=== PATIENT | male | born 1930 | race Caucasian/White ===

== ENCOUNTER 2020-01-06 10:21 | Inpatient (IN) | payer OTHER ==
--- NOTE | 2020-01-06 10:47 | RAPID ---
Rapid Response - Rapid Response Assessment: Rapid response was called overhead at 10:16 to Registration. Upon arrival, pt was found supine on the ground in the hallway with his feet crossed at the ankles with a small amount of blood on the floor near his head and trunk. The pt's brother was there and stated he was here for an echo because he was told he might have a heart murmur. The RN in attendance who arrived before me stated the pt had fallen forward and was unresponsive but had a pulse. Initially, pt was unresponsive to sternal rub and had a leftward gaze. Alen Currie was called, and pt was taken to the ED for further care. In the elevator to the ED, pt began to blink his eyes. When he arrived in the treatment room, he was moving his arms. Initial Exam unresponsive to sternal rub leftward gaze RRR #r/o syncope vs mechanical fall vs CVA vs seizure -CT head and c-spine ordered by ED
--- NOTE | 2020-01-06 10:48 | PDOC ---
Attending Attestation - Resident Resident Name: Sergio Sage - ED Attending Attestation I have performed the following: I have examined & evaluated the patient, The case was reviewed & discussed with the resident, I agree w/resident's findings & plan - HPI HPI: 01/06/20 10:42 89-year-old male, per medical record has history of heart disease and high cholesterol, prostate CA presents to ED following rapid response with head injury. Patient was in the hospital accompanied by his brother, was scheduled for echo today and while ambulating fell to the ground striking his right head. Rapid response was called, the patient was unresponsive, brought to the emergency department where code ferguson was activated. 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 - Physicial Exam PE: 01/06/20 10:44 Blood pressure stable, glucose normal, afebrile Right lateral eyebrow stellate laceration, no other obvious deformity Eyes open, follows some commands, nonconversant Abdomen benign No extremity deformities or injuries Moves all 4 extremities equally on command - Critical Care Time Total Critical Care Time: 80 Critical Care Statement: The care of this patient involved high complexity decision making to prevent further life threatening deterioration of the patient's condition and/or to evaluate & treat vital organ system(s) failure or risk of failure. - Medical Decision Making 01/06/20 10:45 89-year-old man on aspirin with history of heart disease presents with fall/head injury, nonfocal neurological exam with stable vital signs but certainly depressed mental status and somnolence/lethargy. No focality on exam, rule out traumatic injury, unclear etiology of fall, question CVA versus syncope. No focal deficit on exam to suggest ischemic event, not a candidate for tpa. Stroke protocol initiated Labs, EKG, chest x-ray CT C-spine Admit 01/06/20 12:57 labs notable for anemia and renal insufficiency, no baseline available. ct with intraparenchymal/subarachnoid/subdural bleed. no shift. mental status markedly improved after CT, now conversant, moving all extremities, oriented at baseline. discussed advanced directives, and he would want intubation if needed. keppra for sz, platelets for asa reversal d/w nsgy, non-operative and agrees. ICU consulted and admitting patient Heart Score/ECG Review #1 ECG reviewed & interpreted by me at: 10:58 General ECG Interpretation: Sinus Rhythm, Normal Rate (71), Normal Intervals (qtc 406), No acute ischemic changes Discharge - Discharge Information Problems reviewed: Yes Clinical Impression/Diagnosis: Closed head injury Qualifiers: Encounter type: initial encounter Qualified Code(s): S09.90XA - Unspecified injury of head, initial encounter Facial laceration Qualifiers: Encounter type: initial encounter Qualified Code(s): S01.81XA - Laceration without foreign body of other part of head, initial encounter Accidental fall Qualifiers: Encounter type: initial encounter Qualified Code(s): W19.XXXA - Unspecified fall, initial encounter Traumatic subarachnoid hemorrhage Qualifiers: Encounter type: initial encounter Loss of consciousness presence/duration: with LOC of 30 min or less Qualified Code(s): S06.6X1A - Traumatic subarachnoid hemorrhage with loss of consciousness of 30 minutes or less, initial encounter Traumatic subdural hematoma Qualifiers: Encounter type: initial encounter Loss of consciousness presence/duration: with LOC of 30 min or less Qualified Code(s): S06.5X1A - Traumatic subdural hemorrhage with loss of consciousness of 30 minutes or less, initial encounter Condition: Guarded - Follow up/Referral - Patient Discharge Instructions - Post Discharge Activity
--- NOTE | 2020-01-06 11:04 | PDOC ---
History of Present Illness - General Chief Complaint: Injury Stated Complaint: POSSIBLE CVA Time Seen by Provider: 01/06/20 10:32 History Source: Patient Exam Limitations: No Limitations - History of Present Illness Initial Comments: 01/06/20 10:57 PCP: Dr. Croft HPI: 89 yo M pmh HTN, cardiac murmur, on daily 81mg ASA, presenting following rapid response in lobby for ?syncope with head trauma while registering for an outpatient ECHO. Patient has healthy, ambulatory baseline. Unwitnessed collapse (immediately found down) with LOC and right eyebrow laceration from glasses, patient initially unresponsive with report of left gaze deviation. On arrival in the ED, opens eyes spontaneously, moving extremities x4 but altered mentation, stats his name. Activated as code ferguson given gaze deviation, taken to CT for CT/CTA/Cerical spine. On return to department, MSE greatly improved, states name, date of , cooperates with ROS and neuro exam. Does not recall the specific events leading up to his fall. Denies chest pain, palpitations, headache, nausea, vomiting, pain anywhere in his body, weakness. Brother states patient had no complaints this morning before they presented to the ED. All: NKDA Meds: Per chart PMH: As above PSH: Per chart NIH Stroke Scale - Last Known Well Date/Time & Onset Date Last Known Well: 01/06/20 Time Last Known Well: 10:00 - Initial Evaluation Level of consciousness: Alert Ask patient the month and their age: Answers both correctly Ask patient to open & close eyes; make fist and let go: Obeys both correctly Best gaze (horizontal eye movement): Normal Visual field testing: No visual field loss Facial paresis (Show teeth/raise eyebrows/close eyes tight): Normal symmetrical movement Motor Function: Left Arm: Normal Motor Function: Right Arm: Normal (extends arm 90 (or 45) degrees for 10 seconds without drift Motor Function: Left Leg: Normal (extends leg 30 degrees for 5 seconds without drift) Motor Function: Right Leg: Normal (extends leg 30 degrees for 5 seconds without drift) Limb Ataxia: No ataxia Sensory(Use pinprick test arms,legs,trunk,face/side to side): Normal Best language (Describe picture, name items, read sentences): No Aphasia Dysarthria (read several words): Normal articulation Extinction and Inattention: No abnormality - Total Score NIH Stroke Scale Score: 0 Past History - Travel History Traveled outside of the country in the last 30 days: No Close contact w/someone who was outside of country & ill: No - Medical History Allergies/Adverse Reactions: Allergies Allergy/AdvReac Type Severity Reaction Status Date / Time No Known Allergies Allergy Verified 01/06/20 11:07 Home Medications: Ambulatory Orders Aspirin Coated [Ecotrin -] 325 mg PO DAILY 11/09/13 Atorvastatin Ca [Lipitor -] 20 mg PO DAILY 11/09/13 Carvedilol Phosphate [Coreg Cr] 80 mg PO DAILY 11/09/13 Cancer: Yes (prostate) Cardiac Disorders: Yes HTN: Yes Hypercholesterolemia: Yes - Psycho-Social/Smoking History Smoking History: Never smoked Have you smoked in the past 12 months: No Review of Systems - Review of Systems Able to Perform ROS?: Yes Is the patient limited German proficient: Yes Constitutional: No: Chills, Fever, Weakness HEENTM: No: Recent change in vision, Nose Congestion, Throat Pain Respiratory: No: Cough, Shortness of Breath, Wheezing Cardiac (ROS): Yes: See HPI, Syncope. No: Chest Pain, Edema, Irregular Heart Rate, Lightheadedness, Palpitations, Chest Tightness ABD/GI: No: Constipated, Diarrhea, Nausea, Vomiting : No: Burning, Dysuria, Frequency Musculoskeletal: No: Muscle Pain, Muscle Weakness, Neck Pain Integumentary: No: Bruising, Pruritus, Rash Neurological: No: Headache, Numbness, Tingling, Weakness, Unsteady Gait, Ataxia Psychiatric: No: Stressors, Change in Appetite Endocrine: No: Increased Thirst, Increased Urine, Change in Weight, Other Hematologic/Lymphatic: No: Anemia, Blood Clots, Easy Bleeding All Other Systems: Reviewed and Negative *Physical Exam - Physical Exam 01/06/20 11:06 Vitals reviewed, notable for 100s/60s, AFHDS GEN: Appears stated age, initially lethargic. AAOx1 (self). HEENT: Normocephalic with laceration overlying right lateral eyebrow, EOMI, PERRL. Sclera anicteric, non-injected. No facial asymmetry. Moist mucous membranes. Normal voice. Trachea midline. CV: RRR, S1/S2, no murmurs / rubs / gallops appreciated. LUNG: CTABL, normal work of breathing. No wheezes, rales, rhonchi. No cough. Speaking full sentences. GI: Soft, NTND, +BS, no guarding, no rebound. No masses. EXTREMITIES: 2+ distal pulses. No clubbing / cyanosis / edema. No gross deformity in any extremity. SKIN: Warm, dry, no rashes appreciated, non-jaundiced. PSYCH: Normal mood and affect. Cooperative and appropriate. NEURO: Strength 5+ biceps, triceps, intrinsic hand muscles, hip flexors / extensors / foot dorsiflexion / plantarflexion Sensation normal throughout to light touch Reflexes not assessed Eiggpw-meck-dtmlxk and heel-martinez normal (+No dysmetria) Rapid alternating movements normal (No dysdiadokinesis) Pronator drift not assessed Cranial nerves: CN 1: Not assessed CN 2: Normal visual mcelroy and acuity CN 3/4/6: EOMI CN 5: Normal facial sensation CN 7: Normal facial movement CN 8: Symmetric hearing soft sounds CN 9: Uvula midline and normal articulation CN 10: Uvula midline and normal articulation CN 11: Normal shrug / head turn strength CN 12: Normal tongue movement A&Ox3, normal remote recall but cannot remember coming to the hospital. ED Treatment Course - LABORATORY CBC & Chemistry Diagram: 01/06/20 10:51 01/06/20 10:51 Medical Decision Making - Medical Decision Making 01/06/20 11:15 89 yo M pmh HTN, cardiac murmur, on daily 81mg ASA, presenting following rapid response in lobby for ?syncope with head trauma while registering for an outpatient ECHO. Concerning for likely syncope vs stroke (NIHSS once MSE improved reassuring) vs traumatic bleed vs concussion. - NCHCT, Chest CTA, Cervical Spine - Stroke Order Set - On ASA daily, plts ordered CTs demonstrating traumatic bleeds isolated to the right side, subarachnoid and subdural MSE exam improving following return to the department 01/06/20 11:39 Patient consented for platelets Conversign with brother at bedside Updated on results Spoke with Dr. Elaine Kurtz, neurosurgery who agrees with ICU admission, laith smith, plts, neuro checks Spoke with ICU, endorsed patient for admission Pending CMP Discharge - Discharge Information Problems reviewed: Yes Clinical Impression/Diagnosis: Closed head injury Qualifiers: Encounter type: initial encounter Qualified Code(s): S09.90XA - Unspecified injury of head, initial encounter Facial laceration Qualifiers: Encounter type: initial encounter Qualified Code(s): S01.81XA - Laceration without foreign body of other part of head, initial encounter Accidental fall Qualifiers: Encounter type: initial encounter Qualified Code(s): W19.XXXA - Unspecified fall, initial encounter Traumatic subarachnoid hemorrhage Qualifiers: Encounter type: initial encounter Loss of consciousness presence/duration: with LOC of 30 min or less Qualified Code(s): S06.6X1A - Traumatic subarachnoid hemorrhage with loss of consciousness of 30 minutes or less, initial encounter Traumatic subdural hematoma Qualifiers: Encounter type: initial encounter Loss of consciousness presence/duration: with LOC of 30 min or less Qualified Code(s): S06.5X1A - Traumatic subdural hemorrhage with loss of consciousness of 30 minutes or less, initial encounter Condition: Guarded - Admission Yes - Follow up/Referral Referrals: Joseph Croft MD [Primary Care Provider] - - Patient Discharge Instructions - Post Discharge Activity
[2020-01-06 11:16] LABS: BASO % 0.2 % (0-2.0); EOS % 0.4 % (0-4.5); HEMATOCRIT 26.7 % (35.4-49); HEMOGLOBIN 9.1 GM/dL (11.7-16.9); MCH 34.1 pg (25.7-33.7); MEAN CELL VOLUME 100.3 fl (80-96); MEAN PLT VOLUME 7.9 fl (7.5-11.1); MONO % 11.1 % (3.8-10.2); NEUT % 73.3 % (42.8-82.8); PLATELET COUNT 120 K/MM3 (134-434); RBC 2.67 M/mm3 (4.00-5.60); RDW 13.9 % (11.9-15.9); WHITE BLOOD COUNT 9.3 K/mm3 (4.0-10.0)
[2020-01-06 11:23] LABS: INR 1.21 (0.83-1.09); PROTHROMBIN TIME (PATIENT) 14.3 SEC (9.7-13.0)
[2020-01-06] MEDS ORDERED: levETIRAcetam 500 MG/5 ML INJECTION VIAL IVPB ONE ×3 (11:34→22:00)
[2020-01-06 11:41] LABS: ALBUMIN 2.5 g/dl (3.4-5.0); ALK PHOS 49 U/L (45-117); ANION GAP 6 MMOL/L (8-16); BILIRUBIN,TOTAL 0.6 mg/dL (0.2-1); BLOOD UREA NITROGEN 50.8 mg/dL (7-18); CALCIUM 8.6 mg/dL (8.5-10.1); CHLORIDE 108 mmol/L (98-107); CHOLESTEROL 123 mg/dL (50-200); CO2 26 mmol/L (21-32); CREATININE 2.1 mg/dL (0.55-1.3); GLUCOSE,RANDOM 114 mg/dL (74-106); HDL CHOLESTEROL 49 mg/dL (40-60); LDL CHOLESTEROL (ONLY SJRH) 70 mg/dL (5-100); POTASSIUM 4.4 mmol/L (3.5-5.1); SGOT/AST 14 U/L (15-37); SGPT/ALT 12 U/L (13-61); SODIUM 140 mmol/L (136-145); TOT PROT 5.6 g/dl (6.4-8.2); TRIGLYCERIDES 56 mg/dL (0-150)
[2020-01-06] MEDS ORDERED: DIPHTH,PERTUSS(ACELL),TET 0.5 ML DISP.SYRIN IM ONE ×2 (12:26→12:27)
[2020-01-06] MEDS ORDERED: PANTOPRAZOLE SODIUM 40 MG/100 ML BAG IVPB ONE (12:27)
[2020-01-06] MEDS: PANTOPRAZOLE SODIUM 40 MG VIAL IVPUSH SCH (13:30)
--- NOTE | 2020-01-06 14:54 | CONSULT ---
Consult Consult Specialty:: Nephrology Reason for Consultation:: CKD - History of Present Illness Chief Complaint: syncope and head trauma History of Present Illness: Pt is an 89 year old male with pmhx of htn and ckd who had a syncopal episode while registering for an echo. He also had head trauma. He was found to have a small subarachnoid hemorrhage. he is awake and able to give some history. His brother is at bedside and he assisted with history. He has incontinence at baseline. He denies headache. He is not sure what meds he is on but does know he takes aspirin. I discussed the case with the ICU team. - History Source History Provided By: Patient, Family Member - Past Medical History Cardio/Vascular: Yes: Murmur - Alcohol/Substance Use Hx Alcohol Use: No - Smoking History Smoking history: Never smoked Have you smoked in the past 12 months: No Home Medications - Allergies Allergies/Adverse Reactions: Allergies Allergy/AdvReac Type Severity Reaction Status Date / Time No Known Allergies Allergy Verified 01/06/20 11:07 - Home Medications Home Medications: Ambulatory Orders Aspirin [ASA -] 81 mg PO DAILY 01/06/20 Family Medical History Family History: Denies Review of Systems - Review of Systems Constitutional: reports: Malaise, Weakness Eyes: reports: No Symptoms HENT: reports: No Symptoms Gastrointestinal: reports: No Symptoms Genitourinary: reports: No Symptoms Musculoskeletal: reports: Muscle Weakness Neurological: reports: No Symptoms Endocrine: reports: No Symptoms Hematology/Lymphatic: reports: No Symptoms Physical Exam Vital Signs: Vital Signs Temperature 97.6 F 01/06/20 14:08 Pulse Rate 64 01/06/20 14:31 Respiratory Rate 14 01/06/20 14:31 Blood Pressure 97/52 L 01/06/20 14:31 O2 Sat by Pulse Oximetry (%) 100 01/06/20 14:31 Constitutional: Yes: Mild Distress Eyes: Yes: Conjunctiva Clear HENT: Yes: Other (head lasceration) Cardiovascular: Yes: S1, S2 Respiratory: Yes: CTA Bilaterally Gastrointestinal: Yes: Soft Renal/: Yes: Incontinence Musculoskeletal: Yes: WNL Edema: No Integumentary: Yes: Skin Tear Neurological: Yes: Other (awake) Labs: CBC, BMP 01/06/20 10:51 01/06/20 10:51 Imaging - Results Cat Scan: Report Reviewed Problem List - Problems (1) CKD (chronic kidney disease) Code(s): N18.9 - CHRONIC KIDNEY DISEASE, UNSPECIFIED (2) Accidental fall Code(s): W19.XXXA - UNSPECIFIED FALL, INITIAL ENCOUNTER Qualifiers: Encounter type: initial encounter Qualified Code(s): W19.XXXA - Unspecified fall, initial encounter (3) Closed head injury Code(s): S09.90XA - UNSPECIFIED INJURY OF HEAD, INITIAL ENCOUNTER Qualifiers: Encounter type: initial encounter Qualified Code(s): S09.90XA - Unspecified injury of head, initial encounter Assessment/Plan Current Medications Generic Name Dose Route Start Last Admin Trade Name Freq PRN Reason Stop Dose Admin Chlorhexidine Gluconate 1 applic 01/06/20 22:00 Hibiclens For Decolonization - TP HS TONY Levetiracetam 1,000 mg 01/06/20 22:00 Keppra Injection - IVPB 01/06/20 22:01 ONCE ONE Mupirocin 1 applic 01/06/20 22:00 Bactroban Ointment (For Decolonization) - NS 01/11/20 21:59 BID TONY Pantoprazole Sodium 40 mg 01/06/20 12:15 01/06/20 13:30 Protonix Iv IVPUSH 40 mg DAILY TONY Administration Impression 1. syncope 2. subarachnoid hemorrhage 3. murmur 4. ckd Plan - monitor renal function - check ua - follow renal ultrasound - check outpt labs - cont ICU monitoring
--- NOTE | 2020-01-06 15:39 | HP ---
Admitting History and Physical - Primary Care Physician PCP: Joseph Croft - Admission History of Present Illness: pt seen / examined in icu chart is reviewed case d/w icu team In summary/ Er records 89 yo M pmh HTN, cardiac murmur, on daily 81mg ASA, presenting following rapid response in lobby for ?syncope with head trauma while registering for an outpatient ECHO. Patient has healthy, ambulatory baseline. Unwitnessed collapse (immediately found down) with LOC and right eyebrow laceration from glasses, patient initially unresponsive with report of left gaze deviation. On arrival in the ED, opens eyes spontaneously, moving extremities x4 but altered mentation, stats his name. Activated as code ferguson given gaze deviation, taken to CT for CT/CTA/Cerical spine. On return to department, MSE greatly improved, states name, date of , cooperates with ROS and neuro exam. Does not recall the specific events leading up to his fall. Denies chest pain, palpitations, headache, nausea, vomiting, pain anywhere in his body, weakness. Brother states patient had no complaints this morning before they presented to the ED. ct scan -- showed -- s/d and sub arachnoid hgge pt admitted to icu for close monitoring Neuro surgery consulted Cardiology and Renal also consulted for renal insufficiency/ cad. Pt seen by me in icu awake no distress Anxiety + denies headache/ dizziness/ cp denies abd pain History Source: Medical Record Limitations to Obtaining History: Clinical Condition - Past Medical History Cardiovascular: Yes: Murmur - Smoking History Smoking history: Never smoked Have you smoked in the past 12 months: No - Alcohol/Substance Use Hx Alcohol Use: No Home Medications - Allergies Allergies/Adverse Reactions: Allergies Allergy/AdvReac Type Severity Reaction Status Date / Time No Known Allergies Allergy Verified 01/06/20 11:07 - Home Medications Home Medications: Ambulatory Orders Aspirin [ASA -] 81 mg PO DAILY 01/06/20 Family Medical History Family History: Denies Review of Systems Findings/Remarks: see [facility] [place] Physical Examination Vital Signs: Vital Signs Temperature 97.6 F 01/06/20 14:08 Pulse Rate 64 01/06/20 14:31 Respiratory Rate 14 01/06/20 14:31 Blood Pressure 97/52 L 01/06/20 14:31 O2 Sat by Pulse Oximetry (%) 100 01/06/20 14:31 Constitutional: Yes: No Distress, Anxious Eyes: Yes: Conjunctiva Clear, Other (echymosis +) Neck: Yes: Supple Cardiovascular: Yes: Regular Rate and Rhythm, Murmur Respiratory: Yes: Diminished Gastrointestinal: Yes: Soft Edema: No Labs: CBC, BMP 01/06/20 10:51 01/06/20 10:51 Imaging - Results Chest X-ray: Report Reviewed Cat Scan: Report Reviewed Problem List - Problems (1) Accidental fall Code(s): W19.XXXA - UNSPECIFIED FALL, INITIAL ENCOUNTER Qualifiers: Encounter type: initial encounter Qualified Code(s): W19.XXXA - Unspecified fall, initial encounter (2) CKD (chronic kidney disease) Code(s): N18.9 - CHRONIC KIDNEY DISEASE, UNSPECIFIED (3) Traumatic subarachnoid hemorrhage Code(s): S06.6X9A - TRAUM SUBRAC HEM W LOC OF UNSP DURATION, INIT Qualifiers: Encounter type: initial encounter Loss of consciousness presence/duration: with LOC of 30 min or less Qualified Code(s): S06.6X1A - Traumatic subarachnoid hemorrhage with loss of consciousness of 30 minutes or less, initial encounter (4) Traumatic subdural hematoma Code(s): S06.5X9A - TRAUM SUBDR HEM W LOC OF UNSP DURATION, INIT Qualifiers: Encounter type: initial encounter Loss of consciousness presence/duration: with LOC of 30 min or less Qualified Code(s): S06.5X1A - Traumatic subdural hemorrhage with loss of consciousness of 30 minutes or less, initial encounter (5) Abrasion of face Code(s): S00.81XA - ABRASION OF OTHER PART OF HEAD, INITIAL ENCOUNTER (6) Heart murmur, systolic Code(s): R01.1 - CARDIAC MURMUR, UNSPECIFIED Assessment/Plan Admit icu Close monitoring mechanical fall vs syncope Will consult neuro also off asa scd stocking Will follow condition gaurded cc time 45 min
--- NOTE | 2020-01-06 15:44 | CON.CARD ---
Consult Consult Specialty:: cardiology Reason for Consultation:: syncope - History of Present Illness Chief Complaint: Pt thinks he is in the middle of "the block"; wants "the cupboards" (?guardrails of the bed) pulled under his hands. Says his name is "Wilfred Watkins". History of Present Illness: Mr. Farmer is an 89-year-old white male, per medical record has history of heart disease and high cholesterol, prostate CA, now presents to ED following rapid response with head injury. Patient was in the hospital accompanied by his brother; he was scheduled for echo today and while ambulating fell to the ground, striking his right head. Rapid response was called, the patient was unresponsive, brought to the emergency department where code ferguson was activated. Patient offering limited history, is quite functional at baseline with some early dementia per brother, is following commands but nonconversant at the time of admission. Physical exam noted 4/6 systolic murmur, RSB-->Lt axilla - History Source History Provided By: Patient, Medical Record Limitations to Obtaining History: Dementia - Past Medical History DICTATING MACHINE TYPIST: Yes: Dementia Cardio/Vascular: Yes: HTN, Hyperlipdemia, Murmur Renal/: Yes: Renal Inusuff Heme/Onc: Yes: Anemia - Alcohol/Substance Use Hx Alcohol Use: No - Smoking History Smoking history: Never smoked Have you smoked in the past 12 months: No Home Medications - Allergies Allergies/Adverse Reactions: Allergies Allergy/AdvReac Type Severity Reaction Status Date / Time No Known Allergies Allergy Verified 01/06/20 11:07 - Home Medications Home Medications: Ambulatory Orders Aspirin [ASA -] 81 mg PO DAILY 01/06/20 Atorvastatin Calcium [Lipitor] 20 mg PO DAILY 01/07/20 Chlorthalidone 25 mg PO DAILY 01/07/20 Lisinopril [Zestril] 40 mg PO DAILY 01/07/20 Family Medical History Family History: Unable to Obtain Review of Systems Unable to obtain ROS, reason: dementia/syncope - Review of Systems Constitutional: reports: Weakness Eyes: reports: No Symptoms HENT: reports: No Symptoms - Risk Factors Known Risk Factors: Yes: Age, Gender, Hypercholesterolemia (by history), Other (dementia) Vital Signs: Vital Signs Temperature 97.6 F 01/06/20 14:08 Pulse Rate 64 01/06/20 14:31 Respiratory Rate 14 01/06/20 14:31 Blood Pressure 97/52 L 01/06/20 14:31 O2 Sat by Pulse Oximetry (%) 100 01/06/20 15:37 Constitutional: Yes: Anxious, Thin Eyes: Yes: WNL HENT: Yes: Other (right periorbital contusion) Neck: Yes: Decreased ROM Respiratory: Yes: WNL, Regular Gastrointestinal: Yes: Soft Renal/: No: Anuria Cardiovascular: Yes: Regular Rate and Rhythm JVD: No Carotid Bruit: No PMI: Non-Displaced Heart Sounds: Yes: S1 (decreased in intensity), S2 Murmur: Yes: Systolic Murmur, Grade 4 Musculoskeletal: Yes: Other Extremities: Yes: WNL Edema: No Peripheral Pulses WNL: Yes Integumentary: Yes: Bruising Neurological: Yes: Confusion, Weakness Psychiatric: Yes: Other (dementia) - Other Data Labs, Other Data: CBC, BMP 01/06/20 10:51 01/06/20 10:51 INR, PTT INR 1.21 (0.83-1.09) H 01/06/20 10:51 Troponin, BNP 01/06/20 10:51 Troponin I < 0.02 Troponin, BNP 01/06/20 10:51 Troponin I < 0.02 Abnormal Lab Results 01/06/20 01/06/20 01/06/20 10:51 10:51 10:51 RBC 2.67 L Hgb 9.1 L Hct 26.7 L MCV 100.3 H MCH 34.1 H Plt Count 120 L Monocytes % 11.1 H PT with INR 14.30 H INR 1.21 H Chloride 108 H Anion Gap 6 L BUN 50.8 H Creatinine 2.1 H Random Glucose 114 H AST 14 L ALT 12 L Total Protein 5.6 L Albumin 2.5 L Echo: Pending Imaging - Results Chest X-ray: Image Reviewed (no acute pathology) EKG: Report Reviewed Assessment/Plan Syncope, right periorbital injury anemia renal dysfunction dementia by hx; ?mental status changes exacerbated post-syncope cardiac valvulopathy; severe cervical vertebral degeneration; ? impingement C4 hx hyperlipidemia (total cholesterol this admission 123 mg/dL: on no medication) elevated glucose Pl: ECHO for LVEF, valve status. EKG; telemetry; Holter monitor. 1st TNI < 0.02; f/u serially CT head: no acute pathology of brain; further cerebral studies per neurology. IV fluids; F/u Is and Os, BUN/Cr, daily weight, electrolytes, BP and HR. orthostatic vital signs once he is well-hydrated. F/u renal status, Hb after hydration. Carotid artery doppler. F/u TSH, HGBA1c. Neurological evaluation (syncope; dementia).
--- NOTE | 2020-01-06 16:48 | CONSULT ---
Consultation: REQUESTING PROVIDER: CONSULT REQUEST: We have been asked to medically evaluate this patient for (specify). HISTORY OF PRESENT ILLNESS: 89 YO M PMH HTN, HLD, CKD (Cr ~2), and prostate cancer (s/p radical prostatectomy) presented to the hospital for a scheduled echo appointment for a suspected murmur by his PCP, but fell in the hospital while walking with his brother. He had fallen forward and was unresponsive initially to sternal rub. Because the patient had a leftward gaze, a code ferguson was called. Patient later move his limbs spontaneously and regained consciousness. Patient fell on his glasses and suffered a laceration to the right supraorbital ridge. CTH showed a small Subarachnoid hemorrhage. Patient endorsed "missing a step" and denied dizziness, lightheadedness, weakness. Patient endorsed falling again this morning at home that was unwitnessed, that he attributing to tripping. He had also tripped a few days ago prior to today, but patient was unable to explain the details. However, patient denies history of tripping/syncope. PMH: HTN, HLD, CKD (Cr ~2), and prostate cancer (s/p radical prostatectomy) medical history and home medications were obtained from Dr. Joseph Croft as patient is poor historian, and his brother stated that he did not know his brother's PMH or medications. The brother stated that the patient gets his medication in the mail, but did not know the name of the service. PSH: patient denies, but team discussion with Dr. Croft endorsed radical prostatectomy Social History: denies alcohol,cigarette, drug use Family History (per brother): father had unspecified cardiac condition REVIEW OF SYSTEMS: CONSTITUTIONAL: Absent: fever, chills, diaphoresis, generalized weakness, malaise, loss of appetite, weight change HEENT: Absent: rhinorrhea, nasal congestion, throat pain, throat swelling, difficulty swallowing, mouth swelling, ear pain, eye pain, visual changes CARDIOVASCULAR: Absent: chest pain, syncope, palpitations, irregular heart rate, lightheadedness, peripheral edema RESPIRATORY: Absent: cough, shortness of breath, dyspnea with exertion, orthopnea, wheezing, stridor, hemoptysis GASTROINTESTINAL: Absent: abdominal pain, abdominal distension, nausea, vomiting, diarrhea, constipation, melena, hematochezia GENITOURINARY: Absent: dysuria, frequency, urgency, hesitancy, hematuria, flank pain, genital pain MUSCULOSKELETAL: Absent: myalgia, arthralgia, joint swelling, back pain, neck pain SKIN: Absent: rash, itching, pallor HEMATOLOGIC/IMMUNOLOGIC: Absent: easy bleeding, easy bruising, lymphadenopathy, frequent infections ENDOCRINE: Absent: unexplained weight gain, unexplained weight loss, heat intolerance, cold intolerance NEUROLOGIC: head pain at laceration Absent: focal weakness or paresthesias, dizziness, unsteady gait, seizure, mental status changes, bladder or bowel incontinence PSYCHIATRIC: Absent: anxiety, depression, suicidal or homicidal ideation, hallucinations. PHYSICAL EXAMINATION Vital Signs - 24 hr 01/06/20 01/06/20 01/06/20 10:21 11:01 11:14 Temperature 98.5 F Pulse Rate 60 Pulse Rate [ Apical] Respiratory 12 Rate Blood Pressure 101/56 L Blood Pressure [Right Arm] O2 Sat by Pulse 100 99 Oximetry (%) 01/06/20 01/06/20 01/06/20 11:15 12:23 13:36 Temperature Pulse Rate Pulse Rate [ 72 67 64 Apical] Respiratory 18 18 18 Rate Blood Pressure Blood Pressure 100/52 L 101/55 L 95/53 L [Right Arm] O2 Sat by Pulse 98 98 100 Oximetry (%) 01/06/20 01/06/20 01/06/20 14:08 14:31 15:37 Temperature 97.6 F Pulse Rate 63 64 Pulse Rate [ Apical] Respiratory 16 14 Rate Blood Pressure 97/52 L 97/52 L Blood Pressure [Right Arm] O2 Sat by Pulse 98 100 100 Oximetry (%) GENERAL: AAOX1 HEAD: NC, laceration on Right supraorbital ridge with ecchymosis EYES: Pupils equal, round and reactive to light, extraocular movements intact, No lid lag. EARS, NOSE, THROAT: Ears normal, nares patent, oropharynx clear without exudates. Moist mucous membranes. LUNGS: Breath sounds equal, clear to auscultation bilaterally. No wheezes, and no crackles. No accessory muscle use. HEART: Regular rate and rhythm, normal S1 and S2. systolic murmur best heard along Left sternal border ABDOMEN: Soft, nontender, not distended, normoactive bowel sounds, no guarding, no rebound UPPER EXTREMITIES: 2+ pulses, warm, well-perfused. No cyanosis. No clubbing. No peripheral edema. LOWER EXTREMITIES: 2+ pulses, warm, well-perfused. No calf tenderness. No peripheral edema. NEUROLOGICAL: Cranial nerves II-XII intact. Normal speech. Strength 4/5 UE b/l; 5/5 LE b/l. Sensation intact. SKIN: stage II ulcer on Left and right buttock & sacrum Laboratory Results - last 24 hr 01/06/20 01/06/20 01/06/20 10:51 10:51 10:51 WBC 9.3 RBC 2.67 L Hgb 9.1 L Hct 26.7 L MCV 100.3 H MCH 34.1 H MCHC 34.0 RDW 13.9 Plt Count 120 L MPV 7.9 Absolute Neuts (auto) 6.8 Neutrophils % 73.3 Lymphocytes % 15.0 Monocytes % 11.1 H Eosinophils % 0.4 Basophils % 0.2 Nucleated RBC % 0 PT with INR 14.30 H INR 1.21 H PTT (Actin FS) 28.0 Sodium Potassium Chloride Carbon Dioxide Anion Gap BUN Creatinine Est GFR (CKD-EPI)AfAm Est GFR (CKD-EPI)NonAf Random Glucose Calcium Total Bilirubin AST ALT Alkaline Phosphatase Creatine Kinase Troponin I Total Protein Albumin Triglycerides Cholesterol Total LDL Cholesterol HDL Cholesterol Blood Type O POSITIVE Antibody Screen Negative 01/06/20 01/06/20 10:51 10:51 WBC RBC Hgb Hct MCV MCH MCHC RDW Plt Count MPV Absolute Neuts (auto) Neutrophils % Lymphocytes % Monocytes % Eosinophils % Basophils % Nucleated RBC % PT with INR INR PTT (Actin FS) Sodium 140 Potassium 4.4 Chloride 108 H Carbon Dioxide 26 Anion Gap 6 L BUN 50.8 H Creatinine 2.1 H Est GFR (CKD-EPI)AfAm 31.84 Est GFR (CKD-EPI)NonAf 27.47 Random Glucose 114 H Calcium 8.6 Total Bilirubin 0.6 AST 14 L ALT 12 L Alkaline Phosphatase 49 Creatine Kinase 74 Troponin I < 0.02 Total Protein 5.6 L Albumin 2.5 L Triglycerides 56 Cholesterol 123 Total LDL Cholesterol 70 HDL Cholesterol 49 Blood Type Cancelled Antibody Screen Cancelled Active Medications Generic Name Dose Route Start Last Admin Trade Name Freq PRN Reason Stop Dose Admin Chlorhexidine Gluconate 1 applic 01/06/20 22:00 Hibiclens For Decolonization - TP HS TONY Levetiracetam 1,000 mg 01/06/20 22:00 Keppra Injection - IVPB 01/06/20 22:01 ONCE ONE Mupirocin 1 applic 01/06/20 22:00 Bactroban Ointment (For Decolonization) - NS 01/11/20 21:59 BID TONY Pantoprazole Sodium 40 mg 01/06/20 12:15 01/06/20 13:30 Protonix Iv IVPUSH 40 mg DAILY TONY Administration ASSESSMENT/PLAN: 89 YO M PMH HTN, HLD, CKD (Cr ~2), and prostate cancer (s/p radical prostatectomy) presented to the hospital for a scheduled echo for a suspected murmur and had a fall in the hospital. CTH showed a small Subarachnoid hemorrhage. Neuro #Subarachnoid hemorrhage -Team Discussed with Neurosurgery. Not a surgical candidate. keppra 1 gm BID for seizure prophylaxis. -patient is agitated and confused. -Neurochecks Q1H, Fall Risk/Aspiration/Seizure precaustions -Neuro consult appreciated. eeg & - repeat ct head tomorrow am -hold Aspirin given hemorrhage. 1 unit platelet transfused -CTH: Small SUBARCHNOID HEMORRHAGE in RIGHT frontal lobe, anteriorly,medially with suggestion of cortical contusions. Similar findings in Right frontal lobe, posteriorly,laterally. Small subarachnoid hemorrhage in the sylvian fissure. There is also suggestion of a small subdural hemorrhage along posterior margin of the Right parietal lobe measuring 5 mm. Comminuted slightly depressed skull fracuuture is identifiede -CTA Head: NO evidence of aneurysm, focal hemodynamically significant stenosis, major artery cutoff or vascular malformation within the central intracranial arterial circulation. Small calcified plaques in the cavernous carotid artery bilaterally. Mild Right periorbital and preseptal soft tissue swelling -CT c-spine: straightening of the cervical spine. Minimal retrolisthesis of C3 over C4 and C4 over C5. Multilevel significant degenerative disc disease and bilateral facet hypertrophy. C3-C4 mild Left paracentral disc osteophyte complex moderately narrowing the LEFT foramen and likely impinging left C4 nerve root Cardio -EKG: NSR, Left axis deviation, Junctional ST depression, 71 bpm, QTC 406 -Cardio consult appreciated. -trop <0.02; f/u trop -orthostatic negative (supine and sitting). Will repeat Orthostatic vitals signs after patient is hydrated -ECHO: Mild concentric LV hypertrophy, LV systolic function normal. EF 55-60%. LA mildly dilated. moderate mitral alve thickening. MOderate-severe mitral annular calcification. 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 mild mitral/tricuspid regurg. Right ventricular systolic pressure elevated at 30-40 mm Hg. Moderate-sever aortic stenosis. Moderate aortic regrug -f/u Carotid artery doppler #HTN: Will hold chlorthalidone 25 as it can be cause of the patient's possible syncope. Will hold home ZESTRIL (lisinopril) 40 given patient's renal status #HLD: -lipid panel WNL -will restart home lipitor 20 -hold Aspirin given hemorrhage. Pulm CXR: No acute chest pathology. Renal CKD -BUN/Cr 50.8/ 2.1 (Cr typically about [address] Croft) -monitor Is and Os, BUN/Cr daily. -f/u UA -f/u renal ultrasound Heme #Thrombocytopenia -Plt 120: s/p 1 unit platelet transfused given Subarachnoid hemorrhage #Macrocytic anemia -Hgb 9.1/26.7, MCV 100.3 -f/u folate, B12 MSK CXR: degenerative spine and shoulder changes. Both humeri appear elevated in relation to the glenoids. THis indicates old rotator cuff injuries. ENDO HgbA1C ordered GI no acute issues pantoprazole 40 IV Push Daily FEN NS@75 ml/hr monitor lytes NPO given patient's confused state DVT ppx scds Dispo: We will continue to follow the patient. Thank you for this consultative opportunity. Visit type - Medication Review Med list reviewed for High Risk Meds patients 65 and older: Yes - Emergency Visit Emergency Visit: Yes ED Registration Date: 01/06/20 Care time: The patient presented to the Emergency Department on the above date and was hospitalized for further evaluation of their emergent condition. - New Patient This patient is new to me today: No - Critical Care Critical Care patient: No ATTENDING PHYSICIAN STATEMENT I saw and evaluated the patient. I reviewed the resident's note and discussed the case with the resident. I agree with the resident's findings and plan as documented. SUBJECTIVE: OBJECTIVE: ASSESSMENT AND PLAN:
--- NOTE | 2020-01-06 17:21 | PN ---
Progress Note (short form) - Note Progress Note: cc syncope and sah HPI 89 year old male history of htn, came for echo and had a fall had ct head , showed brain contusion and small sah. Neurosurgery were consulted and not a surgical candiddate. Patinet is restrained , agitated and confused, no seizure activity. denies headache. He is moving all extremity. He has bruise on his head. Allergies/Adverse Reactions: Allergies Allergy/AdvReac Type Severity Reaction Status Date / Time No Known Allergies Allergy Verified 01/06/20 11:07 Home Medications: Aspirin [ASA -] 81 mg PO DAILY 01/06/20 Vital Signs: Vital Signs Temperature 97.6 F 01/06/20 14:08 Pulse Rate 64 01/06/20 14:31 Respiratory Rate 14 01/06/20 14:31 Blood Pressure 97/52 L 01/06/20 14:31 O2 Sat by Pulse Oximetry (%) 100 01/06/20 14:31 ROS,FH,SH reviewed in chart NEUROLOGICAL EXAMINATION Alert oriented x 1, neck is supple vss, slight agitated and restrained, eomi, pupils reactive no face asymmetry moving all ext ct head showed mild frontal lobe contusion and small sah Assessment/Plan -- sah and contusion, history of mci and now confued due to brain contusion and sah, on keppra as per neurosurgery. no a surical candidate Plan_ continue keppra - eeg - repeat ct head tomorrow am - neurosurgery consult - supportive care - cardiology consult appreciated - aspirin is on hold and platelet transfusion was given Thanking you so much Daniel Gallegos MD
--- NOTE | 2020-01-06 18:15 | PN ---
Progress Note (short form) - Note Progress Note: NEUROSURGERY CONSULT DICTATED Chart reviewed Pt examined CT reviewed Pt with syncope and fall in lobby area by report. Pt denies LOC however and insists that he "tripped". Had H/A earlier but not now. PE: A/A/Ox2 R frontal laceration/edema CN- intact; Motor- at least 4/5 b UE/LE; Sensation- intact LT; DTR- 1+ INR 1.21, Cr 2.1, H/H 9.1/26.[address]- R frontal contusion/TSAH and R parietal small SDH, no skull fx, atrophy CTA- negative for aneurysm Traumatic R frontal contusion and parietal SDH- non-operative Anemia, cause unknown CRF? Keppra for sz prophylaxis x [address] in am to ascertain stability Medical evaluation for suspected syncope recommended D/w ED
--- NOTE | 2020-01-06 20:05 | ECHO ---
Name: TD LOMELI Exam:Adult Echocardiogram Study Date: 01/06/2020 03:46 PM Age: 89 yrs Reason For Study: Evaluate LV function. Height: 66 in Weight: 150 lb BSA: 1.8 m2 BP: 97/52 mmHg MMode/2D Measurements & Calculations RVDd: 3.2 cm Ao root diam: 3.8 cm IVSd: 1.2 cm LA dimension: 2.1 cm LVIDd: 3.7 cm ACS: 1.1 cm LVIDs: 2.3 cm LVPWd: 1.0 cm EDV(Ramon): 58.1 ml LVOT diam: 2.0 cm ESV(Ramon): 18.5 ml TAPSE: 2.2 cm RV S Ruben: 16.3 cm/sec Doppler Measurements & Calculations MV E max ruben: 130.3 cm/sec MVA(VTI): 1.8 cm2 MV A max ruben: 148.8 cm/sec MV V2 max: 162.9 cm/sec MV E/A: 0.88 MV max P.6 mmHg MV dec time: 0.23 sec MV V2 mean: 95.9 cm/sec MV mean P.2 mmHg MV V2 VTI: 48.5 cm MV P1/2t max ruben: 139.0 cm/sec Ao V2 max: 367.4 cm/sec MV P1/2t: 83.4 msec Ao max P.3 mmHg Ao V2 mean: 259.1 cm/sec MVA(P1/2t): 2.6 cm2 Ao mean P.6 mmHg MV dec slope: 488.5 cm/sec2 Ao V2 VTI: 84.4 cm LATRICIA(I,D): 1.0 cm2 AI P1/2t: 334.9 msec LATRICIA(V,D): 0.81 cm2 AI max ruben: 349.3 cm/sec LV V1 max P.3 mmHg AI max P.0 mmHg LV V1 mean P.0 mmHg LV V1 max: 90.5 cm/sec AI dec slope: 305.5 cm/sec2 LV V1 mean: 67.1 cm/sec LV V1 VTI: 26.5 cm MR max ruben: 550.3 cm/sec SV(LVOT): 87.0 ml MR max P.4 mmHg TR max ruben: 269.8 cm/sec PA V2 max: 90.9 cm/sec TR max P.4 mmHg PA max P.3 mmHg PA acc slope: 427.1 cm/sec2 PA acc time: 0.15 sec PI end-d ruben: 76.0 cm/sec Med Peak E' Ruben: 3.6 cm/sec Med E/e': 36.1 Lat Peak E' Ruben: 6.7 cm/sec Lat E/e': 19.4 PA pr(Accel): 10.9 mmHg Tech Comments TDS. Patient very thin, scanned supine, and unable to lay still. Left Ventricle There is mild concentric left ventricular hypertrophy. Left ventricular systolic function is normal. Ejection Fraction = 55-60%. Right Ventricle The right ventricle is normal in size and function. Atria The left atrium is mildly dilated. Mitral Valve There is moderate mitral valve thickening. There is moderate to severe mitral annular calcification. 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 There is mild mitral regurgitation. Tricuspid Valve The tricuspid valve is not well visualized, but is grossly normal. There is mild tricuspid regurgitat ion. Right ventricular systolic pressure is elevated at 30-40mmHg. Aortic Valve Moderate to severe valvular aortic stenosis. Moderate aortic regurgitation. Pulmonic Valve The pulmonic valve is not well seen, but is grossly normal. There is no pulmonic valvular stenosis. M ild pulmonic valvular regurgitation. Great Vessels The aortic root is normal size. Pericardium/Pleura There is no pericardial effusion. Interpretation Summary There is mild concentric left ventricular hypertrophy. Left ventricular systolic function is normal. Ejection Fraction = 55-60%. The left atrium is mildly dilated. There is moderate mitral valve thickening. There is moderate to severe mitral annular calcification. 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 There is mild tricuspid regurgitation. Right ventricular systolic pressure is elevated at 30-40mmHg. Moderate to severe valvular aortic stenosis. Moderate aortic regurgitation. There is no pericardial effusion. MD Diallo *Reynaldo 01/06/2020 08:05 PM
[2020-01-06] MEDS ORDERED: SODIUM CHLORIDE 1,000 ML IV SCH (21:30)
[2020-01-07] MEDS ORDERED: SODIUM CHLORIDE 1,000 ML IV SCH (04:34)
[2020-01-07] MEDS: MUPIROCIN 2% TOPICAL OINTMENT FOR DECOLONIZATION NS SCH ×3 (06:32→21:15)
[2020-01-07] MEDS: CHLORHEXIDINE GLUCONATE 4% CLEANSER FOR DECOLONIZATION TP SCH ×2 (06:32→21:16)
[2020-01-07 06:44] LABS: HEMATOCRIT 26.6 % (35.4-49); HEMOGLOBIN 8.9 GM/dL (11.7-16.9); MCH 33.5 pg (25.7-33.7); MCHC 33.5 g/dl (32.0-35.9); MEAN CELL VOLUME 99.8 fl (80-96); MEAN PLT VOLUME 8.1 fl (7.5-11.1); PLATELET COUNT 141 K/MM3 (134-434); RBC 2.66 M/mm3 (4.00-5.60); RDW 13.2 % (11.9-15.9); WHITE BLOOD COUNT 9.9 K/mm3 (4.0-10.0)
[2020-01-07] MEDS: SODIUM CHLORIDE 1,000 ML IV SCH (07:00)
[2020-01-07 07:15] LABS: BLOOD UREA NITROGEN 42.4 mg/dL (7-18); CALCIUM 8.2 mg/dL (8.5-10.1); CREATININE 1.8 mg/dL (0.55-1.3); MAGNESIUM 2.4 mg/dL (1.8-2.4); PHOSPHOROUS 3.8 mg/dL (2.5-4.9); POTASSIUM 4.4 mmol/L (3.5-5.1)
--- NOTE | 2020-01-07 07:27 | PN ---
Progress Note (short form) - Note Progress Note: Coverage for Dr. Rush/Jennifer Chief Complaint: Events noted, notes reviewed, in bed restless, confused and disoriented History of Present Illness: Seen and examined in the ICU. Events noted, notes reviewed, in bed restless, confused and disoriented Echocardiography report noted normal LV systolic function, moderate to severe Medications: Current Medications Generic Name Dose Route Start Last Admin Trade Name Freq PRN Reason Stop Dose Admin Chlorhexidine Gluconate 1 applic 01/06/20 22:00 01/07/20 06:32 Hibiclens For Decolonization - TP 1 applic HS TONY Administration Sodium Chloride 1,000 mls @ 75 mls/hr 01/07/20 06:35 Normal Saline - IV ASDIR TONY Levetiracetam 1,000 mg 01/07/20 10:00 Keppra Injection - IVPB BID TONY Mupirocin 1 applic 01/06/20 22:00 01/07/20 06:32 Bactroban Ointment (For Decolonization) - NS 01/11/20 21:59 Not Given BID TONY Pantoprazole Sodium 40 mg 01/06/20 12:15 01/06/20 13:30 Protonix Iv IVPUSH 40 mg DAILY TONY Administration Review of Systems Unable to obtain/confusion- disorientation Vital Signs: Last Vital Signs Temp Pulse Resp BP Pulse Ox 98.1 F 65 15 75/53 L 100 01/06/20 18:00 01/07/20 04:08 01/07/20 04:08 01/07/20 04:08 01/07/20 04:08 Intake & Output 01/04/20 01/05/20 01/06/20 01/07/20 23:59 23:59 23:59 23:59 Intake Total 1176 Balance 1176 Weight 128 lb 12.8 oz Neck: Supple Negative JVD Respiratory: Diminished Breath Sounds at the Bases Cardiovascular: S1 S2 Regular Rate Rhythm Grade 3/6 CATHRYN Gastrointestinal: Soft Benign Normal Bowel Sounds Ext: Negative Edema Bilaterally Labs: CBC, BMP 01/07/20 05:15 01/07/20 05:15 Hepatic Panel Total Bilirubin 0.6 mg/dL (0.2-1) 01/06/20 10:51 AST 14 U/L (15-37) L 01/06/20 10:51 ALT 12 U/L (13-61) L 01/06/20 10:51 Alkaline Phosphatase 49 U/L (45-117) 01/06/20 10:51 Albumin 2.5 g/dl (3.4-5.0) L 01/06/20 10:51 INR, PTT INR 1.21 (0.83-1.09) H 01/06/20 10:51 Assessment/Plan ASSESSMENT: 1. Syncopal episode in a patient with moderate to severe aortic valve stenosis 2. CAD angina pectoris 3. Diastolic LV dysfunction with clinical class 0 NYHA classification LV failure 4. Head trauma with the above noted syncopal episode and evidence of intracranial bleed 5. HTN 6. Hypercholesterolemia 7. Carotid stenosis/moderate in severity 8. Organoc basin syndrome/dementia 9. Acute on chronic kidney disease 10. Anemia PLAN: 1. Further evaluation of the above noted valvular pathology/aortic valve stenosis is to be deferred pending clinical improvement of the above-note presentation/head trauma with evidence of intracranial bleed- outpatient evaluation 2. Ideally patient should be on beta-cee therapy, hemodynamics permitting 3. Ideally patient should be on ANGY inhibitor or angiotensin receptor cee therapy, hemodynamics permitting- in addition to be deferred pending renal function stabilization at least to baseline 4. Monitor hemoglobin level and transfuse to maintain hemoglobin equal or greater than 8.0 Gerardo Garcia MD
--- NOTE | 2020-01-07 09:01 | EKG ---
Test Reason : Blood Pressure : / mmHG Vent. Rate : 071 BPM Atrial Rate : 071 BPM P-R Int : 174 ms QRS Dur : 078 ms QT Int : 374 ms P-R-T Axes : 000 -42 014 degrees QTc Int : 406 ms POOR DATA QUALITY, INTERPRETATION MAY BE ADVERSELY AFFECTED NORMAL SINUS RHYTHM LEFT AXIS DEVIATION JUNCTIONAL ST DEPRESSION, PROBABLY ABNORMAL ABNORMAL ECG WHEN COMPARED WITH ECG OF 08-JUL-1998 08:37, ST NOW DEPRESSED IN INFERIOR LEADS Confirmed by Riana Shaffer ([id number]) on 01/07/2020 9:01:28 AM Referred By: Confirmed By:Riana Shaffer
--- NOTE | 2020-01-07 09:27 | PN ---
Progress Note (short form) - Note Progress Note: PULM/CCM Pt seen and examined in ICU 24HR: F/u Repeat CT head appears to show interval enlargement R frontal contusion/TSAH and R parietal SDH, to be discussed with Dr Kurtz Pt awake but confused, non focal Keppra to 500BID 2/2 creat clear Vital Signs Temp 98.9 F 01/07/20 02:00 Pulse 60 01/07/20 05:30 Resp 14 01/07/20 05:30 BP 146/117 H 01/07/20 05:30 Pulse Ox 100 01/07/20 05:30 Intake & Output 01/06/20 01/06/20 01/07/20 11:59 23:59 11:59 Intake Total 1176 Balance 1176 Weight 68.039 kg 58.423 kg Intake: IV 975 Normal Saline - 1,000 ml 150 @ 150 mls/hr IV ASDIR TONY Rx#:[id number] Normal Saline - 1,000 ml 825 @ 75 mls/hr IV ASDIR TONY Rx#:[id number] Oral 0 Platelets 201 Other: Voiding Method Diaper # Unmeasured Voids Void 3 Bowel Movement Yes: 1BM during shift Height 5 ft 6 in 5 ft 6 in Body Mass Index (BMI) 24.2 20.7 Weight Measurement Method Built in [facility] CBC, BMP 01/07/20 05:15 01/07/20 05:15 Active Medications Chlorhexidine Gluconate (Hibiclens For Decolonization -) 1 applic TP HS TONY Last Admin: 01/07/20 06:32 Dose: 1 applic Documented by: Sodium Chloride (Normal Saline -) 1,000 mls @ 75 mls/hr IV ASDIR TONY Levetiracetam (Keppra Injection -) 500 mg IVPB BID TONY Mupirocin (Bactroban Ointment (For Decolonization) -) 1 applic NS BID TONY Stop: 01/11/20 21:59 Last Admin: 01/07/20 06:32 Dose: Not Given Documented by: Pantoprazole Sodium (Protonix Iv) 40 mg IVPUSH DAILY TONY Last Admin: 01/06/20 13:30 Dose: 40 mg Documented by: PE: Gen; eld confused man, eleno HEENT: orbital hematoma stable PULM: clear CV: CATHRYN at LSB ABD: + BS Ext: no edema Neuro: confused, follows simple intermittently ASSESSMENT/PLAN: 89 YO M PMH HTN, HLD, CKD (Cr ~2), and prostate cancer (s/p radical prostatectomy) presented to the hospital for a scheduled echo for a suspected murmur and had a fall in the hospital. CTH showed a small Subarachnoid he morrhage. Neuro #Subarachnoid hemorrhage -repeat CT head done, awaiting final read -chaparro Cardio #LVH, -Cards following recs appreciated -cont to hold asa given ICH - non-operative at this point given ICH -Spoke with Dr Manzanares, can be referred for TAVR once stable Renal CKD -BUN/Cr 50.8/ 2.1 (Cr typically about [address] Croft) -monitor Is and Os, BUN/Cr daily. -renal dose medsChaparro adjusted Heme #Thrombocytopenia -normal transfusion thresholds GI no acute issues pantoprazole 40 IV Push Daily FEN NS@75 ml/hr monitor lytes NPO given patient's confused state -needs swallow eval DVT ppx scds ICU monitoring given interval enlargement.
[2020-01-07] MEDS: levETIRAcetam 500 MG/5 ML INJECTION VIAL IVPB SCH ×2 (09:29→21:16)
[2020-01-07] MEDS: PANTOPRAZOLE SODIUM 40 MG VIAL IVPUSH SCH (09:29)
[2020-01-07] MEDS ORDERED: levETIRAcetam 500 MG/5 ML INJECTION VIAL IVPB SCH (10:00)
--- NOTE | 2020-01-07 10:01 | PN ---
Progress Note (short form) - Note Progress Note: NEUROSURGERY Pt with syncope and fall in lobby area by report. Pt denies LOC however and insists that he "tripped". Had H/A earlier but not now. cardiology input noted. PE: T 98.9, BP variable, A/A/Ox2 R frontal laceration/edema stable CN- intact; Motor- at least 4/5 b UE/LE; Sensation- intact LT; DTR- 1+ INR 1.21, Cr 1.8, Hgb 8.[address]- R frontal contusion/TSAH and R parietal small SDH, no skull fx, atrophy CTA- negative for aneurysm Carotid doppler- , but no hemodynamically significant stenosis Traumatic R frontal contusion and parietal SDH- non-operative Anemia CRI, on iv hydration Keppra for sz prophylaxis x [address] today to ascertain stability Cont medical/cardiology evaluation for syncope D/w BERTIN
--- NOTE | 2020-01-07 12:26 | PN ---
Progress Note (short form) - Note Progress Note: events noted random movements of arms and legs-- he is restrained currently say "yes" Vital Signs - 24 hr 01/06/20 01/06/20 01/06/20 13:36 14:00 14:08 Temperature 97.6 F 97.6 F Pulse Rate 64 63 Pulse Rate [ 64 Apical] Respiratory 18 14 16 Rate Blood Pressure 97/52 L 97/52 L Blood Pressure 95/53 L [Right Arm] O2 Sat by Pulse 100 100 98 Oximetry (%) 01/06/20 01/06/20 01/06/20 15:37 16:00 18:00 Temperature 98.1 F Pulse Rate 67 70 Pulse Rate [ Apical] Respiratory 15 20 Rate Blood Pressure 122/100 99/54 L Blood Pressure [Right Arm] O2 Sat by Pulse 100 100 100 Oximetry (%) 01/06/20 01/06/20 01/06/20 20:00 21:00 22:00 Temperature Pulse Rate 64 69 71 Pulse Rate [ Apical] Respiratory 15 15 18 Rate Blood Pressure 106/59 L 87/68 L 87/68 L Blood Pressure [Right Arm] O2 Sat by Pulse 100 100 98 Oximetry (%) 01/06/20 01/07/20 01/07/20 23:00 00:00 01:00 Temperature Pulse Rate 72 76 70 Pulse Rate [ Apical] Respiratory 18 18 15 Rate Blood Pressure 96/58 L 91/40 L 117/92 Blood Pressure [Right Arm] O2 Sat by Pulse 98 100 97 Oximetry (%) 01/07/20 01/07/20 01/07/20 02:00 03:00 04:08 Temperature 98.9 F Pulse Rate 73 63 65 Pulse Rate [ Apical] Respiratory 23 H 13 15 Rate Blood Pressure 84/37 L 100/59 L 75/53 L Blood Pressure [Right Arm] O2 Sat by Pulse 97 95 100 Oximetry (%) 01/07/20 01/07/20 01/07/20 05:00 05:30 09:00 Temperature 98 F Pulse Rate 55 L 60 Pulse Rate [ Apical] Respiratory 15 14 14 Rate Blood Pressure 85/58 L 146/117 H 93/64 Blood Pressure [Right Arm] O2 Sat by Pulse 100 100 100 Oximetry (%) Current Medications Generic Name Dose Route Start Last Admin Trade Name Freq PRN Reason Stop Dose Admin Chlorhexidine Gluconate 1 applic 01/06/20 22:00 01/07/20 06:32 Hibiclens For Decolonization - TP 1 applic HS TONY Administration Sodium Chloride 1,000 mls @ 75 mls/hr 01/07/20 06:35 01/07/20 07:00 Normal Saline - IV 75 mls/hr ASDIR TONY Administration Levetiracetam 500 mg 01/07/20 10:00 01/07/20 09:29 Keppra Injection - IVPB 500 mg BID TONY Administration Mupirocin 1 applic 01/06/20 22:00 01/07/20 09:29 Bactroban Ointment (For Decolonization) - NS 01/11/20 21:59 1 applic BID TONY Administration Pantoprazole Sodium 40 mg 01/06/20 12:15 01/07/20 09:29 Protonix Iv IVPUSH 40 mg DAILY TONY Administration Laboratory Results - last 24 hr 01/06/20 01/06/20 01/07/20 10:51 10:51 05:15 WBC 9.9 RBC 2.66 L Hgb 8.9 L Hct 26.6 L MCV 99.8 H MCH 33.5 MCHC 33.5 RDW 13.2 Plt Count 141 MPV 8.1 Sodium 140 Potassium 4.4 Chloride 108 H Carbon Dioxide 26 Anion Gap 6 L BUN 50.8 H Creatinine 2.1 H Est GFR (CKD-EPI)AfAm 31.84 Est GFR (CKD-EPI)NonAf 27.47 Random Glucose 114 H Hemoglobin A1c % Calcium 8.6 Phosphorus Magnesium Total Bilirubin 0.6 AST 14 L ALT 12 L Alkaline Phosphatase 49 Creatine Kinase 74 Troponin I < 0.02 Total Protein 5.6 L Albumin 2.5 L Triglycerides 56 Cholesterol 123 Total LDL Cholesterol 70 HDL Cholesterol 49 Vitamin B12 Serum Folate TSH 1.05 Blood Type O POSITIVE Antibody Screen Negative 01/07/20 01/07/20 01/07/20 05:15 05:15 05:15 WBC RBC Hgb Hct MCV MCH MCHC RDW Plt Count MPV Sodium 143 Potassium 4.4 Chloride 111 H Carbon Dioxide 25 Anion Gap 7 L BUN 42.4 H Creatinine 1.8 H Est GFR (CKD-EPI)AfAm 38.37 Est GFR (CKD-EPI)NonAf 33.10 Random Glucose 78 Hemoglobin A1c % 4.7 Calcium 8.2 L Phosphorus 3.8 Magnesium 2.4 Total Bilirubin AST ALT Alkaline Phosphatase Creatine Kinase Troponin I Total Protein Albumin Triglycerides Cholesterol Total LDL Cholesterol HDL Cholesterol Vitamin B12 1832 H Serum Folate 62 H TSH Blood Type Antibody Screen 01/07/20 05:15 WBC RBC Hgb Hct MCV MCH MCHC RDW Plt Count MPV Sodium Potassium Chloride Carbon Dioxide Anion Gap BUN Creatinine Est GFR (CKD-EPI)AfAm Est GFR (CKD-EPI)NonAf Random Glucose Hemoglobin A1c % Calcium Phosphorus Magnesium Total Bilirubin AST ALT Alkaline Phosphatase Creatine Kinase Troponin I < 0.02 Total Protein Albumin Triglycerides Cholesterol Total LDL Cholesterol HDL Cholesterol Vitamin B12 Serum Folate TSH 0.70 D Blood Type Antibody Screen laceration right eyebrow S1 S2 RRR Lungs decreased Abd- soft, NT No edema PLAN noted repeat CT head with ICU ICT EDUCATOR - Mike worsening bleed continue with supportive measures spoke with Neurosurgery-- not a candidate for surgery poor prognosis spoke with brother--pt is not nor does he have children pt lived on his own in an apt-- was having mild cognitive decline- his brother would take him to the bank and help pay bills He used to walk with a cane I explained poor prognosis to the brother and that surgery can not be considered The pt's niece will be coming by to see him today and his brother will make decisions about advanced directives total cc time-- 35 min Problem List - Problems (1) Accidental fall Code(s): W19.XXXA - UNSPECIFIED FALL, INITIAL ENCOUNTER Qualifiers: Encounter type: initial encounter Qualified Code(s): W19.XXXA - Unspecified fall, initial encounter (2) CKD (chronic kidney disease) Code(s): N18.9 - CHRONIC KIDNEY DISEASE, UNSPECIFIED (3) Closed head injury Code(s): S09.90XA - UNSPECIFIED INJURY OF HEAD, INITIAL ENCOUNTER Qualifiers: Encounter type: initial encounter Qualified Code(s): S09.90XA - Unspecified injury of head, initial encounter (4) Traumatic subarachnoid hemorrhage Code(s): S06.6X9A - TRAUM SUBRAC HEM W LOC OF UNSP DURATION, INIT Qualifiers: Encounter type: initial encounter Loss of consciousness presence/duration: with LOC of 30 min or less Qualified Code(s): S06.6X1A - Traumatic subarachnoid hemorrhage with loss of consciousness of 30 minutes or less, initial encounter (5) Traumatic subdural hematoma Code(s): S06.5X9A - TRAUM SUBDR HEM W LOC OF UNSP DURATION, INIT Qualifiers: Encounter type: initial encounter Loss of consciousness presence/duration: with LOC of 30 min or less Qualified Code(s): S06.5X1A - Traumatic subdural hemorrhage with loss of consciousness of 30 minutes or less, initial encounter (6) Abrasion of face Code(s): S00.81XA - ABRASION OF OTHER PART OF HEAD, INITIAL ENCOUNTER (7) Facial contusion Code(s): S00.83XA - CONTUSION OF OTHER PART OF HEAD, INITIAL ENCOUNTER (8) Laceration of eyebrow, right Code(s): S01.111A - LACERATION W/O FB OF RIGHT EYELID AND PERIOCULAR AREA, INIT
[2020-01-08] MEDS: SODIUM CHLORIDE 1,000 ML IV SCH (06:41)
[2020-01-08 06:57] LABS: HEMATOCRIT 28.8 % (35.4-49); HEMOGLOBIN 9.6 GM/dL (11.7-16.9); MCH 33.1 pg (25.7-33.7); MCHC 33.5 g/dl (32.0-35.9); MEAN CELL VOLUME 98.9 fl (80-96); PLATELET COUNT 155 K/MM3 (134-434); RBC 2.91 M/mm3 (4.00-5.60); RDW 13.2 % (11.9-15.9)
--- NOTE | 2020-01-08 07:05 | PN ---
Progress Note (short form) - Note Progress Note: Coverage for Dr. Rush/Jennifer Chief Complaint: Events noted, notes reviewed, in bed restless, remains confused and disoriented, overall no change in status History of Present Illness: Seen and examined in the ICU. Events noted, notes reviewed, in bed restless, remains confused and disoriented, overall no change in status Echocardiography report noted normal LV systolic function, moderate to severe Medications: Current Medications Generic Name Dose Route Start Last Admin Trade Name Jason PRN Reason Stop Dose Admin Chlorhexidine Gluconate 1 applic 01/06/20 22:00 01/07/20 21:16 Hibiclens For Decolonization - TP 1 applic HS TONY Administration Sodium Chloride 1,000 mls @ 75 mls/hr 01/07/20 06:35 01/08/20 06:41 Normal Saline - IV 75 mls/hr ASDIR TONY Administration Levetiracetam 500 mg 01/07/20 10:00 01/07/20 21:16 Keppra Injection - IVPB 500 mg BID TONY Administration Mupirocin 1 applic 01/06/20 22:00 01/07/20 21:15 Bactroban Ointment (For Decolonization) - NS 01/11/20 21:59 1 applic BID TONY Administration Pantoprazole Sodium 40 mg 01/06/20 12:15 01/07/20 09:29 Protonix Iv IVPUSH 40 mg DAILY TONY Administration Review of Systems Unable to obtain/confusion- disorientation Vital Signs: Last Vital Signs Temp Pulse Resp BP Pulse Ox 98.9 F 74 19 99/48 L 94 L 01/08/20 06:00 01/08/20 06:00 01/08/20 06:00 01/08/20 06:00 01/08/20 06:00 Intake & Output 01/05/20 01/06/20 01/07/20 01/08/20 23:59 23:59 23:59 23:59 Intake Total 1176 1375 525 Balance 1176 1375 525 Weight 128 lb 12.8 oz 128 lb 12.8 oz Neck: Supple Negative JVD Respiratory: Diminished Breath Sounds at the Bases Cardiovascular: S1 S2 Regular Rate Rhythm Grade 3/6 CATHRYN Gastrointestinal: Soft Benign Normal Bowel Sounds Ext: Negative Edema Bilaterally Labs: CBC, BMP 01/08/20 05:50 01/08/20 05:50 Hepatic Panel Total Bilirubin 0.6 mg/dL (0.2-1) 01/06/20 10:51 AST 14 U/L (15-37) L 01/06/20 10:51 ALT 12 U/L (13-61) L 01/06/20 10:51 Alkaline Phosphatase 49 U/L (45-117) 01/06/20 10:51 Albumin 2.5 g/dl (3.4-5.0) L 01/06/20 10:51 INR, PTT INR 1.21 (0.83-1.09) H 01/06/20 10:51 Assessment/Plan ASSESSMENT: 1. Syncopal episode in a patient with moderate to severe aortic valve stenosis 2. CAD angina pectoris 3. Diastolic LV dysfunction with clinical class 0 NYHA classification LV failure 4. Head trauma with the above noted syncopal episode and evidence of intracranial bleed 5. HTN 6. Hypercholesterolemia 7. Carotid stenosis/moderate in severity 8. Organic brain syndrome/dementia 9. Acute on chronic kidney disease 10. Anemia PLAN: 1. As outlined in yesterday's note further evaluation of the above noted valvular pathology/aortic valve stenosis is to be deferred pending clinical improvement of the above-note presentation/head trauma with evidence of intracranial bleed- outpatient evaluation 2. Ideally patient should be on beta-cee therapy, hemodynamics permitting 3. Ideally patient should be on ANGY inhibitor or angiotensin receptor cee therapy, hemodynamics permitting- in addition to be deferred pending renal function stabilization at least to baseline 4. Monitor hemoglobin level and transfuse to maintain hemoglobin equal or greater than 8.0 Gerardo Garcia MD
[2020-01-08 07:21] LABS: BLOOD UREA NITROGEN 44.6 mg/dL (7-18); CALCIUM 7.9 mg/dL (8.5-10.1); CREATININE 1.7 mg/dL (0.55-1.3); MAGNESIUM 2.3 mg/dL (1.8-2.4); PHOSPHOROUS 3.7 mg/dL (2.5-4.9); POTASSIUM 4.2 mmol/L (3.5-5.1)
[2020-01-08] MEDS: levETIRAcetam 500 MG/5 ML INJECTION VIAL IVPB SCH ×2 (10:00→21:59)
[2020-01-08] MEDS: MUPIROCIN 2% TOPICAL OINTMENT FOR DECOLONIZATION NS SCH ×2 (10:00→21:59)
[2020-01-08] MEDS: PANTOPRAZOLE SODIUM 40 MG VIAL IVPUSH SCH (10:00)
--- NOTE | 2020-01-08 10:36 | PN ---
Progress Note (short form) - Note Progress Note: NEUROSURGERY Pt with syncope and fall in lobby area by report. Pt denies LOC however and insists that he "tripped". Cardiology input noted. Pt denies H/A. PE: T 98.9, BP variable but mostly lowish A/A/Ox1-2 R frontal laceration/edema stable CN- intact; Motor- at least 4/5 b UE/LE; Sensation- intact LT; DTR- 1+ INR 1.21, Cr 1.8, Hgb 8.[address]- R frontal contusion/TSAH and R parietal small SDH, no skull fx, atrophy CTA- negative for aneurysm F/u head CT 01-06- B hygroma and R convexity extensive SAH, R IVH, mild cortical mass effect and minimal midline mass effect Carotid doppler- , but no hemodynamically significant stenosis Traumatic R frontal contusion and convexity SAH/R IVH- non-operative Anemia CRI, on iv hydration Keppra for sz prophylaxis x [address] today to ascertain stability Cont medical/cardiology evaluation/tx for syncope Albumin x 1 recommended to improve oncotic pressure D/w RN
--- NOTE | 2020-01-08 11:01 | PN ---
Progress Note (short form) - Note Progress Note: PULM/CCM Pt seen and examined in ICU 24HR: F/u Repeat CT head today. Pt awake but confused, non focal Vital Signs Period Temp Pulse Resp BP Sys/Rivera Pulse Ox Last 24 Hr 98.2 F-98.9 F 60-74 14-20 86-118/31-60 94-100 Intake & Output 01/05/20 01/06/20 01/07/20 01/08/20 23:59 23:59 23:59 23:59 Intake Total 1176 1375 525 Balance 1176 1375 525 Weight 58.423 kg 58.423 kg 58.06 kg CBC, BMP 01/08/20 05:50 01/08/20 05:50 Active Medications Chlorhexidine Gluconate (Hibiclens For Decolonization -) 1 applic TP HS [facility] Last Admin: 01/07/20 21:16 Dose: 1 applic Documented by: Sodium Chloride (Normal Saline -) 1,000 mls @ 75 mls/hr IV ASDIR [facility] Last Admin: 01/08/20 06:41 Dose: 75 mls/hr Documented by: Levetiracetam (Keppra Injection -) 500 mg IVPB BID [facility] Last Admin: 01/08/20 10:00 Dose: 500 mg Documented by: Mupirocin (Bactroban Ointment (For Decolonization) -) 1 applic NS BID [facility] Stop: 01/11/20 21:59 Last Admin: 01/08/20 10:00 Dose: 1 applic Documented by: Pantoprazole Sodium (Protonix Iv) 40 mg IVPUSH DAILY [facility] Last Admin: 01/08/20 10:00 Dose: 40 mg Documented by: PE: Gen; eld confused man, eleno HEENT: orbital hematoma stable PULM: clear CV: CATHRYN at LSB ABD: + BS Ext: no edema Neuro: confused, not following commands A/ Subarachnoid hemorrhage LVH, CKD Thrombocytopenia Hypernatremia Anemia - P/ -continue renal dose Keppra -Neuro checks -Appreciate neuro recs -repeat CT head done, awaiting final read -keppra -Cards following recs appreciated -cont to hold asa given ICH - non-operative at this point given ICH -As per Dr Manzanares, can be referred for TAVR once stable -monitor Is and Os, BUN/Cr -normal transfusion thresholds -pantoprazole 40 IV Push Daily for PUD ppx -IVF -NPO -SCD Ingris Almonte ACNP 0144
[2020-01-08] MEDS ORDERED: ALBUMIN HUMAN 5% 250 ML IV SOLUTION IVPB ONE (11:31)
--- NOTE | 2020-01-08 14:02 | CONS ---
DATE OF CONSULTATION: 01/06/2020 REQUESTING PHYSICIAN: Nato Mccray MD through the emergency department. GEOTHERMAL POWERPLANT MECHANIC HELPER: Tien Chan MD, Neurosurgery HISTORY OF PRESENT ILLNESS: Patient is an 89-year-old right-handed male with history of hypertension, cardiac murmur on baby aspirin who was found in the hospital lobby with a syncopal episode by report. The brother had reportedly stated that the patient was behind him, and he heard a thump behind him and the patient had fallen. There was a loss of consciousness for a short period of time. There was evidence of right frontal head trauma and he was then sent to the emergency room for evaluation and treatment. The patient did complain of headache earlier, but has no headache now. He denies any nausea or vomiting. He has no witnessed generalized tonic-clonic seizure activity. He has no history of systemic malignancy. PAST MEDICAL HISTORY: Significant for hypertension, cardiac murmur. MEDICATION: Includes only baby aspirin. ALLERGIES: There is no known drug allergy. FAMILY HISTORY: Noncontributory. SOCIAL HISTORY: He does not smoke and only drinks alcohol socially. He is retired. REVIEW OF SYSTEMS: Otherwise negative for major, constitutional, head and neck, cardiovascular, pulmonary, gastrointestinal, genitourinary, endocrinological, neurological or psychological problems except for the above. PHYSICAL EXAMINATION: Vital Signs: Temperature is 97.6. Blood pressure is 97/52 with pulse oximetry 100%, pulse rate of 64. HEENT: Shows a right frontal laceration with mild associated edema. Neck: Supple with no tenderness. Coronary: Demonstrated regular rhythm. There is a 3/6 flow murmur along the left sternal border. Lungs: Clear. Abdomen: Benign. Extremities: Show no signs of DVT. Neurologic: He is awake and alert, but he is only oriented x3. He thought it was November, but does know his name and the fact that he is at a hospital. Speech is generally fluent. The cranial nerve examination is intact II through XII. Motor examination shows he has at least 4/5 strength in the upper and lower extremities. Sensory examination intact to light touch. Deep tendon reflexes are 1+. Cerebellar examination demonstrated no resting tremor. LABORATORY: Examination shows white blood cell count of 9.3 and hemoglobin is 9.1. Platelet count is 120,000. INR is 1.21. Serum sodium is 140 and his potassium is 4.4. BUN is 50.1 and creatinine 2.1. LFTs are generally normal. Troponin is less than 0.02. Albumin is 2.5. CT scan of the head without contrast demonstrated the right frontal polar hypodensity consistent with hemorrhagic contusion and traumatic subarachnoid hemorrhage. There was also some slight amount of blood in his Sylvian fissure on the right which is subarachnoid in nature. A small right parietal subdural hematoma was noted with no mass effect or shift. There was moderate cerebral atrophy. There was moderate periventricular small vessel disease. CTA of the head did not demonstrate calcifications of the cavernous carotid artery, but there was no intracranial aneurysm or AVM. CT scan of the cervical spine demonstrated reversal of normal cervical lordosis. There was degenerative spondylolisthesis at C3-4 and C4-5. There was left C3-4 paracentral disk/osteophyte complex with impingement of the proximal neural foramen. There was no severe central stenosis at any level and there was no fracture. IMPRESSION: 1. Status post mechanical fall with right frontal hemorrhagic contusion/traumatic subarachnoid hemorrhage, right Sylvian fissure traumatic subarachnoid hemorrhage and right parietal subdural hematoma. 2. Rule out syncope of unknown origin. 3. Hypertension. 4. Anemia. 5. Probable chronic renal insufficiency. RECOMMENDATIONS: Patient presents with a fall in the lobby of the hospital. The brother thought that patient had a syncopal episode, but the patient adamantly denied that. He stated that he did not lose consciousness and only tripped and fell. A medical evaluation for syncope is recommended given the above inconsistent history. A CT scan of the head did demonstrate right sub hemorrhagic contusion, traumatic subarachnoid hemorrhage, and subdural hematoma. CTA of the head was negative. The patient should remain on Keppra for seizure prophylaxis for 7 days' duration. A followup CT scan should be done in the morning to assess stability of the CT scan findings. No neurosurgical evaluation is indicated nor recommended at this time. The above was discussed with the patient at bedside in the intensive care unit. TIEN CHAN M.D. [place]/[id number]
--- NOTE | 2020-01-08 15:15 | PN ---
Progress Note (short form) - Note Progress Note: Problems 1. syncope 2. subarachnoid hemorrhage 3. murmur 4. ckd Active Medications Chlorhexidine Gluconate (Hibiclens For Decolonization -) 1 applic TP HS [facility] Last Admin: 01/07/20 21:16 Dose: 1 applic Documented by: Sodium Chloride (Normal Saline -) 1,000 mls @ 75 mls/hr IV ASDIR [facility] Last Admin: 01/08/20 06:41 Dose: 75 mls/hr Documented by: Levetiracetam (Keppra Injection -) 500 mg IVPB BID [facility] Last Admin: 01/08/20 10:00 Dose: 500 mg Documented by: Mupirocin (Bactroban Ointment (For Decolonization) -) 1 applic NS BID [facility] Stop: 01/11/20 21:59 Last Admin: 01/08/20 10:00 Dose: 1 applic Documented by: Pantoprazole Sodium (Protonix Iv) 40 mg IVPUSH DAILY [facility] Last Admin: 01/08/20 10:00 Dose: 40 mg Documented by: Last Vital Signs Temp Pulse Resp BP Pulse Ox 97.9 F 65 16 108/50 L 99 01/08/20 12:00 01/08/20 12:00 01/08/20 12:00 01/08/20 12:00 01/08/20 12:00 CBC, BMP 01/08/20 05:50 01/08/20 05:50 IMP- S/P SYNCOPE AND FALL SAH LVH/ CKD HYPERNATREMIA ANEMIA Plan - monitor renal function - check ua - follow renal ultrasound - check outpt labs - cont ICU monitoring
[2020-01-08] MEDS ORDERED: PT OWN MED DRAWER 7, Y5N ONE (15:37)
--- NOTE | 2020-01-08 16:54 | PN ---
Progress Note (short form) - Note Progress Note: events noted spoke with RN Pt is now obtunded he is not moving his hands and feet not speaking Vital Signs - 24 hr 01/07/20 01/07/20 01/07/20 17:00 20:00 22:00 Temperature 98.6 F 98.3 F Pulse Rate 64 74 71 Respiratory 20 20 Rate Blood Pressure 92/31 L 98/48 L 102/50 L O2 Sat by Pulse 100 100 98 Oximetry (%) 01/08/20 01/08/20 01/08/20 00:00 02:00 04:00 Temperature 98.5 F Pulse Rate 64 68 63 Respiratory 18 14 16 Rate Blood Pressure 93/51 L 118/58 L 106/59 L O2 Sat by Pulse 97 98 95 Oximetry (%) 01/08/20 01/08/20 01/08/20 06:00 08:00 09:00 Temperature 98.9 F Pulse Rate 74 60 Respiratory 19 18 Rate Blood Pressure 99/48 L 103/44 L O2 Sat by Pulse 94 L 99 94 L Oximetry (%) 01/08/20 12:00 Temperature 97.9 F Pulse Rate 65 Respiratory 16 Rate Blood Pressure 108/50 L O2 Sat by Pulse 99 Oximetry (%) Current Medications Generic Name Dose Route Start Last Admin Trade Name Freq PRN Reason Stop Dose Admin Chlorhexidine Gluconate 1 applic 01/06/20 22:00 01/07/20 21:16 Hibiclens For Decolonization - TP 1 applic HS TONY Administration Sodium Chloride 1,000 mls @ 75 mls/hr 01/07/20 06:35 01/08/20 06:41 Normal Saline - IV 75 mls/hr ASDIR TONY Administration Levetiracetam 500 mg 01/07/20 10:00 01/08/20 10:00 Keppra Injection - IVPB 500 mg BID TONY Administration Mupirocin 1 applic 01/06/20 22:00 01/08/20 10:00 Bactroban Ointment (For Decolonization) - NS 01/11/20 21:59 1 applic BID TONY Administration Pantoprazole Sodium 40 mg 01/06/20 12:15 01/08/20 10:00 Protonix Iv IVPUSH 40 mg DAILY TONY Administration Laboratory Results - last 24 hr 01/06/20 01/08/20 01/08/20 12:05 05:50 05:50 WBC 11.0 H RBC 2.91 L Hgb 9.6 L Hct 28.8 L MCV 98.9 H MCH 33.1 MCHC 33.5 RDW 13.2 Plt Count 155 MPV 8.0 Sodium 146 H Potassium 4.2 Chloride 114 H Carbon Dioxide 23 Anion Gap 9 BUN 44.6 H Creatinine 1.7 H Est GFR (CKD-EPI)AfAm 41.11 Est GFR (CKD-EPI)NonAf 35.47 Random Glucose 64 L Calcium 7.9 L Phosphorus 3.7 Magnesium 2.3 COVID-19 (DAVON) Not detected S1 S2 RRR Lungs decreased Abd- soft, NT No edema PLAN noted repeat CT head bleed unchanged albumin today continue with supportive measures spoke with Neurosurgery-- not a candidate for surgery poor prognosis brother decided DNR/DNI palliative care Problem List - Problems (1) Accidental fall Code(s): W19.XXXA - UNSPECIFIED FALL, INITIAL ENCOUNTER Qualifiers: Encounter type: initial encounter Qualified Code(s): W19.XXXA - Unspecified fall, initial encounter (2) CKD (chronic kidney disease) Code(s): N18.9 - CHRONIC KIDNEY DISEASE, UNSPECIFIED (3) Closed head injury Code(s): S09.90XA - UNSPECIFIED INJURY OF HEAD, INITIAL ENCOUNTER Qualifiers: Encounter type: initial encounter Qualified Code(s): S09.90XA - Unspecified injury of head, initial encounter (4) Traumatic subarachnoid hemorrhage Code(s): S06.6X9A - TRAUM SUBRAC HEM W LOC OF UNSP DURATION, INIT Qualifiers: Encounter type: initial encounter Loss of consciousness presence/duration: with LOC of 30 min or less Qualified Code(s): S06.6X1A - Traumatic subarachnoid hemorrhage with loss of consciousness of 30 minutes or less, initial encounter (5) Traumatic subdural hematoma Code(s): S06.5X9A - TRAUM SUBDR HEM W LOC OF UNSP DURATION, INIT Qualifiers: Encounter type: initial encounter Loss of consciousness presence/duration: with LOC of 30 min or less Qualified Code(s): S06.5X1A - Traumatic subdural hemorrhage with loss of consciousness of 30 minutes or less, initial encounter (6) Abrasion of face Code(s): S00.81XA - ABRASION OF OTHER PART OF HEAD, INITIAL ENCOUNTER (7) Facial contusion Code(s): S00.83XA - CONTUSION OF OTHER PART OF HEAD, INITIAL ENCOUNTER (8) Laceration of eyebrow, right Code(s): S01.111A - LACERATION W/O FB OF RIGHT EYELID AND PERIOCULAR AREA, INIT
[2020-01-08] MEDS: CHLORHEXIDINE GLUCONATE 4% CLEANSER FOR DECOLONIZATION TP SCH (21:59)
[2020-01-09 08:49] LABS: BLOOD UREA NITROGEN 39.4 mg/dL (7-18); POTASSIUM 4.1 mmol/L (3.5-5.1)
[2020-01-09 08:58] LABS: BASO % 0.1 % (0-2.0); HEMATOCRIT 27.8 % (35.4-49); HEMOGLOBIN 9.4 GM/dL (11.7-16.9); MCH 33.3 pg (25.7-33.7); MCHC 33.7 g/dl (32.0-35.9); MEAN CELL VOLUME 98.7 fl (80-96); MONO % 9.9 % (3.8-10.2); PLATELET COUNT 152 K/MM3 (134-434); RBC 2.81 M/mm3 (4.00-5.60); RDW 13.3 % (11.9-15.9); WHITE BLOOD COUNT 9.4 K/mm3 (4.0-10.0)
[2020-01-09 08:58] LABS: CALCIUM 8.1 mg/dL (8.5-10.1); CREATININE 1.7 mg/dL (0.55-1.3); MAGNESIUM 2.1 mg/dL (1.8-2.4); PHOSPHOROUS 3.9 mg/dL (2.5-4.9)
--- NOTE | 2020-01-09 09:28 | PN ---
Progress Note, Physician History of Present Illness: Mr. Farmer is an 89-year-old white male, per medical record has history of heart disease and high cholesterol, prostate CA, now presents to ED following rapid response with head injury. Patient was in the hospital accompanied by his brother; he was scheduled for echo today and while ambulating fell to the ground, striking his right head. Rapid response was called, the patient was unr esponsive, brought to the emergency department where code ferguson was activated. Patient offering limited history, is quite functional at baseline with some early dementia per brother, is following commands but nonconversant at the time of admission. Physical exam noted 4/6 systolic murmur, RSB-->Lt axilla - Current Medication List Current Medications: Active Medications Chlorhexidine Gluconate (Hibiclens For Decolonization -) 1 applic TP HS [facility] Last Admin: 01/08/20 21:59 Dose: 1 applic Documented by: Sodium Chloride (Normal Saline -) 1,000 mls @ 75 mls/hr IV ASDIR [facility] Last Admin: 01/08/20 06:41 Dose: 75 mls/hr Documented by: Levetiracetam (Keppra Injection -) 500 mg IVPB BID [facility] Last Admin: 01/08/20 21:59 Dose: 500 mg Documented by: Mupirocin (Bactroban Ointment (For Decolonization) -) 1 applic NS BID [facility] Stop: 01/11/20 21:59 Last Admin: 01/08/20 21:59 Dose: 1 applic Documented by: Pantoprazole Sodium (Protonix Iv) 40 mg IVPUSH DAILY [facility] Last Admin: 01/08/20 10:00 Dose: 40 mg Documented by: - Objective Vital Signs: Vital Signs Temperature 97.9 F 01/09/20 02:00 Pulse Rate 55 L 01/09/20 08:00 Respiratory Rate 14 01/09/20 08:00 Blood Pressure 100/46 L 01/09/20 08:00 O2 Sat by Pulse Oximetry (%) 98 01/09/20 09:00 Eyes: Yes: WNL, Conjunctiva Clear, EOM Intact HENT: Yes: WNL, Atraumatic, Normocephalic Neck: Yes: WNL, Supple, Trachea Midline Cardiovascular: Yes: WNL, Regular Rate and Rhythm, Murmur, S1, S2 Respiratory: Yes: WNL, Regular, CTA Bilaterally Gastrointestinal: Yes: WNL, Normal Bowel Sounds Genitourinary: Yes: WNL Musculoskeletal: Yes: WNL Extremities: Yes: WNL Edema: No Integumentary: Yes: WNL Neurological: Yes: WNL Labs: CBC, BMP 01/09/20 05:45 01/09/20 05:55 INR, PTT INR 1.21 (0.83-1.09) H 01/06/20 10:51 Assessment/Plan 1. Syncopal episode in a patient with moderate to severe aortic valve stenosis 2. CAD angina pectoris 3. Diastolic LV dysfunction with clinical class 0 NYHA classification LV failure 4. Head trauma with the above noted syncopal episode and evidence of intrac ranial bleed 5. HTN 6. Hypercholesterolemia 7. Carotid stenosis/moderate in severity 8. Organic brain syndrome/dementia 9. Acute on chronic kidney disease 10. Anemia PLAN: 1. Further evaluation of the above noted valvular pathology/aortic valve stenosis is to be deferred pending clinical improvement of the above-note presentation/head trauma with evidence of intracranial bleed- outpatient evaluation 2. Ideally patient should be on beta-cee therapy, hemodynamics permitting 3. Ideally patient should be on ANGY inhibitor or angiotensin receptor cee therapy, hemodynamics permitting- in addition to be deferred pending renal function stabilization at least to baseline 4. Monitor hemoglobin level and transfuse to maintain hemoglobin equal or greater than 8.0 cc time spent 36 min
--- NOTE | 2020-01-09 09:33 | PN ---
Progress Note, Physician History of Present Illness: patient seen and examined in ICU Chart is reviewed Awake Follow simple commands answers simple questions - Current Medication List Current Medications: Active Medications Chlorhexidine Gluconate (Hibiclens For Decolonization -) 1 applic TP HS [facility] Last Admin: 01/08/20 21:59 Dose: 1 applic Documented by: Sodium Chloride (Normal Saline -) 1,000 mls @ 75 mls/hr IV ASDIR [facility] Last Admin: 01/08/20 06:41 Dose: 75 mls/hr Documented by: Levetiracetam (Keppra Injection -) 500 mg IVPB BID [facility] Last Admin: 01/08/20 21:59 Dose: 500 mg Documented by: Mupirocin (Bactroban Ointment (For Decolonization) -) 1 applic NS BID [facility] Stop: 01/11/20 21:59 Last Admin: 01/08/20 21:59 Dose: 1 applic Documented by: Pantoprazole Sodium (Protonix Iv) 40 mg IVPUSH DAILY [facility] Last Admin: 01/08/20 10:00 Dose: 40 mg Documented by: - Objective Vital Signs: Vital Signs Temperature 97.9 F 01/09/20 02:00 Pulse Rate 55 L 01/09/20 08:00 Respiratory Rate 14 01/09/20 08:00 Blood Pressure 100/46 L 01/09/20 08:00 O2 Sat by Pulse Oximetry (%) 98 01/09/20 09:00 Constitutional: Yes: No Distress Neck: Yes: Supple Cardiovascular: Yes: Regular Rate and Rhythm Respiratory: Yes: Diminished Gastrointestinal: Yes: Soft Edema: No Labs: CBC, BMP 01/09/20 05:45 01/09/20 05:55 INR, PTT INR 1.21 (0.83-1.09) H 01/06/20 10:51 Problem List - Problems (1) Accidental fall Code(s): W19.XXXA - UNSPECIFIED FALL, INITIAL ENCOUNTER Qualifiers: Encounter type: initial encounter Qualified Code(s): W19.XXXA - Unspecified fall, initial encounter (2) CKD (chronic kidney disease) Code(s): N18.9 - CHRONIC KIDNEY DISEASE, UNSPECIFIED (3) Traumatic subarachnoid hemorrhage Code(s): S06.6X9A - TRAUM SUBRAC HEM W LOC OF UNSP DURATION, INIT Qualifiers: Encounter type: initial encounter Loss of consciousness presence/duration: with LOC of 30 min or less Qualified Code(s): S06.6X1A - Traumatic subarachnoid hemorrhage with loss of consciousness of 30 minutes or less, initial encounter (4) Traumatic subdural hematoma Code(s): S06.5X9A - TRAUM SUBDR HEM W LOC OF UNSP DURATION, INIT Qualifiers: Encounter type: initial encounter Loss of consciousness presence/duration: with LOC of 30 min or less Qualified Code(s): S06.5X1A - Traumatic subdural hemorrhage with loss of consciousness of 30 minutes or less, initial encounter (5) Abrasion of face Code(s): S00.81XA - ABRASION OF OTHER PART OF HEAD, INITIAL ENCOUNTER (6) Heart murmur, systolic Code(s): R01.1 - CARDIAC MURMUR, UNSPECIFIED Assessment/Plan discussed with nursing staff monitor trial of feeding CT scan reviewed with Dr. Michel Kurtz I also discussed with him as well as with Will follow CC time approx 35 min.
--- NOTE | 2020-01-09 10:01 | PN ---
Progress Note (short form) - Note Progress Note: 89 year old male history of htn, came for echo and had a fall had ct head , showed brain contusion and small sah. Neurosurgery were consulted and not a surgical candiddate. Patinet is restrained , agitated and confused, no seizure activity. denies headache. He is moving all extremity. He has bruise on his head. -- patient was seen by neurosurgery over the weekend, repeat ct head done, chart reviewed and spoke to nursing staff. NEUROLOGICAL EXAMINATION Alert oriented x 1, neck is supple vss, slight agitated and restrained, eomi, pupils reactive no face asymmetry moving all ext ct head showed mild frontal lobe contusion and small sah repeat ct head on sep 20 was stable neurosurgery consult appreciated Assessment/Plan -- sah and contusion, history of mci and now confued due to brain contusion and sah, on keppra as per neurosurgery. no a surical candidate Plan_ continue keppra 1 gm iv bid - neurosurgery consult apreciated - supportive care - neurologically stable. Thanking you so much Daniel Gallegos MD
--- NOTE | 2020-01-09 10:09 | PN ---
Progress Note (short form) - Note Progress Note: NEUROSURGERY Pt with syncope and fall in lobby area by report. Pt denies LOC however and insists that he "tripped". Cardiology f/u noted. Pt denies H/A or N/V. PE: Tmax 97.9, AF, VSS A/A/Ox1-2 Following commands R frontal laceration/edema stable CN- intact; Motor- at least 4/5 b UE/LE; Sensation- intact LT; DTR- 1+ INR 1.21, Cr 1.[address]- R frontal contusion/TSAH and R parietal small SDH, no skull fx, atrophy CTA- negative for aneurysm F/u head CT 01-06- B hygroma and R convexity extensive SAH, R IVH, mild cortical mass effect and minimal midline mass effect Carotid doppler- , but no hemodynamically significant stenosis 01-07 CT- B subdural hygroma with R >> L convexity IRIS, B IVH, mild cortical mass effect R > L Traumatic R frontal contusion and convexity SAH/R IVH- non-operative given age and extensive concurrent medical conditions Anemia CRI, on iv hydration Ketamirra for sz prophylaxis x 1 week Cont medical/cardiology evaluation/tx for syncope Nutritional support PT/rehab D/w Dr. Fuchs
[2020-01-09] MEDS: MUPIROCIN 2% TOPICAL OINTMENT FOR DECOLONIZATION NS SCH (10:46)
[2020-01-09] MEDS: PANTOPRAZOLE SODIUM 40 MG VIAL IVPUSH SCH (10:46)
[2020-01-09] MEDS: levETIRAcetam 500 MG/5 ML INJECTION VIAL IVPB SCH ×2 (10:46→22:09)
[2020-01-09] MEDS: SODIUM CHLORIDE 1,000 ML IV SCH (10:46)
[2020-01-09] MEDS ORDERED: DEXTROSE 5%-NORMAL SALINE 1,000 ML IV SCH (12:45)
--- NOTE | 2020-01-09 14:04 | PN ---
Teaching Attending Note Name of Resident: Davian Pearson ATTENDING PHYSICIAN STATEMENT I saw and evaluated the patient. I reviewed the resident's note and discussed the case with the resident. I agree with the resident's findings and plan as documented. SUBJECTIVE: Patient seen and examined in the ICU. Lethargic but can intermittently be aroused and tell us his name. Does not follow commands. Made DNR/DNI. Intake & Output 01/06/20 01/07/20 01/08/20 01/09/20 23:59 23:59 23:59 23:59 Intake Total 1176 1375 1675 1000 Balance 1176 1375 1675 1000 Weight 128 lb 12.8 oz 128 lb 12.8 oz 128 lb Last Vital Signs Temp Pulse Resp BP Pulse Ox 98.4 F 49 L 20 95/49 L 99 01/09/20 10:00 01/09/20 10:00 01/09/20 10:00 01/09/20 10:00 01/09/20 10:00 Active Medications Chlorhexidine Gluconate (Hibiclens For Decolonization -) 1 applic TP HS [facility] Last Admin: 01/08/20 21:59 Dose: 1 applic Documented by: Dextrose/Sodium Chloride (D5-Ns -) 1,000 mls @ 75 mls/hr IV ASDIR [facility] Last Admin: 01/09/20 13:53 Dose: 75 mls/hr Documented by: Levetiracetam (Keppra Injection -) 500 mg IVPB BID [facility] Last Admin: 01/09/20 10:46 Dose: 500 mg Documented by: Mupirocin (Bactroban Ointment (For Decolonization) -) 1 applic NS BID [facility] Stop: 01/11/20 21:59 Last Admin: 01/09/20 10:46 Dose: 1 applic Documented by: Pantoprazole Sodium (Protonix Iv) 40 mg IVPUSH DAILY [facility] Last Admin: 01/09/20 10:46 Dose: 40 mg Documented by: PE: Gen; elderly, lethargic, NAD HEENT: orbital hematoma PULM: clear CV: S1S2 ABD: + BS Ext: no edema Neuro: Lethargic, not following commands Laboratory Results - last 24 hr 01/09/20 01/09/20 05:45 05:55 WBC 9.4 RBC 2.81 L Hgb 9.4 L Hct 27.8 L MCV 98.7 H MCH 33.3 MCHC 33.7 RDW 13.3 Plt Count 152 MPV 8.0 Absolute Neuts (auto) 7.5 Neutrophils % 80.0 Lymphocytes % 10.0 D Monocytes % 9.9 Eosinophils % 0.0 D Basophils % 0.1 Nucleated RBC % 0 Sodium 147 H Potassium 4.1 Chloride 115 H Carbon Dioxide 20 L Anion Gap 13 BUN 39.4 H Creatinine 1.7 H Est GFR (CKD-EPI)AfAm 41.11 Est GFR (CKD-EPI)NonAf 35.47 Random Glucose 66 L Calcium 8.1 L Phosphorus 3.9 Magnesium 2.1 Creatine Kinase 504 H Creatine Kinase Index 0.7 CK-MB (CK-2) 3.6 Troponin I 0.03 IMP: Subarachnoid hemorrhage LVH, CKD Thrombocytopenia Hypernatremia Anemia PLAN: -Keppra -Neuro checks -Hold asa given ICH -normal transfusion thresholds -PPI for PUD ppx -IVF -Aspiration precautions -SCD -Neuro unit Dr Silva
--- NOTE | 2020-01-09 15:26 | PN ---
Progress Note, Physician History of Present Illness: Pt seen and examined at bedside. He appears comfortable. - Current Medication List Current Medications: Active Medications Chlorhexidine Gluconate (Hibiclens For Decolonization -) 1 applic TP HS [facility] Last Admin: 01/08/20 21:59 Dose: 1 applic Documented by: Dextrose/Sodium Chloride (D5-Ns -) 1,000 mls @ 75 mls/hr IV ASDIR [facility] Last Admin: 01/09/20 13:53 Dose: 75 mls/hr Documented by: Levetiracetam (Keppra Injection -) 500 mg IVPB BID [facility] Last Admin: 01/09/20 10:46 Dose: 500 mg Documented by: Mupirocin (Bactroban Ointment (For Decolonization) -) 1 applic NS BID [facility] Stop: 01/11/20 21:59 Last Admin: 01/09/20 10:46 Dose: 1 applic Documented by: Pantoprazole Sodium (Protonix Iv) 40 mg IVPUSH DAILY [facility] Last Admin: 01/09/20 10:46 Dose: 40 mg Documented by: - Objective Vital Signs: Vital Signs Temperature 98.3 F 01/09/20 14:00 Pulse Rate 55 L 01/09/20 14:00 Respiratory Rate 18 01/09/20 14:00 Blood Pressure 93/44 L 01/09/20 14:00 O2 Sat by Pulse Oximetry (%) 99 01/09/20 10:00 Constitutional: Yes: Calm Eyes: Yes: Conjunctiva Clear HENT: Yes: Atraumatic Cardiovascular: Yes: S1, S2 Respiratory: Yes: CTA Bilaterally Gastrointestinal: Yes: Soft Genitourinary: Yes: Incontinence Musculoskeletal: Yes: Muscle Weakness Edema: No Neurological: Yes: Lethargy Labs: CBC, BMP 01/09/20 05:45 01/09/20 05:55 INR, PTT INR 1.21 (0.83-1.09) H 01/06/20 10:51 Problem List - Problems (1) CKD (chronic kidney disease) Code(s): N18.9 - CHRONIC KIDNEY DISEASE, UNSPECIFIED (2) Accidental fall Code(s): W19.XXXA - UNSPECIFIED FALL, INITIAL ENCOUNTER Qualifiers: Encounter type: initial encounter Qualified Code(s): W19.XXXA - Unspecified fall, initial encounter (3) Closed head injury Code(s): S09.90XA - UNSPECIFIED INJURY OF HEAD, INITIAL ENCOUNTER Qualifiers: Encounter type: initial encounter Qualified Code(s): S09.90XA - Unspecified injury of head, initial encounter Assessment/Plan Current Medications Generic Name Dose Route Start Last Admin Trade Name Freq PRN Reason Stop Dose Admin Chlorhexidine Gluconate 1 applic 01/06/20 22:00 01/08/20 21:59 Hibiclens For Decolonization - TP 1 applic HS TONY Administration Dextrose/Sodium Chloride 1,000 mls @ 75 mls/hr 01/09/20 12:45 01/09/20 13:53 D5-Ns - IV 75 mls/hr ASDIR TONY Administration Levetiracetam 500 mg 01/07/20 10:00 01/09/20 10:46 Keppra Injection - IVPB 500 mg BID TONY Administration Mupirocin 1 applic 01/06/20 22:00 01/09/20 10:46 Bactroban Ointment (For Decolonization) - NS 01/11/20 21:59 1 applic BID TONY Administration Pantoprazole Sodium 40 mg 01/06/20 12:15 01/09/20 10:46 Protonix Iv IVPUSH 40 mg DAILY TONY Administration Impression 1. syncope 2. subarachnoid hemorrhage 3. murmur 4. ckd Plan - change fluids to clinimix as he is npo - can stop clinimix if feeds are started - renal function stable - monitor lytes - discussed with ICU team
[2020-01-09] MEDS: AMINO ACIDS 4.25%/D5W 1,000 ML IV SCH (16:35)
--- NOTE | 2020-01-09 17:51 | PN ---
Physical Exam: SUBJECTIVE: Patient seen and examined. Patient was made DNR/DNI by his brother. Patient has no children or spouse. OBJECTIVE: Vital Signs Period Temp Pulse Resp BP Sys/Rivera Pulse Ox Last 24 Hr 97.9 F-98.4 F 49-69 14-22 90-139/40-57 97-99 GENERAL: AAOX1 HEENT: NC, laceration on Right supraorbital ridge with ecchymosis. PERRL, dry mucous membranes LUNGS: Breath sounds equal, clear to auscultation bilaterally. No wheezes, and no crackles. No accessory muscle use. HEART: Regular rate and rhythm, normal S1 and S2. systolic murmur best heard along Left sternal border ABDOMEN: Soft, nontender, not distended, normoactive bowel sounds, no guarding, no rebound UPPER EXTREMITIES: 2+ pulses, warm, well-perfused. No cyanosis. No clubbing. No peripheral edema. LOWER EXTREMITIES: 2+ pulses, warm, well-perfused. No calf tenderness. No peripheral edema. SKIN: stage II ulcer on Left and right buttock & sacrum Laboratory Results - last 24 hr 01/06/20 01/09/20 01/09/20 10:51 05:45 05:55 WBC 9.4 RBC 2.81 L Hgb 9.4 L Hct 27.8 L MCV 98.7 H MCH 33.3 MCHC 33.7 RDW 13.3 Plt Count 152 MPV 8.0 Absolute Neuts (auto) 7.5 Neutrophils % 80.0 Lymphocytes % 10.0 D Monocytes % 9.9 Eosinophils % 0.0 D Basophils % 0.1 Nucleated RBC % 0 Sodium 147 H Potassium 4.1 Chloride 115 H Carbon Dioxide 20 L Anion Gap 13 BUN 39.4 H Creatinine 1.7 H Est GFR (CKD-EPI)AfAm 41.11 Est GFR (CKD-EPI)NonAf 35.47 Random Glucose 66 L Calcium 8.1 L Phosphorus 3.9 Magnesium 2.1 Creatine Kinase 504 H Creatine Kinase Index 0.7 CK-MB (CK-2) 3.6 Troponin I 0.03 Blood Type O POSITIVE Antibody Screen Negative Active Medications Generic Name Dose Route Start Last Admin Trade Name Freq PRN Reason Stop Dose Admin Amino Acids 1,000 mls @ 65 mls/hr 01/09/20 16:00 01/09/20 16:35 Clinimix - IV 65 mls/hr Q15H TONY Administration Levetiracetam 500 mg 01/09/20 22:00 Keppra Injection - IVPB BID TONY Pantoprazole Sodium 40 mg 01/10/20 10:00 Protonix Iv IVPUSH DAILY TONY ASSESSMENT/PLAN: 89 YO M PMH HTN, HLD, CKD (Cr ~2), and prostate cancer (s/p radical prostatectomy) presented to the hospital for a scheduled echo for a suspected murmur and had a fall in the hospital. CTH showed a small Subarachnoid hemorrhage. Neuro #Subarachnoid hemorrhage -Team Discussed with Neurosurgery. Not a surgical candidate. keppra 1 gm BID for seizure prophylaxis. -patient is agitated and confused. -Neurochecks Q1H, Fall Risk/Aspiration/Seizure precaustions -Neuro consult appreciated. eeg & - repeat ct head tomorrow am -hold Aspirin given hemorrhage. 1 unit platelet transfused -CTH: Small SUBARCHNOID HEMORRHAGE in RIGHT frontal lobe, anteriorly,medially with suggestion of cortical contusions. Similar findings in Right frontal lobe, posteriorly,laterally. Small subarachnoid hemorrhage in the sylvian fissure. There is also suggestion of a small subdural hemorrhage along posterior margin of the Right parietal lobe measuring 5 mm. Comminuted slightly depressed skull fracuuture is identifiede -CTA Head: NO evidence of aneurysm, focal hemodynamically significant stenosis, major artery cutoff or vascular malformation within the central intracranial arterial circulation. Small calcified plaques in the cavernous carotid artery bilaterally. Mild Right periorbital and preseptal soft tissue swelling -CT c-spine: straightening of the cervical spine. Minimal retrolisthesis of C3 over C4 and C4 over C5. Multilevel significant degenerative disc disease and bilateral facet hypertrophy. C3-C4 mild Left paracentral disc osteophyte complex moderately narrowing the LEFT foramen and likely impinging left C4 nerve root Cardio -EKG: NSR, Left axis deviation, Junctional ST depression, 71 bpm, QTC 406 -Cardio consult appreciated. -trop <0.02; f/u trop -orthostatic negative (supine and sitting). Will repeat Orthostatic vitals signs after patient is hydrated -ECHO: Mild concentric LV hypertrophy, LV systolic function normal. EF 55-60%. LA mildly dilated. moderate mitral alve thickening. MOderate-severe mitral annular calcification. 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 mild mitral/tricuspid regurg. Right ventricular systolic pressure elevated at 30-40 mm Hg. Moderate-sever aortic stenosis. Moderate aortic regrug -f/u Carotid artery doppler #HTN: Will hold chlorthalidone 25 as it can be cause of the patient's possible syncope. Will hold home ZESTRIL (lisinopril) 40 given patient's renal status #HLD: -lipid panel WNL -lipitor 20 -hold Aspirin given hemorrhage. Pulm CXR: No acute chest pathology. Renal CKD -BUN/Cr 39.4/1.7 (Cr typically about [address] Croft) -monitor Is and Os, BUN/Cr daily. Heme #Thrombocytopenia: resolved #anemia: -Hgb/hct 9.4/27.8 MCV 98.7 MSK CXR: degenerative spine and shoulder changes. Both humeri appear elevated in relation to the glenoids. THis indicates old rotator cuff injuries. ENDO HgbA1C 4.7 GI no acute issues pantoprazole 40 IV Push Daily FEN D5 NS@100 ml/hr monitor lytes NPO given patient's confused state DVT ppx scds Visit type - Emergency Visit Emergency Visit: Yes ED Registration Date: 01/06/20 Care time: The patient presented to the Emergency Department on the above date and was hospitalized for further evaluation of their emergent condition. - New Patient This patient is new to me today: No - Critical Care Critical Care patient: No - Medication Review Med list reviewed for High Risk Meds patients 65 and older: Yes ATTENDING PHYSICIAN STATEMENT I saw and evaluated the patient. I reviewed the resident's note and discussed the case with the resident. I agree with the resident's findings and plan as documented. SUBJECTIVE: OBJECTIVE: ASSESSMENT AND PLAN:
--- NOTE | 2020-01-09 18:03 | HOSP ---
Physical Examination Vital Signs: Vital Signs Temperature 98.1 F 01/09/20 16:00 Pulse Rate 68 01/09/20 16:00 Respiratory Rate 20 01/09/20 16:00 Blood Pressure 101/50 L 01/09/20 16:00 O2 Sat by Pulse Oximetry (%) 99 01/09/20 10:00 Constitutional: Yes: No Distress HENT: Yes: Other (laceration over superior orbital ridge) Cardiovascular: Yes: Murmur (systolic murmur over Left sternal border), S1, S2 Respiratory: Yes: WNL, Regular, CTA Bilaterally Gastrointestinal: Yes: WNL, Normal Bowel Sounds Neurological: Yes: Confusion, Other (somnolent) Labs: CBC, BMP 01/09/20 05:45 01/09/20 05:55 Hospitalist Encounter Outcome: 89 YO M PMH HTN, HLD, CKD (Cr ~2), and prostate cancer (s/p radical prostatectomy) presented to the hospital for a scheduled echo appointment for a suspected murmur by his PCP, but fell in the hospital while walking with his br other. He had fallen forward and was unresponsive initially to sternal rub. Because the patient had a leftward gaze, a code ferguson was called. Patient later move his limbs spontaneously and regained consciousness. Patient fell on his glasses and suffered a laceration to the right supraorbital ridge. Patient endorsed "missing a step" and denied dizziness, lightheadedness, weakness. Patient endorsed falling again this morning at home that was unwitnessed, that he attributing to tripping. He had also tripped a few days ago prior to today, but patient was unable to explain the details. However, patient denies history of tripping/syncope. CTH showed a small Subarachnoid hemorrhage. Team Discussed with Neurosurgery and patient is Not a surgical candidate. Keppra 1 gm BID was given for seizure prophylaxis. Neurochecks were Q1, and aspirin was held given his hemorrhage. CTA head showed no evidence of aneurysm. ECHO: showed concentric LV hypertrophy, R ight ventricular systolic pressure elevated at 30-40 mm Hg, Moderate-severe aortic stenosis. Moderate aortic regurg. Brother made patient DNR/DNI as patient has no children or spouse. Visit type - Medication Review Med list reviewed for High Risk Meds patients 65 and older: Yes - Emergency Visit Emergency Visit: Yes ED Registration Date: 01/06/20 Care time: The patient presented to the Emergency Department on the above date and was hospitalized for further evaluation of their emergent condition. - New Patient This patient is new to me today: No - Critical Care Critical Care patient: No
[2020-01-09] MEDS ORDERED: ACETAMINOPHEN 1000 MG/100 ML VIAL (NON FORMULARY) IVPB ONE (23:25)
[2020-01-10 00:47] LABS: BASO % 0.2 % (0-2.0); EOS % 0.1 % (0-4.5); LYMPH % 9.9 % (8-40); MCH 33.8 pg (25.7-33.7); MCHC 34.5 g/dl (32.0-35.9); MEAN PLT VOLUME 7.4 fl (7.5-11.1); MONO % 8.7 % (3.8-10.2); NEUT % 81.1 % (42.8-82.8); PLATELET COUNT 154 K/MM3 (134-434); RBC 2.96 M/mm3 (4.00-5.60); RDW 13.3 % (11.9-15.9); WHITE BLOOD COUNT 7.4 K/mm3 (4.0-10.0)
--- NOTE | 2020-01-10 02:42 | PN ---
Progress Note (short form) - Note Progress Note: Episodic Note: Called by nurse patient is febrile with fever of 101.4(rectal). IV Ofirmev was ordered. Workup including blood cultures, CBC, lactic acid, procalcitonin, CXR and UA/culture was ordered. CBC showed a WBC of 0.4 and lactic acid was normal. Blood cultures and further workup is pending. Visit type - Emergency Visit Emergency Visit: No - New Patient This patient is new to me today: Yes Date on this admission: 01/10/20 - Critical Care Critical Care patient: No - Medication Review Med list reviewed for High Risk Meds patients 65 and older: No
[2020-01-10] MEDS: AMINO ACIDS 4.25%/D5W 1,000 ML IV SCH (06:35)
--- NOTE | 2020-01-10 07:36 | PN ---
Progress Note (short form) - Note Progress Note: NEUROSURGERY Pt with syncope and fall in lobby area by report. Pt denies LOC however and insists that he "tripped". Cardiology f/u noted. Pt denies H/A or N/V. PE: Tmax 101.4, now 97.5, VSS A/A/Ox1 Following commands, garbled speech R frontal laceration/edema stable, SCD's on CN- intact; Motor- at least 4/5 b UE/LE; Sensation- intact LT; DTR- 1+ Covid serology negative; WBC 9.[address]- R frontal contusion/TSAH and R parietal small SDH, no skull fx, atrophy CTA- negative for aneurysm F/u head CT 01-06- B hygroma and R convexity extensive SAH, R IVH, mild cortical mass effect and minimal midline mass effect 01-07 F/U CT- B subdural hygroma with R >> L convexity IRIS, B IVH, mild cortical mass effect R > L Traumatic R frontal contusion and extesnive R l> L convexity SAH/R IVH- non- operative given age and extensive concurrent medical conditions Anemia CRI Keppra for sz prophylaxis x 1 week total Nutritional support PT/rehab Fever w/u per medical team
[2020-01-10 08:28] LABS: ALBUMIN 2.2 g/dl (3.4-5.0); BILIRUBIN,TOTAL 0.4 mg/dL (0.2-1); BLOOD UREA NITROGEN 48.9 mg/dL (7-18); CALCIUM 7.9 mg/dL (8.5-10.1); CREATININE 1.7 mg/dL (0.55-1.3); MAGNESIUM 2.2 mg/dL (1.8-2.4); PHOSPHOROUS 3.1 mg/dL (2.5-4.9); POTASSIUM 3.7 mmol/L (3.5-5.1); TOT PROT 5.3 g/dl (6.4-8.2)
[2020-01-10] MEDS: PANTOPRAZOLE SODIUM 40 MG VIAL IVPUSH SCH (09:25)
[2020-01-10] MEDS: levETIRAcetam 500 MG/5 ML INJECTION VIAL IVPB SCH ×2 (09:25→22:01)
--- NOTE | 2020-01-10 12:11 | CONSULT ---
Admitting History and Physical - Admission History of Present Illness: 89 yo M pmh HTN, cardiac murmur, on daily 81mg ASA, presenting following rapid response in lobby for ?syncope with head trauma while registering for an outpatient ECHO. Patient has healthy, ambulatory baseline. Unwitnessed collapse (immediately found down) with LOC and right eyebrow laceration from glasses, patient initially unresponsive with report of left gaze deviation. On arrival in the ED, opens eyes spontaneously, moving extremities x4 but altered mentation, stats his name. head CT- R frontal contusion/TSAH and R parietal small SDH, no skull fx, atrophy CTA- negative for aneurysm F/u head CT 01-06- B hygroma and R convexity extensive SAH, R IVH, mild cortical mass effect and minimal midline mass effect 01-07 F/U CT- B subdural hygroma with R >> L convexity IRIS, B IVH, mild cortical mass effect R > L Traumatic R frontal contusion and extesnive R l> L convexity SAH/R IVH- non- operative given age and extensive concurrent medical conditions Selected Entries 01/06/20 01/10/20 01/10/20 15:00 02:00 06:00 Breakfast Lunch NPO Temperature 98 F 97.5 F L Pulse Rate 46 L 78 Blood Pressure 90/46 L 104/51 L O2 Sat by Pulse 96 Oximetry (%) Oxygen Delivery Method 01/10/20 01/10/20 01/10/20 08:16 08:19 10:00 Breakfast Lunch Temperature 98 F Pulse Rate 54 L Blood Pressure 106/50 L O2 Sat by Pulse 97 97 96 Oximetry (%) Oxygen Delivery Room Air Method 01/10/20 10:03 Breakfast NPO Lunch Temperature Pulse Rate Blood Pressure O2 Sat by Pulse Oximetry (%) Oxygen Delivery Method Laboratory Tests 01/06/20 01/06/20 01/07/20 10:51 10:51 05:15 WBC 9.3 9.9 PT with INR 14.30 H 01/08/20 01/09/20 05:50 00:00 WBC 11.0 H 7.4 PT with INR NPO since admission, due to lethargy, on clinimix. History Source: Medical Record Limitations to Obtaining History: Clinical Condition - Past Medical History PIER MASTER: Yes: Dementia Cardiovascular: Yes: Murmur - Smoking History Smoking history: Never smoked Have you smoked in the past 12 months: No - Alcohol/Substance Use Hx Alcohol Use: No History - Admission Reason For Visit: SUB HEMORRHAGE, FACIAL LACERATION,ACCID FALL - Diagnostics X-ray: Report Reviewed CT Scan: Report Reviewed - General Mental Status: Awake and Alert, Able to Follow Commands, Vague, Confused Attention: Distractible, Mild Impairment Ability to Follow Directions: Fair Head/Neck Control: Good - Hearing Hearing: Normal Hearing Aide: No Speech Evaluation - Communication Primary Language: NIGERIEN Communication: Yes: Simple Responses (Speaking in phrases, imprecise) - Speech Production Able to Make Needs Known: Yes: Mildly Impaired, Moderately Impaired Intelligibility: Yes: Mildly Impaired, Moderately Impaired - Speech Characteristics Voice Loudness: Mildly Soft/Quiet Voice Pitch: Yes: Normal Voice Phonatory-based Quality: Yes: Dysphonia Speech Clarity: < 75% Nasal Resonance: Normal Articulation: Yes: Imprecise - Language/Auditory Comprehension Follows: Yes: 1 Stage Simple Commands Observation: Able to respond to yes/no queries: Yes, Yes/No Confusion: No, Comprehends Conversational Speech: Yes - Language/Verbal Expression Aphasia: Yes: Anomia, Paraphrasic Errors, Neologisms Able to Respond to Simple Queries: Yes: Moderately Impaired Functional Communication Status: Yes: Moderately Impaired - Swallow Evaluation/Bedside Assessment Current Nutritional Intake: NPO Oral Secretions: Yes: WFL Dentition: Yes: Adequate Facial Symmetry at Rest: Symmetrical Facial Symmetry on Retraction: Symmetrical Against Resistance Opening: Weak Against Resistance Closing: Weak Pucker Lips: Weak Smile: Weak Lingual Movement: Symmetric, Reduced Protrusion Lingual Speed of Movement: Reduced Lingual Movement Strgth Against Opposition: Reduced Velopharyngeal Movement: Normal Laryngeal Elevation: Impaired Laryngeal Movement: Able to Palpate, Reduced Excursion, Labored,delay initiation, Reduced Velocity Rate of Intake: Impulsive (with trial of water) Bolus Size: WFL Labial Seal: WFL Oral Prep Time: Increased A-P Transit: Impaired Timing of Swallow: Delayed Coughing/Throat Clear: Yes (delayed, thin liquid) Recommendations - Speech Evaluation, Impression/Plan Impression: verbalizing, confused, imprecise. Multiple swallows generated- suspect stasis, aspiration on thin. Good prognosis for improvement - Dysphagia Impressions/Plan Swallowing Skills: Impaired Dysphagia Impressions: Minimal Impairment, Too Lethargic to Assess (in and out, nursing feels pt not stable neurologically for mbs), Suspect Aspiration *Silent aspiration: cannot be R/O at bedside Recommendations: Modified Barium Swallow (when stable. tmw?) - Recommendations Diet Consistency: NPO Medication Administration: Crushed with applesauce Liquids: NPO
--- NOTE | 2020-01-10 12:40 | PN ---
Progress Note (short form) - Note Progress Note: events noted spoke with RN noted a temp last night cultures done he is afebrile he is more awake today he answers yes and no questions-- simple questions He is moving his arms and legs on command Vital Signs - 24 hr 01/09/20 01/09/20 01/09/20 14:00 16:00 18:00 Temperature 98.3 F 98.1 F 99.6 F Pulse Rate 55 L 68 72 Respiratory 18 20 20 Rate Blood Pressure 93/44 L 101/50 L 108/46 L O2 Sat by Pulse 98 Oximetry (%) 01/09/20 01/09/20 01/10/20 21:00 22:00 02:00 Temperature 101.4 F H 98 F Pulse Rate 51 L 46 L Respiratory 20 20 Rate Blood Pressure 133/51 L 90/46 L O2 Sat by Pulse 95 95 96 Oximetry (%) 01/10/20 01/10/20 01/10/20 06:00 08:16 08:19 Temperature 97.5 F L Pulse Rate 78 Respiratory 20 Rate Blood Pressure 104/51 L O2 Sat by Pulse 97 97 Oximetry (%) 01/10/20 10:00 Temperature 98 F Pulse Rate 54 L Respiratory 18 Rate Blood Pressure 106/50 L O2 Sat by Pulse 96 Oximetry (%) Current Medications Generic Name Dose Route Start Last Admin Trade Name Rejiq PRN Reason Stop Dose Admin Amino Acids 1,000 mls @ 65 mls/hr 01/09/20 16:00 01/10/20 06:35 Clinimix - IV 65 mls/hr Q15H TONY Administration Levetiracetam 500 mg 01/09/20 22:00 01/10/20 09:25 Keppra Injection - IVPB 500 mg BID TONY Administration Pantoprazole Sodium 40 mg 01/10/20 10:00 01/10/20 09:25 Protonix Iv IVPUSH 40 mg DAILY TONY Administration Laboratory Results - last 24 hr 01/06/20 01/09/20 01/09/20 10:51 00:00 00:00 WBC 7.4 RBC 2.96 L Hgb 10.0 L Hct 29.0 L MCV 98.0 H MCH 33.8 H MCHC 34.5 RDW 13.3 Plt Count 154 MPV 7.4 L Absolute Neuts (auto) 6.0 Neutrophils % 81.1 Lymphocytes % 9.9 D Monocytes % 8.7 Eosinophils % 0.1 Basophils % 0.2 Nucleated RBC % 0 Sodium Potassium Chloride Carbon Dioxide Anion Gap BUN Creatinine Est GFR (CKD-EPI)AfAm Est GFR (CKD-EPI)NonAf Random Glucose Lactic Acid 1.2 Calcium Phosphorus Magnesium Total Bilirubin AST ALT Alkaline Phosphatase Total Protein Albumin Blood Type O POSITIVE Antibody Screen Negative 01/09/20 01/10/20 05:45 05:53 WBC 9.4 RBC 2.81 L Hgb 9.4 L Hct 27.8 L MCV 98.7 H MCH 33.3 MCHC 33.7 RDW 13.3 Plt Count 152 MPV 8.0 Absolute Neuts (auto) 7.5 Neutrophils % 80.0 Lymphocytes % 10.0 Monocytes % 9.9 Eosinophils % 0.0 D Basophils % 0.1 Nucleated RBC % 0 Sodium 146 H Potassium 3.7 Chloride 116 H Carbon Dioxide 26 Anion Gap 5 L BUN 48.9 H Creatinine 1.7 H Est GFR (CKD-EPI)AfAm 41.11 Est GFR (CKD-EPI)NonAf 35.47 Random Glucose 134 H Lactic Acid Calcium 7.9 L Phosphorus 3.1 Magnesium 2.2 Total Bilirubin 0.4 AST 43 H ALT 21 Alkaline Phosphatase 49 Total Protein 5.3 L Albumin 2.2 L Blood Type Antibody Screen S1 S2 RRR Lungs decreased Abd- soft, NT No edema PLAN pt is more awake will consult swallow therapist om clinimix ID eval for fever CXR-->no infiltrate continue with supportive measures spoke with Neurosurgery-- not a candidate for surgery PT eval brother decided DNR/DNI palliative care Problem List - Problems (1) Accidental fall Code(s): W19.XXXA - UNSPECIFIED FALL, INITIAL ENCOUNTER Qualifiers: Encounter type: initial encounter Qualified Code(s): W19.XXXA - Unspecified fall, initial encounter (2) CKD (chronic kidney disease) Code(s): N18.9 - CHRONIC KIDNEY DISEASE, UNSPECIFIED (3) Closed head injury Code(s): S09.90XA - UNSPECIFIED INJURY OF HEAD, INITIAL ENCOUNTER Qualifiers: Encounter type: initial encounter Qualified Code(s): S09.90XA - Unspecified injury of head, initial encounter (4) Traumatic subarachnoid hemorrhage Code(s): S06.6X9A - TRAUM SUBRAC HEM W LOC OF UNSP DURATION, INIT Qualifiers: Encounter type: initial encounter Loss of consciousness presence/duration: with LOC of 30 min or less Qualified Code(s): S06.6X1A - Traumatic subarachnoid hemorrhage with loss of consciousness of 30 minutes or less, initial encounter (5) Traumatic subdural hematoma Code(s): S06.5X9A - TRAUM SUBDR HEM W LOC OF UNSP DURATION, INIT Qualifiers: Encounter type: initial encounter Loss of consciousness presence/duration: with LOC of 30 min or less Qualified Code(s): S06.5X1A - Traumatic subdural hemorrhage with loss of consciousness of 30 minutes or less, initial encounter (6) Abrasion of face Code(s): S00.81XA - ABRASION OF OTHER PART OF HEAD, INITIAL ENCOUNTER (7) Facial contusion Code(s): S00.83XA - CONTUSION OF OTHER PART OF HEAD, INITIAL ENCOUNTER (8) Laceration of eyebrow, right Code(s): S01.111A - LACERATION W/O FB OF RIGHT EYELID AND PERIOCULAR AREA, INIT
--- NOTE | 2020-01-10 12:57 | PN ---
Progress Note, Physician History of Present Illness: Pt seen and examined at bedside. He is more awake today. He denies shortness of breath. - Current Medication List Current Medications: Active Medications Amino Acids (Clinimix -) 1,000 mls @ 65 mls/hr IV Q15H [facility] Last Admin: 01/10/20 06:35 Dose: 65 mls/hr Documented by: Levetiracetam (Keppra Injection -) [address] [facility] Last Admin: 01/10/20 09:25 Dose: 500 mg Documented by: Pantoprazole Sodium (Protonix Iv) [address] [facility] Last Admin: 01/10/20 09:25 Dose: 40 mg Documented by: - Objective Vital Signs: Vital Signs Temperature 98 F 01/10/20 10:00 Pulse Rate 54 L 01/10/20 10:00 Respiratory Rate 18 01/10/20 10:00 Blood Pressure 106/50 L 01/10/20 10:00 O2 Sat by Pulse Oximetry (%) 96 01/10/20 10:00 Constitutional: Yes: Calm Eyes: Yes: Conjunctiva Clear HENT: Yes: Atraumatic Cardiovascular: Yes: S1, S2 Respiratory: Yes: CTA Bilaterally Gastrointestinal: Yes: Soft Genitourinary: Yes: Incontinence Musculoskeletal: Yes: WNL Edema: No Integumentary: Yes: WNL Neurological: Yes: Confusion Labs: CBC, BMP 01/09/20 05:45 01/10/20 05:53 INR, PTT INR 1.21 (0.83-1.09) H 01/06/20 10:51 Problem List - Problems (1) CKD (chronic kidney disease) Code(s): N18.9 - CHRONIC KIDNEY DISEASE, UNSPECIFIED (2) Accidental fall Code(s): W19.XXXA - UNSPECIFIED FALL, INITIAL ENCOUNTER Qualifiers: Qualified Code(s): W19.XXXA - Unspecified fall, initial encounter (3) Closed head injury Code(s): S09.90XA - UNSPECIFIED INJURY OF HEAD, INITIAL ENCOUNTER Qualifiers: Qualified Code(s): S09.90XA - Unspecified injury of head, initial encounter Assessment/Plan Current Medications Generic Name Dose Route Start Last Admin Trade Name Freq PRN Reason Stop Dose Admin Amino Acids 1,000 mls @ 65 mls/hr 01/09/20 16:00 01/10/20 06:35 Clinimix - IV 65 mls/hr Q15H TONY Administration Levetiracetam 500 mg 01/09/20 22:00 01/10/20 09:25 Keppra Injection - IVPB 500 mg BID TONY Administration Pantoprazole Sodium 40 mg 01/10/20 10:00 01/10/20 09:25 Protonix Iv IVPUSH 40 mg DAILY TONY Administration Impression 1. syncope 2. subarachnoid hemorrhage 3. murmur 4. ckd 5. hypernatremia 6. cva Plan - increase clinimix and add potassium - cont hypotonic fluids - cont fluids until feeds started - swallow eval - renal functions stable - pt does have ckd
--- NOTE | 2020-01-10 13:35 | CON.ID ---
Consult Consult Specialty:: infectious diseases Referred by:: [email or web address] Reason for Consultation:: weakness,fever - History of Present Illness Chief Complaint: fever History of Present Illness: 89 yo M pmh HTN, cardiac murmur, on daily 81mg ASA, was admitted because of syncop in the hospital lobby while registering for an outpatient ECHO. patient was admitted and then treated for the same patient then was admitted to icu and was managed in the icu patient then was doing well and he spiked a fever yesterday and i was called to evalaute the patient cx have been send on the patient currently patient is awake but confused and looks calm,has been afebrile since the morning - History Source History Provided By: Medical Record Limitations to Obtaining History: Clinical Condition - Past Medical History PSYCHIATRIC NURSING AIDE: Yes: Dementia Cardio/Vascular: Yes: Murmur - Alcohol/Substance Use Hx Alcohol Use: No - Smoking History Smoking history: Never smoked Have you smoked in the past 12 months: No Home Medications - Allergies Allergies/Adverse Reactions: Allergies Allergy/AdvReac Type Severity Reaction Status Date / Time No Known Allergies Allergy Verified 01/06/20 11:07 - Home Medications Home Medications: Ambulatory Orders Aspirin [ASA -] 81 mg PO DAILY 01/06/20 Atorvastatin Calcium [Lipitor] 20 mg PO DAILY 01/07/20 Chlorthalidone 25 mg PO DAILY 01/07/20 Lisinopril [Zestril] 40 mg PO DAILY 01/07/20 Family Medical History Family History: Denies Review of Systems Unable to obtain ROS, reason: unable to obtain Physical Exam Vital Signs: Vital Signs Temperature 98 F 01/10/20 10:00 Pulse Rate 54 L 01/10/20 10:00 Respiratory Rate 18 01/10/20 10:00 Blood Pressure 106/50 L 01/10/20 10:00 O2 Sat by Pulse Oximetry (%) 96 01/10/20 10:00 Constitutional: Yes: No Distress, Calm, Thin Cardiovascular: Yes: Regular Rate and Rhythm Respiratory: Yes: Regular, CTA Bilaterally Gastrointestinal: Yes: Normal Bowel Sounds, Soft Musculoskeletal: Yes: WNL Extremities: Yes: WNL Neurological: Yes: Alert, Confusion Psychiatric: Yes: Other Labs: CBC, BMP 01/09/20 05:45 01/10/20 05:53 Imaging - Results Chest X-ray: Report Reviewed, Image Reviewed Cat Scan: Report Reviewed, Image Reviewed Assessment/Plan Problem List - Problems (1) Accidental fall Code(s): W19.XXXA - UNSPECIFIED FALL, INITIAL ENCOUNTER Qualifiers: Encounter type: initial encounter Qualified Code(s): W19.XXXA - Unspecified fall, initial encounter (2) CKD (chronic kidney disease) Code(s): N18.9 - CHRONIC KIDNEY DISEASE, UNSPECIFIED (3) Closed head injury Code(s): S09.90XA - UNSPECIFIED INJURY OF HEAD, INITIAL ENCOUNTER Qualifiers: Encounter type: initial encounter Qualified Code(s): S09.90XA - Unspecified injury of head, initial encounter (4) Traumatic subarachnoid hemorrhage Code(s): S06.6X9A - TRAUM SUBRAC HEM W LOC OF UNSP DURATION, INIT Qualifiers: Encounter type: initial encounter Loss of consciousness presence/duration: with LOC of 30 min or less Qualified Code(s): S06.6X1A - Traumatic subarachnoid hemorrhage with loss of consciousness of 30 minutes or less, initial encounter (5) Traumatic subdural hematoma Code(s): S06.5X9A - TRAUM SUBDR HEM W LOC OF UNSP DURATION, INIT Qualifiers: Encounter type: initial encounter Loss of consciousness presence/duration: with LOC of 30 min or less Qualified Code(s): S06.5X1A - Traumatic subdural hemorrhage with loss of consciousness of 30 minutes or less, initial encounter (6) Abrasion of face Code(s): S00.81XA - ABRASION OF OTHER PART OF HEAD, INITIAL ENCOUNTER (7) Facial contusion Code(s): S00.83XA - CONTUSION OF OTHER PART OF HEAD, INITIAL ENCOUNTER (8) Laceration of eyebrow, right Code(s): S01.111A - LACERATION W/O FB OF RIGHT EYELID AND PERIOCULAR AREA, INIT plan will await to see the blood cx monitor currently nutrition rest as per the team
[2020-01-10] MEDS: POTASSIUM CHLORIDE 10 MEQ in AMINO ACIDS 4.25%/D5W 1,000 ML IVPB SCH (15:04)
--- NOTE | 2020-01-10 15:29 | PN ---
Progress Note (short form) - Note Progress Note: 89 year old male history of htn, came for echo and had a fall had ct head , showed brain contusion and small sah. Neurosurgery were consulted and not a surgical candiddate. Patinet is restrained , agitated and confused, no seizure activity. denies headache. He is moving all extremity. He has bruise on his head. -- patient was seen by neurosurgery over the weekend, repeat ct head done no interval change pateint is stable, trasnferred to regular floor, more awake, waiting for barrium swallow NEUROLOGICAL EXAMINATION Alert oriented x 1, neck is supple vss, slight agitated and restrained, eomi, pupils reactive no face asymmetry moving all ext ct head showed mild frontal lobe contusion and small sah repeat ct head on sep 20 was stable neurosurgery consult appreciated waiting for barium swallow Assessment/Plan -- sah and contusion, history of mci and now confued due to brain contusion and sah, on keppra as per neurosurgery. no a surical candidate Plan_ continue keppra 1 gm iv bid - supportive care - neurologically stable and improving, swallow consult appreciated id consult appreciated. Thanking you so much Daniel Gallegos MD
[2020-01-10 16:41] LABS: EPI CELLS 8 /uL (0-25.1); HYALINE CASTS 1 /uL (0-3.1); URINE APPEARANCE CLEAR; URINE BACTERIA 6 /uL (0-1359); URINE BILIRUBIN NEGATIVE (NEGATIVE); URINE COLOR YELLOW; URINE GLUCOSE (UA) NEGATIVE (NEGATIVE); URINE KETONE NEGATIVE (NEGATIVE); URINE LEUK ESTERASE TRACE (NEGATIVE); URINE NITRITE NEGATIVE (NEGATIVE); URINE PROTEIN TRACE (NEGATIVE); URINE RBC 5 /uL (0-23.9); URINE UROBILINOGEN 0.2 mg/dL (0.2-1.0); URINE WBC 48 /uL (0-25.8)
--- NOTE | 2020-01-10 23:36 | PN ---
Progress Note, Physician Chief Complaint: Pt agitated; does not follow verbal requests. History of Present Illness: Mr. Farmer is an 89-year-old white male, per medical record has history of heart disease and high cholesterol, prostate CA, now presents to ED following rapid response with head injury. Patient was in the hospital accompanied by his brother; he was scheduled for echo today and while ambulating fell to the ground, striking his right head. Rapid response was called, the patient was unresponsive, brought to the emergency department where code ferguson was activated. Patient offering limited history, is quite functional at baseline with some early dementia per brother, is following commands but nonconversant at the time of admission. Physical exam noted 4/6 systolic murmur, RSB-->Lt axilla - Current Medication List Current Medications: Active Medications Potassium Chloride 10 meq/ (Amino Acids) 1,005 mls @ 75 mls/hr IVPB Q13H ON LICENSE OF [facility] Last Admin: 01/10/20 15:04 Dose: 75 mls/hr Documented by: Levetiracetam (Keppra Injection -) 500 mg IVPB BID ON LICENSE OF [facility] Last Admin: 01/10/20 22:01 Dose: 500 mg Documented by: Pantoprazole Sodium (Protonix Iv) 40 mg IVPUSH DAILY ON LICENSE OF [facility] Last Admin: 01/10/20 09:25 Dose: 40 mg Documented by: - Objective Vital Signs: Vital Signs Temperature 97.9 F 01/10/20 22:00 Pulse Rate 70 01/10/20 22:00 Respiratory Rate 18 01/10/20 22:00 Blood Pressure 113/66 01/10/20 22:00 O2 Sat by Pulse Oximetry (%) 98 01/10/20 22:00 Cardiovascular: Yes: Murmur (3/6 CATHRYN, RSB-->left axilla; 2/4 diastolic murmum, RSB-->apex), S1, S2, S4 Respiratory: Yes: Regular Gastrointestinal: Yes: Soft Genitourinary: No: Anuria Extremities: Yes: Cool Edema: No Peripheral Pulses WNL: Yes Integumentary: Yes: WNL Neurological: Yes: Weakness Psychiatric: Yes: Other (dementia) Labs: CBC, BMP 01/09/20 05:45 01/10/20 05:53 INR, PTT INR 1.21 (0.83-1.09) H 01/06/20 10:51 Abnormal Lab Results 01/09/20 01/09/20 01/10/20 00:00 05:45 05:53 RBC 2.96 L 2.81 L Hgb 10.0 L 9.4 L Hct 29.0 L 27.8 L MCV 98.0 H 98.7 H MCH 33.8 H MPV 7.4 L Sodium 146 H Chloride 116 H Anion Gap 5 L BUN 48.9 H Creatinine 1.7 H Random Glucose 134 H Calcium 7.9 L AST 43 H Total Protein 5.3 L Albumin 2.2 L - ....Imaging Chest X-ray: Image Reviewed EKG: Image Reviewed Assessment/Plan Syncope, right periorbital injury anemia renal dysfunction dementia by hx; ?mental status changes exacerbated post-syncope cardiac valvulopathy; severe cervical vertebral degeneration; ? impingement C4 hx hyperlipidemia (total cholesterol this admission 123 mg/dL: on no medication) elevated glucose Pl: ECHO: normal LVEF and RVEF; mild LVH; moderately severe ; moderate AR; mild TR, MR, [place]. EKG; telemetry; Holter monitor. 1st TNI 0.02-->0.03 CT head: no acute pathology of brain IV fluids; F/u Is and Os, BUN/Cr, daily weight, electrolytes, BP and HR. orthostatic vital signs once he is well-hydrated. F/u renal status, Hb after hydration. Carotid artery doppler: moderate bilateral plaque without significant stenoses. TSH WNL; total cholesterol 123 mg/dL; HGBA1c 4.7. Neurological evaluation (syncope; dementia). On Ketamirra.
[2020-01-11] MEDS: POTASSIUM CHLORIDE 10 MEQ in AMINO ACIDS 4.25%/D5W 1,000 ML IVPB SCH ×2 (01:12→15:00)
[2020-01-11] MEDS: levETIRAcetam 500 MG/5 ML INJECTION VIAL IVPB SCH ×2 (09:10→21:37)
[2020-01-11] MEDS: PANTOPRAZOLE SODIUM 40 MG VIAL IVPUSH SCH (09:10)
--- NOTE | 2020-01-11 09:32 | PN ---
Progress Note, Physician History of Present Illness: Mr. Farmer is an 89-year-old white male, per medical record has history of heart disease and high cholesterol, prostate CA, now presents to ED following rapid response with head injury. Patient was in the hospital accompanied by his brother; he was scheduled for echo today and while ambulating fell to the ground, striking his right head. Rapid response was called, the patient was unr esponsive, brought to the emergency department where code ferguson was activated. Patient offering limited history, is quite functional at baseline with some early dementia per brother, is following commands but nonconversant at the time of admission. Physical exam noted 4/6 systolic murmur, RSB-->Lt axilla - Current Medication List Current Medications: Active Medications Potassium Chloride 10 meq/ (Amino Acids) 1,005 mls @ 75 mls/hr IVPB Q13H [facility] Last Admin: 01/11/20 01:12 Dose: 75 mls/hr Documented by: Levetiracetam (Keppra Injection -) 500 mg IVPB BID [facility] Last Admin: 01/11/20 09:10 Dose: 500 mg Documented by: Pantoprazole Sodium (Protonix Iv) 40 mg IVPUSH DAILY [facility] Last Admin: 01/11/20 09:10 Dose: 40 mg Documented by: - Objective Vital Signs: Vital Signs Temperature 97.8 F 01/11/20 06:00 Pulse Rate 78 01/11/20 06:00 Respiratory Rate 18 01/11/20 06:00 Blood Pressure 109/61 01/11/20 06:00 O2 Sat by Pulse Oximetry (%) 97 01/11/20 06:00 Eyes: Yes: WNL, Conjunctiva Clear, EOM Intact HENT: Yes: WNL, Atraumatic, Normocephalic Neck: Yes: WNL, Supple, Trachea Midline Cardiovascular: Yes: WNL, Regular Rate and Rhythm Respiratory: Yes: WNL, Regular, CTA Bilaterally Gastrointestinal: Yes: WNL, Normal Bowel Sounds Genitourinary: Yes: WNL Musculoskeletal: Yes: WNL Extremities: Yes: WNL Edema: No Integumentary: Yes: WNL Labs: CBC, BMP 01/09/20 05:45 01/10/20 05:53 INR, PTT INR 1.21 (0.83-1.09) H 01/06/20 10:51 Assessment/Plan Syncope, right periorbital injury anemia renal dysfunction dementia by hx; ?mental status changes exacerbated post-syncope cardiac valvulopathy; severe cervical vertebral degeneration; ? impingement C4 hx hyperlipidemia (total cholesterol this admission 123 mg/dL: on no medication) elevated glucose Pl: ECHO: normal LVEF and RVEF; mild LVH; moderately severe ; moderate AR; mild TR, MR, RI. EKG; telemetry; Holter monitor. 1st TNI 0.02-->0.03 CT head: no acute pathology of brain IV fluids; F/u Is and Os, BUN/Cr, daily weight, electrolytes, BP and HR. orthostatic vital signs once he is well-hydrated. F/u renal status, Hb after hydration. Carotid artery doppler: moderate bilateral plaque without significant stenoses. TSH WNL; total cholesterol 123 mg/dL; HGBA1c 4.7. Neurological evaluation (syncope; dementia). On [facility].
--- NOTE | 2020-01-11 09:51 | PN ---
Progress Note (short form) - Note Progress Note: NEUROSURGERY Pt with syncope and fall in lobby area by report. Pt denies H/A or N/V. PE: Tmax 97.9, VSS A/A/Ox1 Following commands, garbled speech, though more coherent and awake R frontal laceration/edema stable, SCD's on CN- intact; Motor- at least 4/5 b UE/LE; Sensation- intact LT; DTR- 1+ Covid serology negative; WBC 9.4; cultures pending head CT- R frontal contusion/TSAH and R parietal small SDH, no skull fx, atrophy CTA- negative for aneurysm F/u head CT 01-06- B hygroma and R convexity extensive SAH, R IVH, mild cortical mass effect and minimal midline mass effect 01-07 F/U CT- B subdural hygroma with R >> L convexity IRIS, B IVH, mild cortical mass effect R > L, stable from 01-06 Traumatic R frontal contusion and extensive R > L convexity SAH/IVH- non- operative given age and extensive concurrent medical conditions Anemia [facility] [place] for sz prophylaxis x 1 week total Nutritional support PT/rehab
--- NOTE | 2020-01-11 10:21 | PN ---
Progress Note, Physician History of Present Illness: Pt seen and examined at bedside. He is awake and appears comfortable. - Current Medication List Current Medications: Active Medications Potassium Chloride 10 meq/ (Amino Acids) 1,005 mls @ 75 mls/hr IVPB Q13H [facility] Last Admin: 01/11/20 01:12 Dose: 75 mls/hr Documented by: Levetiracetam (Keppra Injection -) 500 mg IVPB BID [facility] Last Admin: 01/11/20 09:10 Dose: 500 mg Documented by: Pantoprazole Sodium (Protonix Iv) 40 mg IVPUSH DAILY [facility] Last Admin: 01/11/20 09:10 Dose: 40 mg Documented by: - Objective Vital Signs: Vital Signs Temperature 98.3 F 01/11/20 10:00 Pulse Rate 55 L 01/11/20 10:00 Respiratory Rate 18 01/11/20 10:00 Blood Pressure 98/51 L 01/11/20 10:00 O2 Sat by Pulse Oximetry (%) 98 01/11/20 10:00 Constitutional: Yes: Calm Eyes: Yes: Conjunctiva Clear Neck: Yes: Supple Cardiovascular: Yes: S1, S2 Respiratory: Yes: CTA Bilaterally Gastrointestinal: Yes: Normal Bowel Sounds, Soft Genitourinary: Yes: Incontinence Musculoskeletal: Yes: WNL Edema: No Neurological: Yes: Oriented Psychiatric: Yes: Oriented Labs: CBC, BMP 01/09/20 05:45 01/10/20 05:53 INR, PTT INR 1.21 (0.83-1.09) H 01/06/20 10:51 Problem List - Problems (1) CKD (chronic kidney disease) Code(s): N18.9 - CHRONIC KIDNEY DISEASE, UNSPECIFIED (2) Accidental fall Code(s): W19.XXXA - UNSPECIFIED FALL, INITIAL ENCOUNTER Qualifiers: Encounter type: initial encounter Qualified Code(s): W19.XXXA - Unspecified fall, initial encounter (3) Closed head injury Code(s): S09.90XA - UNSPECIFIED INJURY OF HEAD, INITIAL ENCOUNTER Qualifiers: Encounter type: initial encounter Qualified Code(s): S09.90XA - Unspecified injury of head, initial encounter Assessment/Plan Current Medications Generic Name Dose Route Start Last Admin Trade Name Freq PRN Reason Stop Dose Admin Potassium Chloride 10 meq/ 1,005 mls @ 75 mls/hr 01/10/20 13:00 01/11/20 01:12 Amino Acids IVPB 75 mls/hr Q13H [facility] Administration Levetiracetam 500 mg 01/09/20 22:00 01/11/20 09:10 Keppra Injection - IVPB 500 mg BID [facility] Administration Pantoprazole Sodium 40 mg 01/10/20 10:00 01/11/20 09:10 Protonix Iv IVPUSH 40 mg DAILY [facility] Administration Impression 1. syncope 2. subarachnoid hemorrhage 3. murmur 4. ckd 5. hypernatremia 6. cva Plan - cont fluids - swallow eval appreciated, pt npo - monitor sodium - swallow followup - renal functions stable - pt does have ckd
--- NOTE | 2020-01-11 10:29 | PN ---
Progress Note, PROJECTION PRINTER - Note Progress Note: Selected Entries 01/11/20 01/11/20 01/11/20 02:00 06:00 09:00 Lunch NPO Temperature 97.3 F L 97.8 F Pulse Rate 69 78 Respiratory 18 18 18 Rate Respiratory Non-Labored Effort O2 Sat by Pulse 99 97 98 Oximetry (%) Oxygen Delivery Room Air Method 01/11/20 10:00 Lunch Temperature 98.3 F Pulse Rate 55 L Respiratory 18 Rate Respiratory Effort O2 Sat by Pulse 98 Oximetry (%) Oxygen Delivery Method Laboratory Tests 01/09/20 00:00 WBC 7.4 Sleeping, arousable, simple verbalizations, confused. For MBS pending availability in Radiology-likely tomorrow. [facility]
--- NOTE | 2020-01-11 12:10 | PN ---
Progress Note, Physician History of Present Illness: stable no new issues mental status contiues to improve - Current Medication List Current Medications: Active Medications Potassium Chloride 10 meq/ (Amino Acids) 1,005 mls @ 75 mls/hr IVPB Q13H [facility] Last Admin: 01/11/20 01:12 Dose: 75 mls/hr Documented by: Levetiracetam (Keppra Injection -) 500 mg IVPB BID [facility] Last Admin: 01/11/20 09:10 Dose: 500 mg Documented by: Pantoprazole Sodium (Protonix Iv) 40 mg IVPUSH DAILY [facility] Last Admin: 01/11/20 09:10 Dose: 40 mg Documented by: - Objective Vital Signs: Vital Signs Temperature 98.3 F 01/11/20 10:00 Pulse Rate 55 L 01/11/20 10:00 Respiratory Rate 18 01/11/20 10:00 Blood Pressure 98/51 L 01/11/20 10:00 O2 Sat by Pulse Oximetry (%) 98 01/11/20 10:00 Constitutional: Yes: No Distress Cardiovascular: Yes: S1, S2 Respiratory: Yes: Regular, CTA Bilaterally Gastrointestinal: Yes: Normal Bowel Sounds, Soft Neurological: Yes: Alert, Other Labs: CBC, BMP 01/09/20 05:45 01/10/20 05:53 INR, PTT INR 1.21 (0.83-1.09) H 01/06/20 10:51 Assessment/Plan Problem List - Problems (1) Accidental fall Code(s): W19.XXXA - UNSPECIFIED FALL, INITIAL ENCOUNTER Qualifiers: Encounter type: initial encounter Qualified Code(s): W19.XXXA - Unspecified fall, initial encounter (2) CKD (chronic kidney disease) Code(s): N18.9 - CHRONIC KIDNEY DISEASE, UNSPECIFIED (3) Closed head injury Code(s): S09.90XA - UNSPECIFIED INJURY OF HEAD, INITIAL ENCOUNTER Qualifiers: Encounter type: initial encounter Qualified Code(s): S09.90XA - Unspecified injury of head, initial encounter (4) Traumatic subarachnoid hemorrhage Code(s): S06.6X9A - TRAUM SUBRAC HEM W LOC OF UNSP DURATION, INIT Qualifiers: Encounter type: initial encounter Loss of consciousness presence/duration: with LOC of 30 min or less Qualified Code(s): S06.6X1A - Traumatic subarachnoid hemorrhage with loss of consciousness of 30 minutes or less, initial encounter (5) Traumatic subdural hematoma Code(s): S06.5X9A - TRAUM SUBDR HEM W LOC OF UNSP DURATION, INIT Qualifiers: Encounter type: initial encounter Loss of consciousness presence/duration: with LOC of 30 min or less Qualified Code(s): S06.5X1A - Traumatic subdural hemorrhage with loss of consciousness of 30 minutes or less, initial encounter (6) Abrasion of face Code(s): S00.81XA - ABRASION OF OTHER PART OF HEAD, INITIAL ENCOUNTER (7) Facial contusion Code(s): S00.83XA - CONTUSION OF OTHER PART OF HEAD, INITIAL ENCOUNTER (8) Laceration of eyebrow, right Code(s): S01.111A - LACERATION W/O FB OF RIGHT EYELID AND PERIOCULAR AREA, INIT plan continue to monitor rest as per the team cx results noted
--- NOTE | 2020-01-11 17:14 | PN ---
Progress Note (short form) - Note Progress Note: events noted spoke with RN noted a temp last night cultures done he is afebrile he is more awake today he answers yes and no questions-- simple questions He is moving his arms and legs on command Vital Signs - 24 hr 01/11/20 01/11/20 01/11/20 02:00 06:00 09:00 Temperature 97.3 F L 97.8 F Pulse Rate 69 78 Respiratory 18 18 18 Rate Blood Pressure 104/57 L 109/61 O2 Sat by Pulse 99 97 98 Oximetry (%) 01/11/20 01/11/20 01/11/20 10:00 14:10 18:00 Temperature 98.3 F 98 F 98.1 F Pulse Rate 55 L 63 59 L Respiratory 18 20 20 Rate Blood Pressure 98/51 L 112/54 L 91/56 L O2 Sat by Pulse 98 Oximetry (%) 01/11/20 01/11/20 01/11/20 18:01 21:00 22:00 Temperature 98.2 F 97.8 F Pulse Rate 62 54 L Respiratory 20 20 20 Rate Blood Pressure 109/59 L 100/54 L O2 Sat by Pulse 96 96 Oximetry (%) Current Medications Generic Name Dose Route Start Last Admin Trade Name Freq PRN Reason Stop Dose Admin Potassium Chloride 10 meq/ 1,005 mls @ 75 mls/hr 01/10/20 13:00 01/11/20 15:00 Amino Acids IVPB 75 mls/hr Q13H [facility] Administration Levetiracetam 500 mg 01/09/20 22:00 01/11/20 21:37 Keppra Injection - IVPB 500 mg BID [facility] Administration Pantoprazole Sodium 40 mg 01/10/20 10:00 01/11/20 09:10 Protonix Iv IVPUSH 40 mg DAILY [facility] Administration Microbiology 01/09/20 00:00 Blood Culture - Preliminary Blood - Peripheral Venous NO GROWTH OBTAINED AFTER 24 HOURS, INCUBATION TO CONTINUE FOR 4 DAYS. 01/09/20 00:00 Blood Culture - Preliminary Blood - Peripheral Venous NO GROWTH OBTAINED AFTER 24 HOURS, INCUBATION TO CONTINUE FOR 4 DAYS. S1 S2 RRR Lungs decreased Abd- soft, NT No edema PLAN pt is more awake spoke with swallow therapist om [facility] ID eval for fever noted CXR-->no infiltrate continue with supportive measures spoke with Neurosurgery-- not a candidate for surgery PT eval brother decided DNR/DNI palliative care Problem List - Problems (1) Accidental fall Code(s): W19.XXXA - UNSPECIFIED FALL, INITIAL ENCOUNTER Qualifiers: Encounter type: initial encounter Qualified Code(s): W19.XXXA - Unspecified fall, initial encounter (2) CKD (chronic kidney disease) Code(s): N18.9 - CHRONIC KIDNEY DISEASE, UNSPECIFIED (3) Closed head injury Code(s): S09.90XA - UNSPECIFIED INJURY OF HEAD, INITIAL ENCOUNTER Qualifiers: Encounter type: initial encounter Qualified Code(s): S09.90XA - Unspecified injury of head, initial encounter (4) Traumatic subarachnoid hemorrhage Code(s): S06.6X9A - TRAUM SUBRAC HEM W LOC OF UNSP DURATION, INIT Qualifiers: Encounter type: initial encounter Loss of consciousness presence/duration: with LOC of 30 min or less Qualified Code(s): S06.6X1A - Traumatic subarachnoid hemorrhage with loss of consciousness of 30 minutes or less, initial encounter (5) Traumatic subdural hematoma Code(s): S06.5X9A - TRAUM SUBDR HEM W LOC OF UNSP DURATION, INIT Qualifiers: Encounter type: initial encounter Loss of consciousness presence/duration: with LOC of 30 min or less Qualified Code(s): S06.5X1A - Traumatic subdural hemorrhage with loss of consciousness of 30 minutes or less, initial encounter (6) Abrasion of face Code(s): S00.81XA - ABRASION OF OTHER PART OF HEAD, INITIAL ENCOUNTER (7) Facial contusion Code(s): S00.83XA - CONTUSION OF OTHER PART OF HEAD, INITIAL ENCOUNTER (8) Laceration of eyebrow, right Code(s): S01.111A - LACERATION W/O FB OF RIGHT EYELID AND PERIOCULAR AREA, INIT
[2020-01-12] MEDS: POTASSIUM CHLORIDE 10 MEQ in AMINO ACIDS 4.25%/D5W 1,000 ML IVPB SCH (05:43)
[2020-01-12 07:11] LABS: BLOOD UREA NITROGEN 51.6 mg/dL (7-18); CALCIUM 8.1 mg/dL (8.5-10.1); CREATININE 1.2 mg/dL (0.55-1.3); POTASSIUM 3.6 mmol/L (3.5-5.1)
[2020-01-12] MEDS: levETIRAcetam 500 MG/5 ML INJECTION VIAL IVPB SCH ×2 (09:35→21:03)
[2020-01-12] MEDS: PANTOPRAZOLE SODIUM 40 MG VIAL IVPUSH SCH (09:35)
--- NOTE | 2020-01-12 10:22 | PN ---
Progress Note, Physician History of Present Illness: looks stable no issues noted - Current Medication List Current Medications: Active Medications Potassium Chloride 10 meq/ (Amino Acids) 1,005 mls @ 75 mls/hr IVPB Q13H [facility] Last Admin: 01/12/20 05:43 Dose: 75 mls/hr Documented by: Levetiracetam (Keppra Injection -) 500 mg IVPB BID [facility] Last Admin: 01/12/20 09:35 Dose: 500 mg Documented by: Pantoprazole Sodium (Protonix Iv) 40 mg IVPUSH DAILY [facility] Last Admin: 01/12/20 09:35 Dose: 40 mg Documented by: - Objective Vital Signs: Vital Signs Temperature 98.4 F 01/12/20 06:00 Pulse Rate 54 L 01/12/20 06:00 Respiratory Rate 20 01/12/20 06:00 Blood Pressure 98/50 L 01/12/20 06:00 O2 Sat by Pulse Oximetry (%) 98 01/12/20 06:00 Constitutional: Yes: No Distress, Calm Cardiovascular: Yes: S1, S2 Respiratory: Yes: Regular, CTA Bilaterally Gastrointestinal: Yes: Normal Bowel Sounds, Soft Musculoskeletal: Yes: WNL Extremities: Yes: Other Neurological: Yes: Alert Psychiatric: Yes: Alert Labs: CBC, BMP 01/09/20 05:45 01/12/20 05:26 INR, PTT INR 1.21 (0.83-1.09) H 01/06/20 10:51 Assessment/Plan Problem List - Problems (1) Accidental fall Code(s): W19.XXXA - UNSPECIFIED FALL, INITIAL ENCOUNTER Qualifiers: Encounter type: initial encounter Qualified Code(s): W19.XXXA - Unspecified fall, initial encounter (2) CKD (chronic kidney disease) Code(s): N18.9 - CHRONIC KIDNEY DISEASE, UNSPECIFIED (3) Closed head injury Code(s): S09.90XA - UNSPECIFIED INJURY OF HEAD, INITIAL ENCOUNTER Qualifiers: Encounter type: initial encounter Qualified Code(s): S09.90XA - Unspecified injury of head, initial encounter (4) Traumatic subarachnoid hemorrhage Code(s): S06.6X9A - TRAUM SUBRAC HEM W LOC OF UNSP DURATION, INIT Qualifiers: Encounter type: initial encounter Loss of consciousness presence/duration: with LOC of 30 min or less Qualified Code(s): S06.6X1A - Traumatic suba rachnoid hemorrhage with loss of consciousness of 30 minutes or less, initial encounter (5) Traumatic subdural hematoma Code(s): S06.5X9A - TRAUM SUBDR HEM W LOC OF UNSP DURATION, INIT Qualifiers: Encounter type: initial encounter Loss of consciousness presence/duration: with LOC of 30 min or less Qualified Code(s): S06.5X1A - Traumatic subdural hemorrhage with loss of consciousness of 30 minutes or less, initial encounter (6) Abrasion of face Code(s): S00.81XA - ABRASION OF OTHER PART OF HEAD, INITIAL ENCOUNTER (7) Facial contusion Code(s): S00.83XA - CONTUSION OF OTHER PART OF HEAD, INITIAL ENCOUNTER (8) Laceration of eyebrow, right Code(s): S01.111A - LACERATION W/O FB OF RIGHT EYELID AND PERIOCULAR AREA, INIT plan continue to monitor rest as per the team cx results noted
--- NOTE | 2020-01-12 11:10 | PN ---
Progress Note (short form) - Note Progress Note: NEUROSURGERY Pt denies H/A or N/V. PE: AF, VSS A/A/Ox1 Following commands, more coherent and awake R frontal laceration/edema stable CN- intact; Motor- at least 4/5 b UE/LE; Sensation- intact LT; DTR- 1+ Covid serology negative; WBC 9.4; cultures (urine negative, blood negative to date) head CT- R frontal contusion/TSAH and R parietal small SDH, no skull fx, atrophy CTA- negative for aneurysm F/u head CT 01-06- B hygroma and R convexity extensive SAH, R IVH, mild cortical mass effect and minimal midline mass effect 01-07 F/U CT- B subdural hygroma with R >> L convexity IRIS, B IVH, mild cortical mass effect R > L, stable from 01-06 Traumatic R frontal contusion and extensive R > L convexity SAH/IVH- non- operative given age and extensive concurrent medical conditions Anemia CRI Keppra for sz prophylaxis x 2-3 more days Nutritional support PT/rehab
--- NOTE | 2020-01-12 11:59 | PN ---
Progress Note (short form) - Note Progress Note: events noted no temps he is afebrile he is drowsy today, but answering questions Vital Signs - 24 hr 01/11/20 01/11/20 01/11/20 18:00 18:01 21:00 Temperature 98.1 F 98.2 F Pulse Rate 59 L 62 Respiratory 20 20 20 Rate Blood Pressure 91/56 L 109/59 L O2 Sat by Pulse 96 Oximetry (%) 01/11/20 01/12/20 01/12/20 22:00 02:00 06:00 Temperature 97.8 F 99.5 F 98.4 F Pulse Rate 54 L 52 L 54 L Respiratory 20 20 20 Rate Blood Pressure 100/54 L 96/49 L 98/50 L O2 Sat by Pulse 96 94 L 98 Oximetry (%) 01/12/20 01/12/20 01/12/20 09:00 10:00 13:51 Temperature 97.2 F L 98.6 F Pulse Rate 52 L 55 L Respiratory 20 20 Rate Blood Pressure 99/51 L 99/51 L O2 Sat by Pulse 97 97 97 Oximetry (%) Current Medications Generic Name Dose Route Start Last Admin Trade Name Freq PRN Reason Stop Dose Admin Potassium Chloride 20 meq/ 1,005 mls @ 83 mls/hr 01/12/20 14:32 Amino Acids IVPB Q13H [facility] Levetiracetam 500 mg 01/09/20 22:00 01/12/20 09:35 Keppra Injection - IVPB 500 mg BID [facility] Administration Pantoprazole Sodium 40 mg 01/10/20 10:00 01/12/20 09:35 Protonix Iv IVPUSH 40 mg DAILY [facility] Administration Laboratory Results - last 24 hr 01/12/20 05:26 Sodium 139 Potassium 3.6 Chloride 111 H Carbon Dioxide 23 Anion Gap 6 L BUN 51.6 H Creatinine 1.2 Est GFR (CKD-EPI)AfAm 62.64 Est GFR (CKD-EPI)NonAf 54.04 Random Glucose 113 H Calcium 8.1 L Microbiology 01/10/20 15:30 Urine Culture - Final Urine - Urine Clean Catch NO GROWTH OBTAINED 01/09/20 00:00 Blood Culture - Preliminary Blood - Peripheral Venous NO GROWTH OBTAINED AFTER 48 HOURS, INCUBATION TO CONTINUE FOR 3 DAYS. 01/09/20 00:00 Blood Culture - Preliminary Blood - Peripheral Venous NO GROWTH OBTAINED AFTER 48 HOURS, INCUBATION TO CONTINUE FOR 3 DAYS. S1 S2 RRR Lungs decreased Abd- soft, NT No edema PLAN pt is more awake spoke with swallow therapist -- will hold off barium swallow today on [facility] ID eval for fever noted cultures negative CXR-->no infiltrate continue with supportive measures spoke with Neurosurgery-- not a candidate for surgery PT eval brother decided DNR/DNI palliative care Problem List - Problems (1) Accidental fall Code(s): W19.XXXA - UNSPECIFIED FALL, INITIAL ENCOUNTER Qualifiers: Encounter type: initial encounter Qualified Code(s): W19.XXXA - Unspecified fall, initial encounter (2) CKD (chronic kidney disease) Code(s): N18.9 - CHRONIC KIDNEY DISEASE, UNSPECIFIED (3) Closed head injury Code(s): S09.90XA - UNSPECIFIED INJURY OF HEAD, INITIAL ENCOUNTER Qualifiers: Encounter type: initial encounter Qualified Code(s): S09.90XA - Unspecified injury of head, initial encounter (4) Traumatic subarachnoid hemorrhage Code(s): S06.6X9A - TRAUM SUBRAC HEM W LOC OF UNSP DURATION, INIT Qualifiers: Encounter type: initial encounter Loss of consciousness presence/duration: with LOC of 30 min or less Qualified Code(s): S06.6X1A - Traumatic subarachnoid hemorrhage with loss of consciousness of 30 minutes or less, initial encounter (5) Traumatic subdural hematoma Code(s): S06.5X9A - TRAUM SUBDR HEM W LOC OF UNSP DURATION, INIT Qualifiers: Encounter type: initial encounter Loss of consciousness presence/duration: with LOC of 30 min or less Qualified Code(s): S06.5X1A - Traumatic subdural hemorrhage with loss of consciousness of 30 minutes or less, initial encounter (6) Abrasion of face Code(s): S00.81XA - ABRASION OF OTHER PART OF HEAD, INITIAL ENCOUNTER (7) Facial contusion Code(s): S00.83XA - CONTUSION OF OTHER PART OF HEAD, INITIAL ENCOUNTER (8) Laceration of eyebrow, right Code(s): S01.111A - LACERATION W/O FB OF RIGHT EYELID AND PERIOCULAR AREA, INIT
--- NOTE | 2020-01-12 14:31 | PN ---
Progress Note, Physician History of Present Illness: Pt seen and examined at bedside. He is awake and appears comfortable. - Current Medication List Current Medications: Active Medications Potassium Chloride 10 meq/ (Amino Acids) 1,005 mls @ 75 mls/hr IVPB Q13H [facility] Last Admin: 01/12/20 05:43 Dose: 75 mls/hr Documented by: Levetiracetam (Keppra Injection -) 500 mg IVPB BID [facility] Last Admin: 01/12/20 09:35 Dose: 500 mg Documented by: Pantoprazole Sodium (Protonix Iv) 40 mg IVPUSH DAILY [facility] Last Admin: 01/12/20 09:35 Dose: 40 mg Documented by: - Objective Vital Signs: Vital Signs Temperature 98.6 F 01/12/20 13:51 Pulse Rate 55 L 01/12/20 13:51 Respiratory Rate 01/12/20 13:51 Blood Pressure 99/51 L 01/12/20 13:51 O2 Sat by Pulse Oximetry (%) 97 01/12/20 13:51 Constitutional: Yes: Calm Eyes: Yes: Conjunctiva Clear Neck: Yes: Supple Cardiovascular: Yes: S1, S2 Respiratory: Yes: CTA Bilaterally Gastrointestinal: Yes: Normal Bowel Sounds, Soft Genitourinary: Yes: Incontinence Musculoskeletal: Yes: Muscle Weakness Edema: No Neurological: Yes: Oriented Labs: CBC, BMP 01/09/20 05:45 01/12/20 05:26 INR, PTT INR 1.21 (0.83-1.09) H 01/06/20 10:51 Problem List - Problems (1) CKD (chronic kidney disease) Code(s): N18.9 - CHRONIC KIDNEY DISEASE, UNSPECIFIED (2) Accidental fall Code(s): W19.XXXA - UNSPECIFIED FALL, INITIAL ENCOUNTER Qualifiers: Encounter type: initial encounter Qualified Code(s): W19.XXXA - Unspecified fall, initial encounter (3) Closed head injury Code(s): S09.90XA - UNSPECIFIED INJURY OF HEAD, INITIAL ENCOUNTER Qualifiers: Encounter type: initial encounter Qualified Code(s): S09.90XA - Unspecified injury of head, initial encounter Assessment/Plan Current Medications Generic Name Dose Route Start Last Admin Trade Name Freq PRN Reason Stop Dose Admin Potassium Chloride 10 meq/ 1,005 mls @ 75 mls/hr 01/10/20 13:00 09/24/20 05:43 Amino Acids IVPB 75 mls/hr Q13H [facility] Administration Levetiracetam 500 mg 01/09/20 22:00 01/12/20 09:35 Keppra Injection - IVPB 500 mg BID [facility] Administration Pantoprazole Sodium 40 mg 01/10/20 10:00 01/12/20 09:35 Protonix Iv IVPUSH 40 mg DAILY [facility] Administration Impression 1. syncope 2. subarachnoid hemorrhage 3. murmur 4. ckd 5. hypernatremia 6. cva Plan - cont with [facility] - swallow eval under way - repeat labs in am - pt remains NPO - renal functions stable - pt does have ckd
[2020-01-12] MEDS ORDERED: POTASSIUM CHLORIDE 20 MEQ in AMINO ACIDS 4.25%/D5W 1,000 ML IVPB SCH (14:32)
[2020-01-12] MEDS: POTASSIUM CHLORIDE 20 MEQ in AMINO ACIDS 4.25%/D5W 1,000 ML IVPB SCH (16:08)
[2020-01-13] MEDS: POTASSIUM CHLORIDE 20 MEQ in AMINO ACIDS 4.25%/D5W 1,000 ML IVPB SCH ×3 (04:53→14:49)
[2020-01-13 07:22] LABS: ALBUMIN 2.2 g/dl (3.4-5.0); BILIRUBIN,TOTAL 0.9 mg/dL (0.2-1); BLOOD UREA NITROGEN 49.5 mg/dL (7-18); CALCIUM 8.4 mg/dL (8.5-10.1); CREATININE 1.2 mg/dL (0.55-1.3); MAGNESIUM 1.8 mg/dL (1.8-2.4); PHOSPHOROUS 1.6 mg/dL (2.5-4.9); POTASSIUM 3.8 mmol/L (3.5-5.1); TOT PROT 5.4 g/dl (6.4-8.2)
--- NOTE | 2020-01-13 07:28 | PN ---
Progress Note, Physician Chief Complaint: Pt somnolent, but arousable; does not follow verbal requests. History of Present Illness: Mr. Farmer is an 89-year-old white male, per medical record has history of heart disease and high cholesterol, prostate CA, now presents to ED following rapid response with head injury. Patient was in the hospital accompanied by his brother; he was scheduled for echo today and while ambulating fell to the ground, striking his right head. Rapid response was called, the patient was unresponsive, brought to the emergency department where code ferguson was activated. Patient offering limited history, is quite functional at baseline with some early dementia per brother, is following commands but nonconversant at the time of admission. Physical exam noted 4/6 systolic murmur, RSB-->Lt axilla - Current Medication List Current Medications: Active Medications Potassium Chloride 20 meq/ (Amino Acids) 1,010 mls @ 83 mls/hr IVPB Q12H [facility] Last Admin: 01/13/20 04:53 Dose: Not Given Documented by: Levetiracetam (Keppra Injection -) 500 mg IVPB BID [facility] Last Admin: 01/12/20 21:03 Dose: 500 mg Documented by: Pantoprazole Sodium (Protonix Iv) 40 mg IVPUSH DAILY [facility] Last Admin: 01/12/20 09:35 Dose: 40 mg Documented by: - Objective Vital Signs: Vital Signs Temperature 97.8 F 01/13/20 06:00 Pulse Rate 61 01/13/20 06:00 Respiratory Rate 20 01/13/20 06:00 Blood Pressure 95/50 L 01/13/20 06:00 O2 Sat by Pulse Oximetry (%) 97 01/12/20 21:00 Constitutional: Yes: Thin Eyes: Yes: WNL HENT: Yes: WNL Cardiovascular: Yes: S1, S2 Respiratory: Yes: Regular Gastrointestinal: Yes: Soft Labs: CBC, BMP 01/09/20 05:45 01/13/20 05:40 INR, PTT INR 1.21 (0.83-1.09) H 01/06/20 10:51 Assessment/Plan Syncope, right periorbital injury anemia renal dysfunction dementia by hx; ?mental status changes exacerbated post-syncope cardiac valvulopathy; severe cervical vertebral degeneration; ? impingement C4 hx hyperlipidemia (total cholesterol this admission 123 mg/dL: on no medication) elevated glucose Pl: ECHO: normal LVEF and RVEF; mild LVH; moderately severe ; moderate AR; mild TR, MR, [place]. EKG; telemetry; Holter monitor. TNI 0.02-->0.03 CT head: no acute pathology of brain IV fluids; F/u Is and Os, BUN/Cr, daily weight, electrolytes, BP and HR. orthostatic vital signs once he is well-hydrated. Hb remains stable. Avoid excessive dehydration (rising BUN). Carotid artery doppler: moderate bilateral plaque without significant stenoses. TSH WNL; total cholesterol 123 mg/dL; HGBA1c 4.7. Neurological evaluation (syncope; dementia). On [facility].
--- NOTE | 2020-01-13 08:28 | PN ---
Progress Note, Physician History of Present Illness: Mr. Farmer is an 89-year-old white male, per medical record has history of heart disease and high cholesterol, prostate CA, now presents to ED following rapid response with head injury. Patient was in the hospital accompanied by his brother; he was scheduled for echo today and while ambulating fell to the ground, striking his right head. Rapid response was called, the patient was unr esponsive, brought to the emergency department where code ferguson was activated. Patient offering limited history, is quite functional at baseline with some early dementia per brother, is following commands but nonconversant at the time of admission. Physical exam noted 4/6 systolic murmur, RSB-->Lt axilla - Current Medication List Current Medications: Active Medications Potassium Chloride 20 meq/ (Amino Acids) 1,010 mls @ 83 mls/hr IVPB Q12H [facility] Last Admin: 01/13/20 04:53 Dose: Not Given Documented by: Levetiracetam (Keppra Injection -) 500 mg IVPB BID [facility] Last Admin: 01/12/20 21:03 Dose: 500 mg Documented by: Pantoprazole Sodium (Protonix Iv) 40 mg IVPUSH DAILY [facility] Last Admin: 01/12/20 09:35 Dose: 40 mg Documented by: - Objective Vital Signs: Vital Signs Temperature 97.8 F 01/13/20 06:00 Pulse Rate 61 01/13/20 06:00 Respiratory Rate 20 01/13/20 06:00 Blood Pressure 95/50 L 01/13/20 06:00 O2 Sat by Pulse Oximetry (%) 97 01/12/20 21:00 Eyes: Yes: WNL, Conjunctiva Clear, EOM Intact HENT: Yes: WNL, Atraumatic, Normocephalic Neck: Yes: WNL, Supple, Trachea Midline Cardiovascular: Yes: WNL, Regular Rate and Rhythm Respiratory: Yes: WNL, Regular, CTA Bilaterally Gastrointestinal: Yes: WNL, Normal Bowel Sounds Genitourinary: Yes: WNL Musculoskeletal: Yes: WNL Extremities: Yes: WNL Edema: No Integumentary: Yes: WNL Labs: CBC, BMP 01/09/20 05:45 01/13/20 05:40 INR, PTT INR 1.21 (0.83-1.09) H 01/06/20 10:51 Assessment/Plan Syncope, right periorbital injury anemia renal dysfunction dementia by hx; ?mental status changes exacerbated post-syncope cardiac valvulopathy; severe cervical vertebral degeneration; ? impingement C4 hx hyperlipidemia (total cholesterol this admission 123 mg/dL: on no medication) elevated glucose Pl: ECHO: normal LVEF and RVEF; mild LVH; moderately severe ; moderate AR; mild TR, MR, [place]. EKG; telemetry; Holter monitor. TNI 0.02-->0.03 CT head: no acute pathology of brain IV fluids; F/u Is and Os, BUN/Cr, daily weight, electrolytes, BP and HR. orthostatic vital signs once he is well-hydrated. Hb remains stable. Avoid excessive dehydration (rising BUN). Carotid artery doppler: moderate bilateral plaque without significant stenoses. TSH WNL; total cholesterol 123 mg/dL; HGBA1c 4.7. Neurological evaluation (syncope; dementia). On [facility].
--- NOTE | 2020-01-13 08:59 | PN ---
Progress Note (short form) - Note Progress Note: NEUROSURGERY Pt denies H/A or N/V. PE: Tmax 98.7, VSS A/A/Ox1-2 Following commands, speech more fluent R frontal laceration/edema stabl SCD's on CN- intact; Motor- at least 4/5 b UE/LE; Sensation- intact LT; DTR- 1+ Covid serology negative; WBC 9.4; blood cultures negative to date head CT- R frontal contusion/TSAH and R parietal small SDH, no skull fx, atrophy CTA- negative for aneurysm F/u head CT 01-06- B hygroma and R convexity extensive SAH, R IVH, mild cortical mass effect and minimal midline mass effect 01-07 F/U CT- B subdural hygroma with R >> L convexity IRIS, B IVH, mild cortical mass effect R > L, stable from 01-06 Traumatic R frontal contusion and extensive R > L convexity SAH/IVH Anemia CRI Keppra for sz prophylaxis x 1 week total Nutritional support PT/rehab/safety Consider forehead suture removal soon
[2020-01-13] MEDS: levETIRAcetam 500 MG/5 ML INJECTION VIAL IVPB SCH ×2 (09:39→21:52)
[2020-01-13] MEDS: PANTOPRAZOLE SODIUM 40 MG VIAL IVPUSH SCH (09:39)
--- NOTE | 2020-01-13 10:51 | PN ---
Progress Note (short form) - Note Progress Note: 89 year old male history of htn, came for echo and had a fall had ct head , showed brain contusion and small sah. Neurosurgery were consulted and not a surgical candiddate. Patinet is restrained , agitated and confused, no seizure activity. denies headache. He is moving all extremity. He has bruise on his head. --patient condition same, was seen by neurosurgery. Patient waiting for ng tube placement NEUROLOGICAL EXAMINATION Alert oriented x 1, neck is supple vss, slight agitated and restrained, eomi, pupils reactive no face asymmetry moving all ext ct head showed mild frontal lobe contusion and small sah repeat ct head on sep 20 was stable neurosurgery consult appreciated waiting for barium swallow eeg unremarkable , no seizure like activity, gneralized encephalopathic Assessment/Plan -- sah and contusion, history of mci and now confued due to br ain contusion and sah, on keppra as per neurosurgery. 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
--- NOTE | 2020-01-13 11:27 | PN ---
Progress Note, Physician History of Present Illness: patient seen and examined in tele Chart is reviewed Awake comfortable denies pain answers simple questions awake - Current Medication List Current Medications: Active Medications Potassium Chloride 20 meq/ (Amino Acids) 1,010 mls @ 83 mls/hr IVPB Q12H [facility] Last Admin: 01/13/20 09:39 Dose: 83 mls/hr Documented by: Levetiracetam (Keppra Injection -) 500 mg IVPB BID [facility] Last Admin: 01/13/20 09:39 Dose: 500 mg Documented by: Pantoprazole Sodium (Protonix Iv) 40 mg IVPUSH DAILY [facility] Last Admin: 01/13/20 09:39 Dose: 40 mg Documented by: - Objective Vital Signs: Vital Signs Temperature 98 F 01/13/20 09:00 Pulse Rate 58 L 01/13/20 09:00 Respiratory Rate 20 01/13/20 09:00 Blood Pressure 93/48 L 01/13/20 09:00 O2 Sat by Pulse Oximetry (%) 96 01/13/20 09:00 Constitutional: Yes: No Distress Neck: Yes: Supple Cardiovascular: Yes: Regular Rate and Rhythm Respiratory: Yes: CTA Bilaterally Gastrointestinal: Yes: Soft Edema: No Labs: CBC, BMP 01/09/20 05:45 01/13/20 05:40 INR, PTT INR 1.21 (0.83-1.09) H 01/06/20 10:51 Problem List - Problems (1) Accidental fall Code(s): W19.XXXA - UNSPECIFIED FALL, INITIAL ENCOUNTER Qualifiers: Encounter type: subsequent encounter Qualified Code(s): W19.XXXD - Unspecified fall, subsequent encounter (2) CKD (chronic kidney disease) Code(s): N18.9 - CHRONIC KIDNEY DISEASE, UNSPECIFIED (3) Traumatic subarachnoid hemorrhage Code(s): S06.6X9A - TRAUM SUBRAC HEM W LOC OF UNSP DURATION, INIT Qualifiers: Encounter type: initial encounter Loss of consciousness presence/duration: with LOC of 30 min or less Qualified Code(s): S06.6X1A - Traumatic subarachno id hemorrhage with loss of consciousness of 30 minutes or less, initial encounter (4) Traumatic subdural hematoma Code(s): S06.5X9A - TRAUM SUBDR HEM W LOC OF UNSP DURATION, INIT Qualifiers: Encounter type: initial encounter Loss of consciousness presence/duration: with LOC of 30 min or less Qualified Code(s): S06.5X1A - Traumatic subdural hemorrhage with loss of consciousness of 30 minutes or less, initial encounter (5) Abrasion of face Code(s): S00.81XA - ABRASION OF OTHER PART OF HEAD, INITIAL ENCOUNTER (6) Heart murmur, systolic Code(s): R01.1 - CARDIAC MURMUR, UNSPECIFIED Assessment/Plan Stable discussed with nursing staff again today monitor continue keppra x 7 days total Swallow Eval On clinimix will follow
--- NOTE | 2020-01-13 11:28 | PN ---
Progress Note, Physician History of Present Illness: stable no new issues comfortable - Current Medication List Current Medications: Active Medications Potassium Chloride 20 meq/ (Amino Acids) 1,010 mls @ 83 mls/hr IVPB Q12H [facility] Last Admin: 01/13/20 09:39 Dose: 83 mls/hr Documented by: Levetiracetam (Keppra Injection -) 500 mg IVPB BID [facility] Last Admin: 01/13/20 09:39 Dose: 500 mg Documented by: Pantoprazole Sodium (Protonix Iv) 40 mg IVPUSH DAILY [facility] Last Admin: 01/13/20 09:39 Dose: 40 mg Documented by: - Objective Vital Signs: Vital Signs Temperature 98 F 01/13/20 09:00 Pulse Rate 58 L 01/13/20 09:00 Respiratory Rate 20 01/13/20 09:00 Blood Pressure 93/48 L 01/13/20 09:00 O2 Sat by Pulse Oximetry (%) 96 01/13/20 09:00 Constitutional: Yes: No Distress, Calm Cardiovascular: Yes: S1, S2 Respiratory: Yes: Regular, CTA Bilaterally Gastrointestinal: Yes: Normal Bowel Sounds, Soft Musculoskeletal: Yes: WNL Neurological: Yes: Alert Labs: CBC, BMP 01/09/20 05:45 01/13/20 05:40 INR, PTT INR 1.21 (0.83-1.09) H 01/06/20 10:51 Assessment/Plan Problem List - Problems (1) Accidental fall Code(s): W19.XXXA - UNSPECIFIED FALL, INITIAL ENCOUNTER Qualifiers: Encounter type: initial encounter Qualified Code(s): W19.XXXA - Unspecified fall, initial encounter (2) CKD (chronic kidney disease) Code(s): N18.9 - CHRONIC KIDNEY DISEASE, UNSPECIFIED (3) Closed head injury Code(s): S09.90XA - UNSPECIFIED INJURY OF HEAD, INITIAL ENCOUNTER Qualifiers: Encounter type: initial encounter Qualified Code(s): S09.90XA - Unspecified injury of head, initial encounter (4) Traumatic subarachnoid hemorrhage Code(s): S06.6X9A - TRAUM SUBRAC HEM W LOC OF UNSP DURATION, INIT Qualifiers: Encounter type: initial encounter Loss of consciousness presence/duration: with LOC of 30 min or less Qualified Code(s): S06.6X1A - Traumatic s ubarachnoid hemorrhage with loss of consciousness of 30 minutes or less, initial encounter (5) Traumatic subdural hematoma Code(s): S06.5X9A - TRAUM SUBDR HEM W LOC OF UNSP DURATION, INIT Qualifiers: Encounter type: initial encounter Loss of consciousness presence/duration: with LOC of 30 min or less Qualified Code(s): S06.5X1A - Traumatic subdural hemorrhage with loss of consciousness of 30 minutes or less, initial encounter (6) Abrasion of face Code(s): S00.81XA - ABRASION OF OTHER PART OF HEAD, INITIAL ENCOUNTER (7) Facial contusion Code(s): S00.83XA - CONTUSION OF OTHER PART OF HEAD, INITIAL ENCOUNTER (8) Laceration of eyebrow, right Code(s): S01.111A - LACERATION W/O FB OF RIGHT EYELID AND PERIOCULAR AREA, INIT plan continue to monitor rest as per the team aspiration precautions
[2020-01-13] MEDS ORDERED: SODIUM PHOSPHATE - 20 MM in SODIUM CHLORIDE 250 ML IVPB ONE (12:36)
--- NOTE | 2020-01-13 12:36 | PN ---
Progress Note, Physician History of Present Illness: Pt seen and examined at bedside. He appears comfortable. - Current Medication List Current Medications: Active Medications Potassium Chloride 20 meq/ (Amino Acids) 1,010 mls @ 83 mls/hr IVPB Q12H [facility] Last Admin: 01/13/20 09:39 Dose: 83 mls/hr Documented by: Levetiracetam (Keppra Injection -) 500 mg IVPB BID [facility] Last Admin: 01/13/20 09:39 Dose: 500 mg Documented by: Pantoprazole Sodium (Protonix Iv) 40 mg IVPUSH DAILY [facility] Last Admin: 01/13/20 09:39 Dose: 40 mg Documented by: - Objective Vital Signs: Vital Signs Temperature 98 F 01/13/20 09:00 Pulse Rate 58 L 01/13/20 09:00 Respiratory Rate 20 01/13/20 09:00 Blood Pressure 93/48 L 01/13/20 09:00 O2 Sat by Pulse Oximetry (%) 96 01/13/20 09:00 Constitutional: Yes: Calm Eyes: Yes: Conjunctiva Clear HENT: Yes: Atraumatic Neck: Yes: Supple Cardiovascular: Yes: S1, S2 Respiratory: Yes: CTA Bilaterally Gastrointestinal: Yes: Soft Genitourinary: Yes: Incontinence Musculoskeletal: Yes: Muscle Weakness Edema: No Neurological: Yes: Confusion Labs: CBC, BMP 01/09/20 05:45 01/13/20 05:40 INR, PTT INR 1.21 (0.83-1.09) H 01/06/20 10:51 Problem List - Problems (1) CKD (chronic kidney disease) Code(s): N18.9 - CHRONIC KIDNEY DISEASE, UNSPECIFIED (2) Accidental fall Code(s): W19.XXXA - UNSPECIFIED FALL, INITIAL ENCOUNTER Qualifiers: Encounter type: initial encounter Qualified Code(s): W19.XXXA - Unspecified fall, initial encounter (3) Closed head injury Code(s): S09.90XA - UNSPECIFIED INJURY OF HEAD, INITIAL ENCOUNTER Qualifiers: Encounter type: initial encounter Qualified Code(s): S09.90XA - Unspecified injury of head, initial encounter Assessment/Plan Current Medications Generic Name Dose Route Start Last Admin Trade Name Freq PRN Reason Stop Dose Admin Potassium Chloride 20 meq/ 1,010 mls @ 83 mls/hr 01/12/20 14:44 01/13/20 09:39 Amino Acids IVPB 83 mls/hr Q12H [facility] Administration Levetiracetam 500 mg 01/09/20 22:00 01/13/20 09:39 Keppra Injection - IVPB 500 mg BID [facility] Administration Pantoprazole Sodium 40 mg 01/10/20 10:00 01/13/20 09:39 Protonix Iv IVPUSH 40 mg DAILY [facility] Administration Laboratory Tests 01/06/20 01/13/20 10:51 05:40 Potassium 3.8 Creatinine 2.1 H Phosphorus 1.6 L Magnesium 1.8 Impression 1. syncope 2. subarachnoid hemorrhage 3. murmur 4. ckd 5. hypernatremia 6. cva Plan - cont clinimix - follow swallow eval - replace phos - repeat labs in am - renal function improved - pt remains NPO - pt does have ckd
--- NOTE | 2020-01-13 12:45 | CONSULT ---
Consult - text type - Consultation Consultation Note: PODIATRY CONSULT : 89 yo M pmh HTN, cardiac murmur, on daily 81mg ASA, was admitted because of syncop in the hospital lobby while registering for an outpatient ECHO. Consulted for nail care. patient confused. O: elongated, non thickened, no tender, non fungal nails, no discoloration noted, pedal pulses palpable, temp gradient wnl, capillary fill time wnl on both feet, no erythem, no edema, no signs of any infection noted at this time A: elongated nails P: Evaluated and reviewed no signs of any fungal infection in the nails; routine care Can f/u as outpatient for continue nail care or if admitted early next week will debride at bedside thank you for this consult.
--- NOTE | 2020-01-13 16:12 | PN ---
Progress Note (short form) - Note Progress Note: Surgery: Called to see the sacral wound. Pt was admitted s/p fall and rapid response while in the lobby. Vital Signs Period Temp Pulse Resp BP Sys/Rivera Pulse Ox Last 24 Hr 97.7 F-98.2 F 54-74 18-20 92-99/48-52 96-97 GEN: Alert Sacrum: alleyvn in place. 3 seperate wounds on sacral area each approximately 1 cm x 1 cm x 1/2 cm deep. No tunneling. no erythema or drainage noted. the superior most wound has a small amount of exudate. CBC, BMP 01/09/20 05:45 01/13/20 05:40 A/p: 89 yo male with stage 2 sacral wounds. Recommend to continue alleyn with santyl to superior wound. Off loading pressure areas Mobilize patient with PT, frequent turns Q 2 hours D/w Dr. Olvera, no surgical intervention needed.
[2020-01-14] MEDS: POTASSIUM CHLORIDE 20 MEQ in AMINO ACIDS 4.25%/D5W 1,000 ML IVPB SCH ×3 (00:52→15:24)
[2020-01-14 07:37] LABS: ALBUMIN 2.3 g/dl (3.4-5.0); BILIRUBIN,TOTAL 0.6 mg/dL (0.2-1); BLOOD UREA NITROGEN 51.8 mg/dL (7-18); CALCIUM 8.2 mg/dL (8.5-10.1); CREATININE 1.3 mg/dL (0.55-1.3); MAGNESIUM 1.8 mg/dL (1.8-2.4); PHOSPHOROUS 2.9 mg/dL (2.5-4.9); POTASSIUM 3.8 mmol/L (3.5-5.1)
[2020-01-14] MEDS: COLLAGENASE CLOSTRIDIUM HIST. 30 GRAMS TUBE TP SCH (09:34)
[2020-01-14] MEDS: levETIRAcetam 500 MG/5 ML INJECTION VIAL IVPB SCH ×2 (09:34→23:05)
[2020-01-14] MEDS: PANTOPRAZOLE SODIUM 40 MG VIAL IVPUSH SCH (09:34)
[2020-01-14] MEDS: AMINO ACIDS/PROTEIN HYDROLYS 30 ML LIQUID.PKT PO SCH (09:34)
--- NOTE | 2020-01-14 11:20 | PN ---
Progress Note, Physician History of Present Illness: Mr. Farmer is an 89-year-old white male, per medical record has history of heart disease and high cholesterol, prostate CA, now presents to ED following rapid response with head injury. Patient was in the hospital accompanied by his brother; he was scheduled for echo today and while ambulating fell to the ground, striking his right head. Rapid response was called, the patient was unr esponsive, brought to the emergency department where code ferguson was activated. Patient offering limited history, is quite functional at baseline with some early dementia per brother, is following commands but nonconversant at the time of admission. Physical exam noted 4/6 systolic murmur, RSB-->Lt axilla - Current Medication List Current Medications: Active Medications Amino Acids (Prosource No Carb Liquid Pkt) 30 ml PO DAILY@0800 [facility] Last Admin: 01/14/20 09:34 Dose: 30 ml Documented by: Collagenase (Santyl -) 1 applic TP DAILY [facility]; Protocol Last Admin: 01/14/20 09:34 Dose: 1 applic Documented by: Potassium Chloride 20 meq/ (Amino Acids) 1,010 mls @ 75 mls/hr IVPB Q12H [facility] Last Admin: 01/14/20 05:19 Dose: 75 mls/hr Documented by: Levetiracetam (Keppra Injection -) 500 mg IVPB BID [facility] Last Admin: 01/14/20 09:34 Dose: 500 mg Documented by: Pantoprazole Sodium (Protonix Iv) 40 mg IVPUSH DAILY [facility] Last Admin: 01/14/20 09:34 Dose: 40 mg Documented by: - Objective Vital Signs: Vital Signs Temperature 98.2 F 01/14/20 10:00 Pulse Rate 78 01/14/20 10:00 Respiratory Rate 20 01/14/20 10:00 Blood Pressure 106/56 L 01/14/20 10:00 O2 Sat by Pulse Oximetry (%) 95 01/13/20 21:51 Eyes: Yes: WNL, Conjunctiva Clear, EOM Intact HENT: Yes: WNL, Atraumatic, Normocephalic Neck: Yes: WNL, Supple, Trachea Midline Cardiovascular: Yes: WNL, Regular Rate and Rhythm Respiratory: Yes: WNL, Regular, CTA Bilaterally Gastrointestinal: Yes: WNL, Normal Bowel Sounds Genitourinary: Yes: WNL Musculoskeletal: Yes: WNL Extremities: Yes: WNL Edema: No Integumentary: Yes: WNL Psychiatric: Yes: WNL Labs: CBC, BMP 01/09/20 05:45 01/14/20 06:05 INR, PTT INR 1.21 (0.83-1.09) H 01/06/20 10:51 Problem List - Problems (1) Accidental fall Code(s): W19.XXXA - UNSPECIFIED FALL, INITIAL ENCOUNTER Qualifiers: Encounter type: subsequent encounter Qualified Code(s): W19.XXXD - Unspecified fall, subsequent encounter (2) CKD (chronic kidney disease) Code(s): N18.9 - CHRONIC KIDNEY DISEASE, UNSPECIFIED (3) Closed head injury Code(s): S09.90XA - UNSPECIFIED INJURY OF HEAD, INITIAL ENCOUNTER Qualifiers: Encounter type: initial encounter Qualified Code(s): S09.90XA - Unspecified injury of head, initial encounter (4) Facial laceration Code(s): S01.81XA - LACERATION W/O FOREIGN BODY OF OTH PART OF HEAD, INIT ENCNTR Qualifiers: Encounter type: initial encounter Qualified Code(s): S01.81XA - Laceration without foreign body of other part of head, initial encounter (5) Heart murmur, systolic Code(s): R01.1 - CARDIAC MURMUR, UNSPECIFIED (6) Traumatic subarachnoid hemorrhage Code(s): S06.6X9A - TRAUM SUBRAC HEM W LOC OF UNSP DURATION, INIT Qualifiers: Encounter type: initial encounter Loss of consciousness presence/duration: with LOC of 30 min or less Qualified Code(s): S06.6X1A - Traumatic subarachnoid hemorrhage with loss of consciousness of 30 minutes or less, initial encounter (7) Traumatic subdural hematoma Code(s): S06.5X9A - TRAUM SUBDR HEM W LOC OF UNSP DURATION, INIT Qualifiers: Encounter type: initial encounter Loss of consciousness presence/duration: with LOC of 30 min or less Qualified Code(s): S06.5X1A - Traumatic subdural hemorrhage with loss of consciousness of 30 minutes or less, initial encounter (8) Abrasion of face Code(s): S00.81XA - ABRASION OF OTHER PART OF HEAD, INITIAL ENCOUNTER (9) Facial contusion Code(s): S00.83XA - CONTUSION OF OTHER PART OF HEAD, INITIAL ENCOUNTER (10) Laceration of eyebrow, right Code(s): S01.111A - LACERATION W/O FB OF RIGHT EYELID AND PERIOCULAR AREA, INIT Assessment/Plan Syncope, right periorbital injury anemia renal dysfunction dementia by hx; ?mental status changes exacerbated post-syncope cardiac valvulopathy; severe cervical vertebral degeneration; ? impingement C4 hx hyperlipidemia (total cholesterol this admission 123 mg/dL: on no medication) elevated glucose Pl: ECHO: normal LVEF and RVEF; mild LVH; moderately severe ; moderate AR; mild T R, MR, [place]. EKG; telemetry; Holter monitor. TNI 0.02-->0.03 CT head: no acute pathology of brain IV fluids; F/u Is and Os, BUN/Cr, daily weight, electrolytes, BP and HR. orthostatic vital signs once he is well-hydrated. Hb remains stable. Avoid excessive dehydration (rising BUN). Carotid artery doppler: moderate bilateral plaque without significant stenoses. TSH WNL; total cholesterol 123 mg/dL; HGBA1c 4.7. Neurological evaluation (syncope; dementia). On [facility]. d/c telemetry
--- NOTE | 2020-01-14 11:34 | PN ---
Progress Note (short form) - Note Progress Note: events noted no temps he is afebrile he is drowsy trying to pull out NG tube Vital Signs - 24 hr 01/13/20 01/13/20 01/13/20 13:00 18:00 21:00 Temperature 98 F 98.8 F Pulse Rate 58 L 59 L Respiratory 20 20 Rate Blood Pressure 90/50 L 102/55 L O2 Sat by Pulse 96 95 Oximetry (%) 01/13/20 01/14/20 01/14/20 21:51 02:00 05:21 Temperature 98.5 F 98.6 F 98.2 F Pulse Rate 70 75 74 Respiratory 18 18 18 Rate Blood Pressure 96/44 L 105/65 90/47 L O2 Sat by Pulse 95 Oximetry (%) 01/14/20 01/14/20 09:00 10:00 Temperature 98.2 F Pulse Rate 78 Respiratory 20 Rate Blood Pressure 106/56 L O2 Sat by Pulse 97 Oximetry (%) Current Medications Generic Name Dose Route Start Last Admin Trade Name Freq PRN Reason Stop Dose Admin Amino Acids 30 ml 01/14/20 08:00 01/14/20 09:34 Prosource No Carb Liquid Pkt PO 30 ml DAILY@0800 TONY Administration Collagenase 1 applic 01/14/20 10:00 01/14/20 09:34 Santyl - TP 1 applic DAILY TONY Administration Protocol Potassium Chloride 20 meq/ 1,010 mls @ 75 mls/hr 01/13/20 12:37 01/14/20 05:19 Amino Acids IVPB 75 mls/hr Q12H TONY Administration Levetiracetam 500 mg 01/09/20 22:00 01/14/20 09:34 Keppra Injection - IVPB 500 mg BID TONY Administration Pantoprazole Sodium 40 mg 01/10/20 10:00 01/14/20 09:34 Protonix Iv IVPUSH 40 mg DAILY TONY Administration Laboratory Results - last 24 hr 01/14/20 06:05 Sodium 135 L Potassium 3.8 Chloride 107 Carbon Dioxide 20 L Anion Gap 8 BUN 51.8 H Creatinine 1.3 Est GFR (CKD-EPI)AfAm 56.86 Est GFR (CKD-EPI)NonAf 49.06 Random Glucose 94 Calcium 8.2 L Phosphorus 2.9 Magnesium 1.8 Total Bilirubin 0.6 AST 21 ALT 19 Alkaline Phosphatase 53 Total Protein 6.0 L Albumin 2.3 L S1 S2 RRR Lungs decreased Abd- soft, NT No edema PLAN drowsy noted barium swallow results NPO On NG feed once feeds are increased to goal rate, will dc Clinimix cultures negative CXR-->no infiltrate continue with supportive measures spoke with Neurosurgery-- not a candidate for surgery PT eval brother decided DNR/DNI palliative care Problem List - Problems (1) Accidental fall Code(s): W19.XXXA - UNSPECIFIED FALL, INITIAL ENCOUNTER Qualifiers: Encounter type: subsequent encounter Qualified Code(s): W19.XXXD - Unspecified fall, subsequent encounter (2) CKD (chronic kidney disease) Code(s): N18.9 - CHRONIC KIDNEY DISEASE, UNSPECIFIED (3) Closed head injury Code(s): S09.90XA - UNSPECIFIED INJURY OF HEAD, INITIAL ENCOUNTER Qualifiers: Encounter type: initial encounter Qualified Code(s): S09.90XA - Unspecified injury of head, initial encounter (4) Traumatic subarachnoid hemorrhage Code(s): S06.6X9A - TRAUM SUBRAC HEM W LOC OF UNSP DURATION, INIT Qualifiers: Encounter type: initial encounter Loss of consciousness presence/duration: with LOC of 30 min or less Qualified Code(s): S06.6X1A - Traumatic subarachnoid hemorrhage with loss of consciousness of 30 minutes or less, initial encounter (5) Traumatic subdural hematoma Code(s): S06.5X9A - TRAUM SUBDR HEM W LOC OF UNSP DURATION, INIT Qualifiers: Encounter type: initial encounter Loss of consciousness presence/duration: with LOC of 30 min or less Qualified Code(s): S06.5X1A - Traumatic subdural hemorrhage with loss of consciousness of 30 minutes or less, initial encounter (6) Abrasion of face Code(s): S00.81XA - ABRASION OF OTHER PART OF HEAD, INITIAL ENCOUNTER (7) Facial contusion Code(s): S00.83XA - CONTUSION OF OTHER PART OF HEAD, INITIAL ENCOUNTER (8) Laceration of eyebrow, right Code(s): S01.111A - LACERATION W/O FB OF RIGHT EYELID AND PERIOCULAR AREA, INIT
[2020-01-14 13:26] LABS: HEMATOCRIT 28.5 % (35.4-49); HEMOGLOBIN 9.7 GM/dL (11.7-16.9); MCH 32.9 pg (25.7-33.7); MCHC 34.2 g/dl (32.0-35.9); MEAN CELL VOLUME 96.1 fl (80-96); PLATELET COUNT 173 K/MM3 (134-434); RBC 2.97 M/mm3 (4.00-5.60); RDW 13.2 % (11.9-15.9); WHITE BLOOD COUNT 14.7 K/mm3 (4.0-10.0)
--- NOTE | 2020-01-14 18:50 | PN ---
Progress Note, Physician History of Present Illness: Pt is weak but verbally responsive. Afebrile, wbc elevated today. NGT in place. No obvious distress. - Current Medication List Current Medications: Active Medications Amino Acids (Prosource No Carb Liquid Pkt) 30 ml PO DAILY@0800 [facility] Last Admin: 01/14/20 09:34 Dose: 30 ml Documented by: Collagenase (Santyl -) 1 applic TP DAILY [facility]; Protocol Last Admin: 01/14/20 09:34 Dose: 1 applic Documented by: Potassium Chloride 20 meq/ (Amino Acids) 1,010 mls @ 60 mls/hr IVPB Q16H [facility] Last Admin: 01/14/20 15:24 Dose: Not Given Documented by: Levetiracetam (Keppra Injection -) 500 mg IVPB BID [facility] Last Admin: 01/14/20 09:34 Dose: 500 mg Documented by: Pantoprazole Sodium (Protonix Iv) 40 mg IVPUSH DAILY [facility] Last Admin: 01/14/20 09:34 Dose: 40 mg Documented by: - Objective Vital Signs: Vital Signs Temperature 98.0 F 01/14/20 17:46 Pulse Rate 76 01/14/20 17:46 Respiratory Rate 18 01/14/20 17:46 Blood Pressure 122/72 01/14/20 17:46 O2 Sat by Pulse Oximetry (%) 95 01/14/20 17:46 Constitutional: Yes: No Distress, Calm HENT: Yes: Other (NGT) Cardiovascular: Yes: Regular Rate and Rhythm, Murmur Respiratory: Yes: Regular Gastrointestinal: Yes: Normal Bowel Sounds, Soft Genitourinary: Yes: [place] Present Extremities: Yes: WNL Neurological: Yes: Weakness (generalized) Labs: CBC, BMP 01/14/20 06:05 01/14/20 06:05 INR, PTT INR 1.21 (0.83-1.09) H 01/06/20 10:51 Laboratory Last Values WBC 14.7 K/mm3 (4.0-10.0) H 01/14/20 06:05 RBC 2.97 M/mm3 (4.00-5.60) L 01/14/20 06:05 Hgb 9.7 GM/dL (11.7-16.9) L 01/14/20 06:05 Hct 28.5 % (35.4-49) L 01/14/20 06:05 MCV 96.1 fl (80-96) H 01/14/20 06:05 MCH 32.9 pg (25.7-33.7) 01/14/20 06:05 MCHC 34.2 g/dl (32.0-35.9) 01/14/20 06:05 RDW 13.2 % (11.9-15.9) 01/14/20 06:05 Plt Count 173 K/MM3 (134-434) 01/14/20 06:05 MPV 8.0 fl (7.5-11.1) 01/14/20 06:05 Absolute Neuts (auto) 7.5 K/mm3 (1.5-8.0) 01/09/20 05:45 Neutrophils % 80.0 % (42.8-82.8) 01/09/20 05:45 Lymphocytes % 10.0 % (8-40) 01/09/20 05:45 Monocytes % 9.9 % (3.8-10.2) 01/09/20 05:45 Eosinophils % 0.0 % (0-4.5) D 01/09/20 05:45 Basophils % 0.1 % (0-2.0) 01/09/20 05:45 Nucleated RBC % 0 % (0-0) 01/09/20 05:45 PT with INR 14.30 SEC (9.7-13.0) H 01/06/20 10:51 INR 1.21 (0.83-1.09) H 01/06/20 10:51 PTT (Actin FS) 28.0 SECONDS (25.2-36.5) 01/06/20 10:51 Sodium 135 mmol/L (136-145) L 01/14/20 06:05 Potassium 3.8 mmol/L (3.5-5.1) 01/14/20 06:05 Chloride 107 mmol/L (98-107) 01/14/20 06:05 Carbon Dioxide 20 mmol/L (21-32) L 01/14/20 06:05 Anion Gap 8 MMOL/L (8-16) 01/14/20 06:05 BUN 51.8 mg/dL (7-18) H 01/14/20 06:05 Creatinine 1.3 mg/dL (0.55-1.3) 01/14/20 06:05 Est GFR (CKD-EPI)AfAm 56.86 01/14/20 06:05 Est GFR (CKD-EPI)NonAf 49.06 01/14/20 06:05 Random Glucose 94 mg/dL (74-106) 01/14/20 06:05 Hemoglobin A1c % 4.7 % (4.2-6.3) 01/07/20 05:15 Lactic Acid 1.2 mmol/L (0.4-2.0) 01/09/20 00:00 Calcium 8.2 mg/dL (8.5-10.1) L 01/14/20 06:05 Phosphorus 2.9 mg/dL (2.5-4.9) 01/14/20 06:05 Magnesium 1.8 mg/dL (1.8-2.4) 01/14/20 06:05 Total Bilirubin 0.6 mg/dL (0.2-1) 01/14/20 06:05 AST 21 U/L (15-37) 01/14/20 06:05 ALT 19 U/L (13-61) 01/14/20 06:05 Alkaline Phosphatase 53 U/L (45-117) 01/14/20 06:05 Creatine Kinase 504 U/L (26-308) H 01/09/20 05:55 Creatine Kinase Index 0.7 % (0.0-5.0) 01/09/20 05:55 CK-MB (CK-2) 3.6 ng/mL (0.5-3.6) 01/09/20 05:55 Troponin I 0.03 ng/ml (0.00-0.05) 01/09/20 05:55 Total Protein 6.0 g/dl (6.4-8.2) L 01/14/20 06:05 Albumin 2.3 g/dl (3.4-5.0) L 01/14/20 06:05 Triglycerides 56 mg/dL (0-150) 01/06/20 10:51 Cholesterol 123 mg/dL (50-200) 01/06/20 10:51 Total LDL Cholesterol 70 mg/dL (5-100) 01/06/20 10:51 HDL Cholesterol 49 mg/dL (40-60) 01/06/20 10:51 Vitamin B12 1832 pg/ml (193-986) H 01/07/20 05:15 Serum Folate 62 ng/mL (3.1-17.5) H 01/07/20 05:15 Procalcitonin 0.19 ng/mL (0.00-0.08) H 01/10/20 05:53 TSH 0.70 uIU/ml (0.358-3.74) D 01/07/20 05:15 Urine Color Yellow 01/10/20 15:30 Urine Appearance Clear 01/10/20 15:30 Urine pH 5.0 (5.0-8.0) 01/10/20 15:30 Ur Specific [place] 1.016 (1.010-1.035) 01/10/20 15:30 Urine Protein Trace (NEGATIVE) 01/10/20 15:30 Urine Glucose (UA) Negative (NEGATIVE) 01/10/20 15:30 Urine Ketones Negative (NEGATIVE) 01/10/20 15:30 Urine Blood Trace (NEGATIVE) 01/10/20 15:30 Urine Nitrite Negative (NEGATIVE) 01/10/20 15:30 Urine Bilirubin Negative (NEGATIVE) 01/10/20 15:30 Urine Urobilinogen 0.2 mg/dL (0.2-1.0) 01/10/20 15:30 Ur Leukocyte Esterase Trace (NEGATIVE) 01/10/20 15:30 Urine WBC (Auto) 48 /uL (0-25.8) 01/10/20 15:30 Urine RBC (Auto) 5 /uL (0-23.9) 01/10/20 15:30 Urine Casts (Auto) 1 /uL (0-3.1) 01/10/20 15:30 U Epithel Cells (Auto) 8 /uL (0-25.1) 01/10/20 15:30 Urine Bacteria (Auto) 6 /uL (0-1359) 01/10/20 15:30 Syphilis Serology Non-reactive (NONREACTIVE) 01/07/20 05:15 COVID-19 (DAVON) Not detected (Not Detected) 01/06/20 12:05 Blood Type Cancelled 01/06/20 10:51 Blood Type O POSITIVE 01/06/20 10:51 Antibody Screen Cancelled 01/06/20 10:51 Antibody Screen Negative 01/06/20 10:51 Microbiology 01/09/20 00:00 Blood - Peripheral Venous Blood Culture - Preliminary NO GROWTH OBTAINED AFTER 96 HOURS, INCUBATION TO CONTINUE FOR 1 DAYS. 01/09/20 00:00 Blood - Peripheral Venous Blood Culture - Preliminary NO GROWTH OBTAINED AFTER 96 HOURS, INCUBATION TO CONTINUE FOR 1 DAYS. 01/10/20 15:30 Urine - Urine Clean Catch Urine Culture - Final NO GROWTH OBTAINED - ....Imaging Chest X-ray: Report Reviewed Problem List - Problems (1) Accidental fall Code(s): W19.XXXA - UNSPECIFIED FALL, INITIAL ENCOUNTER Qualifiers: Encounter type: subsequent encounter Qualified Code(s): W19.XXXD - Unspecified fall, subsequent encounter (2) CKD (chronic kidney disease) Code(s): N18.9 - CHRONIC KIDNEY DISEASE, UNSPECIFIED (3) Closed head injury Code(s): S09.90XA - UNSPECIFIED INJURY OF HEAD, INITIAL ENCOUNTER Qualifiers: Encounter type: initial encounter Qualified Code(s): S09.90XA - Unspecified injury of head, initial encounter (4) Facial laceration Code(s): S01.81XA - LACERATION W/O FOREIGN BODY OF OTH PART OF HEAD, INIT ENCNTR Qualifiers: Encounter type: initial encounter Qualified Code(s): S01.81XA - Laceration without foreign body of other part of head, initial encounter (5) Heart murmur, systolic Code(s): R01.1 - CARDIAC MURMUR, UNSPECIFIED (6) Traumatic subdural hematoma Code(s): S06.5X9A - TRAUM SUBDR HEM W LOC OF UNSP DURATION, INIT Qualifiers: Encounter type: initial encounter Loss of consciousness presence/duration: with LOC of 30 min or less Qualified Code(s): S06.5X1A - Traumatic subdural hemorrhage with loss of consciousness of 30 minutes or less, initial encounter (7) Abrasion of face Code(s): S00.81XA - ABRASION OF OTHER PART OF HEAD, INITIAL ENCOUNTER (8) Laceration of eyebrow, right Code(s): S01.111A - LACERATION W/O FB OF RIGHT EYELID AND PERIOCULAR AREA, INIT Assessment/Plan wbc elevated today, otherwise no distress noted/afebrile, responsive Aspiration noted on swallow studies, aspiration precautions/NGT repeat cbc in a.m., if trends up will repeat cultures, monitor off of antibiotics for now monitor mental status Neurology evaluated
--- NOTE | 2020-01-15 09:58 | PN ---
Progress Note, Physician History of Present Illness: Mr. Farmer is an 89-year-old white male, per medical record has history of heart disease and high cholesterol, prostate CA, now presents to ED following rapid response with head injury. Patient was in the hospital accompanied by his brother; he was scheduled for echo today and while ambulating fell to the ground, striking his right head. Rapid response was called, the patient was unr esponsive, brought to the emergency department where code [place] was activated. Patient offering limited history, is quite functional at baseline with some early dementia per brother, is following commands but nonconversant at the time of admission. Physical exam noted 4/6 systolic murmur, RSB-->Lt axilla - Current Medication List Current Medications: Active Medications Amino Acids (Prosource No Carb Liquid Pkt) 30 ml PO DAILY@0800 [facility] Last Admin: 01/14/20 09:34 Dose: 30 ml Documented by: Collagenase (Santyl -) 1 applic TP DAILY TONY; Protocol Last Admin: 01/14/20 09:34 Dose: 1 applic Documented by: Potassium Chloride 20 meq/ (Amino Acids) 1,010 mls @ 60 mls/hr IVPB Q16H TONY Last Admin: 01/14/20 15:24 Dose: Not Given Documented by: Levetiracetam (Keppra Injection -) 500 mg IVPB BID [facility]ONY Last Admin: 01/14/20 23:05 Dose: 500 mg Documented by: Pantoprazole Sodium (Protonix Iv) 40 mg IVPUSH DAILY [facility] Last Admin: 01/14/20 09:34 Dose: 40 mg Documented by: - Objective Vital Signs: Vital Signs Temperature 99.2 F 01/15/20 06:00 Pulse Rate 67 01/15/20 06:00 Respiratory Rate 20 01/15/20 06:00 Blood Pressure 90/52 L 01/15/20 06:00 O2 Sat by Pulse Oximetry (%) 98 01/15/20 09:00 Eyes: Yes: WNL, Conjunctiva Clear, EOM Intact HENT: Yes: WNL, Atraumatic, Normocephalic Neck: Yes: WNL, Supple, Trachea Midline Cardiovascular: Yes: WNL, Regular Rate and Rhythm Respiratory: Yes: WNL, Regular, CTA Bilaterally Gastrointestinal: Yes: WNL, Normal Bowel Sounds Genitourinary: Yes: WNL Musculoskeletal: Yes: WNL Extremities: Yes: WNL Edema: No Integumentary: Yes: WNL Neurological: Yes: Lethargy Labs: CBC, BMP 01/14/20 06:05 01/14/20 06:05 INR, PTT INR 1.21 (0.83-1.09) H 01/06/20 10:51 Problem List - Problems (1) Accidental fall Code(s): W19.XXXA - UNSPECIFIED FALL, INITIAL ENCOUNTER Qualifiers: Encounter type: subsequent encounter Qualified Code(s): W19.XXXD - Unspecified fall, subsequent encounter (2) CKD (chronic kidney disease) Code(s): N18.9 - CHRONIC KIDNEY DISEASE, UNSPECIFIED (3) Closed head injury Code(s): S09.90XA - UNSPECIFIED INJURY OF HEAD, INITIAL ENCOUNTER Qualifiers: Encounter type: initial encounter Qualified Code(s): S09.90XA - Unspecified injury of head, initial encounter (4) Facial laceration Code(s): S01.81XA - LACERATION W/O FOREIGN BODY OF OTH PART OF HEAD, INIT ENCNTR Qualifiers: Encounter type: initial encounter Qualified Code(s): S01.81XA - Laceration without foreign body of other part of head, initial encounter (5) Heart murmur, systolic Code(s): R01.1 - CARDIAC MURMUR, UNSPECIFIED (6) Traumatic subarachnoid hemorrhage Code(s): S06.6X9A - TRAUM SUBRAC HEM W LOC OF UNSP DURATION, INIT Qualifiers: Encounter type: initial encounter Loss of consciousness presence/duration: with LOC of 30 min or less Qualified Code(s): S06.6X1A - Traumatic subarachnoid hemorrhage with loss of consciousness of 30 minutes or less, initial encounter (7) Traumatic subdural hematoma Code(s): S06.5X9A - TRAUM SUBDR HEM W LOC OF UNSP DURATION, INIT Qualifiers: Encounter type: initial encounter Loss of consciousness presence/duration: with LOC of 30 min or less Qualified Code(s): S06.5X1A - Traumatic subdural hemorrhage with loss of consciousness of 30 minutes or less, initial encounter (8) Abrasion of face Code(s): S00.81XA - ABRASION OF OTHER PART OF HEAD, INITIAL ENCOUNTER (9) Facial contusion Code(s): S00.83XA - CONTUSION OF OTHER PART OF HEAD, INITIAL ENCOUNTER (10) Laceration of eyebrow, right Code(s): S01.111A - LACERATION W/O FB OF RIGHT EYELID AND PERIOCULAR AREA, INIT Assessment/Plan Syncope, right periorbital injury anemia renal dysfunction dementia by hx; ?mental status changes exacerbated post-syncope cardiac valvulopathy; severe cervical vertebral degeneration; ? impingement C4 hx hyperlipidemia (total cholesterol this admission 123 mg/dL: on no medication) elevated glucose Pl: ECHO: normal LVEF and RVEF; mild LVH; moderately severe ; moderate AR; mild TR, MR, WI. EKG; telemetry; Holter monitor. TNI 0.02-->0.03 CT head: no acute pathology of brain IV fluids; F/u Is and Os, BUN/Cr, daily weight, electrolytes, BP and HR. orthostatic vital signs once he is well-hydrated. Hb remains stable. Avoid excessive dehydration (rising BUN). Carotid artery doppler: moderate bilateral plaque without significant stenoses. TSH WNL; total cholesterol 123 mg/dL; HGBA1c 4.7. Neurological evaluation (syncope; dementia). On Keppra. d/c telemetry
[2020-01-15] MEDS ORDERED: PT OWN MED DRAWER 7, Y5N ONE (09:59)
[2020-01-15] MEDS: POTASSIUM CHLORIDE 20 MEQ in AMINO ACIDS 4.25%/D5W 1,000 ML IVPB SCH ×2 (10:12→21:27)
[2020-01-15] MEDS: PANTOPRAZOLE SODIUM 40 MG VIAL IVPUSH SCH (10:13)
[2020-01-15] MEDS: AMINO ACIDS/PROTEIN HYDROLYS 30 ML LIQUID.PKT PO SCH (10:13)
[2020-01-15] MEDS: levETIRAcetam 500 MG/5 ML INJECTION VIAL IVPB SCH ×2 (10:13→22:37)
[2020-01-15] MEDS: COLLAGENASE CLOSTRIDIUM HIST. 30 GRAMS TUBE TP SCH (10:13)
--- NOTE | 2020-01-15 15:17 | PN ---
Progress Note (short form) - Note Progress Note: events noted no temps he is afebrile he is more awake than yesterday trying to pull out NG tube Vital Signs - 24 hr 01/14/20 01/14/20 01/14/20 17:46 21:00 22:00 Temperature 98.0 F 98.3 F Pulse Rate 76 80 Respiratory 18 20 Rate Blood Pressure 122/72 122/51 L O2 Sat by Pulse 95 99 99 Oximetry (%) 01/15/20 01/15/20 01/15/20 06:00 09:00 10:00 Temperature 99.2 F Pulse Rate 67 60 Respiratory 20 18 Rate Blood Pressure 90/52 L 96/58 L O2 Sat by Pulse 98 Oximetry (%) Current Medications Generic Name Dose Route Start Last Admin Trade Name Freq PRN Reason Stop Dose Admin Amino Acids 30 ml 01/14/20 08:00 01/15/20 10:13 Prosource No Carb Liquid Pkt PO 30 ml DAILY@0800 TONY Administration Collagenase 1 applic 01/14/20 10:00 01/15/20 10:13 Santyl - TP 1 applic DAILY TONY Administration Protocol Potassium Chloride 20 meq/ 1,010 mls @ 60 mls/hr 01/14/20 11:52 01/15/20 10:12 Amino Acids IVPB Not Given Q16H TONY Levetiracetam 500 mg 01/09/20 22:00 01/15/20 10:13 Keppra Injection - IVPB 500 mg BID TONY Administration Pantoprazole Sodium 40 mg 01/10/20 10:00 01/15/20 10:13 Protonix Iv IVPUSH 40 mg DAILY TONY Administration S1 S2 RRR Lungs decreased Abd- soft, NT No edema PLAN drowsy noted barium swallow results NPO On NG feed cultures negative CXR-->no infiltrate continue with supportive measures spoke with Neurosurgery-- not a candidate for surgery PT eval brother decided DNR/DNI palliative care if more awake, may attempt repeating barium swallow Problem List - Problems (1) Accidental fall Code(s): W19.XXXA - UNSPECIFIED FALL, INITIAL ENCOUNTER Qualifiers: Encounter type: subsequent encounter Qualified Code(s): W19.XXXD - Unspecified fall, subsequent encounter (2) CKD (chronic kidney disease) Code(s): N18.9 - CHRONIC KIDNEY DISEASE, UNSPECIFIED (3) Closed head injury Code(s): S09.90XA - UNSPECIFIED INJURY OF HEAD, INITIAL ENCOUNTER Qualifiers: Encounter type: initial encounter Qualified Code(s): S09.90XA - Unspecified injury of head, initial encounter (4) Traumatic subarachnoid hemorrhage Code(s): S06.6X9A - TRAUM SUBRAC HEM W LOC OF UNSP DURATION, INIT Qualifiers: Encounter type: initial encounter Loss of consciousness presence/duration: with LOC of 30 min or less Qualified Code(s): S06.6X1A - Traumatic subarachnoid hemorrhage with loss of consciousness of 30 minutes or less, initial encounter (5) Traumatic subdural hematoma Code(s): S06.5X9A - TRAUM SUBDR HEM W LOC OF UNSP DURATION, INIT Qualifiers: Encounter type: initial encounter Loss of consciousness presence/duration: with LOC of 30 min or less Qualified Code(s): S06.5X1A - Traumatic subdural hemorrhage with loss of consciousness of 30 minutes or less, initial encounter (6) Abrasion of face Code(s): S00.81XA - ABRASION OF OTHER PART OF HEAD, INITIAL ENCOUNTER (7) Facial contusion Code(s): S00.83XA - CONTUSION OF OTHER PART OF HEAD, INITIAL ENCOUNTER (8) Laceration of eyebrow, right Code(s): S01.111A - LACERATION W/O FB OF RIGHT EYELID AND PERIOCULAR AREA, INIT
--- NOTE | 2020-01-15 15:49 | PN ---
Progress Note, Physician History of Present Illness: Pt is alert, without distress. Remains afebrile. NGT in place. - Current Medication List Current Medications: Active Medications Amino Acids (Prosource No Carb Liquid Pkt) 30 ml PO DAILY@0800 [facility] Last Admin: 01/15/20 10:13 Dose: 30 ml Documented by: Collagenase (Santyl -) 1 applic TP DAILY [facility]; Protocol Last Admin: 01/15/20 10:13 Dose: 1 applic Documented by: Potassium Chloride 20 meq/ (Amino Acids) 1,010 mls @ 60 mls/hr IVPB Q16H [facility] Last Admin: 01/15/20 10:12 Dose: Not Given Documented by: Levetiracetam (Keppra Injection -) 500 mg IVPB BID [facility] Last Admin: 01/15/20 10:13 Dose: 500 mg Documented by: Pantoprazole Sodium (Protonix Iv) 40 mg IVPUSH DAILY [facility] Last Admin: 01/15/20 10:13 Dose: 40 mg Documented by: - Objective Vital Signs: Vital Signs Temperature 98.3 F 01/15/20 14:00 Pulse Rate 69 01/15/20 14:00 Respiratory Rate 18 01/15/20 10:00 Blood Pressure 93/51 L 01/15/20 14:00 O2 Sat by Pulse Oximetry (%) 98 01/15/20 09:00 Constitutional: Yes: No Distress, Calm Cardiovascular: Yes: Regular Rate and Rhythm Respiratory: Yes: Regular Gastrointestinal: Yes: Normal Bowel Sounds, Soft, Other (NGT) Genitourinary: Yes: WNL Edema: No Neurological: Yes: Alert Labs: CBC, BMP 01/14/20 06:05 01/14/20 06:05 INR, PTT INR 1.21 (0.83-1.09) H 01/06/20 10:51 Microbiology 01/09/20 00:00 Blood - Peripheral Venous Blood Culture - Final NO GROWTH AFTER 5 DAYS INCUBATION 01/09/20 00:00 Blood - Peripheral Venous Blood Culture - Final NO GROWTH AFTER 5 DAYS INCUBATION 01/10/20 15:30 Urine - Urine Clean Catch Urine Culture - Final NO GROWTH OBTAINED Problem List - Problems (1) Accidental fall Code(s): W19.XXXA - UNSPECIFIED FALL, INITIAL ENCOUNTER Qualifiers: Encounter type: subsequent encounter Qualified Code(s): W19.XXXD - Unspecified fall, subsequent encounter (2) CKD (chronic kidney disease) Code(s): N18.9 - CHRONIC KIDNEY DISEASE, UNSPECIFIED (3) Closed head injury Code(s): S09.90XA - UNSPECIFIED INJURY OF HEAD, INITIAL ENCOUNTER Qualifiers: Encounter type: initial encounter Qualified Code(s): S09.90XA - Unspecified injury of head, initial encounter (4) Facial laceration Code(s): S01.81XA - LACERATION W/O FOREIGN BODY OF OTH PART OF HEAD, INIT ENCNTR Qualifiers: Encounter type: initial encounter Qualified Code(s): S01.81XA - Laceration without foreign body of other part of head, initial encounter (5) Heart murmur, systolic Code(s): R01.1 - CARDIAC MURMUR, UNSPECIFIED (6) Traumatic subdural hematoma Code(s): S06.5X9A - TRAUM SUBDR HEM W LOC OF UNSP DURATION, INIT Qualifiers: Encounter type: initial encounter Loss of consciousness presence/duration: with LOC of 30 min or less Qualified Code(s): S06.5X1A - Traumatic subdural hemorrhage with loss of consciousness of 30 minutes or less, initial encounter (7) Abrasion of face Code(s): S00.81XA - ABRASION OF OTHER PART OF HEAD, INITIAL ENCOUNTER (8) Laceration of eyebrow, right Code(s): S01.111A - LACERATION W/O FB OF RIGHT EYELID AND PERIOCULAR AREA, INIT Assessment/Plan wbc elevated yesterday, repeat cbc to monitor trend Pt is alert, afebrile, without distress aspiration precautions/NGT in place monitor mental status- more alert today Neurology evaluated Pt is DNR/DNI monitor vitals
[2020-01-16 06:47] LABS: BASO % 0.3 % (0-2.0); EOS % 1.6 % (0-4.5); HEMATOCRIT 25.3 % (35.4-49); HEMOGLOBIN 8.8 GM/dL (11.7-16.9); LYMPH % 11.7 % (8-40); MCH 32.3 pg (25.7-33.7); MCHC 34.6 g/dl (32.0-35.9); MEAN CELL VOLUME 93.1 fl (80-96); MEAN PLT VOLUME 7.4 fl (7.5-11.1); MONO % 11.2 % (3.8-10.2); NEUT % 75.2 % (42.8-82.8); PLATELET COUNT 192 K/MM3 (134-434); RBC 2.72 M/mm3 (4.00-5.60); RDW 13.1 % (11.9-15.9); WHITE BLOOD COUNT 14.1 K/mm3 (4.0-10.0)
[2020-01-16 07:19] LABS: ALBUMIN 2.2 g/dl (3.4-5.0); BILIRUBIN,TOTAL 0.5 mg/dL (0.2-1); BLOOD UREA NITROGEN 44.5 mg/dL (7-18); CALCIUM 8.4 mg/dL (8.5-10.1); CREATININE 1.3 mg/dL (0.55-1.3); TOT PROT 5.8 g/dl (6.4-8.2)
--- NOTE | 2020-01-16 09:13 | PN ---
Progress Note, Physician History of Present Illness: Mr. Farmer is an 89-year-old white male, per medical record has history of heart disease and high cholesterol, prostate CA, now presents to ED following rapid response with head injury. Patient was in the hospital accompanied by his brother; he was scheduled for echo today and while ambulating fell to the ground, striking his right head. Rapid response was called, the patient was unr esponsive, brought to the emergency department where code ferguson was activated. Patient offering limited history, is quite functional at baseline with some early dementia per brother, is following commands but nonconversant at the time of admission. Physical exam noted 4/6 systolic murmur, RSB-->Lt axilla - Current Medication List Current Medications: Active Medications Amino Acids (Prosource No Carb Liquid Pkt) 30 ml PO DAILY@0800 [facility] Last Admin: 01/15/20 10:13 Dose: 30 ml Documented by: Collagenase (Santyl -) 1 applic TP DAILY [facility]; Protocol Last Admin: 01/15/20 10:13 Dose: 1 applic Documented by: Potassium Chloride 20 meq/ (Amino Acids) 1,010 mls @ 60 mls/hr IVPB Q16H [facility] Last Admin: 01/15/20 21:27 Dose: Not Given Documented by: Levetiracetam (Keppra Injection -) 500 mg IVPB BID [facility] Last Admin: 01/15/20 22:37 Dose: 500 mg Documented by: Pantoprazole Sodium (Protonix Iv) 40 mg IVPUSH DAILY [facility] Last Admin: 01/15/20 10:13 Dose: 40 mg Documented by: - Objective Vital Signs: Vital Signs Temperature 98.1 F 01/15/20 20:57 Pulse Rate 74 01/16/20 06:00 Respiratory Rate 20 01/16/20 06:00 Blood Pressure 102/54 L 01/16/20 06:00 O2 Sat by Pulse Oximetry (%) 98 01/15/20 20:57 Eyes: Yes: WNL, Conjunctiva Clear, EOM Intact HENT: Yes: WNL, Atraumatic, Normocephalic Neck: Yes: WNL, Supple, Trachea Midline Cardiovascular: Yes: WNL, Regular Rate and Rhythm Respiratory: Yes: WNL, Regular, CTA Bilaterally Gastrointestinal: Yes: WNL, Normal Bowel Sounds Genitourinary: Yes: WNL Musculoskeletal: Yes: WNL Extremities: Yes: WNL Edema: No Integumentary: Yes: WNL Labs: CBC, BMP 01/16/20 05:50 01/16/20 05:50 INR, PTT INR 1.21 (0.83-1.09) H 01/06/20 10:51 Problem List - Problems (1) Accidental fall Code(s): W19.XXXA - UNSPECIFIED FALL, INITIAL ENCOUNTER Qualifiers: Encounter type: subsequent encounter Qualified Code(s): W19.XXXD - Unspecified fall, subsequent encounter (2) CKD (chronic kidney disease) Code(s): N18.9 - CHRONIC KIDNEY DISEASE, UNSPECIFIED (3) Closed head injury Code(s): S09.90XA - UNSPECIFIED INJURY OF HEAD, INITIAL ENCOUNTER Qualifiers: Encounter type: initial encounter Qualified Code(s): S09.90XA - Unspecified injury of head, initial encounter (4) Facial laceration Code(s): S01.81XA - LACERATION W/O FOREIGN BODY OF OTH PART OF HEAD, INIT ENCNTR Qualifiers: Encounter type: initial encounter Qualified Code(s): S01.81XA - Laceration without foreign body of other part of head, initial encounter (5) Heart murmur, systolic Code(s): R01.1 - CARDIAC MURMUR, UNSPECIFIED (6) Traumatic subarachnoid hemorrhage Code(s): S06.6X9A - TRAUM SUBRAC HEM W LOC OF UNSP DURATION, INIT Qualifiers: Encounter type: initial encounter Loss of consciousness presence/duration: with LOC of 30 min or less Qualified Code(s): S06.6X1A - Traumatic subarachnoid hemorrhage with loss of consciousness of 30 minutes or less, initial encounter (7) Traumatic subdural hematoma Code(s): S06.5X9A - TRAUM SUBDR HEM W LOC OF UNSP DURATION, INIT Qualifiers: Encounter type: initial encounter Loss of consciousness presence/duration: with LOC of 30 min or less Qualified Code(s): S06.5X1A - Traumatic subdural hemorrhage with loss of consciousness of 30 minutes or less, initial encounter (8) Abrasion of face Code(s): S00.81XA - ABRASION OF OTHER PART OF HEAD, INITIAL ENCOUNTER (9) Facial contusion Code(s): S00.83XA - CONTUSION OF OTHER PART OF HEAD, INITIAL ENCOUNTER (10) Laceration of eyebrow, right Code(s): S01.111A - LACERATION W/O FB OF RIGHT EYELID AND PERIOCULAR AREA, INIT Assessment/Plan Syncope, right periorbital injury anemia renal dysfunction dementia by hx; ?mental status changes exacerbated post-syncope cardiac valvulopathy; severe cervical vertebral degeneration; ? impingement C4 hx hyperlipidemia (total cholesterol this admission 123 mg/dL: on no medication) elevated glucose Pl: ECHO: normal LVEF and RVEF; mild LVH; moderately severe ; moderate AR; mild TR, MR, HI. EKG; telemetry; Holter monitor. TNI 0.02-->0.03 CT head: no acute pathology of brain IV fluids; F/u Is and Os, BUN/Cr, daily weight, electrolytes, BP and HR. orthostatic vital signs once he is well-hydrated. Hb remains stable. Avoid excessive dehydration (rising BUN). Carotid artery doppler: moderate bilateral plaque without significant stenoses. TSH WNL; total cholesterol 123 mg/dL; HGBA1c 4.7. Neurological evaluation (syncope; dementia). On Keppra. d/c telemetry
--- NOTE | 2020-01-16 10:01 | PN ---
Progress Note (short form) - Note Progress Note: 89 year old male history of htn, came for echo and had a fall had ct head , showed brain contusion and small sah. Neurosurgery were consulted and not a surgical candiddate. Patinet is restrained , agitated and confused, no seizure activity. denies headache. He is moving all extremity. He has bruise on his head. --no new symptoms, remains confused, and waiting for repeat swallow and consideration of peg tube NEUROLOGICAL EXAMINATION Alert oriented x 1, neck is supple vss, slight agitated and restrained, eomi, pupils reactive no face asymmetry moving all ext ct head showed mild frontal lobe contusion and small sah repeat ct head on sep 20 was stable neurosurgery consult appreciated waiting for barium swallow eeg unremarkable , no seizure like activity, gneralized encephalopathic Assessment/Plan -- sah and contusion, history of mci and now confued due to brain contusion and sah, on keppra as per neurosurgery. no a surical candidate Plan_ continue keppra 1 gm iv bid , over the prison keeppra can be stopped - supportive care, repeat swallow and consider peg tube placement - neurologically stable, waiting for placement Thanking you so much Daniel Gallegos MD
[2020-01-16] MEDS: levETIRAcetam 500 MG/5 ML INJECTION VIAL IVPB SCH ×2 (10:27→21:11)
[2020-01-16] MEDS: AMINO ACIDS/PROTEIN HYDROLYS 30 ML LIQUID.PKT PO SCH (10:27)
[2020-01-16] MEDS: PANTOPRAZOLE SODIUM 40 MG VIAL IVPUSH SCH (10:27)
--- NOTE | 2020-01-16 10:28 | PN ---
Progress Note, PERCUSSION INSTRUCTOR - Note Progress Note: 89 yo male seen at bedside for follow up to MBS with recommendations for NPO. NGT is place. Pt is verbal with somewhat reliable y/n response. Pt given PO trials of pureed with total assistance revealed, good acceptance adequate bolus formation and A -P transport with mild delayed pharyngeal swallow (2-3 second average). No cough or change in voicing and respiration after the swallow. Pt given PO trials of ice chips via spoon revealed good acceptance, adequate labial containment / bolus control and, A P transport with a mild delayed pharyngeal swallow (2-3 second average). No cough or change in voicing and respiration after the swallow. Recommendations: Continue NPO status at time. PERCUSSION INSTRUCTOR will ask to repeat MBS. Provide oral care Continue NGT for providing medications, hydration and nutrition until repeated MBS. PERCUSSION INSTRUCTOR to follow up for PO intake.
[2020-01-16] MEDS: COLLAGENASE CLOSTRIDIUM HIST. 30 GRAMS TUBE TP SCH (11:20)
--- NOTE | 2020-01-16 13:49 | PN ---
Progress Note, Physician History of Present Illness: patient seen and examined in tele Chart is reviewed Awake comfortable denies pain answers simple questions all follow-ups noted - Current Medication List Current Medications: Active Medications Amino Acids (Prosource No Carb Liquid Pkt) 30 ml PO DAILY@0800 [facility] Last Admin: 01/16/20 10:27 Dose: 30 ml Documented by: Collagenase (Santyl -) 1 applic TP DAILY [facility]; Protocol Last Admin: 01/15/20 10:13 Dose: 1 applic Documented by: Levetiracetam (Keppra Injection -) 500 mg IVPB BID [facility] Last Admin: 01/16/20 10:27 Dose: 500 mg Documented by: Pantoprazole Sodium (Protonix Iv) 40 mg IVPUSH DAILY [facility] Last Admin: 01/16/20 10:27 Dose: 40 mg Documented by: - Objective Vital Signs: Vital Signs Temperature 99.1 F 01/16/20 09:30 Pulse Rate 69 01/16/20 09:30 Respiratory Rate 20 01/16/20 09:30 Blood Pressure 100/52 L 01/16/20 09:30 O2 Sat by Pulse Oximetry (%) 96 01/16/20 09:30 Constitutional: Yes: No Distress, Calm Eyes: Yes: Conjunctiva Clear HENT: Yes: Other (sutures above the right eye--- in place) Neck: Yes: Supple, Other (NG tube) Cardiovascular: Yes: Regular Rate and Rhythm. No: Other Respiratory: Yes: Diminished Gastrointestinal: Yes: Soft Edema: No Labs: CBC, BMP 01/16/20 05:50 01/16/20 05:50 INR, PTT INR 1.21 (0.83-1.09) H 01/06/20 10:51 Problem List - Problems (1) Accidental fall Code(s): W19.XXXA - UNSPECIFIED FALL, INITIAL ENCOUNTER Qualifiers: Encounter type: subsequent encounter Qualified Code(s): W19.XXXD - Unspecified fall, subsequent encounter (2) CKD (chronic kidney disease) Code(s): N18.9 - CHRONIC KIDNEY DISEASE, UNSPECIFIED (3) Traumatic subarachnoid hemorrhage Code(s): S06.6X9A - TRAUM SUBRAC HEM W LOC OF UNSP DURATION, INIT Qualifiers: Encounter type: initial encounter Loss of consciousness presence/duration: with LOC of 30 min or less Qualified Code(s): S06.6X1A - Traumatic subarachnoid hemorrhage with loss of consciousness of 30 minutes or less, initial encounter (4) Traumatic subdural hematoma Code(s): S06.5X9A - TRAUM SUBDR HEM W LOC OF UNSP DURATION, INIT Qualifiers: Encounter type: initial encounter Loss of consciousness presence/duration: with LOC of 30 min or less Qualified Code(s): S06.5X1A - Traumatic subdural hemorrhage with loss of consciousness of 30 minutes or less, initial encounter (5) Abrasion of face Code(s): S00.81XA - ABRASION OF OTHER PART OF HEAD, INITIAL ENCOUNTER (6) Heart murmur, systolic Code(s): R01.1 - CARDIAC MURMUR, UNSPECIFIED Assessment/Plan Stable discussed with nursing staff again today monitor continue keppra ---as per neurology Swallow Eval----repeat tomorrow ng feeding wrist restrain--- as patient tries to pull out the NG tube will continue to follow
--- NOTE | 2020-01-16 15:38 | PN ---
Progress Note, Physician History of Present Illness: Pt seen and examined at bedside. He is tolerating feeds. - Current Medication List Current Medications: Active Medications Amino Acids (Prosource No Carb Liquid Pkt) 30 ml PO DAILY@0800 [facility] Last Admin: 01/16/20 10:27 Dose: 30 ml Documented by: Collagenase (Santyl -) 1 applic TP DAILY [facility]; Protocol Last Admin: 01/16/20 11:20 Dose: 1 applic Documented by: Levetiracetam (Keppra Injection -) 500 mg IVPB BID [facility] Last Admin: 01/16/20 10:27 Dose: 500 mg Documented by: Pantoprazole Sodium (Protonix Iv) 40 mg IVPUSH DAILY [facility] Last Admin: 01/16/20 10:27 Dose: 40 mg Documented by: - Objective Vital Signs: Vital Signs Temperature 99.1 F 01/16/20 09:30 Pulse Rate 69 01/16/20 09:30 Respiratory Rate 20 01/16/20 15:12 Blood Pressure 100/52 L 01/16/20 09:30 O2 Sat by Pulse Oximetry (%) 96 01/16/20 15:12 Constitutional: Yes: Calm Eyes: Yes: Conjunctiva Clear HENT: Yes: Atraumatic Neck: Yes: Supple Cardiovascular: Yes: S1, S2 Respiratory: Yes: CTA Bilaterally Gastrointestinal: Yes: Soft Genitourinary: Yes: Incontinence Musculoskeletal: Yes: Muscle Weakness Edema: No Neurological: Yes: Confusion Labs: CBC, BMP 01/16/20 05:50 01/16/20 05:50 INR, PTT INR 1.21 (0.83-1.09) H 01/06/20 10:51 Problem List - Problems (1) CKD (chronic kidney disease) Code(s): N18.9 - CHRONIC KIDNEY DISEASE, UNSPECIFIED (2) Accidental fall Code(s): W19.XXXA - UNSPECIFIED FALL, INITIAL ENCOUNTER Qualifiers: Encounter type: subsequent encounter Qualified Code(s): W19.XXXD - Unspecified fall, subsequent encounter (3) Closed head injury Code(s): S09.90XA - UNSPECIFIED INJURY OF HEAD, INITIAL ENCOUNTER Qualifiers: Encounter type: initial encounter Qualified Code(s): S09.90XA - Unspecified injury of head, initial encounter Assessment/Plan Current Medications Generic Name Dose Route Start Last Admin Trade Name Freq PRN Reason Stop Dose Admin Amino Acids 30 ml 01/14/20 08:00 01/16/20 10:27 Prosource No Carb Liquid Pkt PO 30 ml DAILY@0800 [facility] Administration Collagenase 1 applic 01/14/20 10:00 01/16/20 11:20 Santyl - TP 1 applic DAILY [facility] Administration Protocol Levetiracetam 500 mg 01/09/20 22:00 01/16/20 10:27 Keppra Injection - IVPB 500 mg BID [facility] Administration Pantoprazole Sodium 40 mg 01/10/20 10:00 01/16/20 10:27 Protonix Iv IVPUSH 40 mg DAILY [facility] Administration Impression 1. syncope 2. subarachnoid hemorrhage 3. murmur 4. ckd 5. hypernatremia 6. cva Plan - cont tube feeds - monitor lytes - clinimix stopped - renal function improved - pt does have ckd
--- NOTE | 2020-01-16 22:15 | HOSP ---
Subjective - Review of Symptoms Events since last encounter: Hospitalist Encounter Notified by the RN that the patient removed his NGT. Arrived to bedside, patient is awake, alert, oriented x 1- baseline. Patient has no complaints Plan: NGT insertion Chest Xray portable for NGT confirmation Physical Examination Vital Signs: Vital Signs Temperature 98.1 F 01/16/20 17:12 Pulse Rate 77 01/16/20 17:12 Respiratory Rate 20 01/16/20 17:12 Blood Pressure 121/54 L 01/16/20 17:12 O2 Sat by Pulse Oximetry (%) 96 01/16/20 15:12 Constitutional: Yes: Thin, Other (confused) Eyes: Yes: Conjunctiva Clear, PERRL HENT: Yes: Atraumatic, Normocephalic Neck: Yes: Supple, Trachea Midline Cardiovascular: Yes: Regular Rate and Rhythm, Murmur, S1, S2 Respiratory: Yes: Regular, CTA Bilaterally Gastrointestinal: Yes: Normal Bowel Sounds, Soft ...Rectal Exam: Yes: Deferred Renal/: Yes: Incontinence Musculoskeletal: Yes: WNL Extremities: Yes: WNL Edema: No Peripheral Pulses WNL: Yes Neurological: Yes: Oriented (x1- baseline), Confusion Psychiatric: Yes: Alert, Oriented (x1) Labs: CBC, BMP 01/16/20 05:50 01/16/20 05:50 Laboratory Results - last 24 hr 01/16/20 01/16/20 05:50 05:50 WBC 14.1 H RBC 2.72 L Hgb 8.8 L Hct 25.3 L MCV 93.1 MCH 32.3 MCHC 34.6 RDW 13.1 Plt Count 192 MPV 7.4 L Absolute Neuts (auto) 10.6 H Neutrophils % 75.2 Lymphocytes % 11.7 Monocytes % 11.2 H Eosinophils % 1.6 D Basophils % 0.3 Nucleated RBC % 0 Sodium 134 L Potassium 4.0 Chloride 104 Carbon Dioxide 24 Anion Gap 6 L BUN 44.5 H Creatinine 1.3 Est GFR (CKD-EPI)AfAm 56.86 Est GFR (CKD-EPI)NonAf 49.06 Random Glucose 119 H Calcium 8.4 L Total Bilirubin 0.5 AST 21 ALT 17 Alkaline Phosphatase 55 Total Protein 5.8 L Albumin 2.2 L Intake & Output 01/13/20 01/14/20 01/15/20 01/16/20 23:59 23:59 23:59 23:59 Intake Total 2512 996 2549 100 Output Total 450 1300 1200 Balance 1096 410 970 -1100 Current Medications Generic Name Dose Route Start Last Admin Trade Name Jason PRN Reason Stop Dose Admin Amino Acids 30 ml 01/14/20 08:00 01/16/20 10:27 Prosource No Carb Liquid Pkt PO 30 ml DAILY@0800 [facility] Administration Collagenase 1 applic 01/14/20 10:00 01/16/20 11:20 Santyl - TP 1 applic DAILY [facility] Administration Protocol Levetiracetam 500 mg 01/09/20 22:00 01/16/20 21:11 Keppra Injection - IVPB 500 mg BID [facility] Administration Pantoprazole Sodium 40 mg 01/10/20 10:00 01/16/20 10:27 Protonix Iv IVPUSH 40 mg DAILY [facility] Administration Hospitalist Encounter Assessment: 89 yo M pmh HTN, cardiac murmur, on daily 81mg ASA, presenting following rapid response in lobby for ?syncope with head trauma while registering for an outpatient ECHO. Patient admitted for Subdural Hemorrhage Outcome: RN unable to place NGT NGT placed in R- Nare without incident. Air Bubble heard in all 4 Quads of abdomen. Chest Xray for NGT confirmation- image, report reviewed- Nasogastric tube in proper position with distal tip overlying the gastric fundus.
[2020-01-17] MEDS: PANTOPRAZOLE SODIUM 40 MG VIAL IVPUSH SCH (09:08)
[2020-01-17] MEDS: levETIRAcetam 500 MG/5 ML INJECTION VIAL IVPB SCH ×2 (09:08→21:08)
[2020-01-17] MEDS: COLLAGENASE CLOSTRIDIUM HIST. 30 GRAMS TUBE TP SCH (09:09)
[2020-01-17] MEDS: AMINO ACIDS/PROTEIN HYDROLYS 30 ML LIQUID.PKT PO SCH (09:16)
--- NOTE | 2020-01-17 11:20 | PN ---
Progress Note, MOTOR HOTEL MANAGER - Note Progress Note: Selected Entries 01/16/20 01/17/20 01/17/20 22:42 06:00 09:30 Supper NPO Temperature 98.8 F 98.8 F Pulse Rate 73 69 Blood Pressure 94/51 L 90/53 L O2 Sat by Pulse 98 Oximetry (%) Laboratory Tests 01/14/20 01/16/20 06:05 05:50 WBC 14.7 H 14.1 H For repeat MBS today
--- NOTE | 2020-01-17 11:38 | PN ---
Progress Note (short form) - Note Progress Note: events noted no temps he is afebrile he is more awake went for MBS- repeat Vital Signs - 24 hr 01/16/20 01/16/20 01/16/20 15:12 17:12 19:45 Temperature 98.1 F 99.2 F Pulse Rate 77 91 H Respiratory 20 20 20 Rate Blood Pressure 121/54 L 105/65 O2 Sat by Pulse 96 100 Oximetry (%) 01/16/20 01/17/20 01/17/20 21:00 06:00 09:00 Temperature 98.8 F Pulse Rate 73 Respiratory 20 20 Rate Blood Pressure 94/51 L O2 Sat by Pulse 96 98 Oximetry (%) 01/17/20 09:30 Temperature 98.8 F Pulse Rate 69 Respiratory 20 Rate Blood Pressure 90/53 L O2 Sat by Pulse 98 Oximetry (%) Current Medications Generic Name Dose Route Start Last Admin Trade Name Freq PRN Reason Stop Dose Admin Amino Acids 30 ml 01/14/20 08:00 01/17/20 09:16 Prosource No Carb Liquid Pkt PO 30 ml DAILY@0800 [facility] Administration Collagenase 1 applic 01/14/20 10:00 01/17/20 09:09 Santyl - TP 1 applic DAILY [facility] Administration Protocol Levetiracetam 500 mg 01/09/20 22:00 01/17/20 09:08 Keppra Injection - IVPB 500 mg BID [facility] Administration Pantoprazole Sodium 40 mg 01/10/20 10:00 01/17/20 09:08 Protonix Iv IVPUSH 40 mg DAILY [facility] Administration S1 S2 RRR Lungs decreased Abd- soft, NT No edema PLAN drowsy noted barium swallow results NPO On NG feed will need to know family decision with regards to feeding cultures negative CXR-->no infiltrate continue with supportive measures PT eval DNR/DNI palliative care Problem List - Problems (1) Accidental fall Code(s): W19.XXXA - UNSPECIFIED FALL, INITIAL ENCOUNTER Qualifiers: Encounter type: subsequent encounter Qualified Code(s): W19.XXXD - Unspecified fall, subsequent encounter (2) CKD (chronic kidney disease) Code(s): N18.9 - CHRONIC KIDNEY DISEASE, UNSPECIFIED (3) Closed head injury Code(s): S09.90XA - UNSPECIFIED INJURY OF HEAD, INITIAL ENCOUNTER Qualifiers: Encounter type: initial encounter Qualified Code(s): S09.90XA - Unspecified injury of head, initial encounter (4) Traumatic subarachnoid hemorrhage Code(s): S06.6X9A - TRAUM SUBRAC HEM W LOC OF UNSP DURATION, INIT Qualifiers: Encounter type: initial encounter Loss of consciousness presence/duration: with LOC of 30 min or less Qualified Code(s): S06.6X1A - Traumatic subarachnoid hemorrhage with loss of consciousness of 30 minutes or less, initial encounter (5) Traumatic subdural hematoma Code(s): S06.5X9A - TRAUM SUBDR HEM W LOC OF UNSP DURATION, INIT Qualifiers: Encounter type: initial encounter Loss of consciousness presence/duration: with LOC of 30 min or less Qualified Code(s): S06.5X1A - Traumatic subdural hemorrhage with loss of consciousness of 30 minutes or less, initial encounter (6) Abrasion of face Code(s): S00.81XA - ABRASION OF OTHER PART OF HEAD, INITIAL ENCOUNTER (7) Facial contusion Code(s): S00.83XA - CONTUSION OF OTHER PART OF HEAD, INITIAL ENCOUNTER (8) Laceration of eyebrow, right Code(s): S01.111A - LACERATION W/O FB OF RIGHT EYELID AND PERIOCULAR AREA, INIT
--- NOTE | 2020-01-17 13:15 | PN ---
Progress Note, Physician History of Present Illness: stable no new issues - Current Medication List Current Medications: Active Medications Amino Acids (Prosource No Carb Liquid Pkt) 30 ml PO DAILY@0800 [facility] Last Admin: 01/17/20 09:16 Dose: 30 ml Documented by: Collagenase (Santyl -) 1 applic TP DAILY [facility]; Protocol Last Admin: 01/17/20 09:09 Dose: 1 applic Documented by: Levetiracetam (Keppra Injection -) 500 mg IVPB BID [facility] Last Admin: 01/17/20 09:08 Dose: 500 mg Documented by: Pantoprazole Sodium (Protonix Iv) 40 mg IVPUSH DAILY [facility] Last Admin: 01/17/20 09:08 Dose: 40 mg Documented by: - Objective Vital Signs: Vital Signs Temperature 98.8 F 01/17/20 09:30 Pulse Rate 69 01/17/20 09:30 Respiratory Rate 20 01/17/20 09:30 Blood Pressure 90/53 L 01/17/20 09:30 O2 Sat by Pulse Oximetry (%) 98 01/17/20 09:30 Constitutional: Yes: No Distress, Calm Cardiovascular: Yes: S1, S2 Respiratory: Yes: Regular, CTA Bilaterally Gastrointestinal: Yes: Normal Bowel Sounds, Soft Musculoskeletal: Yes: WNL Extremities: Yes: WNL Neurological: Yes: Other Labs: CBC, BMP 01/16/20 05:50 01/16/20 05:50 INR, PTT INR 1.21 (0.83-1.09) H 01/06/20 10:51 Assessment/Plan Problem List - Problems (1) Accidental fall Code(s): W19.XXXA - UNSPECIFIED FALL, INITIAL ENCOUNTER Qualifiers: Encounter type: initial encounter Qualified Code(s): W19.XXXA - Unspecified fall, initial encounter (2) CKD (chronic kidney disease) Code(s): N18.9 - CHRONIC KIDNEY DISEASE, UNSPECIFIED (3) Closed head injury Code(s): S09.90XA - UNSPECIFIED INJURY OF HEAD, INITIAL ENCOUNTER Qualifiers: Encounter type: initial encounter Qualified Code(s): S09.90XA - Unspecified injury of head, initial encounter (4) Traumatic subarachnoid hemorrhage Code(s): S06.6X9A - TRAUM SUBRAC HEM W LOC OF UNSP DURATION, INIT Qualifiers: Encounter type: initial encounter Loss of consciousness presence/duration: with LOC of 30 min or less Qualified Code(s): S06.6X1A - Traumatic subarachnoid hemorrhage with loss of consciousness of 30 minutes or less, initial encounter (5) Traumatic subdural hematoma Code(s): S06.5X9A - TRAUM SUBDR HEM W LOC OF UNSP DURATION, INIT Qualifiers: Encounter type: initial encounter Loss of consciousness presence/duration: with LOC of 30 min or less Qualified Code(s): S06.5X1A - Traumatic subdural hemorrhage with loss of consciousness of 30 minutes or less, initial encounter (6) Abrasion of face Code(s): S00.81XA - ABRASION OF OTHER PART OF HEAD, INITIAL ENCOUNTER (7) Facial contusion Code(s): S00.83XA - CONTUSION OF OTHER PART OF HEAD, INITIAL ENCOUNTER (8) Laceration of eyebrow, right Code(s): S01.111A - LACERATION W/O FB OF RIGHT EYELID AND PERIOCULAR AREA, INIT plan continue to monitor rest as per the team cx results noted
--- NOTE | 2020-01-17 13:16 | PN ---
Progress Note, Physician History of Present Illness: stable events noted ng tube back in place - Current Medication List Current Medications: Active Medications Amino Acids (Prosource No Carb Liquid Pkt) 30 ml PO DAILY@0800 [facility] Last Admin: 01/17/20 09:16 Dose: 30 ml Documented by: Collagenase (Santyl -) 1 applic TP DAILY [facility]; Protocol Last Admin: 01/17/20 09:09 Dose: 1 applic Documented by: Levetiracetam (Keppra Injection -) 500 mg IVPB BID [facility] Last Admin: 01/17/20 09:08 Dose: 500 mg Documented by: Pantoprazole Sodium (Protonix Iv) 40 mg IVPUSH DAILY [facility] Last Admin: 01/17/20 09:08 Dose: 40 mg Documented by: - Objective Vital Signs: Vital Signs Temperature 98.8 F 01/17/20 09:30 Pulse Rate 69 01/17/20 09:30 Respiratory Rate 01/17/20 09:30 Blood Pressure 90/53 L 01/17/20 09:30 O2 Sat by Pulse Oximetry (%) 98 01/17/20 09:30 Constitutional: Yes: No Distress, Calm Cardiovascular: Yes: S1, S2 Respiratory: Yes: Regular, CTA Bilaterally Gastrointestinal: Yes: Normal Bowel Sounds, Soft, Other (ng in place) Musculoskeletal: Yes: WNL Extremities: Yes: WNL Neurological: Yes: Alert Labs: CBC, BMP 01/16/20 05:50 01/16/20 05:50 INR, PTT INR 1.21 (0.83-1.09) H 01/06/20 10:51 Assessment/Plan Problem List - Problems (1) Accidental fall Code(s): W19.XXXA - UNSPECIFIED FALL, INITIAL ENCOUNTER Qualifiers: Encounter type: initial encounter Qualified Code(s): W19.XXXA - Unspecified fall, initial encounter (2) CKD (chronic kidney disease) Code(s): N18.9 - CHRONIC KIDNEY DISEASE, UNSPECIFIED (3) Closed head injury Code(s): S09.90XA - UNSPECIFIED INJURY OF HEAD, INITIAL ENCOUNTER Qualifiers: Encounter type: initial encounter Qualified Code(s): S09.90XA - Unspecified injury of head, initial encounter (4) Traumatic subarachnoid hemorrhage Code(s): S06.6X9A - TRAUM SUBRAC HEM W LOC OF UNSP DURATION, INIT Qualifiers: Encounter type: initial encounter Loss of consciousness presence/duration: with LOC of 30 min or less Qualified Code(s): S06.6X1A - Traumatic subarachnoid hemorrhage with loss of consciousness of 30 minutes or less, initial encounter (5) Traumatic subdural hematoma Code(s): S06.5X9A - TRAUM SUBDR HEM W LOC OF UNSP DURATION, INIT Qualifiers: Encounter type: initial encounter Loss of consciousness presence/duration: with LOC of 30 min or less Qualified Code(s): S06.5X1A - Traumatic subdural hemorrhage with loss of consciousness of 30 minutes or less, initial encounter (6) Abrasion of face Code(s): S00.81XA - ABRASION OF OTHER PART OF HEAD, INITIAL ENCOUNTER (7) Facial contusion Code(s): S00.83XA - CONTUSION OF OTHER PART OF HEAD, INITIAL ENCOUNTER (8) Laceration of eyebrow, right Code(s): S01.111A - LACERATION W/O FB OF RIGHT EYELID AND PERIOCULAR AREA, INIT plan continue to monitor rest as per the team cx results noted
--- NOTE | 2020-01-17 13:51 | PN ---
Progress Note, Physician History of Present Illness: Pt seen and examined at bedside. He is tolerating feeds. - Current Medication List Current Medications: Active Medications Amino Acids (Prosource No Carb Liquid Pkt) 30 ml PO DAILY@0800 [facility] Last Admin: 01/17/20 09:16 Dose: 30 ml Documented by: Collagenase (Santyl -) 1 applic TP DAILY [facility]; Protocol Last Admin: 01/17/20 09:09 Dose: 1 applic Documented by: Levetiracetam (Keppra Injection -) 500 mg IVPB BID [facility] Last Admin: 01/17/20 09:08 Dose: 500 mg Documented by: Pantoprazole Sodium (Protonix Iv) 40 mg IVPUSH DAILY [facility] Last Admin: 01/17/20 09:08 Dose: 40 mg Documented by: - Objective Vital Signs: Vital Signs Temperature 98.8 F 01/17/20 09:30 Pulse Rate 69 01/17/20 09:30 Respiratory Rate 20 01/17/20 09:30 Blood Pressure 90/53 L 01/17/20 09:30 O2 Sat by Pulse Oximetry (%) 98 01/17/20 09:30 Constitutional: Yes: Calm Eyes: Yes: Conjunctiva Clear HENT: Yes: Atraumatic Neck: Yes: Supple Cardiovascular: Yes: S1, S2 Respiratory: Yes: CTA Bilaterally Gastrointestinal: Yes: Soft Genitourinary: Yes: WNL Musculoskeletal: Yes: Muscle Weakness Edema: No Neurological: Yes: Confusion Labs: CBC, BMP 01/16/20 05:50 01/16/20 05:50 INR, PTT INR 1.21 (0.83-1.09) H 01/06/20 10:51 Problem List - Problems (1) CKD (chronic kidney disease) Code(s): N18.9 - CHRONIC KIDNEY DISEASE, UNSPECIFIED (2) Accidental fall Code(s): W19.XXXA - UNSPECIFIED FALL, INITIAL ENCOUNTER Qualifiers: Encounter type: subsequent encounter Qualified Code(s): W19.XXXD - Unspecified fall, subsequent encounter (3) Closed head injury Code(s): S09.90XA - UNSPECIFIED INJURY OF HEAD, INITIAL ENCOUNTER Qualifiers: Encounter type: initial encounter Qualified Code(s): S09.90XA - Unspecified injury of head, initial encounter Assessment/Plan Current Medications Generic Name Dose Route Start Last Admin Trade Name Freq PRN Reason Stop Dose Admin Amino Acids 30 ml 01/14/20 08:00 01/17/20 09:16 Prosource No Carb Liquid Pkt PO 30 ml DAILY@0800 [facility] Administration Collagenase 1 applic 01/14/20 10:00 01/17/20 09:09 Santyl - TP 1 applic DAILY [facility] Administration Protocol Levetiracetam 500 mg 01/09/20 22:00 01/17/20 09:08 Keppra Injection - IVPB 500 mg BID [facility] Administration Pantoprazole Sodium 40 mg 01/10/20 10:00 01/17/20 09:08 Protonix Iv IVPUSH 40 mg DAILY [facility] Administration Impression 1. syncope 2. subarachnoid hemorrhage 3. murmur 4. ckd 5. hypernatremia 6. cva Plan - pt tolerating feeds - monitor lytes - monitor mental status - repeat labs in am - check mag and phos - pt does have ckd
--- NOTE | 2020-01-17 15:28 | PN ---
Progress Note (short form) - Note Progress Note: 89 year old male history of htn, came for echo and had a fall had ct head , showed brain contusion and small sah. Neurosurgery were consulted and not a surgical candiddate. Patinet is restrained , agitated and confused, no seizure activity. denies headache. He is moving all extremity. He has bruise on his head. --no new symptoms, remains confused, and waiting for repeat swallow and still waiting for peg tube placement NEUROLOGICAL EXAMINATION Alert oriented x 1, neck is supple vss, slight agitated and restrained, eomi, pupils reactive no face asymmetry moving all ext ct head showed mild frontal lobe contusion and small sah repeat ct head on sep 20 was stable neurosurgery consult appreciated waiting for barium swallow eeg unremarkable , no seizure like activity, gneralized encephalopathic Assessment/Plan -- sah and contusion, history of mci and now confued due to brain contusion and sah, on keppra as per neurosurgery. no a surical candidate Plan_ continue keppra 1 gm iv bid , over the [facility] keeppra can be stopped - stable, continue current level of care thanking you so much Daniel Gallegos MD
[2020-01-18] MEDS: POTASSIUM CHLORIDE 20 MEQ in AMINO ACIDS 4.25%/D5W 1,000 ML IVPB SCH (08:24)
[2020-01-18] MEDS: AMINO ACIDS/PROTEIN HYDROLYS 30 ML LIQUID.PKT PO SCH (08:28)
--- NOTE | 2020-01-18 08:41 | PN ---
Progress Note (short form) - Note Progress Note: year old male history of htn, came for echo and had a fall had ct head , showed brain contusion and small sah. Neurosurgery were consulted and not a surgical candiddate. Patinet is restrained , agitated and confused, no seizure activity. denies headache. He is moving all extremity. He has bruise on his head. -- NO New complain, remains confused, pateint is waiting for ng tube placement . no seizure NEUROLOGICAL EXAMINATION Alert oriented x 1, neck is supple vss, slight agitated and restrained, eomi, pupils reactive no face asymmetry moving all ext ct head showed mild frontal lobe contusion and small sah repeat ct head on sep 20 was stable neurosurgery consult appreciated waiting for barium swallow eeg unremarkable , no seizure like activity, gneralized encephalopathic Assessment/Plan -- sah and contusion, history of mci and now confued due to brai n contusion and sah, on keppra as per neurosurgery. no a surical candidate Plan_ continue keppra 1 gm iv bid , over the terminologist keeppra can be stopped - stable, continue current level of care, waiting for ng tube placement thanking you so much Daniel Gallegos MD
--- NOTE | 2020-01-18 08:51 | PN ---
Progress Note, Physician History of Present Illness: no new issues coughing - Current Medication List Current Medications: Active Medications Amino Acids (Prosource No Carb Liquid Pkt) 30 ml PO DAILY@0800 [facility] Last Admin: 01/18/20 08:28 Dose: Not Given Documented by: Collagenase (Santyl -) 1 applic TP DAILY [facility]; Protocol Last Admin: 01/17/20 09:09 Dose: 1 applic Documented by: Levetiracetam (Keppra Injection -) 500 mg IVPB BID [facility] Last Admin: 01/17/20 21:08 Dose: 500 mg Documented by: Pantoprazole Sodium (Protonix Iv) 40 mg IVPUSH DAILY [facility] Last Admin: 01/17/20 09:08 Dose: 40 mg Documented by: - Objective Vital Signs: Vital Signs Temperature 99.7 F H 01/18/20 05:32 Pulse Rate 91 H 01/18/20 05:32 Respiratory Rate 20 01/18/20 05:32 Blood Pressure 146/72 01/18/20 05:32 O2 Sat by Pulse Oximetry (%) 95 01/18/20 05:32 Constitutional: Yes: Calm HENT: Yes: Atraumatic Cardiovascular: Yes: S1, S2 Respiratory: Yes: Regular, Rhonchi Gastrointestinal: Yes: Normal Bowel Sounds, Soft Musculoskeletal: Yes: WNL Extremities: Yes: WNL Neurological: Yes: Alert Psychiatric: Yes: Other Labs: CBC, BMP 01/16/20 05:50 INR, PTT INR 1.21 (0.83-1.09) H 01/06/20 10:51 Assessment/Plan Problem List - Problems (1) Accidental fall Code(s): W19.XXXA - UNSPECIFIED FALL, INITIAL ENCOUNTER Qualifiers: Encounter type: initial encounter Qualified Code(s): W19.XXXA - Unspecified fall, initial encounter (2) CKD (chronic kidney disease) Code(s): N18.9 - CHRONIC KIDNEY DISEASE, UNSPECIFIED (3) Closed head injury Code(s): S09.90XA - UNSPECIFIED INJURY OF HEAD, INITIAL ENCOUNTER Qualifiers: Encounter type: initial encounter Qualified Code(s): S09.90XA - Unspecified injury of head, initial encounter (4) Traumatic subarachnoid hemorrhage Code(s): S06.6X9A - TRAUM SUBRAC HEM W LOC OF UNSP DURATION, INIT Qualifiers: Encounter type: initial encounter Loss of consciousness presence/duration: with LOC of 30 min or less Qualified Code(s): S06.6X1A - Traumatic subarachnoid hemorrhage with loss of consciousness of 30 minutes or less, initial encounter (5) Traumatic subdural hematoma Code(s): S06.5X9A - TRAUM SUBDR HEM W LOC OF UNSP DURATION, INIT Qualifiers: Encounter type: initial encounter Loss of consciousness presence/duration: with LOC of 30 min or less Qualified Code(s): S06.5X1A - Traumatic subdural hemorrhage with loss of consciousness of 30 minutes or less, initial encounter (6) Abrasion of face Code(s): S00.81XA - ABRASION OF OTHER PART OF HEAD, INITIAL ENCOUNTER (7) Facial contusion Code(s): S00.83XA - CONTUSION OF OTHER PART OF HEAD, INITIAL ENCOUNTER (8) Laceration of eyebrow, right Code(s): S01.111A - LACERATION W/O FB OF RIGHT EYELID AND PERIOCULAR AREA, INIT plan continue to monitor rest as per the team cx results noted aspiration precautions
[2020-01-18 08:58] LABS: ALBUMIN 2.3 g/dl (3.4-5.0); BILIRUBIN,TOTAL 0.7 mg/dL (0.2-1); BLOOD UREA NITROGEN 41.8 mg/dL (7-18); CALCIUM 8.8 mg/dL (8.5-10.1); CREATININE 1.3 mg/dL (0.55-1.3); MAGNESIUM 2.1 mg/dL (1.8-2.4); PHOSPHOROUS 3.7 mg/dL (2.5-4.9); POTASSIUM 4.3 mmol/L (3.5-5.1); TOT PROT 6.2 g/dl (6.4-8.2)
[2020-01-18] MEDS: PANTOPRAZOLE SODIUM 40 MG VIAL IVPUSH SCH (10:19)
[2020-01-18] MEDS: levETIRAcetam 500 MG/5 ML INJECTION VIAL IVPB SCH ×2 (10:19→22:16)
[2020-01-18] MEDS: COLLAGENASE CLOSTRIDIUM HIST. 30 GRAMS TUBE TP SCH (10:19)
--- NOTE | 2020-01-18 10:27 | PN ---
Progress Note, Physician History of Present Illness: Mr. Farmer is an 89-year-old white male, per medical record has history of heart disease and high cholesterol, prostate CA, now presents to ED following rapid response with head injury. Patient was in the hospital accompanied by his brother; he was scheduled for echo today and while ambulating fell to the ground, striking his right head. Rapid response was called, the patient was unr esponsive, brought to the emergency department where code ferguson was activated. Patient offering limited history, is quite functional at baseline with some early dementia per brother, is following commands but nonconversant at the time of admission. Physical exam noted 4/6 systolic murmur, RSB-->Lt axilla - Current Medication List Current Medications: Active Medications Amino Acids (Prosource No Carb Liquid Pkt) 30 ml PO DAILY@0800 [facility] Last Admin: 01/18/20 08:28 Dose: Not Given Documented by: Collagenase (Santyl -) 1 applic TP DAILY [facility]; Protocol Last Admin: 01/18/20 10:19 Dose: 1 applic Documented by: Levetiracetam (Keppra Injection -) 500 mg IVPB BID [facility] Last Admin: 01/18/20 10:19 Dose: 500 mg Documented by: Pantoprazole Sodium (Protonix Iv) 40 mg IVPUSH DAILY [facility] Last Admin: 01/18/20 10:19 Dose: 40 mg Documented by: - Objective Vital Signs: Vital Signs Temperature 99.7 F H 01/18/20 05:32 Pulse Rate 91 H 01/18/20 05:32 Respiratory Rate 20 01/18/20 05:32 Blood Pressure 146/72 01/18/20 05:32 O2 Sat by Pulse Oximetry (%) 95 01/18/20 05:32 Eyes: Yes: WNL, Conjunctiva Clear, EOM Intact HENT: Yes: WNL, Atraumatic, Normocephalic Neck: Yes: WNL, Supple, Trachea Midline Cardiovascular: Yes: WNL, Regular Rate and Rhythm Respiratory: Yes: WNL, Regular, CTA Bilaterally Gastrointestinal: Yes: WNL, Normal Bowel Sounds Genitourinary: Yes: WNL Musculoskeletal: Yes: WNL Extremities: Yes: WNL Edema: No Integumentary: Yes: WNL Labs: CBC, BMP 01/16/20 05:50 01/18/20 08:10 INR, PTT INR 1.21 (0.83-1.09) H 01/06/20 10:51 Problem List - Problems (1) Accidental fall Code(s): W19.XXXA - UNSPECIFIED FALL, INITIAL ENCOUNTER Qualifiers: Encounter type: subsequent encounter Qualified Code(s): W19.XXXD - Unspecified fall, subsequent encounter (2) CKD (chronic kidney disease) Code(s): N18.9 - CHRONIC KIDNEY DISEASE, UNSPECIFIED (3) Closed head injury Code(s): S09.90XA - UNSPECIFIED INJURY OF HEAD, INITIAL ENCOUNTER Qualifiers: Encounter type: initial encounter Qualified Code(s): S09.90XA - Unspecified injury of head, initial encounter (4) Facial laceration Code(s): S01.81XA - LACERATION W/O FOREIGN BODY OF OTH PART OF HEAD, INIT ENCNTR Qualifiers: Encounter type: initial encounter Qualified Code(s): S01.81XA - Laceration without foreign body of other part of head, initial encounter (5) Heart murmur, systolic Code(s): R01.1 - CARDIAC MURMUR, UNSPECIFIED (6) Traumatic subarachnoid hemorrhage Code(s): S06.6X9A - TRAUM SUBRAC HEM W LOC OF UNSP DURATION, INIT Qualifiers: Encounter type: initial encounter Loss of consciousness presence/duration: with LOC of 30 min or less Qualified Code(s): S06.6X1A - Traumatic subarachnoid hemorrhage with loss of consciousness of 30 minutes or less, initial encounter (7) Traumatic subdural hematoma Code(s): S06.5X9A - TRAUM SUBDR HEM W LOC OF UNSP DURATION, INIT Qualifiers: Encounter type: initial encounter Loss of consciousness presence/duration: with LOC of 30 min or less Qualified Code(s): S06.5X1A - Traumatic subdural hemorrhage with loss of consciousness of 30 minutes or less, initial encounter (8) Abrasion of face Code(s): S00.81XA - ABRASION OF OTHER PART OF HEAD, INITIAL ENCOUNTER (9) Facial contusion Code(s): S00.83XA - CONTUSION OF OTHER PART OF HEAD, INITIAL ENCOUNTER (10) Laceration of eyebrow, right Code(s): S01.111A - LACERATION W/O FB OF RIGHT EYELID AND PERIOCULAR AREA, INIT Assessment/Plan Syncope, right periorbital injury anemia renal dysfunction dementia by hx; ?mental status changes exacerbated post-syncope cardiac valvulopathy; severe cervical vertebral degeneration; ? impingement C4 hx hyperlipidemia (total cholesterol this admission 123 mg/dL: on no medication) elevated glucose Pl: ECHO: normal LVEF and RVEF; mild LVH; moderately severe ; moderate AR; mild TR, MR, CT. EKG; telemetry; Holter monitor. TNI 0.02-->0.03 CT head: no acute pathology of brain IV fluids; F/u Is and Os, BUN/Cr, daily weight, electrolytes, BP and HR. orthostatic vital signs once he is well-hydrated. Hb remains stable. Avoid excessive dehydration (rising BUN). Carotid artery doppler: moderate bilateral plaque without significant stenoses. TSH WNL; total cholesterol 123 mg/dL; HGBA1c 4.7. Neurological evaluation (syncope; dementia). On [facility]. d/c telemetry
--- NOTE | 2020-01-18 12:19 | PN ---
Progress Note (short form) - Note Progress Note: events noted no temps he is afebrile he is awake and alert went for MBS- repeat he is aware he needs peg tube he pulled out his NG tube again Vital Signs - 24 hr 01/17/20 01/17/20 01/18/20 20:46 20:51 02:11 Temperature 98.8 F 98.6 F Pulse Rate 83 62 Respiratory 20 20 Rate Blood Pressure 137/68 109/62 O2 Sat by Pulse 95 95 96 Oximetry (%) 01/18/20 01/18/20 01/18/20 05:25 05:32 13:00 Temperature 98.2 F 99.7 F H 100.3 F H Pulse Rate 85 91 H 85 Respiratory 20 20 18 Rate Blood Pressure 120/67 146/72 118/72 O2 Sat by Pulse 94 L 95 95 Oximetry (%) Current Medications Generic Name Dose Route Start Last Admin Trade Name Freq PRN Reason Stop Dose Admin Amino Acids 30 ml 01/14/20 08:00 01/18/20 08:28 Prosource No Carb Liquid Pkt PO Not Given DAILY@0800 [facility] Collagenase 1 applic 01/14/20 10:00 01/18/20 10:19 Santyl - TP 1 applic DAILY [facility] Administration Protocol Fat Emulsion-[place] Oil/Soybean Oil 250 ml 01/18/20 22:00 Clinolipid 20% Iv Fat Emulsion IV DAILY@2200 [facility] Amino Acids 1,000 mls @ 84 mls/hr 01/18/20 12:30 01/18/20 14:27 Clinimix - IV 84 mls/hr Q12H [facility] Administration Levetiracetam 500 mg 01/09/20 22:00 01/18/20 10:19 Keppra Injection - IVPB 500 mg BID [facility] Administration Pantoprazole Sodium 40 mg 01/10/20 10:00 01/18/20 10:19 Protonix Iv IVPUSH 40 mg DAILY [facility] Administration Laboratory Results - last 24 hr 01/18/20 08:10 Sodium 135 L Potassium 4.3 Chloride 105 Carbon Dioxide 25 Anion Gap 5 L BUN 41.8 H Creatinine 1.3 Est GFR (CKD-EPI)AfAm 56.86 Est GFR (CKD-EPI)NonAf 49.06 Random Glucose 92 Calcium 8.8 Phosphorus 3.7 Magnesium 2.1 Total Bilirubin 0.7 AST 21 ALT 19 Alkaline Phosphatase 62 Total Protein 6.2 L Albumin 2.3 L S1 S2 RRR Lungs decreased Abd- soft, NT No edema he responds to simple commands PLAN noted barium swallow results NPO spoke with GI for peg placement family wants peg tube and [facility] spoke with social welfare research worker started clinimix with lipids DNR/DNI Problem List - Problems (1) Accidental fall Code(s): W19.XXXA - UNSPECIFIED FALL, INITIAL ENCOUNTER Qualifiers: Encounter type: subsequent encounter Qualified Code(s): W19.XXXD - Unspecified fall, subsequent encounter (2) CKD (chronic kidney disease) Code(s): N18.9 - CHRONIC KIDNEY DISEASE, UNSPECIFIED (3) Closed head injury Code(s): S09.90XA - UNSPECIFIED INJURY OF HEAD, INITIAL ENCOUNTER Qualifiers: Encounter type: initial encounter Qualified Code(s): S09.90XA - Unspecified injury of head, initial encounter (4) Traumatic subarachnoid hemorrhage Code(s): S06.6X9A - TRAUM SUBRAC HEM W LOC OF UNSP DURATION, INIT Qualifiers: Encounter type: initial encounter Loss of consciousness presence/duration: with LOC of 30 min or less Qualified Code(s): S06.6X1A - Traumatic subarachnoid hemorrhage with loss of consciousness of 30 minutes or less, initial encounter (5) Traumatic subdural hematoma Code(s): S06.5X9A - TRAUM SUBDR HEM W LOC OF UNSP DURATION, INIT Qualifiers: Encounter type: initial encounter Loss of consciousness presence/duration: with LOC of 30 min or less Qualified Code(s): S06.5X1A - Traumatic subdural hemorrhage with loss of consciousness of 30 minutes or less, initial encounter (6) Abrasion of face Code(s): S00.81XA - ABRASION OF OTHER PART OF HEAD, INITIAL ENCOUNTER (7) Facial contusion Code(s): S00.83XA - CONTUSION OF OTHER PART OF HEAD, INITIAL ENCOUNTER (8) Laceration of eyebrow, right Code(s): S01.111A - LACERATION W/O FB OF RIGHT EYELID AND PERIOCULAR AREA, INIT
--- NOTE | 2020-01-18 13:14 | PN ---
Progress Note, Physician History of Present Illness: Pt seen and examined at bedside. He appears comfortable. - Current Medication List Current Medications: Active Medications Amino Acids (Prosource No Carb Liquid Pkt) 30 ml PO DAILY@0800 [facility] Last Admin: 01/18/20 08:28 Dose: Not Given Documented by: Collagenase (Santyl -) 1 applic TP DAILY [facility]; Protocol Last Admin: 01/18/20 10:19 Dose: 1 applic Documented by: Fat Emulsion-[place] Oil/Soybean Oil (Clinolipid 20% Iv Fat Emulsion) 250 ml IV D AILY@2200 [facility] Amino Acids (Clinimix -) 1,000 mls @ 84 mls/hr IV Q12H [facility] Levetiracetam (Keppra Injection -) 500 mg IVPB BID [facility] Last Admin: 01/18/20 10:19 Dose: 500 mg Documented by: Pantoprazole Sodium (Protonix Iv) 40 mg IVPUSH DAILY [facility] Last Admin: 01/18/20 10:19 Dose: 40 mg Documented by: - Objective Vital Signs: Vital Signs Temperature 99.7 F H 01/18/20 05:32 Pulse Rate 91 H 01/18/20 05:32 Respiratory Rate 20 01/18/20 05:32 Blood Pressure 146/72 01/18/20 05:32 O2 Sat by Pulse Oximetry (%) 95 01/18/20 05:32 Constitutional: Yes: Calm Eyes: Yes: Conjunctiva Clear Neck: Yes: Supple Cardiovascular: Yes: S1, S2 Respiratory: Yes: CTA Bilaterally Gastrointestinal: Yes: Soft Genitourinary: Yes: Incontinence Edema: No Neurological: Yes: Confusion Labs: CBC, BMP 01/16/20 05:50 01/18/20 08:10 INR, PTT INR 1.21 (0.83-1.09) H 01/06/20 10:51 Problem List - Problems (1) CKD (chronic kidney disease) Code(s): N18.9 - CHRONIC KIDNEY DISEASE, UNSPECIFIED (2) Accidental fall Code(s): W19.XXXA - UNSPECIFIED FALL, INITIAL ENCOUNTER Qualifiers: Encounter type: subsequent encounter Qualified Code(s): W19.XXXD - Unspecified fall, subsequent encounter (3) Closed head injury Code(s): S09.90XA - UNSPECIFIED INJURY OF HEAD, INITIAL ENCOUNTER Qualifiers: Encounter type: initial encounter Qualified Code(s): S09.90XA - Unspecified injury of head, initial encounter Assessment/Plan Current Medications Generic Name Dose Route Start Last Admin Trade Name Jason PRN Reason Stop Dose Admin Amino Acids 30 ml 01/14/20 08:00 01/18/20 08:28 Prosource No Carb Liquid Pkt PO Not Given DAILY@0800 [facility] Collagenase 1 applic 01/14/20 10:00 01/18/20 10:19 Santyl - TP 1 applic DAILY [facility] Administration Protocol Fat Emulsion-[place] Oil/Soybean Oil 250 ml 01/18/20 22:00 Clinolipid 20% Iv Fat Emulsion IV DAILY@2200 [facility] Amino Acids 1,000 mls @ 84 mls/hr 01/18/20 12:30 Clinimix - IV Q12H [facility] Levetiracetam 500 mg 01/09/20 22:00 01/18/20 10:19 Keppra Injection - IVPB 500 mg BID [facility] Administration Pantoprazole Sodium 40 mg 01/10/20 10:00 01/18/20 10:19 Protonix Iv IVPUSH 40 mg DAILY [facility] Administration Impression 1. syncope 2. subarachnoid hemorrhage 3. murmur 4. ckd 5. hypernatremia 6. cva Plan - clinimix restarted - pt pending peg tube placement - monitor lytes - repeat labs in am - check mag and phos
--- NOTE | 2020-01-18 13:20 | PN ---
Progress Note, MD UROLOGIST - Note Progress Note: Selected Entries 01/18/20 01/18/20 01/18/20 02:11 05:25 05:32 Lunch Temperature 98.6 F 98.2 F 99.7 F H Pulse Rate 62 85 91 H Blood Pressure 109/62 120/67 146/72 01/18/20 11:16 Lunch NPO Temperature Pulse Rate Blood Pressure Laboratory Tests 01/16/20 05:50 WBC 14.1 H Pt seen bedside, confused but interactive. Anomia and paraphasic errors.Impaired insight. Resting comfortably and looks happy, content. Repeat mbs revealed impaired functional swallow at this time For PEG insertion. Speech/swallow/cognitive rehabilitation to continue upon d/c.
[2020-01-18] MEDS: AMINO ACIDS 4.25%/D5W 1,000 ML IV SCH (14:27)
[2020-01-18] MEDS ORDERED: ACETAMINOPHEN 650 MG SUPP.RECT PR PRN (19:19)
--- NOTE | 2020-01-18 19:42 | PN ---
Progress Note, Physician Chief Complaint: Pt remains confused, lethargic. History of Present Illness: Mr. Farmer is an 89-year-old white male, per medical record has history of heart disease and high cholesterol, prostate CA, now presents to ED following rapid response with head injury. Patient was in the hospital accompanied by his brother; he was scheduled for echo today and while ambulating fell to the grou nd, striking his right head. Rapid response was called, the patient was unresponsive, brought to the emergency department where code ferguson was activated. Patient offering limited history, is quite functional at baseline with some early dementia per brother, is following commands but nonconversant at the time of admission. Physical exam noted 4/6 systolic murmur, RSB-->Lt axilla - Current Medication List Current Medications: Active Medications Acetaminophen (Tylenol Suppository -) 650 mg [place] Q6H PRN PRN Reason: FEVER Amino Acids (Prosource No Carb Liquid Pkt) 30 ml PO DAILY@0800 [facility] Last Admin: 01/18/20 08:28 Dose: Not Given Documented by: Collagenase (Santyl -) 1 applic TP DAILY [facility]; Protocol Last Admin: 01/18/20 10:19 Dose: 1 applic Documented by: Fat Emulsion-[place] Oil/Soybean Oil (Clinolipid 20% Iv Fat Emulsion) 250 ml IV DAILY@2200 [facility] Amino Acids (Clinimix -) 1,000 mls @ 84 mls/hr IV Q12H [facility] Last Admin: 01/18/20 14:27 Dose: 84 mls/hr Documented by: Levetiracetam (Keppra Injection -) 500 mg IVPB BID [facility] Last Admin: 01/18/20 10:19 Dose: 500 mg Documented by: Pantoprazole Sodium (Protonix Iv) 40 mg IVPUSH DAILY [facility] Last Admin: 01/18/20 10:19 Dose: 40 mg Documented by: - Objective Vital Signs: Vital Signs Temperature 100.3 F H 01/18/20 13:00 Pulse Rate 85 01/18/20 13:00 Respiratory Rate 18 01/18/20 13:00 Blood Pressure 118/72 01/18/20 13:00 O2 Sat by Pulse Oximetry (%) 95 01/18/20 13:00 Constitutional: Yes: Thin Eyes: Yes: WNL Neck: Yes: Decreased ROM Cardiovascular: Yes: S1, S2 Respiratory: Yes: Regular, Diminished. No: Rales Gastrointestinal: Yes: Soft Genitourinary: No: Anuria Musculoskeletal: Yes: Muscle Weakness Extremities: Yes: Cool Edema: No Peripheral Pulses WNL: Yes Integumentary: Yes: Other (healing facial abrasions) Wound/Incision: Yes: Open to air Neurological: Yes: Confusion, Weakness Psychiatric: Yes: Other (dementia) Labs: CBC, BMP 01/16/20 05:50 01/18/20 08:10 INR, PTT INR 1.21 (0.83-1.09) H 01/06/20 10:51 - ....Imaging Chest X-ray: Image Reviewed EKG: Image Reviewed Assessment/Plan Syncope, right periorbital injury anemia renal dysfunction dementia by hx; ?mental status changes exacerbated post-syncope cardiac valvulopathy: normal LVEF; moderately severe severe cervical vertebral degeneration; ? 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 TNI < 0.02 x 2. F/u Is and Os, BUN/Cr, daily weight, electrolytes, BP and HR. orthostatic vital signs when pt is well-hydrated (BUN remains elevated; improving Cr); encourage PO fluids, continue IVF.. F/u renal status, Hb after hydration. Carotid artery doppler: moderate bilateral atherosclerotic disease without stenoses. TSH, HGBA1c: WNL Pt with NG tube; decision on PEG pending.
[2020-01-18] MEDS: FAT EMULSION/OLIVE/SOY (CLINOLIPID) 250 ML EMULSION IV SCH (21:25)
[2020-01-19] MEDS: AMINO ACIDS 4.25%/D5W 1,000 ML IV SCH ×2 (01:33→16:54)
[2020-01-19 07:36] LABS: ALBUMIN 2.5 g/dl (3.4-5.0); BILIRUBIN,TOTAL 0.7 mg/dL (0.2-1); BLOOD UREA NITROGEN 54.5 mg/dL (7-18); CALCIUM 8.8 mg/dL (8.5-10.1); CREATININE 1.3 mg/dL (0.55-1.3); MAGNESIUM 2.2 mg/dL (1.8-2.4); PHOSPHOROUS 3.4 mg/dL (2.5-4.9); POTASSIUM 4.4 mmol/L (3.5-5.1)
--- NOTE | 2020-01-19 07:58 | PN ---
Progress Note, Physician History of Present Illness: no new issues stable on tpn - Current Medication List Current Medications: Active Medications Acetaminophen (Tylenol Suppository -) 650 mg [place] Q6H PRN PRN Reason: FEVER Amino Acids (Prosource No Carb Liquid Pkt) 30 ml PO DAILY@0800 [facility] Last Admin: 01/18/20 08:28 Dose: Not Given Documented by: Collagenase (Santyl -) 1 applic TP DAILY [facility]; Protocol Last Admin: 01/18/20 10:19 Dose: 1 applic Documented by: Fat Emulsion-[place] Oil/Soybean Oil (Clinolipid 20% Iv Fat Emulsion) 250 ml IV DAILY@2200 [facility] Last Admin: 01/18/20 21:25 Dose: 250 ml Documented by: Amino Acids (Clinimix -) 1,000 mls @ 84 mls/hr IV Q12H [facility] Last Admin: 01/19/20 01:33 Dose: 84 mls/hr Documented by: Levetiracetam (Keppra Injection -) 500 mg IVPB BID [facility] Last Admin: 01/18/20 22:16 Dose: 500 mg Documented by: Pantoprazole Sodium (Protonix Iv) 40 mg IVPUSH DAILY [facility] Last Admin: 01/18/20 10:19 Dose: 40 mg Documented by: - Objective Vital Signs: Vital Signs Temperature 97.7 F 01/19/20 07:09 Pulse Rate 87 01/19/20 07:09 Respiratory Rate 18 01/19/20 07:09 Blood Pressure 115/59 L 01/19/20 07:09 O2 Sat by Pulse Oximetry (%) 96 01/19/20 07:09 Constitutional: Yes: No Distress, Calm Cardiovascular: Yes: S1, S2 Respiratory: Yes: Poor Air Entry Gastrointestinal: Yes: Normal Bowel Sounds, Soft Musculoskeletal: Yes: WNL Extremities: Yes: WNL Neurological: Yes: Other Labs: CBC, BMP 01/16/20 05:50 01/19/20 06:28 INR, PTT INR 1.21 (0.83-1.09) H 01/06/20 10:51 Assessment/Plan Problem List - Problems (1) Accidental fall Code(s): W19.XXXA - UNSPECIFIED FALL, INITIAL ENCOUNTER Qualifiers: Encounter type: initial encounter Qualified Code(s): W19.XXXA - Unspecified fall, initial encounter (2) CKD (chronic kidney disease) Code(s): N18.9 - CHRONIC KIDNEY DISEASE, UNSPECIFIED (3) Closed head injury Code(s): S09.90XA - UNSPECIFIED INJURY OF HEAD, INITIAL ENCOUNTER Qualifiers: Encounter type: initial encounter Qualified Code(s): S09.90XA - Unspecified injury of head, initial encounter (4) Traumatic subarachnoid hemorrhage Code(s): S06.6X9A - TRAUM SUBRAC HEM W LOC OF UNSP DURATION, INIT Qualifiers: Encounter type: initial encounter Loss of consciousness presence/duration: with LOC of 30 min or less Qualified Code(s): S06.6X1A - Traumatic subarachn oid hemorrhage with loss of consciousness of 30 minutes or less, initial encounter (5) Traumatic subdural hematoma Code(s): S06.5X9A - TRAUM SUBDR HEM W LOC OF UNSP DURATION, INIT Qualifiers: Encounter type: initial encounter Loss of consciousness presence/duration: with LOC of 30 min or less Qualified Code(s): S06.5X1A - Traumatic subdural hemorrhage with loss of consciousness of 30 minutes or less, initial encounter (6) Abrasion of face Code(s): S00.81XA - ABRASION OF OTHER PART OF HEAD, INITIAL ENCOUNTER (7) Facial contusion Code(s): S00.83XA - CONTUSION OF OTHER PART OF HEAD, INITIAL ENCOUNTER (8) Laceration of eyebrow, right Code(s): S01.111A - LACERATION W/O FB OF RIGHT EYELID AND PERIOCULAR AREA, INIT plan continue to monitor rest as per the team cx results noted aspiration precautions continue tpn
[2020-01-19] MEDS: AMINO ACIDS/PROTEIN HYDROLYS 30 ML LIQUID.PKT PO SCH (09:24)
[2020-01-19] MEDS: COLLAGENASE CLOSTRIDIUM HIST. 30 GRAMS TUBE TP SCH (09:27)
[2020-01-19] MEDS: levETIRAcetam 500 MG/5 ML INJECTION VIAL IVPB SCH ×2 (09:56→22:33)
[2020-01-19] MEDS: PANTOPRAZOLE SODIUM 40 MG VIAL IVPUSH SCH (09:56)
--- NOTE | 2020-01-19 11:15 | PN ---
Progress Note (short form) - Note Progress Note: events noted no temps he is afebrile he is awake , responds to simple commands on restraints as he pulls out iv line Vital Signs - 24 hr 01/18/20 01/18/20 01/18/20 13:00 20:17 20:19 Temperature 100.3 F H 98.9 F Pulse Rate 85 87 Respiratory 18 18 Rate Blood Pressure 118/72 138/60 O2 Sat by Pulse 95 98 98 Oximetry (%) 01/19/20 01/19/20 07:09 09:00 Temperature 97.7 F 98.5 F Pulse Rate 87 71 Respiratory 18 18 Rate Blood Pressure 115/59 L 92/45 L O2 Sat by Pulse 96 96 Oximetry (%) Current Medications Generic Name Dose Route Start Last Admin Trade Name Freq PRN Reason Stop Dose Admin Acetaminophen 650 mg 01/18/20 19:19 Tylenol Suppository - [place] Q6H PRN FEVER Amino Acids 30 ml 01/14/20 08:00 01/19/20 09:24 Prosource No Carb Liquid Pkt PO Not Given DAILY@0800 [facility] Collagenase 1 applic 01/14/20 10:00 01/19/20 09:27 Santyl - TP 1 applic DAILY [facility] Administration Protocol Fat Emulsion-[place] Oil/Soybean Oil 250 ml 01/18/20 22:00 01/18/20 21:25 Clinolipid 20% Iv Fat Emulsion IV 250 ml DAILY@2200 [facility] Administration Amino Acids 1,000 mls @ 84 mls/hr 01/18/20 12:30 01/19/20 01:33 Clinimix - IV 84 mls/hr Q12H [facility] Administration Levetiracetam 500 mg 01/09/20 22:00 01/19/20 09:56 Keppra Injection - IVPB 500 mg BID [facility] Administration Pantoprazole Sodium 40 mg 01/10/20 10:00 01/19/20 09:56 Protonix Iv IVPUSH 40 mg DAILY [facility] Administration Laboratory Results - last 24 hr 01/19/20 06:28 Sodium 134 L Potassium 4.4 Chloride 103 Carbon Dioxide 25 Anion Gap 6 L BUN 54.5 H Creatinine 1.3 Est GFR (CKD-EPI)AfAm 56.86 Est GFR (CKD-EPI)NonAf 49.06 Random Glucose 120 H Calcium 8.8 Phosphorus 3.4 Magnesium 2.2 Total Bilirubin 0.7 AST 23 ALT 20 Alkaline Phosphatase 70 Total Protein 7.0 Albumin 2.5 L S1 S2 RRR Lungs decreased Abd- soft, NT No edema he responds to simple commands PLAN noted barium swallow results NPO spoke with GI for peg placement-- will be planning to place peg tube tomorrow family wants peg tube and Saad salomonab spoke with manager social started clinimix with lipids DNR/DNI Problem List - Problems (1) Accidental fall Code(s): W19.XXXA - UNSPECIFIED FALL, INITIAL ENCOUNTER Qualifiers: Encounter type: subsequent encounter Qualified Code(s): W19.XXXD - Unspecified fall, subsequent encounter (2) CKD (chronic kidney disease) Code(s): N18.9 - CHRONIC KIDNEY DISEASE, UNSPECIFIED (3) Closed head injury Code(s): S09.90XA - UNSPECIFIED INJURY OF HEAD, INITIAL ENCOUNTER Qualifiers: Encounter type: initial encounter Qualified Code(s): S09.90XA - Unspecified injury of head, initial encounter (4) Traumatic subarachnoid hemorrhage Code(s): S06.6X9A - TRAUM SUBRAC HEM W LOC OF UNSP DURATION, INIT Qualifiers: Encounter type: initial encounter Loss of consciousness presence/duration: with LOC of 30 min or less Qualified Code(s): S06.6X1A - Traumatic subarachnoid hemorrhage with loss of consciousness of 30 minutes or less, initial encounter (5) Traumatic subdural hematoma Code(s): S06.5X9A - TRAUM SUBDR HEM W LOC OF UNSP DURATION, INIT Qualifiers: Encounter type: initial encounter Loss of consciousness presence/duration: with LOC of 30 min or less Qualified Code(s): S06.5X1A - Traumatic subdural hemorrhage with loss of consciousness of 30 minutes or less, initial encounter (6) Abrasion of face Code(s): S00.81XA - ABRASION OF OTHER PART OF HEAD, INITIAL ENCOUNTER (7) Facial contusion Code(s): S00.83XA - CONTUSION OF OTHER PART OF HEAD, INITIAL ENCOUNTER (8) Laceration of eyebrow, right Code(s): S01.111A - LACERATION W/O FB OF RIGHT EYELID AND PERIOCULAR AREA, INIT
--- NOTE | 2020-01-19 14:28 | CON.GI ---
Consult Consult Specialty:: Gi - History of Present Illness History of Present Illness: 89 y/o male s/p accidental fall complicated by a subdural hematoma. Patient also noted to have dysphagia. - Past Medical History [employer]: Yes: Dementia Cardio/Vascular: Yes: HTN, Hyperlipdemia, Murmur Renal/: Yes: Renal Inusuff - Alcohol/Substance Use Hx Alcohol Use: No - Smoking History Smoking history: Never smoked Have you smoked in the past 12 months: No Home Medications - Allergies Allergies/Adverse Reactions: Allergies Allergy/AdvReac Type Severity Reaction Status Date / Time No Known Allergies Allergy Verified 01/06/20 11:07 - Home Medications Home Medications: Ambulatory Orders Aspirin [ASA -] 81 mg PO DAILY 01/06/20 Atorvastatin Calcium [Lipitor] 20 mg PO DAILY 01/07/20 Chlorthalidone 25 mg PO DAILY 01/07/20 Lisinopril [Zestril] 40 mg PO DAILY 01/07/20 Family Medical History Family History: Unable to Obtain Physical Exam-GI Vital Signs: Vital Signs Temperature 98.5 F 01/19/20 09:00 Pulse Rate 71 01/19/20 09:00 Respiratory Rate 18 01/19/20 09:00 Blood Pressure 92/45 L 01/19/20 09:00 O2 Sat by Pulse Oximetry (%) 96 01/19/20 09:00 Constitutional: Yes: Cachectic, Other (unresponsive) Eyes: Yes: Conjunctiva Clear Neck: Yes: Supple Cardiovascular: Yes: Regular Rate and Rhythm, Murmur Respiratory: Yes: CTA Bilaterally ...Palpate: Yes: Soft. 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 Raised the possibility that patient might pull out the tube. Code(s): I69.891 - DYSPHAGIA FOLLOWING OTHER CEREBROVASCULAR DISEASE
--- NOTE | 2020-01-19 14:40 | PN ---
Progress Note (short form) - Note Progress Note: 89 year old male history of htn, came for echo and had a fall had ct head , showed brain contusion and small sah. Neurosurgery were consulted and not a surgical candiddate. Patinet is restrained , agitated and confused, no seizure activity. denies headache. He is moving all extremity. He has bruise on his head. -- NO New complain, remains confused, peg tube placement planned for tomorrow NEUROLOGICAL EXAMINATION Alert oriented x 1, neck is supple vss, slight agitated and restrained, eomi, pupils reactive no face asymmetry moving all ext ct head showed mild frontal lobe contusion and small sah repeat ct head on sep 20 was stable neurosurgery consult appreciated waiting for barium swallow eeg unremarkable , no seizure like activity, gneralized encephalopathic Assessment/Plan -- sah and contusion, history of mci and now confued due to brain contusion and sah, on keppra as per neurosurgery. no a surical candidate Plan_ continue keppra 1 gm iv bid , over the chcf keeppra can be stopped - stable, continue current level of care, peg tube placement for tomorrow. thanking you so much Daniel Gallegos MD
--- NOTE | 2020-01-19 15:03 | PN ---
Progress Note, X [employer] - Note Progress Note: Selected Entries 01/18/20 01/18/20 01/18/20 02:11 05:25 05:32 Lunch Temperature 98.6 F 98.2 F 99.7 F H Pulse Rate 62 85 91 H Blood Pressure 109/62 120/67 146/72 01/18/20 11:16 Lunch NPO Temperature Pulse Rate Blood Pressure Laboratory Tests 01/16/20 05:50 WBC 14.1 H Selected Entries 01/19/20 01/19/20 01/19/20 07:09 09:00 10:00 Lunch Skin Risk Level High Risk Total Score - 12 Skin Risk Assessment Temperature 97.7 F 98.5 F Pulse Rate 87 71 Blood Pressure 115/59 L 92/45 L 01/19/20 13:57 Lunch NPO Skin Risk Level Total Score - Skin Risk Assessment Temperature 98.3 F Pulse Rate 69 Blood Pressure 98/50 L Pt continues to present with confusion although he is interactive, with groping for words and paraphasic errors. He demonstrates impaired insight and memory. For PEG insertion tomorrow. Speech/swallow/cognitive rehabilitation to continue upon d/c.
--- NOTE | 2020-01-19 15:14 | PN ---
Progress Note, Physician History of Present Illness: Pt seen and examined at bedside. He is awake and appears comfortable. - Current Medication List Current Medications: Active Medications Acetaminophen (Tylenol Suppository -) 650 mg [place] Q6H PRN PRN Reason: FEVER Amino Acids (Prosource No Carb Liquid Pkt) 30 ml PO DAILY@0800 [facility] Last Admin: 01/19/20 09:24 Dose: Not Given Documented by: Collagenase (Santyl -) 1 applic TP DAILY [facility]; Protocol Last Admin: 01/19/20 09:27 Dose: 1 applic Documented by: Fat Emulsion-[place] Oil/Soybean Oil (Clinolipid 20% Iv Fat Emulsion) 250 ml IV DAILY@2200 [facility] Last Admin: 01/18/20 21:25 Dose: 250 ml Documented by: Amino Acids (Clinimix -) 1,000 mls @ 84 mls/hr IV Q12H [facility] Last Admin: 01/19/20 01:33 Dose: 84 mls/hr Documented by: Levetiracetam (Keppra Injection -) 500 mg IVPB BID [facility] Last Admin: 01/19/20 09:56 Dose: 500 mg Documented by: Pantoprazole Sodium (Protonix Iv) 40 mg IVPUSH DAILY [facility] Last Admin: 01/19/20 09:56 Dose: 40 mg Documented by: - Objective Vital Signs: Vital Signs Temperature 98.3 F 01/19/20 13:57 Pulse Rate 69 01/19/20 13:57 Respiratory Rate 20 01/19/20 13:57 Blood Pressure 98/50 L 01/19/20 13:57 O2 Sat by Pulse Oximetry (%) 98 01/19/20 13:57 Constitutional: Yes: Calm Eyes: Yes: Conjunctiva Clear HENT: Yes: Atraumatic Neck: Yes: Supple Cardiovascular: Yes: S1, S2 Respiratory: Yes: CTA Bilaterally Gastrointestinal: Yes: Normal Bowel Sounds, Soft Genitourinary: Yes: Incontinence Musculoskeletal: Yes: Muscle Weakness Edema: No Neurological: Yes: Confusion Labs: CBC, BMP 01/16/20 05:50 01/19/20 06:28 INR, PTT INR 1.21 (0.83-1.09) H 01/06/20 10:51 Problem List - Problems (1) CKD (chronic kidney disease) Code(s): N18.9 - CHRONIC KIDNEY DISEASE, UNSPECIFIED (2) Accidental fall Code(s): W19.XXXA - UNSPECIFIED FALL, INITIAL ENCOUNTER Qualifiers: Encounter type: subsequent encounter Qualified Code(s): W19.XXXD - Unspecified fall, subsequent encounter (3) Closed head injury Code(s): S09.90XA - UNSPECIFIED INJURY OF HEAD, INITIAL ENCOUNTER Qualifiers: Encounter type: initial encounter Qualified Code(s): S09.90XA - Unspecified injury of head, initial encounter Assessment/Plan Current Medications Generic Name Dose Route Start Last Admin Trade Name Freq PRN Reason Stop Dose Admin Acetaminophen 650 mg 01/18/20 19:19 Tylenol Suppository - [place] Q6H PRN FEVER Amino Acids 30 ml 01/14/20 08:00 01/19/20 09:24 Prosource No Carb Liquid Pkt PO Not Given DAILY@0800 [facility] Collagenase 1 applic 01/14/20 10:00 01/19/20 09:27 Santyl - TP 1 applic DAILY [facility] Administration Protocol Fat Emulsion-[place] Oil/Soybean Oil 250 ml 01/18/20 22:00 01/18/20 21:25 Clinolipid 20% Iv Fat Emulsion IV 250 ml DAILY@2200 [facility] Administration Amino Acids 1,000 mls @ 84 mls/hr 01/18/20 12:30 01/19/20 01:33 Clinimix - IV 84 mls/hr Q12H [facility] Administration Levetiracetam 500 mg 01/09/20 22:00 01/19/20 09:56 Keppra Injection - IVPB 500 mg BID [facility] Administration Pantoprazole Sodium 40 mg 01/10/20 10:00 01/19/20 09:56 Protonix Iv IVPUSH 40 mg DAILY [facility] Administration Impression 1. syncope 2. subarachnoid hemorrhage 3. murmur 4. ckd 5. hypernatremia 6. cva Plan - cont clinimix - pt going for peg tomorrow - repeat labs in am - monitor sodium level - will decrease rate of clinimix as bun rising
[2020-01-19] MEDS ORDERED: PT OWN MED DRAWER 7, Y5N ONE (22:06)
[2020-01-19] MEDS: FAT EMULSION/OLIVE/SOY (CLINOLIPID) 250 ML EMULSION IV SCH (22:38)
[2020-01-20] MEDS: AMINO ACIDS 4.25%/D5W 1,000 ML IV SCH (01:55)
[2020-01-20] MEDS ORDERED: CEFAZOLIN 1 GM/D5W 1 GM/50 ML BAG ONE (07:47)
[2020-01-20] MEDS ORDERED: ceFAZolin SODIUM 1 GM VIAL IVPB ONE (07:49)
--- NOTE | 2020-01-20 08:45 | PN ---
Progress Note, Physician Chief Complaint: Pt remains confused, lethargic. Thinks he is in [place]. History of Present Illness: Mr. Farmer is an 89-year-old white male, per medical record has history of heart disease and high cholesterol, prostate CA, now presents to ED following rapid response with head injury. Patient was in the hospital accompanied by his brother; he was scheduled for echo today and while ambulating fell to the ground, striking his right head. Rapid response was called, the patient was unresponsive, brought to the emergency department where code ferguson was activated. Patient offering limited history, is quite functional at baseline with some early dementia per brother, is following commands but nonconversant at the time of admission. Physical exam noted 4/6 systolic murmur, RSB-->Lt axilla - Current Medication List Current Medications: Active Medications Acetaminophen (Tylenol Suppository -) 650 mg [place] Q6H PRN PRN Reason: FEVER Amino Acids (Prosource No Carb Liquid Pkt) 30 ml PO DAILY@0800 [facility] Last Admin: 01/19/20 09:24 Dose: Not Given Documented by: Collagenase (Santyl -) 1 applic TP DAILY [facility]; Protocol Last Admin: 01/19/20 09:27 Dose: 1 applic Documented by: Fat Emulsion-[place] Oil/Soybean Oil (Clinolipid 20% Iv Fat Emulsion) 250 ml IV DAILY@2200 [facility] Last Admin: 01/19/20 22:38 Dose: 250 ml Documented by: Amino Acids (Clinimix -) 1,000 mls @ 84 mls/hr IV Q12H [facility] Last Admin: 01/20/20 01:55 Dose: 84 mls/hr Documented by: Levetiracetam (Keppra Injection -) 500 mg IVPB BID [facility] Last Admin: 01/19/20 22:33 Dose: 500 mg Documented by: Pantoprazole Sodium (Protonix Iv) 40 mg IVPUSH DAILY [facility] Last Admin: 01/19/20 09:56 Dose: 40 mg Documented by: - Objective Vital Signs: Vital Signs Temperature 98.0 F 01/20/20 08:38 Pulse Rate 77 01/20/20 08:38 Respiratory Rate 20 01/20/20 08:38 Blood Pressure 91/50 L 01/20/20 08:38 O2 Sat by Pulse Oximetry (%) 100 01/20/20 08:38 Constitutional: Yes: Thin Eyes: Yes: WNL HENT: Yes: WNL Cardiovascular: Yes: S1, S2 Respiratory: Yes: Diminished Gastrointestinal: Yes: Soft Genitourinary: No: Anuria Musculoskeletal: Yes: Muscle Weakness Extremities: Yes: Cool Edema: No Peripheral Pulses WNL: Yes Integumentary: Yes: WNL Neurological: Yes: Confusion, Weakness Psychiatric: Yes: Other Labs: CBC, BMP 01/16/20 05:50 01/19/20 06:28 INR, PTT INR 1.21 (0.83-1.09) H 01/06/20 10:51 - ....Imaging Chest X-ray: Image Reviewed EKG: Image Reviewed Assessment/Plan Syncope, right periorbital injury anemia renal dysfunction dementia by hx; ?mental status changes exacerbated post-syncope cardiac valvulopathy: normal LVEF; moderately severe severe cervical vertebral degeneration; ? 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 TNI < 0.02 x 2. Maintain hydration. F/u Is and Os, BUN/Cr, daily weight, electrolytes, BP and HR. orthostatic vital signs when pt is well-hydrated (BUN remains elevated; improving Cr); encourage PO fluids, continue IVF.. F/u renal status, Hb after hydration. Carotid artery doppler: moderate bilateral atherosclerotic disease without stenoses. TSH, HGBA1c: WNL Pt with NG tube; plan for PEG.
--- NOTE | 2020-01-20 09:10 | PN ---
Progress Note, Physician History of Present Illness: stable peg placement awake and alert - Current Medication List Current Medications: Active Medications Acetaminophen (Tylenol Suppository -) 650 mg [place] Q6H PRN PRN Reason: FEVER Amino Acids (Prosource No Carb Liquid Pkt) 30 ml PO DAILY@0800 [facility] Last Admin: 01/19/20 09:24 Dose: Not Given Documented by: Collagenase (Santyl -) 1 applic TP DAILY [facility]; Protocol Last Admin: 01/19/20 09:27 Dose: 1 applic Documented by: Fat Emulsion-[place] Oil/Soybean Oil (Clinolipid 20% Iv Fat Emulsion) 250 ml IV DAILY@2200 [facility] Last Admin: 01/19/20 22:38 Dose: 250 ml Documented by: Amino Acids (Clinimix -) 1,000 mls @ 84 mls/hr IV Q12H [facility] Last Admin: 01/20/20 01:55 Dose: 84 mls/hr Documented by: Levetiracetam (Keppra Injection -) 500 mg IVPB BID [facility] Last Admin: 01/19/20 22:33 Dose: 500 mg Documented by: Pantoprazole Sodium (Protonix Iv) 40 mg IVPUSH DAILY [facility] Last Admin: 01/19/20 09:56 Dose: 40 mg Documented by: - Objective Vital Signs: Vital Signs Temperature 98.0 F 01/20/20 08:38 Pulse Rate 77 01/20/20 08:38 Respiratory Rate 20 01/20/20 08:38 Blood Pressure 91/50 L 01/20/20 08:38 O2 Sat by Pulse Oximetry (%) 100 01/20/20 08:38 Constitutional: Yes: No Distress, Calm Cardiovascular: Yes: S1, S2 Respiratory: Yes: Regular, CTA Bilaterally Gastrointestinal: Yes: Normal Bowel Sounds, Soft, Other Musculoskeletal: Yes: WNL Extremities: Yes: WNL Neurological: Yes: Alert, Other Labs: CBC, BMP 01/16/20 05:50 01/19/20 06:28 INR, PTT INR 1.21 (0.83-1.09) H 01/06/20 10:51 Assessment/Plan Problem List - Problems (1) Accidental fall Code(s): W19.XXXA - UNSPECIFIED FALL, INITIAL ENCOUNTER Qualifiers: Encounter type: initial encounter Qualified Code(s): W19.XXXA - Unspecified fall, initial encounter (2) CKD (chronic kidney disease) Code(s): N18.9 - CHRONIC KIDNEY DISEASE, UNSPECIFIED (3) Closed head injury Code(s): S09.90XA - UNSPECIFIED INJURY OF HEAD, INITIAL ENCOUNTER Qualifiers: Encounter type: initial encounter Qualified Code(s): S09.90XA - Unspecified injury of head, initial encounter (4) Traumatic subarachnoid hemorrhage Code(s): S06.6X9A - TRAUM SUBRAC HEM W LOC OF UNSP DURATION, INIT Qualifiers: Encounter type: initial encounter Loss of consciousness presence/duration: with LOC of 30 min or less Qualified Code(s): S06.6X1A - Traumatic subarachnoid hemorrhage with loss of consciousness of 30 minutes or less, in itial encounter (5) Traumatic subdural hematoma Code(s): S06.5X9A - TRAUM SUBDR HEM W LOC OF UNSP DURATION, INIT Qualifiers: Encounter type: initial encounter Loss of consciousness presence/duration: with LOC of 30 min or less Qualified Code(s): S06.5X1A - Traumatic subdural hemorrhage with loss of consciousness of 30 minutes or less, initial encounter (6) Abrasion of face Code(s): S00.81XA - ABRASION OF OTHER PART OF HEAD, INITIAL ENCOUNTER (7) Facial contusion Code(s): S00.83XA - CONTUSION OF OTHER PART OF HEAD, INITIAL ENCOUNTER (8) Laceration of eyebrow, right Code(s): S01.111A - LACERATION W/O FB OF RIGHT EYELID AND PERIOCULAR AREA, INIT plan continue to monitor rest as per the team aspiration precautions nutrition
--- NOTE | 2020-01-20 09:33 | PN ---
Progress Note, Physician History of Present Illness: Mr. Farmer is an 89-year-old white male, per medical record has history of heart disease and high cholesterol, prostate CA, now presents to ED following rapid response with head injury. Patient was in the hospital accompanied by his brother; he was scheduled for echo today and while ambulating fell to the ground, striking his right head. Rapid response was called, the patient was unr esponsive, brought to the emergency department where code [place] was activated. Patient offering limited history, is quite functional at baseline with some early dementia per brother, is following commands but nonconversant at the time of admission. Physical exam noted 4/6 systolic murmur, RSB-->Lt axilla - Current Medication List Current Medications: Active Medications Acetaminophen (Tylenol Suppository -) 650 mg [place] Q6H PRN PRN Reason: FEVER Amino Acids (Prosource No Carb Liquid Pkt) 30 ml PO DAILY@0800 [facility] Last Admin: 01/19/20 09:24 Dose: Not Given Documented by: Collagenase (Santyl -) 1 applic TP DAILY [facility]; Protocol Last Admin: 01/19/20 09:27 Dose: 1 applic Documented by: Fat Emulsion-[place] Oil/Soybean Oil (Clinolipid 20% Iv Fat Emulsion) 250 ml IV DAILY@2200 [facility] Last Admin: 01/19/20 22:38 Dose: 250 ml Documented by: Amino Acids (Clinimix -) 1,000 mls @ 84 mls/hr IV Q12H [facility] Last Admin: 01/20/20 01:55 Dose: 84 mls/hr Documented by: Levetiracetam (Keppra Injection -) 500 mg IVPB BID [facility] Last Admin: 01/19/20 22:33 Dose: 500 mg Documented by: Pantoprazole Sodium (Protonix Iv) 40 mg IVPUSH DAILY [facility] Last Admin: 01/19/20 09:56 Dose: 40 mg Documented by: - Objective Vital Signs: Vital Signs Temperature 98.0 F 01/20/20 08:38 Pulse Rate 77 01/20/20 08:38 Respiratory Rate 20 01/20/20 08:38 Blood Pressure 91/50 L 01/20/20 08:38 O2 Sat by Pulse Oximetry (%) 100 01/20/20 08:38 Eyes: Yes: WNL, Conjunctiva Clear, EOM Intact HENT: Yes: WNL, Atraumatic, Normocephalic Neck: Yes: WNL, Supple, Trachea Midline Cardiovascular: Yes: WNL, Regular Rate and Rhythm Respiratory: Yes: WNL, Regular, CTA Bilaterally Gastrointestinal: Yes: WNL, Normal Bowel Sounds Genitourinary: Yes: WNL Musculoskeletal: Yes: WNL Extremities: Yes: WNL Edema: No Integumentary: Yes: WNL Labs: CBC, BMP 01/16/20 05:50 01/19/20 06:28 INR, PTT INR 1.21 (0.83-1.09) H 01/06/20 10:51 Problem List - Problems (1) Accidental fall Code(s): W19.XXXA - UNSPECIFIED FALL, INITIAL ENCOUNTER Qualifiers: Encounter type: subsequent encounter Qualified Code(s): W19.XXXD - Unspecified fall, subsequent encounter (2) CKD (chronic kidney disease) Code(s): N18.9 - CHRONIC KIDNEY DISEASE, UNSPECIFIED (3) Closed head injury Code(s): S09.90XA - UNSPECIFIED INJURY OF HEAD, INITIAL ENCOUNTER Qualifiers: Encounter type: initial encounter Qualified Code(s): S09.90XA - Unspecified injury of head, initial encounter (4) Facial laceration Code(s): S01.81XA - LACERATION W/O FOREIGN BODY OF OTH PART OF HEAD, INIT ENCNTR Qualifiers: Encounter type: initial encounter Qualified Code(s): S01.81XA - Laceration without foreign body of other part of head, initial encounter (5) Heart murmur, systolic Code(s): R01.1 - CARDIAC MURMUR, UNSPECIFIED (6) Traumatic subarachnoid hemorrhage Code(s): S06.6X9A - TRAUM SUBRAC HEM W LOC OF UNSP DURATION, INIT Qualifiers: Encounter type: initial encounter Loss of consciousness presence/duration: with LOC of 30 min or less Qualified Code(s): S06.6X1A - Traumatic subarachnoid hemorrhage with loss of consciousness of 30 minutes or less, initial encounter (7) Traumatic subdural hematoma Code(s): S06.5X9A - TRAUM SUBDR HEM W LOC OF UNSP DURATION, INIT Qualifiers: Encounter type: initial encounter Loss of consciousness presence/duration: with LOC of 30 min or less Qualified Code(s): S06.5X1A - Traumatic subdural hemorrhage with loss of consciousness of 30 minutes or less, initial encounter (8) Abrasion of face Code(s): S00.81XA - ABRASION OF OTHER PART OF HEAD, INITIAL ENCOUNTER (9) Facial contusion Code(s): S00.83XA - CONTUSION OF OTHER PART OF HEAD, INITIAL ENCOUNTER (10) Laceration of eyebrow, right Code(s): S01.111A - LACERATION W/O FB OF RIGHT EYELID AND PERIOCULAR AREA, INIT Assessment/Plan Syncope, right periorbital injury anemia renal dysfunction dementia by hx; ?mental status changes exacerbated post-syncope cardiac valvulopathy: normal LVEF; moderately severe severe cervical vertebral degeneration; ? 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 TNI < 0.02 x 2. Maintain hydration. F/u Is and Os, BUN/Cr, daily weight, electrolytes, BP and HR. orthostatic vital signs when pt is well-hydrated (BUN remains elevated; improving Cr); encourage PO fluids, continue IVF.. F/u renal status, Hb after hydration. Carotid artery doppler: moderate bilateral atherosclerotic disease without stenoses. TSH, HGBA1c: WNL Pt with NG tube; decision on PEG pending.
--- NOTE | 2020-01-20 09:48 | PN ---
Progress Note (short form) - Note Progress Note: 89 year old male history of htn, came for echo and had a fall had ct head , showed brain contusion and small sah. Neurosurgery were consulted and not a surgical candiddate. Patinet is restrained , agitated and confused, no seizure activity. denies headache. He is moving all extremity. He has bruise on his head. -- pateint remains confused and had peg tube placement today NEUROLOGICAL EXAMINATION Alert oriented x 1, neck is supple vss, slight agitated and restrained, eomi, pupils reactive no face asymmetry moving all ext ct head showed mild frontal lobe contusion and small sah repeat ct head on sep 20 was stable neurosurgery consult appreciated waiting for barium swallow eeg unremarkable , no seizure like activity, gneralized encephalopathic Assessment/Plan -- sah and contusion, history of mci and now confued due to brain contusion and sah, on keppra as per neurosurgery. no a surical candidate Plan_ continue keppra 1 gm iv bid , over the pc tech keeppra can be stopped - - stable, continue current level of care, peg tube placement for tomorrow. thanking you so much Daniel Gallegos MD
[2020-01-20] MEDS ORDERED: ACETAMINOPHEN 650 MG SUPP.RECT RC PRN (10:38)
[2020-01-20] MEDS: AMINO ACIDS/PROTEIN HYDROLYS 30 ML LIQUID.PKT PO SCH (10:48)
--- NOTE | 2020-01-20 10:52 | PN ---
Progress Note, Physician History of Present Illness: patient seen and examined Chart is reviewed Awake comfortable denies pain answers simple questions all follow-ups noted s/p peg today - Current Medication List Current Medications: Active Medications Acetaminophen (Tylenol Suppository -) 650 mg RC Q6H PRN PRN Reason: FEVER Amino Acids (Prosource No Carb Liquid Pkt) 30 ml PO DAILY@0800 [facility] Collagenase (Santyl -) 1 applic TP DAILY [facility]; Protocol Fat Emulsion-[place] Oil/Soybean Oil (Clinolipid 20% Iv Fat Emulsion) 250 ml IV DAILY@2200 [facility] Amino Acids (Clinimix -) 1,000 mls @ 84 mls/hr IV Q12H [facility] Levetiracetam (Keppra Injection -) 500 mg IVPB BID [facility] Pantoprazole Sodium (Protonix Iv) 40 mg IVPUSH DAILY [facility] - Objective Vital Signs: Vital Signs Temperature 98.0 F 01/20/20 08:38 Pulse Rate 77 01/20/20 08:38 Respiratory Rate 20 01/20/20 08:38 Blood Pressure 91/50 L 01/20/20 08:38 O2 Sat by Pulse Oximetry (%) 100 01/20/20 08:38 Constitutional: Yes: No Distress, Calm HENT: Yes: Other (right eye brow-- sutures +) Neck: Yes: Supple Cardiovascular: Yes: Regular Rate and Rhythm Respiratory: Yes: Diminished Gastrointestinal: Yes: Soft, Other (binder) Edema: No Neurological: Yes: Alert Labs: CBC, BMP 01/16/20 05:50 01/19/20 06:28 INR, PTT INR 1.21 (0.83-1.09) H 01/06/20 10:51 Problem List - Problems (1) Accidental fall Code(s): W19.XXXA - UNSPECIFIED FALL, INITIAL ENCOUNTER Qualifiers: Encounter type: subsequent encounter Qualified Code(s): W19.XXXD - Un specified fall, subsequent encounter (2) CKD (chronic kidney disease) Code(s): N18.9 - CHRONIC KIDNEY DISEASE, UNSPECIFIED (3) Traumatic subarachnoid hemorrhage Code(s): S06.6X9A - TRAUM SUBRAC HEM W LOC OF UNSP DURATION, INIT Qualifiers: Encounter type: initial encounter Loss of consciousness presence/duration: with LOC of 30 min or less Qualified Code(s): S06.6X1A - Traumatic subarachnoid hemorrhage with loss of consciousness of 30 minutes or less, initial encounter (4) Traumatic subdural hematoma Code(s): S06.5X9A - TRAUM SUBDR HEM W LOC OF UNSP DURATION, INIT Qualifiers: Encounter type: initial encounter Loss of consciousness presence/duration: with LOC of 30 min or less Qualified Code(s): S06.5X1A - Traumatic subdural hemorrhage with loss of consciousness of 30 minutes or less, initial encounter (5) Abrasion of face Code(s): S00.81XA - ABRASION OF OTHER PART OF HEAD, INITIAL ENCOUNTER (6) Heart murmur, systolic Code(s): R01.1 - CARDIAC MURMUR, UNSPECIFIED Assessment/Plan Stable discussed with nursing staff monitor continue keshabana ---as per neurology PEg feeding to be started stop clinimix when Feeding started Sutures also removed my me under aseptic measures wrist restrain--- as patient tries to pull out the NG tube will continue to follow
[2020-01-20] MEDS: levETIRAcetam 500 MG/5 ML INJECTION VIAL IVPB SCH ×3 (11:32→21:33)
[2020-01-20] MEDS: PANTOPRAZOLE SODIUM 40 MG VIAL IVPUSH SCH ×2 (11:32→14:46)
[2020-01-20] MEDS ORDERED: AMINO ACIDS 4.25%/D5W 1,000 ML IV SCH (12:30)
--- NOTE | 2020-01-20 14:44 | PN ---
Progress Note, Physician History of Present Illness: Pt seen and examined at bedside. He is awake and appears comfortable. He is tolerating feeds. - Current Medication List Current Medications: Active Medications Acetaminophen (Tylenol Suppository -) 650 mg RC Q6H PRN PRN Reason: FEVER Amino Acids (Prosource No Carb Liquid Pkt) 30 ml PO DAILY@0800 [facility] Collagenase (Santyl -) 1 applic TP DAILY [facility]; Protocol Fat Emulsion-[place] Oil/Soybean Oil (Clinolipid 20% Iv Fat Emulsion) 250 ml IV DAILY@2200 [facility] Amino Acids (Clinimix -) 1,000 mls @ 84 mls/hr IV Q12H [facility] Levetiracetam (Keppra Injection -) 500 mg IVPB BID [facility] Last Admin: 01/20/20 11:32 Dose: 500 mg Documented by: Pantoprazole Sodium (Protonix Iv) 40 mg IVPUSH DAILY [facility] Last Admin: 01/20/20 11:32 Dose: 40 mg Documented by: - Objective Vital Signs: Vital Signs Temperature 98.0 F 01/20/20 08:38 Pulse Rate 77 01/20/20 08:38 Respiratory Rate 20 01/20/20 08:38 Blood Pressure 91/50 L 01/20/20 08:38 O2 Sat by Pulse Oximetry (%) 100 01/20/20 08:38 Constitutional: Yes: Calm Eyes: Yes: Conjunctiva Clear HENT: Yes: Atraumatic Cardiovascular: Yes: S1, S2 Respiratory: Yes: CTA Bilaterally Gastrointestinal: Yes: Soft Genitourinary: Yes: Incontinence Musculoskeletal: Yes: Muscle Weakness Edema: No Neurological: Yes: Confusion Labs: CBC, BMP 01/16/20 05:50 01/19/20 06:28 INR, PTT INR 1.21 (0.83-1.09) H 01/06/20 10:51 Problem List - Problems (1) CKD (chronic kidney disease) Code(s): N18.9 - CHRONIC KIDNEY DISEASE, UNSPECIFIED (2) Accidental fall Code(s): W19.XXXA - UNSPECIFIED FALL, INITIAL ENCOUNTER Qualifiers: Encounter type: subsequent encounter Qualified Code(s): W19.XXXD - Unspecified fall, subsequent encounter (3) Closed head injury Code(s): S09.90XA - UNSPECIFIED INJURY OF HEAD, INITIAL ENCOUNTER Qualifiers: Encounter type: initial encounter Qualified Code(s): S09.90XA - Unspecified injury of head, initial encounter Assessment/Plan Current Medications Generic Name Dose Route Start Last Admin Trade Name Freq PRN Reason Stop Dose Admin Acetaminophen 650 mg 01/20/20 10:38 Tylenol Suppository - RC Q6H PRN FEVER Amino Acids 30 ml 01/21/20 08:00 Prosource No Carb Liquid Pkt PO DAILY@0800 [facility] Collagenase 1 applic 01/21/20 10:00 Santyl - TP DAILY [facility] Protocol Fat Emulsion-[place] Oil/Soybean Oil 250 ml 01/20/20 22:00 Clinolipid 20% Iv Fat Emulsion IV DAILY@2200 [facility] Amino Acids 1,000 mls @ 84 mls/hr 01/20/20 12:30 Clinimix - IV Q12H [facility] Levetiracetam 500 mg 01/20/20 11:15 01/20/20 11:32 Keppra Injection - IVPB 500 mg BID [facility] Administration Pantoprazole Sodium 40 mg 01/20/20 11:15 01/20/20 11:32 Protonix Iv IVPUSH 40 mg DAILY [facility] Administration Impression 1. syncope 2. subarachnoid hemorrhage 3. murmur 4. ckd 5. hypernatremia 6. cva Plan - pt started on feeds - will stop clinimix - repeat labs in am - monitor residuals - spoke to nurse - repeat sodium in am
[2020-01-20] MEDS ORDERED: PT OWN MED DRAWER 7, Y5N ONE (21:28)
[2020-01-20] MEDS ORDERED: FAT EMULSION/OLIVE/SOY (CLINOLIPID) 250 ML EMULSION IV SCH (22:00)
[2020-01-20] MEDS ORDERED: levETIRAcetam 500 MG/5 ML INJECTION VIAL IVPB SCH (22:00)
[2020-01-21] MEDS ORDERED: AMINO ACIDS/PROTEIN HYDROLYS 30 ML LIQUID.PKT PO SCH (08:00)
[2020-01-21] MEDS ORDERED: PT OWN MED DRAWER 7, Y5N ONE (09:37)
[2020-01-21] MEDS: COLLAGENASE CLOSTRIDIUM HIST. 30 GRAMS TUBE TP SCH ×2 (09:46→10:09)
[2020-01-21] MEDS: PANTOPRAZOLE SODIUM 40 MG VIAL IVPUSH SCH (09:46)
[2020-01-21] MEDS: levETIRAcetam 500 MG/5 ML INJECTION VIAL IVPB SCH ×2 (09:46→22:38)
--- NOTE | 2020-01-21 09:57 | PN ---
Progress Note, Physician History of Present Illness: patient seen and examined Awake/comfortable no new issues tolerating feedings - Current Medication List Current Medications: Active Medications Acetaminophen (Tylenol Suppository -) 650 mg RC Q6H PRN PRN Reason: FEVER Amino Acids (Prosource No Carb Liquid Pkt) 30 ml PO DAILY@0800 [facility] Last Admin: 01/21/20 09:46 Dose: 30 ml Documented by: Collagenase (Santyl -) 1 applic TP DAILY [facility]; Protocol Last Admin: 01/21/20 09:46 Dose: 1 applic Documented by: Fat Emulsion-[place] Oil/Soybean Oil (Clinolipid 20% Iv Fat Emulsion) 250 ml IV DAILY@2200 [facility] Last Admin: 01/21/20 01:44 Dose: 250 ml Documented by: Levetiracetam (Keppra Injection -) 500 mg IVPB BID [facility] Last Admin: 01/21/20 09:46 Dose: 500 mg Documented by: Pantoprazole Sodium (Protonix Iv) 40 mg IVPUSH DAILY [facility] Last Admin: 01/21/20 09:46 Dose: 40 mg Documented by: - Objective Vital Signs: Vital Signs Temperature 97.9 F 01/21/20 05:54 Pulse Rate 82 01/21/20 05:54 Respiratory Rate 20 01/21/20 05:54 Blood Pressure 114/57 L 01/21/20 05:54 O2 Sat by Pulse Oximetry (%) 97 01/21/20 05:54 Constitutional: Yes: No Distress, Calm Neck: Yes: Supple Cardiovascular: Yes: Regular Rate and Rhythm Respiratory: Yes: CTA Bilaterally Gastrointestinal: Yes: Soft, Other (Binder +) Edema: No Labs: CBC, BMP 01/16/20 05:50 01/19/20 06:28 INR, PTT INR 1.21 (0.83-1.09) H 01/06/20 10:51 Problem List - Problems (1) Accidental fall Code(s): W19.XXXA - UNSPECIFIED FALL, INITIAL ENCOUNTER Qualifiers: Encounter type: subsequent encounter Qualified Code(s): W19.XXXD - Unspecified fall, subsequent encounter (2) CKD (chronic kidney disease) Code(s): N18.9 - CHRONIC KIDNEY DISEASE, UNSPECIFIED (3) Traumatic subarachnoid hemorrhage Code(s): S06.6X9A - TRAUM SUBRAC HEM W LOC OF UNSP DURATION, INIT Qualifiers: Encounter type: initial encounter Loss of consciousness presence/duration: with LOC of 30 min or less Qualified Code(s): S06.6X1A - Traumatic subarachnoid hemorrhage with loss of consciousness of 30 minutes or less, initial encounter (4) Traumatic subdural hematoma Code(s): S06.5X9A - TRAUM SUBDR HEM W LOC OF UNSP DURATION, INIT Qualifiers: Encounter type: initial encounter Loss of consciousness presence/duration: with LOC of 30 min or less Qualified Code(s): S06.5X1A - Traumatic subdural hemorrhage with loss of consciousness of 30 minutes or less, initial encounter (5) Abrasion of face Code(s): S00.81XA - ABRASION OF OTHER PART OF HEAD, INITIAL ENCOUNTER (6) Heart murmur, systolic Code(s): R01.1 - CARDIAC MURMUR, UNSPECIFIED Assessment/Plan Stable discussed with nursing staff monitor continue keppra ---as per neurology PEG feeding -- Advance as tolerated d/c lipids wrist restrain--- will release and observe as Abdominal Binder is in place d/w RN also f/u labs-- ordered for tomorrow will continue to follow
[2020-01-21] MEDS ORDERED: PANTOPRAZOLE SODIUM 40 MG VIAL IVPUSH SCH (10:00)
[2020-01-21] MEDS: PANTOPRAZOLE 40 MG TABLET PO SCH (10:39)
--- NOTE | 2020-01-21 11:23 | PN ---
Progress Note, Physician History of Present Illness: stable awake tolerating feedings - Current Medication List Current Medications: Active Medications Acetaminophen (Tylenol Suppository -) 650 mg RC Q6H PRN PRN Reason: FEVER Collagenase (Santyl -) 1 applic TP DAILY [facility]; Protocol Last Admin: 01/21/20 09:46 Dose: 1 applic Documented by: Levetiracetam (Keppra Injection -) 500 mg IVPB BID [facility] Last Admin: 01/21/20 09:46 Dose: 500 mg Documented by: Pantoprazole Sodium (Protonix -) 40 mg PO DAILY [facility] Last Admin: 01/21/20 10:39 Dose: Not Given Documented by: - Objective Vital Signs: Vital Signs Temperature 97.9 F 01/21/20 05:54 Pulse Rate 82 01/21/20 05:54 Respiratory Rate 20 01/21/20 05:54 Blood Pressure 114/57 L 01/21/20 05:54 O2 Sat by Pulse Oximetry (%) 97 01/21/20 09:00 Constitutional: Yes: No Distress, Calm Cardiovascular: Yes: S1, S2 Respiratory: Yes: Regular, CTA Bilaterally Gastrointestinal: Yes: Normal Bowel Sounds, Soft Musculoskeletal: Yes: WNL Extremities: Yes: WNL Labs: CBC, BMP 01/16/20 05:50 01/19/20 06:28 INR, PTT INR 1.21 (0.83-1.09) H 01/06/20 10:51 Assessment/Plan Problem List - Problems (1) Accidental fall Code(s): W19.XXXA - UNSPECIFIED FALL, INITIAL ENCOUNTER Qualifiers: Encounter type: initial encounter Qualified Code(s): W19.XXXA - Unspecified fall, initial encounter (2) CKD (chronic kidney disease) Code(s): N18.9 - CHRONIC KIDNEY DISEASE, UNSPECIFIED (3) Closed head injury Code(s): S09.90XA - UNSPECIFIED INJURY OF HEAD, INITIAL ENCOUNTER Qualifiers: Encounter type: initial encounter Qualified Code(s): S09.90XA - Unspecified injury of head, initial encounter (4) Traumatic subarachnoid hemorrhage Code(s): S06.6X9A - TRAUM SUBRAC HEM W LOC OF UNSP DURATION, INIT Qualifiers: Encounter type: initial encounter Loss of consciousness presence/duration: with LOC of 30 min or less Qualified Code(s): S06.6X1A - Traumatic subarachnoid hemorrhage with loss of consciousness of 30 minutes or less, initial encounter (5) Traumatic subdural hematoma Code(s): S06.5X9A - TRAUM SUBDR HEM W LOC OF UNSP DURATION, INIT Qualifiers: Encounter type: initial encounter Loss of consciousness presence/duration: with LOC of 30 min or less Qualified Code(s): S06.5X1A - Traumatic subdural hemorrhage with loss of consciousness of 30 minutes or less, initial encounter (6) Abrasion of face Code(s): S00.81XA - ABRASION OF OTHER PART OF HEAD, INITIAL ENCOUNTER (7) Facial contusion Code(s): S00.83XA - CONTUSION OF OTHER PART OF HEAD, INITIAL ENCOUNTER (8) Laceration of eyebrow, right Code(s): S01.111A - LACERATION W/O FB OF RIGHT EYELID AND PERIOCULAR AREA, INIT plan continue to monitor rest as per the team aspiration precautions nutrition
--- NOTE | 2020-01-21 12:16 | PN ---
Progress Note (short form) - Note Progress Note: 89 year old male history of htn, came for echo and had a fall had ct head , showed brain contusion and small sah. Neurosurgery were consulted and not a surgical candiddate. Patinet is restrained , agitated and confused, no seizure activity. denies headache. He is moving all extremity. He has bruise on his head. -- pateint remains confused getting peg tube feeding. spoke to nursing staff and chart reviewed NEUROLOGICAL EXAMINATION Alert oriented x 1, neck is supple vss, slight agitated and restrained, eomi, pupils reactive no face asymmetry moving all ext ct head showed mild frontal lobe contusion and small sah repeat ct head on sep 20 was stable neurosurgery consult appreciated waiting for barium swallow eeg unremarkable , no seizure like activity, gneralized encephalopathic Assessment/Plan -- sah and contusion, history of mci and now confued due to brain contusion and sah, on keppra as per neurosurgery. no a surical candidate Plan_ continue keppra 1 gm iv bid , over the half-way keeppra can be stopped - - supportive care thanking you so much Daniel Gallegos MD
--- NOTE | 2020-01-21 15:23 | PN ---
Progress Note, Physician History of Present Illness: Pt seen and examined at bedside. He is tolerating diet. - Current Medication List Current Medications: Active Medications Acetaminophen (Tylenol Suppository -) 650 mg RC Q6H PRN PRN Reason: FEVER Collagenase (Santyl -) 1 applic TP DAILY [facility]; Protocol Last Admin: 01/21/20 09:46 Dose: 1 applic Documented by: Levetiracetam (Keppra Injection -) 500 mg IVPB BID [facility] Last Admin: 01/21/20 09:46 Dose: 500 mg Documented by: Pantoprazole Sodium (Protonix -) 40 mg PO DAILY [facility] Last Admin: 01/21/20 10:39 Dose: Not Given Documented by: - Objective Vital Signs: Vital Signs Temperature 97.9 F 01/21/20 05:54 Pulse Rate 82 01/21/20 05:54 Respiratory Rate 20 01/21/20 05:54 Blood Pressure 114/57 L 01/21/20 05:54 O2 Sat by Pulse Oximetry (%) 97 01/21/20 09:00 Constitutional: Yes: Calm Eyes: Yes: Conjunctiva Clear HENT: Yes: Atraumatic Neck: Yes: Supple Cardiovascular: Yes: S1, S2 Respiratory: Yes: CTA Bilaterally Gastrointestinal: Yes: Normal Bowel Sounds, Soft Genitourinary: Yes: Incontinence Musculoskeletal: Yes: WNL Edema: No Neurological: Yes: Confusion Labs: CBC, BMP 01/16/20 05:50 01/19/20 06:28 INR, PTT INR 1.21 (0.83-1.09) H 01/06/20 10:51 Problem List - Problems (1) CKD (chronic kidney disease) Code(s): N18.9 - CHRONIC KIDNEY DISEASE, UNSPECIFIED (2) Accidental fall Code(s): W19.XXXA - UNSPECIFIED FALL, INITIAL ENCOUNTER Qualifiers: Encounter type: subsequent encounter Qualified Code(s): W19.XXXD - Unspecified fall, subsequent encounter (3) Closed head injury Code(s): S09.90XA - UNSPECIFIED INJURY OF HEAD, INITIAL ENCOUNTER Qualifiers: Encounter type: initial encounter Qualified Code(s): S09.90XA - Unspecified injury of head, initial encounter Assessment/Plan Current Medications Generic Name Dose Route Start Last Admin Trade Name Freq PRN Reason Stop Dose Admin Acetaminophen 650 mg 01/20/20 10:38 Tylenol Suppository - RC Q6H PRN FEVER Collagenase 1 applic 01/21/20 10:00 01/21/20 09:46 Santyl - TP 1 applic DAILY [facility] Administration Protocol Levetiracetam 500 mg 01/20/20 11:15 01/21/20 09:46 Keppra Injection - IVPB 500 mg BID [facility] Administration Pantoprazole Sodium 40 mg 01/21/20 10:00 01/21/20 10:39 Protonix - PO Not Given DAILY [facility] Impression 1. syncope 2. subarachnoid hemorrhage 3. murmur 4. ckd 5. hypernatremia 6. cva Plan - pt tolerating feeds - repeat labs in am - check mag and phos - monitor bp
[2020-01-22 07:42] LABS: BASO % 0.2 % (0-2.0); EOS % 0.4 % (0-4.5); HEMOGLOBIN 8.6 GM/dL (11.7-16.9); LYMPH % 8.3 % (8-40); MCH 32.5 pg (25.7-33.7); MCHC 34.3 g/dl (32.0-35.9); MEAN CELL VOLUME 94.7 fl (80-96); MEAN PLT VOLUME 6.8 fl (7.5-11.1); MONO % 3.6 % (3.8-10.2); NEUT % 87.5 % (42.8-82.8); PLATELET COUNT 269 K/MM3 (134-434); RBC 2.64 M/mm3 (4.00-5.60); RDW 13.2 % (11.9-15.9); WHITE BLOOD COUNT 14.4 K/mm3 (4.0-10.0)
[2020-01-22 08:01] LABS: ALBUMIN 2.1 g/dl (3.4-5.0); BILIRUBIN,TOTAL 0.4 mg/dL (0.2-1); BLOOD UREA NITROGEN 55.8 mg/dL (7-18); CALCIUM 8.7 mg/dL (8.5-10.1); CREATININE 1.3 mg/dL (0.55-1.3); MAGNESIUM 2.2 mg/dL (1.8-2.4); PHOSPHOROUS 3.2 mg/dL (2.5-4.9); POTASSIUM 4.1 mmol/L (3.5-5.1); TOT PROT 6.3 g/dl (6.4-8.2)
[2020-01-22] MEDS: PANTOPRAZOLE 40 MG TABLET PO SCH (09:31)
[2020-01-22] MEDS: levETIRAcetam 500 MG/5 ML INJECTION VIAL IVPB SCH ×2 (09:31→21:06)
[2020-01-22] MEDS: COLLAGENASE CLOSTRIDIUM HIST. 30 GRAMS TUBE TP SCH (09:31)
--- NOTE | 2020-01-22 10:32 | PN ---
Progress Note, Physician History of Present Illness: patient seen and examined Awake/comfortable no new issues tolerating feedings afebrile - Current Medication List Current Medications: Active Medications Acetaminophen (Tylenol Suppository -) 650 mg RC Q6H PRN PRN Reason: FEVER Collagenase (Santyl -) 1 applic TP DAILY [facility]; Protocol Last Admin: 01/22/20 09:31 Dose: 1 applic Documented by: Levetiracetam (Keppra Injection -) 500 mg IVPB BID [facility] Last Admin: 01/22/20 09:31 Dose: 500 mg Documented by: Pantoprazole Sodium (Protonix -) 40 mg PO DAILY [facility] Last Admin: 01/22/20 09:31 Dose: 40 mg Documented by: - Objective Vital Signs: Vital Signs Temperature 99.1 F 01/22/20 06:25 Pulse Rate 85 01/22/20 06:25 Respiratory Rate 20 01/22/20 06:25 Blood Pressure 105/52 L 01/22/20 06:25 O2 Sat by Pulse Oximetry (%) 97 01/22/20 06:25 Constitutional: Yes: No Distress, Calm Neck: Yes: Supple Cardiovascular: Yes: Regular Rate and Rhythm Gastrointestinal: Yes: Soft Edema: No Labs: CBC, BMP 01/22/20 07:00 01/22/20 07:00 INR, PTT INR 1.21 (0.83-1.09) H 01/06/20 10:51 Problem List - Problems (1) Accidental fall Code(s): W19.XXXA - UNSPECIFIED FALL, INITIAL ENCOUNTER Qualifiers: Encounter type: subsequent encounter Qualified Code(s): W19.XXXD - Unspecified fall, subsequent encounter (2) CKD (chronic kidney disease) Code(s): N18.9 - CHRONIC KIDNEY DISEASE, UNSPECIFIED (3) Traumatic subarachnoid hemorrhage Code(s): S06.6X9A - TRAUM SUBRAC HEM W LOC OF UNSP DURATION, INIT Qualifiers: Encounter type: initial encounter Loss of consciousness presence/duration: with LOC of 30 min or less Qualified Code(s): S06.6X1A - Traumatic subarachnoid hemorrhage with loss of consciousness of 30 minutes or less, initial encounter (4) Traumatic subdural hematoma Code(s): S06.5X9A - TRAUM SUBDR HEM W LOC OF UNSP DURATION, INIT Qualifiers: Encounter type: initial encounter Loss of consciousness presence/duration: with LOC of 30 min or less Qualified Code(s): S06.5X1A - Traumatic subdural hemorrhage with loss of consciousness of 30 minutes or less, initial encounter (5) Abrasion of face Code(s): S00.81XA - ABRASION OF OTHER PART OF HEAD, INITIAL ENCOUNTER (6) Heart murmur, systolic Code(s): R01.1 - CARDIAC MURMUR, UNSPECIFIED Assessment/Plan Stable discussed with nursing staff monitor continue keppra ---as per neurology PEG feeding -- Advance as tolerated slightly elevated wbc repeat cbc in am d/c planning-- Anticipate tomorrow for str Will follow
[2020-01-22 12:42] VITALS: BMI 19.2
--- NOTE | 2020-01-22 15:02 | PN ---
Progress Note, Physician History of Present Illness: Pt seen and examined at [facility]. He appears comfortable. - Current Medication List Current Medications: Active Medications Acetaminophen (Tylenol Suppository -) 650 mg RC Q6H PRN PRN Reason: FEVER Collagenase (Santyl -) 1 applic TP DAILY [facility]; Protocol Last Admin: 01/22/20 09:31 Dose: 1 applic Documented by: Levetiracetam (Keppra Injection -) 500 mg IVPB BID [facility] Last Admin: 01/22/20 09:31 Dose: 500 mg Documented by: Pantoprazole Sodium (Protonix -) 40 mg PO DAILY [facility] Last Admin: 01/22/20 09:31 Dose: 40 mg Documented by: - Objective Vital Signs: Vital Signs Temperature 98.3 F 01/22/20 14:00 Pulse Rate 71 01/22/20 14:00 Respiratory Rate 20 01/22/20 14:00 Blood Pressure 101/51 L 01/22/20 14:00 O2 Sat by Pulse Oximetry (%) 99 01/22/20 14:00 Constitutional: Yes: Calm Eyes: Yes: Conjunctiva Clear HENT: Yes: Atraumatic Neck: Yes: Supple Cardiovascular: Yes: S1, S2 Respiratory: Yes: CTA Bilaterally Gastrointestinal: Yes: Normal Bowel Sounds, Soft Genitourinary: Yes: Incontinence Edema: No Neurological: Yes: Confusion Labs: CBC, BMP 01/22/20 07:00 01/22/20 07:00 INR, PTT INR 1.21 (0.83-1.09) H 01/06/20 10:51 Problem List - Problems (1) CKD (chronic kidney disease) Code(s): N18.9 - CHRONIC KIDNEY DISEASE, UNSPECIFIED (2) Accidental fall Code(s): W19.XXXA - UNSPECIFIED FALL, INITIAL ENCOUNTER Qualifiers: Encounter type: subsequent encounter Qualified Code(s): W19.XXXD - Unspecified fall, subsequent encounter (3) Closed head injury Code(s): S09.90XA - UNSPECIFIED INJURY OF HEAD, INITIAL ENCOUNTER Qualifiers: Encounter type: initial encounter Qualified Code(s): S09.90XA - Unspecified injury of head, initial encounter Assessment/Plan Current Medications Generic Name Dose Route Start Last Admin Trade Name Freq PRN Reason Stop Dose Admin Acetaminophen 650 mg 01/20/20 10:38 Tylenol Suppository - RC Q6H PRN FEVER Collagenase 1 applic 01/21/20 10:00 01/22/20 09:31 Santyl - TP 1 applic DAILY [facility] Administration Protocol Levetiracetam 500 mg 01/20/20 11:15 01/22/20 09:31 Keppra Injection - IVPB 500 mg BID [facility] Administration Pantoprazole Sodium 40 mg 01/21/20 10:00 01/22/20 09:31 Protonix - PO 40 mg DAILY [facility] Administration Laboratory Tests 01/22/20 07:00 Sodium 138 Potassium 4.1 BUN 55.8 H Creatinine 1.3 Phosphorus 3.2 Magnesium 2.2 Impression 1. syncope 2. subarachnoid hemorrhage 3. murmur 4. ckd 5. hypernatremia 6. cva Plan - lytes reviewed and are stable - will increase free water with feeds as mucous membranes appears dry - monitor lytes - cont feeds - mag and phos stable
[2020-01-23 06:44] LABS: BASO % 0.3 % (0-2.0); EOS % 1.6 % (0-4.5); HEMATOCRIT 24.3 % (35.4-49); HEMOGLOBIN 8.4 GM/dL (11.7-16.9); LYMPH % 11.8 % (8-40); MCH 32.6 pg (25.7-33.7); MCHC 34.5 g/dl (32.0-35.9); MEAN CELL VOLUME 94.6 fl (80-96); MEAN PLT VOLUME 6.7 fl (7.5-11.1); MONO % 6.3 % (3.8-10.2); PLATELET COUNT 280 K/MM3 (134-434); RBC 2.57 M/mm3 (4.00-5.60); RDW 13.1 % (11.9-15.9); WHITE BLOOD COUNT 10.3 K/mm3 (4.0-10.0)
--- NOTE | 2020-01-23 09:43 | PN ---
Progress Note, Physician History of Present Illness: Mr. Farmer is an 89-year-old white male, per medical record has history of heart disease and high cholesterol, prostate CA, now presents to ED following rapid response with head injury. Patient was in the hospital accompanied by his brother; he was scheduled for echo today and while ambulating fell to the ground, striking his right head. Rapid response was called, the patient was unr esponsive, brought to the emergency department where code ferguson was activated. Patient offering limited history, is quite functional at baseline with some early dementia per brother, is following commands but nonconversant at the time of admission. Physical exam noted 4/6 systolic murmur, RSB-->Lt axilla - Current Medication List Current Medications: Active Medications Acetaminophen (Tylenol Suppository -) 650 mg RC Q6H PRN PRN Reason: FEVER Collagenase (Santyl -) 1 applic TP DAILY [facility]; Protocol Last Admin: 01/22/20 09:31 Dose: 1 applic Documented by: Levetiracetam (Keppra Injection -) 500 mg IVPB BID [facility] Last Admin: 01/22/20 21:06 Dose: 500 mg Documented by: Pantoprazole Sodium (Protonix -) 40 mg PO DAILY [facility] Last Admin: 01/22/20 09:31 Dose: 40 mg Documented by: - Objective Vital Signs: Vital Signs Temperature 98.1 F 01/23/20 06:00 Pulse Rate 70 01/23/20 06:00 Respiratory Rate 80 H 01/23/20 06:00 Blood Pressure 98/54 L 01/23/20 06:00 O2 Sat by Pulse Oximetry (%) 98 01/23/20 06:00 Eyes: Yes: WNL, Conjunctiva Clear, EOM Intact HENT: Yes: WNL, Atraumatic, Normocephalic Neck: Yes: WNL, Supple, Trachea Midline Cardiovascular: Yes: WNL, Regular Rate and Rhythm Respiratory: Yes: WNL, Regular, CTA Bilaterally Gastrointestinal: Yes: WNL, Normal Bowel Sounds Genitourinary: Yes: WNL Musculoskeletal: Yes: WNL Extremities: Yes: WNL Edema: No Integumentary: Yes: WNL Labs: CBC, BMP 01/23/20 06:03 01/22/20 07:00 INR, PTT INR 1.21 (0.83-1.09) H 01/06/20 10:51 Problem List - Problems (1) Accidental fall Code(s): W19.XXXA - UNSPECIFIED FALL, INITIAL ENCOUNTER Qualifiers: Encounter type: subsequent encounter Qualified Code(s): W19.XXXD - Unspecified fall, subsequent encounter (2) CKD (chronic kidney disease) Code(s): N18.9 - CHRONIC KIDNEY DISEASE, UNSPECIFIED (3) Closed head injury Code(s): S09.90XA - UNSPECIFIED INJURY OF HEAD, INITIAL ENCOUNTER Qualifiers: Encounter type: initial encounter Qualified Code(s): S09.90XA - Unspecified injury of head, initial encounter (4) Facial laceration Code(s): S01.81XA - LACERATION W/O FOREIGN BODY OF OTH PART OF HEAD, INIT ENCNTR Qualifiers: Encounter type: initial encounter Qualified Code(s): S01.81XA - Laceration without foreign body of other part of head, initial encounter (5) Heart murmur, systolic Code(s): R01.1 - CARDIAC MURMUR, UNSPECIFIED (6) Traumatic subarachnoid hemorrhage Code(s): S06.6X9A - TRAUM SUBRAC HEM W LOC OF UNSP DURATION, INIT Qualifiers: Encounter type: initial encounter Loss of consciousness presence/duration: with LOC of 30 min or less Qualified Code(s): S06.6X1A - Traumatic subarachnoid hemorrhage with loss of consciousness of 30 minutes or less, initial encounter (7) Traumatic subdural hematoma Code(s): S06.5X9A - TRAUM SUBDR HEM W LOC OF UNSP DURATION, INIT Qualifiers: Encounter type: initial encounter Loss of consciousness presence/duration: with LOC of 30 min or less Qualified Code(s): S06.5X1A - Traumatic subdural hemorrhage with loss of consciousness of 30 minutes or less, initial encounter (8) Abrasion of face Code(s): S00.81XA - ABRASION OF OTHER PART OF HEAD, INITIAL ENCOUNTER (9) Facial contusion Code(s): S00.83XA - CONTUSION OF OTHER PART OF HEAD, INITIAL ENCOUNTER (10) Laceration of eyebrow, right Code(s): S01.111A - LACERATION W/O FB OF RIGHT EYELID AND PERIOCULAR AREA, INIT Assessment/Plan Syncope, right periorbital injury anemia renal dysfunction dementia by hx; ?mental status changes exacerbated post-syncope cardiac valvulopathy: normal LVEF; moderately severe severe cervical vertebral degeneration; ? 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 TNI < 0.02 x 2. Maintain hydration. F/u Is and Os, BUN/Cr, daily weight, electrolytes, BP and HR. orthostatic vital signs when pt is well-hydrated (BUN remains elevated; improving Cr); encourage PO fluids, continue IVF.. F/u renal status, Hb after hydration. Carotid artery doppler: moderate bilateral atherosclerotic disease without s tenoses. TSH, HGBA1c: WNL Pt with NG tube; decision on PEG pending.
[2020-01-23] MEDS: levETIRAcetam 500 MG/5 ML INJECTION VIAL IVPB SCH (10:35)
[2020-01-23] MEDS: PANTOPRAZOLE 40 MG TABLET PO SCH (10:35)
[2020-01-23] MEDS: COLLAGENASE CLOSTRIDIUM HIST. 30 GRAMS TUBE TP SCH (10:36)
--- NOTE | 2020-01-23 11:47 | PN ---
Progress Note, Physician History of Present Illness: stable no new issues - Current Medication List Current Medications: Active Medications Acetaminophen (Tylenol Suppository -) 650 mg RC Q6H PRN PRN Reason: FEVER Collagenase (Santyl -) 1 applic TP DAILY [facility]; Protocol Last Admin: 01/23/20 10:36 Dose: 1 applic Documented by: Levetiracetam (Keppra Injection -) 500 mg IVPB BID [facility] Last Admin: 01/23/20 10:35 Dose: 500 mg Documented by: Pantoprazole Sodium (Protonix -) 40 mg PO DAILY [facility] Last Admin: 01/23/20 10:35 Dose: 40 mg Documented by: - Objective Vital Signs: Vital Signs Temperature 98.1 F 01/23/20 06:00 Pulse Rate 70 01/23/20 06:00 Respiratory Rate 80 H 01/23/20 06:00 Blood Pressure 98/54 L 01/23/20 06:00 O2 Sat by Pulse Oximetry (%) 98 01/23/20 06:00 Constitutional: Yes: No Distress, Calm Cardiovascular: Yes: S1, S2 Respiratory: Yes: Regular, CTA Bilaterally Gastrointestinal: Yes: Normal Bowel Sounds, Soft Musculoskeletal: Yes: WNL Extremities: Yes: Other Neurological: Yes: Alert Psychiatric: Yes: Alert Labs: CBC, BMP 01/23/20 06:03 01/22/20 07:00 INR, PTT INR 1.21 (0.83-1.09) H 01/06/20 10:51 Assessment/Plan Problem List - Problems (1) Accidental fall Code(s): W19.XXXA - UNSPECIFIED FALL, INITIAL ENCOUNTER Qualifiers: Encounter type: initial encounter Qualified Code(s): W19.XXXA - Unspecified fall, initial encounter (2) CKD (chronic kidney disease) Code(s): N18.9 - CHRONIC KIDNEY DISEASE, UNSPECIFIED (3) Closed head injury Code(s): S09.90XA - UNSPECIFIED INJURY OF HEAD, INITIAL ENCOUNTER Qualifiers: Encounter type: initial encounter Qualified Code(s): S09.90XA - Unspecified injury of head, initial encounter (4) Traumatic subarachnoid hemorrhage Code(s): S06.6X9A - TRAUM SUBRAC HEM W LOC OF UNSP DURATION, INIT Qualifiers: Encounter type: initial encounter Loss of consciousness presence/duration: with LOC of 30 min or less Qualified Code(s): S06.6X1A - Traumatic subarachnoid hemorrhage with loss of consciousness of 30 minutes or less, initial encounter (5) Traumatic subdural hematoma Code(s): S06.5X9A - TRAUM SUBDR HEM W LOC OF UNSP DURATION, INIT Qualifiers: Encounter type: initial encounter Loss of consciousness presence/duration: with LOC of 30 min or less Qualified Code(s): S06.5X1A - Traumatic subdural hemorrhage with loss of consciousness of 30 minutes or less, initial encounter (6) Abrasion of face Code(s): S00.81XA - ABRASION OF OTHER PART OF HEAD, INITIAL ENCOUNTER (7) Facial contusion Code(s): S00.83XA - CONTUSION OF OTHER PART OF HEAD, INITIAL ENCOUNTER (8) Laceration of eyebrow, right Code(s): S01.111A - LACERATION W/O FB OF RIGHT EYELID AND PERIOCULAR AREA, INIT plan continue to monitor rest as per the team aspiration precautions nutrition
--- NOTE | 2020-01-23 12:16 | PN ---
Progress Note, Physician History of Present Illness: patient seen and examined Awake/comfortable no new issues tolerating feedings afebrile answers simple questions - Current Medication List Current Medications: Active Medications Acetaminophen (Tylenol Suppository -) 650 mg RC Q6H PRN PRN Reason: FEVER Collagenase (Santyl -) 1 applic TP DAILY [facility]; Protocol Last Admin: 01/23/20 10:36 Dose: 1 applic Documented by: Famotidine (Pepcid) 20 mg PEG DAILY [facility] - Objective Vital Signs: Vital Signs Temperature 98.1 F 01/23/20 06:00 Pulse Rate 70 01/23/20 06:00 Respiratory Rate 80 H 01/23/20 06:00 Blood Pressure 98/54 L 01/23/20 06:00 O2 Sat by Pulse Oximetry (%) 98 01/23/20 06:00 Constitutional: Yes: No Distress, Calm Eyes: Yes: PERRL Neck: Yes: Supple Cardiovascular: Yes: Regular Rate and Rhythm Respiratory: Yes: CTA Bilaterally Gastrointestinal: Yes: Soft Edema: No Neurological: Yes: Other (awake/ non focal / somewhat confused) Labs: CBC, BMP 01/23/20 06:03 01/22/20 07:00 INR, PTT INR 1.21 (0.83-1.09) H 01/06/20 10:51 Problem List - Problems (1) Accidental fall Code(s): W19.XXXA - UNSPECIFIED FALL, INITIAL ENCOUNTER Qualifiers: Encounter type: subsequent encounter Qualified Code(s): W19.XXXD - Unspecified fall, subsequent encounter (2) CKD (chronic kidney disease) Code(s): N18.9 - CHRONIC KIDNEY DISEASE, UNSPECIFIED (3) Traumatic subarachnoid hemorrhage Code(s): S06.6X9A - TRAUM SUBRAC HEM W LOC OF UNSP DURATION, INIT Qualifiers: Encounter type: initial encounter Loss of consciousness presence/duration: with LOC of 30 min or less Qualified Code(s): S06.6X1A - Traumatic sub arachnoid hemorrhage with loss of consciousness of 30 minutes or less, initial encounter (4) Traumatic subdural hematoma Code(s): S06.5X9A - TRAUM SUBDR HEM W LOC OF UNSP DURATION, INIT Qualifiers: Encounter type: initial encounter Loss of consciousness presence/duration: with LOC of 30 min or less Qualified Code(s): S06.5X1A - Traumatic subdural hemorrhage with loss of consciousness of 30 minutes or less, initial encounter (5) Abrasion of face Code(s): S00.81XA - ABRASION OF OTHER PART OF HEAD, INITIAL ENCOUNTER (6) Heart murmur, systolic Code(s): R01.1 - CARDIAC MURMUR, UNSPECIFIED Assessment/Plan Stable discussed with nursing staff/ rn field case manager also PT Discontinue keppra ---I d/w neurology PEG feeding -- tolerating d/c planning-- Anticipate tomorrow for str as need covid test-- Ordered Will follow
--- NOTE | 2020-01-23 12:38 | PN.GI ---
GI Progress Note Subjective: pt seen and examined at bedside, s/p peg placement. Tolerating feeds. Denies abdominal pain/bloating. 89 y/o male s/p accidental fall complicated by a subdural hematoma. Patient c/o dysphagia. - Objective Vital Signs: Vital Signs Temperature 98.8 F 01/23/20 12:15 Pulse Rate 77 01/23/20 12:15 Respiratory Rate 19 01/23/20 12:15 Blood Pressure 101/48 L 01/23/20 12:15 O2 Sat by Pulse Oximetry (%) 99 01/23/20 12:15 Constitutional: No Distress, Calm Eyes: Yes: Conjunctiva Clear, EOM Intact HENT: Yes: Atraumatic, Normocephalic Neck: Yes: Supple, Trachea Midline Cardiovascular: Yes: WNL, Regular Rate and Rhythm, Murmur Respiratory: Yes: WNL, Regular, CTA Bilaterally Gastrointestinal Inspection: Yes: WNL. No: Distention, Hernia, Scars ...Auscultate: Yes: Normoactive Bowel Sounds ...Palpate: Yes: Soft. 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 continue famotidine 20mg daily Code(s): I69.891 - DYSPHAGIA FOLLOWING OTHER CEREBROVASCULAR DISEASE
--- NOTE | 2020-01-23 12:52 | PN ---
Progress Note, [employer] - Note Progress Note: Selected Entries 01/22/20 01/22/20 01/23/20 06:00 18:30 06:00 Supper NPO NPO Temperature 98.1 F Pulse Rate 70 Blood Pressure 98/54 L 01/23/20 12:15 Supper Temperature 98.8 F Pulse Rate 77 Blood Pressure 101/48 L Laboratory Tests 01/22/20 01/23/20 07:00 06:03 WBC 14.4 H 10.3 H pt is verbal, tangential, with some improvement functionally.paraphasic errors, language errors he was repeatedly requesting taking off his shoes, expressing removal of padding on calves and socks. he is calm, cooperative. baseline he was reportedly independent with head injury and cognitive impairment. i believe he has potential for improvement with intensive speech/swallowing/cognitive/pt/ot rehabilitation. f/u PT consider arevalo reassessment vs nh
--- NOTE | 2020-01-23 13:20 | PN ---
Progress Note, Physician History of Present Illness: Pt seen and examined at bedside. He is awake but confused. - Current Medication List Current Medications: Active Medications Acetaminophen (Tylenol Suppository -) 650 mg RC Q6H PRN PRN Reason: FEVER Collagenase (Santyl -) 1 applic TP DAILY [facility]; Protocol Last Admin: 01/23/20 10:36 Dose: 1 applic Documented by: Famotidine (Pepcid) 20 mg PEG DAILY [facility] - Objective Vital Signs: Vital Signs Temperature 98.8 F 01/23/20 12:15 Pulse Rate 77 01/23/20 12:15 Respiratory Rate 19 01/23/20 12:15 Blood Pressure 101/48 L 01/23/20 12:15 O2 Sat by Pulse Oximetry (%) 99 01/23/20 12:15 Constitutional: Yes: Calm Eyes: Yes: Conjunctiva Clear HENT: Yes: Atraumatic Neck: Yes: Supple Cardiovascular: Yes: S1, S2 Respiratory: Yes: CTA Bilaterally Gastrointestinal: Yes: Soft Genitourinary: Yes: Incontinence Musculoskeletal: Yes: WNL Edema: No Neurological: Yes: Confusion Labs: CBC, BMP 01/23/20 06:03 01/22/20 07:00 INR, PTT INR 1.21 (0.83-1.09) H 01/06/20 10:51 Problem List - Problems (1) CKD (chronic kidney disease) Code(s): N18.9 - CHRONIC KIDNEY DISEASE, UNSPECIFIED (2) Accidental fall Code(s): W19.XXXA - UNSPECIFIED FALL, INITIAL ENCOUNTER Qualifiers: Encounter type: subsequent encounter Qualified Code(s): W19.XXXD - Unspecified fall, subsequent encounter (3) Closed head injury Code(s): S09.90XA - UNSPECIFIED INJURY OF HEAD, INITIAL ENCOUNTER Qualifiers: Encounter type: initial encounter Qualified Code(s): S09.90XA - Unspecified injury of head, initial encounter Assessment/Plan Current Medications Generic Name Dose Route Start Last Admin Trade Name Freq PRN Reason Stop Dose Admin Acetaminophen 650 mg 01/20/20 10:38 Tylenol Suppository - RC Q6H PRN FEVER Collagenase 1 applic 01/21/20 10:00 01/23/20 10:36 Santyl - TP 1 applic DAILY [facility] Administration Protocol Famotidine 20 mg 01/23/20 12:15 Pepcid PEG DAILY [facility] Impression 1. syncope 2. subarachnoid hemorrhage 3. murmur 4. ckd 5. hypernatremia 6. cva Plan - check cmp - speech and swallow eval appreciated - cont feeds - lytes are stable - increase free water yesterday, will check sodium
[2020-01-23] MEDS: FAMOTIDINE 40 MG/5 ML ORAL SUSPENSION PEG SCH (14:19)
--- NOTE | 2020-01-23 16:21 | PN ---
Progress Note (short form) - Note Progress Note: 89 year old male history of htn, came for echo and had a fall had ct head , showed brain contusion and small sah. Neurosurgery were consulted and not a surgical candiddate. Patinet is restrained , agitated and confused, no seizure activity. denies headache. He is moving all extremity. He has bruise on his head. --aed were stopped and he remain confused NEUROLOGICAL EXAMINATION Alert oriented x 1, neck is supple vss, slight agitated and restrained, eomi, pupils reactive no face asymmetry moving all ext ct head showed mild frontal lobe contusion and small sah repeat ct head on sep 20 was stable neurosurgery consult appreciated waiting for barium swallow eeg unremarkable , no seizure like activity, gneralized encephalopathic Assessment/Plan -- sah and contusion, history of mci and now confued due to brain contusion and sah, on keppra as per neurosurgery. no a surical candidate Plan_ stop keppra , once covid is negative, he can be discharged ME - - supportive care thanking you so much Daniel Gallegos MD
[2020-01-23] MEDS ORDERED: levETIRAcetam 500 MG/5 ML ORAL SOLUTION (UNIT-DOSE CUPS) PEG SCH (22:00)
[2020-01-24 08:55] LABS: ALBUMIN 2.3 g/dl (3.4-5.0); BILIRUBIN,TOTAL 0.5 mg/dL (0.2-1); BLOOD UREA NITROGEN 56.6 mg/dL (7-18); CREATININE 1.2 mg/dL (0.55-1.3); TOT PROT 6.8 g/dl (6.4-8.2)
[2020-01-24] MEDS ORDERED: PT OWN MED DRAWER 7, Y5N ONE ×2 (10:58→14:03)
[2020-01-24] MEDS: COLLAGENASE CLOSTRIDIUM HIST. 30 GRAMS TUBE TP SCH (11:00)
[2020-01-24] MEDS: FAMOTIDINE 40 MG/5 ML ORAL SUSPENSION PEG SCH (11:01)
--- NOTE | 2020-01-24 11:50 | PN ---
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, moving his toes, closing his eyes He is answering to speech therapy questions Vital Signs - 24 hr 01/23/20 01/23/20 01/23/20 12:15 21:00 22:00 Temperature 98.8 F 99.4 F Pulse Rate 77 84 Respiratory 19 20 20 Rate Blood Pressure 101/48 L 117/72 O2 Sat by Pulse 99 99 99 Oximetry (%) 01/24/20 06:00 Temperature 97.6 F Pulse Rate 114 H Respiratory 20 Rate Blood Pressure 127/55 L O2 Sat by Pulse 97 Oximetry (%) Current Medications Generic Name Dose Route Start Last Admin Trade Name Freq PRN Reason Stop Dose Admin Acetaminophen 650 mg 01/20/20 10:38 Tylenol Suppository - RC Q6H PRN FEVER Bacitracin/Polymyxin B Sulfate 1 applic 01/24/20 11:45 Polysporin Ointment - TP BID TONY Collagenase 1 applic 01/21/20 10:00 01/24/20 11:00 Santyl - TP 1 applic DAILY TONY Administration Protocol Famotidine 20 mg 01/23/20 12:15 01/24/20 11:01 Pepcid PEG 20 mg DAILY TONY Administration Laboratory Results - last 24 hr 01/23/20 01/24/20 09:25 07:00 Sodium 139 Potassium 5.0 Chloride 105 Carbon Dioxide 28 Anion Gap 6 L BUN 56.6 H Creatinine 1.2 Est GFR (CKD-EPI)AfAm 62.64 Est GFR (CKD-EPI)NonAf 54.04 Random Glucose 103 Calcium 9.0 Total Bilirubin 0.5 AST 34 ALT 23 Alkaline Phosphatase 68 Total Protein 6.8 Albumin 2.3 L COVID-19 (DAVON) Not detected S1 S2 RRR Lungs decreased Abd- soft, NT, GT+ No edema he responds to simple commands PLAN on peg feeds-- tolerating it s/p head injury , subdural and SAH-- no interventions- he was an independent person prior to this occurrence- he has potential for acute rehab as he is responding to questions, responding to simple commands- he needs acute rehab , speech therapy and swallow therapy BUN elevated-- likely due to lack of water in the feeds-- will increase the free water-- 120cc q6h dc Keppra per Neurology DVT prophylaxis---->SCD Problem List - Problems (1) Accidental fall Code(s): W19.XXXA - UNSPECIFIED FALL, INITIAL ENCOUNTER Qualifiers: Encounter type: subsequent encounter Qualified Code(s): W19.XXXD - Unspecified fall, subsequent encounter (2) CKD (chronic kidney disease) Code(s): N18.9 - CHRONIC KIDNEY DISEASE, UNSPECIFIED (3) Closed head injury Code(s): S09.90XA - UNSPECIFIED INJURY OF HEAD, INITIAL ENCOUNTER Qualifiers: Encounter type: initial encounter Qualified Code(s): S09.90XA - Unspecified injury of head, initial encounter (4) Traumatic subarachnoid hemorrhage Code(s): S06.6X9A - TRAUM SUBRAC HEM W LOC OF UNSP DURATION, INIT Qualifiers: Encounter type: initial encounter Loss of consciousness presence/duration: with LOC of 30 min or less Qualified Code(s): S06.6X1A - Traumatic subarachnoid hemorrhage with loss of consciousness of 30 minutes or less, initial encounter (5) Traumatic subdural hematoma Code(s): S06.5X9A - TRAUM SUBDR HEM W LOC OF UNSP DURATION, INIT Qualifiers: Encounter type: initial encounter Loss of consciousness presence/duration: with LOC of 30 min or less Qualified Code(s): S06.5X1A - Traumatic subdural hemorrhage with loss of consciousness of 30 minutes or less, initial encounter (6) Abrasion of face Code(s): S00.81XA - ABRASION OF OTHER PART OF HEAD, INITIAL ENCOUNTER (7) Facial contusion Code(s): S00.83XA - CONTUSION OF OTHER PART OF HEAD, INITIAL ENCOUNTER (8) Laceration of eyebrow, right Code(s): S01.111A - LACERATION W/O FB OF RIGHT EYELID AND PERIOCULAR AREA, INIT
--- NOTE | 2020-01-24 11:53 | DS ---
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 Patient has healthy, ambulatory baseline. Unwitnessed collapse (immediately found down) with LOC and right eyebrow laceration from glasses, patient initially unresponsive with report of left gaze deviation. On arrival in the ED, opens eyes spontaneously, moving extremities x4 but altered mentation, stats his name. Activated as code ferguson given gaze deviation, taken to CT for CT/CTA/Cerical spine. On return to department, MSE greatly improved, states name, date of , cooperates with ROS and neuro exam. Does not recall the specific events leading up to his fall. Denies chest pain, palpitations, headac he, nausea, vomiting, pain anywhere in his body, weakness. Brother states patient had no complaints this morning before they presented to the ED. ct scan -- showed -- s/d and sub arachnoid hgge pt admitted to icu for close monitoring Per Neurosurgery--Dr Michel Kurtz head CT- R frontal contusion/TSAH and R parietal small SDH, no skull fx, atrophy CTA- negative for aneurysm F/u head CT 01-06- B hygroma and R convexity extensive SAH, R IVH, mild cortical mass effect and minimal midline mass effect 01-07 F/U CT- B subdural hygroma with R >> L convexity IRIS, B IVH, mild cortical mass effect R > L, stable from 9-19 Traumatic R frontal contusion and extensive R > L convexity SAH/IVH- non- operative given age and extensive concurrent medical conditions Was on Keppra iv for prophylaxis Was seen by ID for febrile episode but cultures were negative and CXR negative for pneumonia - no antibiotics - not febrile now Cardiology evaluated pt for mod-severe - normal EF- no interventions Neurology evaluation -- EEG-- eeg unremarkable , no seizure like activity, generalized encephalopathic Pt had peg tube placed, tolerating feedings He failed Barium swallow twice Increased free water for elevated BUN - was seen by Nephrology for the same on peg feeds-- tolerating it s/p head injury , subdural and SAH-- no interventions- he was an independent person prior to this occurrence- he has potential for acute rehab as he is responding to questions, responding to simple commands- he needs acute rehab , speech therapy and swallow therapy BUN elevated-- likely due to lack of water in the feeds-- will increase the free water-- 120cc q6h dc Keppra per Neurology DVT prophylaxis---->SCD stable for dc to acute rehab Condition: Guarded - Instructions Referrals: Joseph Croft MD [Primary Care Provider] - - Home Medications Comprehensive Discharge Medication List: Ambulatory Orders Atorvastatin Calcium [Lipitor] 20 mg PEG HS #30 tab 01/24/20 Bacitracin/Polymyxin Ointment [Polysporin Ointment -] 1 applic TP BID #1 tube 01/24/20 Collagenase Clostridium Hist. [Santyl -] 1 applic TP DAILY #1 tube 01/24/20 Famotidine [Pepcid] 20 mg PEG DAILY #30 oral.susp 01/24/20
--- NOTE | 2020-01-24 12:26 | PN ---
Progress Note, Physician History of Present Illness: stable no new issues - Current Medication List Current Medications: Active Medications Acetaminophen (Tylenol Suppository -) 650 mg RC Q6H PRN PRN Reason: FEVER Bacitracin/Polymyxin B Sulfate (Polysporin Ointment -) 1 applic TP BID TONY Collagenase (Santyl -) 1 applic TP DAILY [facility]; Protocol Last Admin: 01/24/20 11:00 Dose: 1 applic Documented by: Famotidine (Pepcid) 20 mg PEG DAILY TONY Last Admin: 01/24/20 11:01 Dose: 20 mg Documented by: - Objective Vital Signs: Vital Signs Temperature 97.6 F 01/24/20 06:00 Pulse Rate 114 H 01/24/20 06:00 Respiratory Rate 20 01/24/20 06:00 Blood Pressure 127/55 L 01/24/20 06:00 O2 Sat by Pulse Oximetry (%) 97 01/24/20 06:00 Constitutional: Yes: No Distress, Calm Cardiovascular: Yes: Regular Rate and Rhythm Respiratory: Yes: Regular, CTA Bilaterally Gastrointestinal: Yes: Normal Bowel Sounds, Soft, Other (peg tube in place) Musculoskeletal: Yes: WNL Extremities: Yes: WNL Neurological: Yes: Alert, Other Psychiatric: Yes: Other Labs: CBC, BMP 01/23/20 06:03 01/24/20 07:00 INR, PTT INR 1.21 (0.83-1.09) H 01/06/20 10:51 Assessment/Plan Problem List - Problems (1) Accidental fall Code(s): W19.XXXA - UNSPECIFIED FALL, INITIAL ENCOUNTER Qualifiers: Encounter type: initial encounter Qualified Code(s): W19.XXXA - Unspecified fall, initial encounter (2) CKD (chronic kidney disease) Code(s): N18.9 - CHRONIC KIDNEY DISEASE, UNSPECIFIED (3) Closed head injury Code(s): S09.90XA - UNSPECIFIED INJURY OF HEAD, INITIAL ENCOUNTER Qualifiers: Encounter type: initial encounter Qualified Code(s): S09.90XA - Unspecified injury of head, initial encounter (4) Traumatic subarachnoid hemorrhage Code(s): S06.6X9A - TRAUM SUBRAC HEM W LOC OF UNSP DURATION, INIT Qualifiers: Encounter type: initial encounter Loss of consciousness presence/duration: with LOC of 30 min or less Qualified Code(s): S06.6X1A - Traumatic subarachnoid hemorrhage with loss of consciousness of 30 minutes or less, initial encounter (5) Traumatic subdural hematoma Code(s): S06.5X9A - TRAUM SUBDR HEM W LOC OF UNSP DURATION, INIT Qualifiers: Encounter type: initial encounter Loss of consciousness presence/duration: with LOC of 30 min or less Qualified Code(s): S06.5X1A - Traumatic subdural hemorrhage with loss of consciousness of 30 minutes or less, initial encounter (6) Abrasion of face Code(s): S00.81XA - ABRASION OF OTHER PART OF HEAD, INITIAL ENCOUNTER (7) Facial contusion Code(s): S00.83XA - CONTUSION OF OTHER PART OF HEAD, INITIAL ENCOUNTER (8) Laceration of eyebrow, right Code(s): S01.111A - LACERATION W/O FB OF RIGHT EYELID AND PERIOCULAR AREA, INIT plan continue to monitor rest as per the team aspiration precautions nutrition
--- NOTE | 2020-01-24 13:52 | PN ---
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 When I arrived, he was arousable, verbal, fairly appropriate. Language formulation is improving. He said he was in the hospital and told mme he had toast this am (He is NPO, but able to retrieve correct word for a breakfast item) Memory seems impaired, but he was cooperative and I believe he would benefit from intensive speech/swallowing/cognitive/pt/ot rehabilitation. pt is verbal, tangential, with definite improvement in language and cognitive function with attainable goals. Pt was I in ADL, verbal, ambulatory before subarachnoid, closed head injury, subdural. I believe he has fair prognosis for improved function/recovery
--- NOTE | 2020-01-24 14:00 | PN.GI ---
GI Progress Note Subjective: pt seen and examined at bedside. pt is alert but confused. Tolerating feeds. - Objective Vital Signs: Vital Signs Temperature 97.6 F 01/24/20 06:00 Pulse Rate 114 H 01/24/20 06:00 Respiratory Rate 20 01/24/20 06:00 Blood Pressure 127/55 L 01/24/20 06:00 O2 Sat by Pulse Oximetry (%) 97 01/24/20 06:00 Constitutional: No Distress, Calm Eyes: Yes: WNL, Conjunctiva Clear, EOM Intact HENT: Yes: WNL, Atraumatic, Normocephalic Neck: Yes: WNL, Supple, Trachea Midline Cardiovascular: Yes: WNL, Regular Rate and Rhythm, Murmur Respiratory: Yes: WNL, Regular, CTA Bilaterally Gastrointestinal Inspection: Yes: WNL ...Auscultate: Yes: Normoactive Bowel Sounds ...Palpate: Yes: Soft. 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 continue famotidine 20mg daily Code(s): I69.891 - DYSPHAGIA FOLLOWING OTHER CEREBROVASCULAR DISEASE
[2020-01-24] MEDS: BACITRACIN/POLYMYXIN B SULFATE 15 GM TUBE TP SCH ×2 (14:11→21:03)
--- NOTE | 2020-01-24 14:39 | PN ---
Progress Note, Physician History of Present Illness: Pt seen and examined at bedside. He appears comfortable. - Current Medication List Current Medications: Active Medications Acetaminophen (Tylenol Suppository -) 650 mg RC Q6H PRN PRN Reason: FEVER Bacitracin/Polymyxin B Sulfate (Polysporin Ointment -) 1 applic TP BID [facility] Last Admin: 01/24/20 14:11 Dose: 1 applic Documented by: Collagenase (Santyl -) 1 applic TP DAILY [facility]; Protocol Last Admin: 01/24/20 11:00 Dose: 1 applic Documented by: Famotidine (Pepcid) 20 mg PEG DAILY [facility] Last Admin: 01/24/20 11:01 Dose: 20 mg Documented by: - Objective Vital Signs: Vital Signs Temperature 97.6 F 01/24/20 06:00 Pulse Rate 114 H 01/24/20 06:00 Respiratory Rate 20 01/24/20 06:00 Blood Pressure 127/55 L 01/24/20 06:00 O2 Sat by Pulse Oximetry (%) 97 01/24/20 06:00 Constitutional: Yes: Calm Eyes: Yes: Conjunctiva Clear HENT: Yes: Atraumatic Neck: Yes: Supple Cardiovascular: Yes: S1, S2 Respiratory: Yes: CTA Bilaterally Gastrointestinal: Yes: Soft Genitourinary: Yes: WNL Musculoskeletal: Yes: WNL Edema: No Integumentary: Yes: WNL Neurological: Yes: Confusion Labs: CBC, BMP 01/23/20 06:03 01/24/20 07:00 INR, PTT INR 1.21 (0.83-1.09) H 01/06/20 10:51 Problem List - Problems (1) CKD (chronic kidney disease) Code(s): N18.9 - CHRONIC KIDNEY DISEASE, UNSPECIFIED (2) Accidental fall Code(s): W19.XXXA - UNSPECIFIED FALL, INITIAL ENCOUNTER Qualifiers: Encounter type: subsequent encounter Qualified Code(s): W19.XXXD - Unspecified fall, subsequent encounter (3) Closed head injury Code(s): S09.90XA - UNSPECIFIED INJURY OF HEAD, INITIAL ENCOUNTER Qualifiers: Encounter type: initial encounter Qualified Code(s): S09.90XA - Unspecified injury of head, initial encounter Assessment/Plan Current Medications Generic Name Dose Route Start Last Admin Trade Name Freq PRN Reason Stop Dose Admin Acetaminophen 650 mg 01/20/20 10:38 Tylenol Suppository - RC Q6H PRN FEVER Bacitracin/Polymyxin B Sulfate 1 applic 01/24/20 12:00 01/24/20 14:11 Polysporin Ointment - TP 1 applic BID TONY Administration Collagenase 1 applic 01/21/20 10:00 01/24/20 11:00 Santyl - TP 1 applic DAILY TONY Administration Protocol Famotidine 20 mg 01/23/20 12:15 01/24/20 11:01 Pepcid PEG 20 mg DAILY TONY Administration Impression 1. syncope 2. subarachnoid hemorrhage 3. murmur 4. ckd 5. hypernatremia 6. cva Plan - repeat labs in am - cont feeds - monitor lytes - repeat potassium as it is trending up - sodium stable
--- NOTE | 2020-01-24 15:51 | PN ---
Progress Note (short form) - Note Progress Note: 89 year old male history of htn, came for echo and had a fall had ct head , showed brain contusion and small sah. Neurosurgery were consulted and not a surgical candiddate. Patinet is restrained , agitated and confused, no seizure activity. He is moving all extremity. --aed were stopped and he remain confused . tolerating feed NEUROLOGICAL EXAMINATION Alert oriented x 1, neck is supple vss, slight agitated and restrained, eomi, pupils reactive no face asymmetry moving all ext ct head showed mild frontal lobe contusion and small sah repeat ct head on sep 20 was stable eeg unremarkable , no seizure like activity, gneralized encephalopathic Assessment/Plan -- sah and contusion, history of mci and now confued due to brain contusion and sah, on keppra as per neurosurgery. no a surical candidate Plan_ stop keppra , once covid is negative, he can be discharged NH -stable to be discharged - supportive care thanking you so much Daniel Gallegos MD
--- NOTE | 2020-01-24 16:42 | PN ---
Progress Note, Physician Chief Complaint: Pt is fatigued (reportedly agitated last evening), but relatively easily aroused; remains confused to person, place, time. History of Present Illness: Mr. Farmer is an 89-year-old white male;per medical record, has history of heart disease and high cholesterol, prostate CA, now presents to ED following rapid response with head injury. Patient was in the hospital accompanied by his brother; he was scheduled for echo today and while ambulating fell to the ground, striking his right head. Rapid response was called, the patient was unresponsive, brought to the emergency department where code ferguson was activated. Patient offering limited history, is quite functional at baseline with some early dementia per brother, is following commands but nonconversant at the time of admission. Physical exam noted 4/6 systolic murmur, RSB-->Lt axilla - Current Medication List Current Medications: Active Medications Acetaminophen (Tylenol Suppository -) 650 mg RC Q6H PRN PRN Reason: FEVER Bacitracin/Polymyxin B Sulfate (Polysporin Ointment -) 1 applic TP BID [facility] Last Admin: 01/24/20 14:11 Dose: 1 applic Documented by: Collagenase (Santyl -) 1 applic TP DAILY [facility]; Protocol Last Admin: 01/24/20 11:00 Dose: 1 applic Documented by: Famotidine (Pepcid) 20 mg PEG DAILY [facility] Last Admin: 01/24/20 11:01 Dose: 20 mg Documented by: - Objective Vital Signs: Vital Signs Temperature 98.1 F 01/24/20 14:00 Pulse Rate 67 01/24/20 14:00 Respiratory Rate 20 01/24/20 14:00 Blood Pressure 100/43 L 01/24/20 14:00 O2 Sat by Pulse Oximetry (%) 98 01/24/20 14:00 Constitutional: Yes: Thin Eyes: Yes: WNL HENT: Yes: WNL Neck: Yes: Decreased ROM Cardiovascular: Yes: Murmur (3/6 systolic murmur, RSB-->apex), S1, S2, S4 Respiratory: Yes: Diminished Gastrointestinal: Yes: Soft Genitourinary: No: Anuria Musculoskeletal: Yes: Muscle Weakness Extremities: Yes: Cool Edema: No Peripheral Pulses WNL: Yes Integumentary: Yes: WNL Neurological: Yes: Alert, Confusion Psychiatric: Yes: Other Labs: CBC, BMP 01/23/20 06:03 01/24/20 07:00 INR, PTT INR 1.21 (0.83-1.09) H 01/06/20 10:51 Abnormal Lab Results 01/24/20 07:00 Anion Gap 6 L BUN 56.6 H Albumin 2.3 L - ....Imaging Chest X-ray: Image Reviewed EKG: Image Reviewed Assessment/Plan Syncope, right periorbital injury anemia renal dysfunction dementia by hx; ?mental status changes exacerbated post-syncope cardiac valvulopathy: normal LVEF; moderately severe severe cervical vertebral degeneration; ? 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 TNI < 0.02 x 2. Maintain hydration. F/u Is and Os, BUN/Cr, daily weight, electrolytes, BP and HR. orthostatic vital signs when pt is well-hydrated (BUN remains elevated; improving Cr); encourage PO fluids, continue IVF. F/u renal status (renal w/u in progress), Hb after hydration. Carotid artery doppler: moderate bilateral atherosclerotic disease without stenoses. TSH, HGBA1c: WNL Pt with NG tube; plan for PEG.
--- NOTE | 2020-01-25 08:06 | PN ---
Progress Note, Physician History of Present Illness: no new issues - Current Medication List Current Medications: Active Medications Acetaminophen (Tylenol Suppository -) 650 mg RC Q6H PRN PRN Reason: FEVER Bacitracin/Polymyxin B Sulfate (Polysporin Ointment -) 1 applic TP BID [facility] Last Admin: 01/24/20 21:03 Dose: 1 applic Documented by: Collagenase (Santyl -) 1 applic TP DAILY [facility]; Protocol Last Admin: 01/24/20 11:00 Dose: 1 applic Documented by: Famotidine (Pepcid) 20 mg PEG DAILY [facility] Last Admin: 01/24/20 11:01 Dose: 20 mg Documented by: - Objective Vital Signs: Vital Signs Temperature 98.4 F 01/25/20 06:00 Pulse Rate 80 01/25/20 06:00 Respiratory Rate 20 01/25/20 06:00 Blood Pressure 117/90 01/25/20 06:00 O2 Sat by Pulse Oximetry (%) 99 01/25/20 06:00 Constitutional: Yes: No Distress, Calm Cardiovascular: Yes: S1, S2 Respiratory: Yes: Regular, CTA Bilaterally Gastrointestinal: Yes: Normal Bowel Sounds, Soft Musculoskeletal: Yes: WNL Extremities: Yes: Other Neurological: Yes: Alert, Other Psychiatric: Yes: Other Labs: CBC, BMP 01/23/20 06:03 INR, PTT INR 1.21 (0.83-1.09) H 01/06/20 10:51 Assessment/Plan Problem List - Problems (1) Accidental fall Code(s): W19.XXXA - UNSPECIFIED FALL, INITIAL ENCOUNTER Qualifiers: Encounter type: initial encounter Qualified Code(s): W19.XXXA - Unspecified fall, initial encounter (2) CKD (chronic kidney disease) Code(s): N18.9 - CHRONIC KIDNEY DISEASE, UNSPECIFIED (3) Closed head injury Code(s): S09.90XA - UNSPECIFIED INJURY OF HEAD, INITIAL ENCOUNTER Qualifiers: Encounter type: initial encounter Qualified Code(s): S09.90XA - Unspecified injury of head, initial encounter (4) Traumatic subarachnoid hemorrhage Code(s): S06.6X9A - TRAUM SUBRAC HEM W LOC OF UNSP DURATION, INIT Qualifiers: Encounter type: initial encounter Loss of consciousness presence/duration: with LOC of 30 min or less Qualified Code(s): S06.6X1A - Traumatic s ubarachnoid hemorrhage with loss of consciousness of 30 minutes or less, initial encounter (5) Traumatic subdural hematoma Code(s): S06.5X9A - TRAUM SUBDR HEM W LOC OF UNSP DURATION, INIT Qualifiers: Encounter type: initial encounter Loss of consciousness presence/duration: with LOC of 30 min or less Qualified Code(s): S06.5X1A - Traumatic subdural hemorrhage with loss of consciousness of 30 minutes or less, initial encounter (6) Abrasion of face Code(s): S00.81XA - ABRASION OF OTHER PART OF HEAD, INITIAL ENCOUNTER (7) Facial contusion Code(s): S00.83XA - CONTUSION OF OTHER PART OF HEAD, INITIAL ENCOUNTER (8) Laceration of eyebrow, right Code(s): S01.111A - LACERATION W/O FB OF RIGHT EYELID AND PERIOCULAR AREA, INIT plan continue to monitor rest as per the team aspiration precautions nutrition
[2020-01-25 08:25] LABS: ALBUMIN 2.2 g/dl (3.4-5.0); BILIRUBIN,TOTAL 0.3 mg/dL (0.2-1); BLOOD UREA NITROGEN 55.6 mg/dL (7-18); CALCIUM 8.9 mg/dL (8.5-10.1); CREATININE 1.1 mg/dL (0.55-1.3); POTASSIUM 5.3 mmol/L (3.5-5.1); TOT PROT 6.7 g/dl (6.4-8.2)
[2020-01-25] MEDS ORDERED: PT OWN MED DRAWER 7, Y5N ONE (09:46)
--- NOTE | 2020-01-25 09:56 | PN ---
Progress Note, Physician History of Present Illness: Mr. Farmer is an 89-year-old white male, per medical record has history of heart disease and high cholesterol, prostate CA, now presents to ED following rapid response with head injury. Patient was in the hospital accompanied by his brother; he was scheduled for echo today and while ambulating fell to the ground, striking his right head. Rapid response was called, the patient was unr esponsive, brought to the emergency department where code ferguson was activated. Patient offering limited history, is quite functional at baseline with some early dementia per brother, is following commands but nonconversant at the time of admission. Physical exam noted 4/6 systolic murmur, RSB-->Lt axilla - Current Medication List Current Medications: Active Medications Acetaminophen (Tylenol Suppository -) 650 mg RC Q6H PRN PRN Reason: FEVER Bacitracin/Polymyxin B Sulfate (Polysporin Ointment -) 1 applic TP BID [facility] Last Admin: 01/24/20 21:03 Dose: 1 applic Documented by: Collagenase (Santyl -) 1 applic TP DAILY [facility]; Protocol Last Admin: 01/24/20 11:00 Dose: 1 applic Documented by: Famotidine (Pepcid) 20 mg PEG DAILY [facility] Last Admin: 01/24/20 11:01 Dose: 20 mg Documented by: - Objective Vital Signs: Vital Signs Temperature 98.4 F 01/25/20 06:00 Pulse Rate 80 01/25/20 06:00 Respiratory Rate 20 01/25/20 06:00 Blood Pressure 117/90 01/25/20 06:00 O2 Sat by Pulse Oximetry (%) 99 01/25/20 06:00 Eyes: Yes: WNL, Conjunctiva Clear, EOM Intact HENT: Yes: WNL, Atraumatic, Normocephalic Neck: Yes: WNL, Supple, Trachea Midline Cardiovascular: Yes: WNL, Regular Rate and Rhythm Respiratory: Yes: WNL, Regular, CTA Bilaterally Gastrointestinal: Yes: WNL, Normal Bowel Sounds Genitourinary: Yes: WNL Musculoskeletal: Yes: WNL Extremities: Yes: WNL Edema: No Integumentary: Yes: WNL Labs: CBC, BMP 01/23/20 06:03 01/25/20 06:49 INR, PTT INR 1.21 (0.83-1.09) H 01/06/20 10:51 Problem List - Problems (1) Accidental fall Code(s): W19.XXXA - UNSPECIFIED FALL, INITIAL ENCOUNTER Qualifiers: Encounter type: subsequent encounter Qualified Code(s): W19.XXXD - Unspecified fall, subsequent encounter (2) CKD (chronic kidney disease) Code(s): N18.9 - CHRONIC KIDNEY DISEASE, UNSPECIFIED (3) Closed head injury Code(s): S09.90XA - UNSPECIFIED INJURY OF HEAD, INITIAL ENCOUNTER Qualifiers: Encounter type: initial encounter Qualified Code(s): S09.90XA - Unspecified injury of head, initial encounter (4) Facial laceration Code(s): S01.81XA - LACERATION W/O FOREIGN BODY OF OTH PART OF HEAD, INIT ENCNTR Qualifiers: Encounter type: initial encounter Qualified Code(s): S01.81XA - Laceration without foreign body of other part of head, initial encounter (5) Heart murmur, systolic Code(s): R01.1 - CARDIAC MURMUR, UNSPECIFIED (6) Traumatic subarachnoid hemorrhage Code(s): S06.6X9A - TRAUM SUBRAC HEM W LOC OF UNSP DURATION, INIT Qualifiers: Encounter type: initial encounter Loss of consciousness presence/duration: with LOC of 30 min or less Qualified Code(s): S06.6X1A - Traumatic subarachnoid hemorrhage with loss of consciousness of 30 minutes or less, initial encounter (7) Traumatic subdural hematoma Code(s): S06.5X9A - TRAUM SUBDR HEM W LOC OF UNSP DURATION, INIT Qualifiers: Encounter type: initial encounter Loss of consciousness presence/duration: with LOC of 30 min or less Qualified Code(s): S06.5X1A - Traumatic subdural hemorrhage with loss of consciousness of 30 minutes or less, initial encounter (8) Abrasion of face Code(s): S00.81XA - ABRASION OF OTHER PART OF HEAD, INITIAL ENCOUNTER (9) Facial contusion Code(s): S00.83XA - CONTUSION OF OTHER PART OF HEAD, INITIAL ENCOUNTER (10) Laceration of eyebrow, right Code(s): S01.111A - LACERATION W/O FB OF RIGHT EYELID AND PERIOCULAR AREA, INIT Assessment/Plan Syncope, right periorbital injury anemia renal dysfunction dementia by hx; ?mental status changes exacerbated post-syncope cardiac valvulopathy: normal LVEF; moderately severe severe cervical vertebral degeneration; ? 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 TNI < 0.02 x 2. Maintain hydration. F/u Is and Os, BUN/Cr, daily weight, electrolytes, BP and HR. orthostatic vital signs when pt is well-hydrated (BUN remains elevated; improving Cr); encourage PO fluids, continue IVF. F/u renal status (renal w/u in progress), Hb after hydration. Carotid artery doppler: moderate bilateral atherosclerotic disease without stenoses. TSH, HGBA1c: WNL Pt with NG tube; plan for PEG.
[2020-01-25] MEDS: BACITRACIN/POLYMYXIN B SULFATE 15 GM TUBE TP SCH (09:57)
[2020-01-25] MEDS: FAMOTIDINE 40 MG/5 ML ORAL SUSPENSION PEG SCH (09:57)
[2020-01-25] MEDS: COLLAGENASE CLOSTRIDIUM HIST. 30 GRAMS TUBE TP SCH (09:58)
--- NOTE | 2020-01-25 12:12 | PN ---
Progress Note, Physician History of Present Illness: Pt seen and examined. He is tolerating feeds. - Current Medication List Current Medications: Active Medications Acetaminophen (Tylenol Suppository -) 650 mg RC Q6H PRN PRN Reason: FEVER Bacitracin/Polymyxin B Sulfate (Polysporin Ointment -) 1 applic TP BID [facility] Last Admin: 01/25/20 09:57 Dose: 1 applic Documented by: Collagenase (Santyl -) 1 applic TP DAILY [facility]; Protocol Last Admin: 01/25/20 09:58 Dose: 1 applic Documented by: Famotidine (Pepcid) 20 mg PEG DAILY [facility] Last Admin: 01/25/20 09:57 Dose: 20 mg Documented by: - Objective Vital Signs: Vital Signs Temperature 98.4 F 01/25/20 06:00 Pulse Rate 80 01/25/20 06:00 Respiratory Rate 20 01/25/20 06:00 Blood Pressure 117/90 01/25/20 06:00 O2 Sat by Pulse Oximetry (%) 99 01/25/20 06:00 Constitutional: Yes: Calm Eyes: Yes: Conjunctiva Clear HENT: Yes: Atraumatic Cardiovascular: Yes: S1, S2 Respiratory: Yes: CTA Bilaterally Gastrointestinal: Yes: Soft Genitourinary: Yes: Incontinence Musculoskeletal: Yes: Muscle Weakness Edema: No Neurological: Yes: Confusion Labs: CBC, BMP 01/23/20 06:03 01/25/20 06:49 INR, PTT INR 1.21 (0.83-1.09) H 01/06/20 10:51 Problem List - Problems (1) CKD (chronic kidney disease) Code(s): N18.9 - CHRONIC KIDNEY DISEASE, UNSPECIFIED (2) Accidental fall Code(s): W19.XXXA - UNSPECIFIED FALL, INITIAL ENCOUNTER Qualifiers: Encounter type: subsequent encounter Qualified Code(s): W19.XXXD - Unspecified fall, subsequent encounter (3) Closed head injury Code(s): S09.90XA - UNSPECIFIED INJURY OF HEAD, INITIAL ENCOUNTER Qualifiers: Encounter type: initial encounter Qualified Code(s): S09.90XA - Unspecified injury of head, initial encounter Assessment/Plan Current Medications Generic Name Dose Route Start Last Admin Trade Name Freq PRN Reason Stop Dose Admin Acetaminophen 650 mg 01/20/20 10:38 Tylenol Suppository - RC Q6H PRN FEVER Bacitracin/Polymyxin B Sulfate 1 applic 01/24/20 12:00 01/25/20 09:57 Polysporin Ointment - TP 1 applic BID TONY Administration Collagenase 1 applic 01/21/20 10:00 01/25/20 09:58 Santyl - TP 1 applic DAILY TONY Administration Protocol Famotidine 20 mg 01/23/20 12:15 01/25/20 09:57 Pepcid PEG 20 mg DAILY TONY Administration Impression 1. syncope 2. subarachnoid hemorrhage 3. murmur 4. ckd 5. hypernatremia 6. cva Plan - labs hemolyzed - will need to monitor bmp on feeds in rehab - cont feeds as tolerated - cont pt/rehab - repeat labs if not being discharged
--- NOTE | 2020-01-25 12:37 | PN ---
Progress Note (short form) - Note Progress Note: events noted no complaints more AWAKE walked with PT today! Vital Signs - 24 hr 01/24/20 01/24/20 01/24/20 14:00 20:56 22:00 Temperature 98.1 F 98.3 F Pulse Rate 67 106 H Respiratory 20 20 20 Rate Blood Pressure 100/43 L 129/74 O2 Sat by Pulse 98 98 98 Oximetry (%) 01/25/20 06:00 Temperature 98.4 F Pulse Rate 80 Respiratory 20 Rate Blood Pressure 117/90 O2 Sat by Pulse 99 Oximetry (%) Current Medications Generic Name Dose Route Start Last Admin Trade Name Freq PRN Reason Stop Dose Admin Acetaminophen 650 mg 01/20/20 10:38 Tylenol Suppository - RC Q6H PRN FEVER Bacitracin/Polymyxin B Sulfate 1 applic 01/24/20 12:00 01/25/20 09:57 Polysporin Ointment - TP 1 applic BID TONY Administration Collagenase 1 applic 01/21/20 10:00 01/25/20 09:58 Santyl - TP 1 applic DAILY TONY Administration Protocol Famotidine 20 mg 01/23/20 12:15 01/25/20 09:57 Pepcid PEG 20 mg DAILY TONY Administration Laboratory Results - last 24 hr 01/25/20 06:49 Sodium 134 L Potassium 5.3 H Chloride 99 Carbon Dioxide 31 Anion Gap 4 L BUN 55.6 H Creatinine 1.1 Est GFR (CKD-EPI)AfAm 69.59 Est GFR (CKD-EPI)NonAf 60.04 Random Glucose 85 Calcium 8.9 Total Bilirubin 0.3 AST 43 H ALT 27 Alkaline Phosphatase 62 Total Protein 6.7 Albumin 2.2 L S1 S2 RRR Lungs decreased Abd- soft, NT, GT+ No edema he responds to commands more alert PLAN on peg feeds-- tolerating it s/p head injury , subdural and SAH-- no interventions- he was an independent person prior to this occurrence- he has potential for acute rehab as he is responding to questions, responding to simple commands- he needs acute rehab , speech therapy and swallow therapy BUN elevated-- likely due to lack of water in the feeds-- will increase the free water-- 120cc q6h dc Keppra per Neurology DVT prophylaxis---->SCD labs hemolysed stable for dc to acute rehab Problem List - Problems (1) Accidental fall Code(s): W19.XXXA - UNSPECIFIED FALL, INITIAL ENCOUNTER Qualifiers: Encounter type: subsequent encounter Qualified Code(s): W19.XXXD - Unspecified fall, subsequent encounter (2) CKD (chronic kidney disease) Code(s): N18.9 - CHRONIC KIDNEY DISEASE, UNSPECIFIED (3) Closed head injury Code(s): S09.90XA - UNSPECIFIED INJURY OF HEAD, INITIAL ENCOUNTER Qualifiers: Encounter type: initial encounter Qualified Code(s): S09.90XA - Unspecified injury of head, initial encounter (4) Traumatic subarachnoid hemorrhage Code(s): S06.6X9A - TRAUM SUBRAC HEM W LOC OF UNSP DURATION, INIT Qualifiers: Encounter type: initial encounter Loss of consciousness presence/duration: with LOC of 30 min or less Qualified Code(s): S06.6X1A - Traumatic subarachn oid hemorrhage with loss of consciousness of 30 minutes or less, initial encounter (5) Traumatic subdural hematoma Code(s): S06.5X9A - TRAUM SUBDR HEM W LOC OF UNSP DURATION, INIT Qualifiers: Encounter type: initial encounter Loss of consciousness presence/duration: with LOC of 30 min or less Qualified Code(s): S06.5X1A - Traumatic subdural hemorrhage with loss of consciousness of 30 minutes or less, initial encounter (6) Abrasion of face Code(s): S00.81XA - ABRASION OF OTHER PART OF HEAD, INITIAL ENCOUNTER (7) Facial contusion Code(s): S00.83XA - CONTUSION OF OTHER PART OF HEAD, INITIAL ENCOUNTER (8) Laceration of eyebrow, right Code(s): S01.111A - LACERATION W/O FB OF RIGHT EYELID AND PERIOCULAR AREA, INIT
--- NOTE | 2020-01-25 12:57 | PN ---
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 Pt accepted by [facility] for intensive PT/OT/Speech/swallowing/cognitive rehab Prognosis is excellent for continued improvement Repeat MBS indicated at [facility] for possible weaning from PEG, as indicated.
[2020-01-25 13:12] VITALS: BP 125/59; PULSE 77; TEMP 97.8
--- NOTE | 2020-01-25 17:04 | PN ---
Progress Note (short form) - Note Progress Note: 89 year old male history of htn, came for echo and had a fall had ct head , showed brain contusion and small sah. Neurosurgery were consulted and not a surgical candiddate. Patinet is restrained , agitated and confused, no seizure activity. He is moving all extremity. --aed were stopped and he remain confused . tolerating feed, no new complain NEUROLOGICAL EXAMINATION Alert oriented x 1, neck is supple vss, slight agitated and restrained, eomi, pupils reactive no face asymmetry moving all ext ct head showed mild frontal lobe contusion and small sah repeat ct head on sep 20 was stable eeg unremarkable , no seizure like activity, gneralized encephalopathic Assessment/Plan -- sah and contusion, history of mci and now confued due to brain contusion and sah, on keppra as per neurosurgery. no a surical candidate Plan_ stop keppra , once covid is negative, he can be discharged [facility] -being discharged today , follow up outpatient - supportive care thanking you so much Daniel Gallegos MD
== END 2020-01-25 13:18 | DRG 55 ==
LOC: JER 10:21 → JERBED 11:18 → JICU 14:02 → J4W 01-09 15:53 → J8W 01-16 14:16
PROVIDERS: ADMIT Internal Medicine Pulmonary Disease; ATTEND Internal Medicine
PROC: 30233R1 Transfusion of Nonautologous Platelets into Peripheral Vein, Percutaneous Approach (ICD-10-PCS; 2020-01-06)
PROC: 0DH64UZ Insertion of Feeding Device into Stomach, Percutaneous Endoscopic Approach (ICD-10-PCS; principal; 2020-01-20 07:30)
PROC: 3E0G76Z Introduction of Nutritional Substance into Upper GI, Via Natural or Artificial Opening (ICD-10-PCS; 2020-01-21)
PROC: 3E0336Z Introduction of Nutritional Substance into Peripheral Vein, Percutaneous Approach (ICD-10-PCS; 2020-01-21)
DX: S06.6X1A Traumatic subarachnoid hemorrhage with loss of consciousness of 30 minutes or less, initial encounter (principal); E87.0 Hyperosmolality and hypernatremia; G93.41 Metabolic encephalopathy; E43 Unspecified severe protein-calorie malnutrition; S06.5X1A Traumatic subdural hemorrhage with loss of consciousness of 30 minutes or less, initial encounter; S01.81XA Laceration without foreign body of other part of head, initial encounter; D69.6 Thrombocytopenia, unspecified; R01.1 Cardiac murmur, unspecified; N18.9 Chronic kidney disease, unspecified; W19.XXXA Unspecified fall, initial encounter; Y93.9 Activity, unspecified; Y92.89 Other specified places as the place of occurrence of the external cause; Y99.9 Unspecified external cause status; R55 Syncope and collapse; D64.9 Anemia, unspecified; F03.90 Unspecified dementia, unspecified severity, without behavioral disturbance, psychotic disturbance, mood disturbance, and anxiety; E78.5 Hyperlipidemia, unspecified; R13.10 Dysphagia, unspecified; I10 Essential (primary) hypertension
CPT/HCPCS: 36415; 36430; 70450-TC; 70496-TC; 71045-TC-FY; 72125-TC; 74230-TC-FY; 76775-TC; 80048; 80053; 80061; 81003; 82308; 82550; 82553; 82607; 82746; 83036; 83605; 83721; 83735; 84100; 84443; 84484; 85025; 85027; 85610; 85730; 86780; 86850; 86900; 86901; 87040; 87086; 90715; 92611-GN; 93005; 93010; 93306-TC; 93880-TC; 95816; 97116-GP; 97161-GP; 99291; 99292; J0131; P9034; Q9967; U0003